=== PATIENT | male | born 1945 | race Caucasian/White ===

== ENCOUNTER 2023-07-13 11:19 | Inpatient (IN) | payer MEDICARE, OTHER, SELFPAY ==
[2023-07-13] VITALS (26 sets, daily range): BP systolic 144–166; BP diastolic 61–74; PULSE 52–67; RESP 13–27; TEMP 36.4; O2SAT 89–99; BMI 35.4; BMI 36.4
--- NOTE | 2023-07-13 11:43 | ECG_ITS ---
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
--- NOTE | 2023-07-13 11:44 | XR_ITS ---
The [address] [address] Patient Name: ANDRES CHRISTINA MRN: [id number] date: 1945 Sex: M Assigned Patient Location: ER Current Patient Location: ER Accession/Order Number: [id number] Exam Date: 07/13/2023 12:00 Report Date: 07/13/2023 12:11 At the request of: MERVIN FERMIN Procedure: XR chest 1V EXAM: XR chest 1V HISTORY: SOB COMPARISON: 06/09/2016 TECHNIQUE: PA and lateral FINDINGS: LUNGS: Elevation the right diaphragm. Mild right basilar infiltrate. The left lung is clear VASCULATURE: No increased pulmonary vasculature. PLEURA: No pneumothorax, effusion, or pleural thickening. CARDIAC: No cardiomegaly or cardiac silhouette abnormality. MEDIASTINUM: No visible mass or adenopathy. . Aortic atherosclerosis BONES: Right humeral head arthroplasty. Degenerative spondylosis OTHER: Negative. XR/XR chest 1V IMPRESSION: Elevated right hemidiaphragm versus subpulmonic pleural effusion with mild right basilar infiltrate Electronically authenticated by: RONNY BARAHONA Date: 07/13/2023 12:11
--- NOTE | 2023-07-13 11:44 | ED.SOB1 ---
HPI - SOB/Dyspnea General Chief Complaint: Shortness of Breath/Dyspnea Stated Complaint: COUGH/ POST OPERATIVE COMPLICATIONS Time Seen by Provider: 07/13/23 11:38 Source: patient and family Mode of arrival: Wheelchair Limitations: no limitations History of Present Illness HPI Narrative: 78-year-old male presents for shortness of breath and concern that he has a blood clot. Three days ago he had outpatient right shoulder surgery. The next day, two days ago, he developed slight cough and some shortness of breath. No fever or hemoptysis. Is not complaining of back pain or chest pain. His ankles are always swollen and there is a little bit more than typical. Related Data Home Medications Medication Instructions Recorded Confirmed allopurinol 300 mg tablet 300 mg PO DAILY 07/13/23 07/13/23 diltiazem HCl 240 mg 240 mg PO DAILY 07/13/23 07/13/23 capsule,extended release 24 hr ferrous sulfate 325 mg (65 mg 325 mg PO DAILY 07/13/23 07/13/23 iron) tablet finasteride 5 mg tablet 5 mg PO DAILY 07/13/23 07/13/23 losartan 50 mg tablet 50 mg PO DAILY 07/13/23 07/13/23 pregabalin 25 mg capsule (Lyrica) 25 mg PO TID 07/13/23 07/13/23 sitagliptin phosphate 50 mg tablet 50 mg PO DAILY 07/13/23 07/13/23 (Januvia) Allergies Allergy/AdvReac Type Severity Reaction Status Date / Time ibuprofen [From Motrin] AdvReac Severe Verified 07/13/23 11:30 morphine AdvReac Severe Vomiting Verified 07/13/23 11:30 Penicillins AdvReac Severe Hives Verified 07/13/23 11:30 Review of Systems ROS Narrative A ten point review of systems is negative except as noted above. PFSH PFSH Social History Smoking status: Former smoker Exam Narrative Exam Narrative: Nurses note and vital signs reviewed and patient is not hypoxic. General: The patient appears well and in no apparent distress. Patient is resting comfortably on cart. he coughs occasionally Skin: Warm, dry, no pallor noted. There is no rash noted. Head: Normocephalic, atraumatic Eye: Normal conjunctiva, no drainage Ears, Nose, Mouth, and Throat: oral mucosa is moist. Nares patent. Cardiovascular: Regular Rate and Rhythm Respiratory: Patient is in no distress, no accessory muscle use, lungs are clear to auscultation, no wheezing, rales or rhonchi Back: non-tender GI: soft and nontender Musculoskeletal: arm is in a sling. He has 2+ edema in both ankles. Neurological: A&O, normal speech Psychiatric: Cooperative Constitutional Vital Signs, click to edit/add: Last Vital Signs Temp 97.5 F L 07/13/23 11:24 Pulse 56 L 07/13/23 13:20 Resp 19 07/13/23 13:20 BP 164/64 H 07/13/23 11:24 Pulse Ox 96 07/13/23 11:24 O2 Del Method Room Air 07/13/23 11:24 Course Vital Signs Vital signs: Vital Signs Temperature 97.5 F L 07/13/23 11:24 Pulse Rate 65 07/13/23 11:24 Respiratory Rate 18 07/13/23 11:24 Blood Pressure 164/64 H 07/13/23 11:24 Pulse Oximetry 96 07/13/23 11:24 Oxygen Delivery Method Room Air 07/13/23 11:24 Temperature 97.5 F L 07/13/23 11:24 Pulse Rate 56 L 07/13/23 13:20 Respiratory Rate 19 07/13/23 13:20 Blood Pressure 164/64 H 07/13/23 11:24 Pulse Oximetry 96 07/13/23 11:24 Oxygen Delivery Method Room Air 07/13/23 11:24 MDM - SOB/Dyspnea MDM Narrative Medical decision making narrative: ventilation perfusion scan shows no evidence of PE but x-ray and CAT scan show effusion and infiltrate. Blood cultures are obtained and he was given IV antibiotics and is being admitted for observation. The patient is in the immediate postoperative period, surgery was three days ago. Treatment diagnosis and disposition were discussed with the patient and his family. His creatinine was 2.05 on June 26. Today it is 2.64 and he has bilateral ankle edema. Differential Diagnosis Differential diagnosis: Likely congestive heart failure, community acquired pneumonia and pulmonary embolism Lab Data Attestation: I reviewed the patient's lab results. Labs: Lab Results 07/13/23 Range/Units 11:48 WBC 15.2 H (4.0-11.0) 10^3/uL RBC 4.44 L (4.70-6.10) 10^6/uL Hgb 12.2 L (14.0-18.0) g/dL Hct 38.5 L (42.0-54.0) % MCV 86.7 (80.0-94.0) fL MCH 27.5 (25.9-34.0) pg MCHC 31.7 (29.9-35.2) g/dL RDW 15.1 H (11.0-15.0) % Plt Count 216 (150-450) 10^3/uL MPV 10.7 (9.5-13.5) fL Neut % (Auto) 74.8 (43.0-75.0) % Lymph % (Auto) 13.4 L (20.5-60.0) % Dukes % (Auto) 9.3 (1.7-12.0) % Eos % (Auto) 0.2 L (0.9-7.0) % Baso % (Auto) 0.3 (0.2-2.0) % Neut # (Auto) 11.4 H (1.4-6.5) 10^3/uL Lymph # (Auto) 2.0 (1.2-3.8) 10^3/uL Dukes # (Auto) 1.4 H (0.3-0.8) 10^3/uL Eos # (Auto) 0.0 (0.0-0.7) 10^3/uL Baso # (Auto) 0.0 (0.0-0.1) 10^3/uL Abs Immat Gran (auto) 0.30 H (0.00-0.03) 10^3/uL Imm/Tot Granulo (auto) 2.0 H (0.0-0.5) % Sodium 140 (136-145) mmol/L Potassium 4.2 (3.5-5.1) mmol/L Chloride 103 (98-107) mmol/L Carbon Dioxide 27.8 (21.0-32.0) mmol/L Anion Gap 13.4 BUN 75.0 H (7.0-18.0) mg/dL Creatinine 2.64 H (0.70-1.30) mg/dL Est GFR ( Amer) 29 L (>=60) Est GFR (Non-Af Amer) 24 L (>=60) BUN/Creatinine Ratio 28.4 Glucose 260 H (74-106) mg/dL Lactate 1.4 (0.4-2.0) mmol/L Calcium 8.7 (8.5-10.1) mg/dL Troponin I High Sens 24.0 (4.0-76.1) pg/mL Imaging Data lung scan, chest x-ray, CT chest: Radiologist's impression: Procedure: CT chest wo con EXAM: CT chest wo con HISTORY: abnormal chest x-ray, evaluate for effusion COMPARISON: Chest study performed earlier today on 07/13/2023 TECHNIQUE: CT chest study was performed without the use of intravenous contrast. Multiple axial images were obtained. Reformatted coronal and sagittal images were obtained and reviewed. FINDINGS: No evidence of mediastinal, hilar or axillary lymphadenopathy. Atherosclerotic calcifications within portions of the thoracic aorta. No evidence of thoracic aortic aneurysm or leak. Mild coronary artery calcifications are noted. Visualized thyroid gland appears grossly unremarkable. Streak artifact related to right shoulder prosthesis. Soft tissue air on the right likely related to recent right shoulder surgery. Mild soft tissue edematous changes on the right likely related to recent surgery. Mild elevation right hemidiaphragm. Consolidated density with air bronchograms in the right lower lobe posteriorly compatible with infiltrate. Small right pleural effusion inferiorly. Mild patchy and linear density in the left lower lobe posteriorly compatible with atelectatic and/or infiltrative changes. Chest wall appears grossly intact. [id number] degenerative changes about the visualized cervical and thoracic spine with slight convexity of the thoracic spine to the right. IMPRESSION: CT chest study demonstrates infiltrative changes in the right lower lobe posteriorly. Mild atelectatic and/or infiltrative changes in the left lower lobe. Small right pleural effusion inferiorly. Postoperative changes as noted. Electronically authenticated by: RUTH CLEMONS Date: 07/13/2023 Procedure: XR chest 1V EXAM: XR chest 1V HISTORY: SOB COMPARISON: 06/09/2016 TECHNIQUE: PA and lateral FINDINGS: LUNGS: Elevation the right diaphragm. Mild right basilar infiltrate. The left lung is clear VASCULATURE: No increased pulmonary vasculature. PLEURA: No pneumothorax, effusion, or pleural thickening. CARDIAC: No cardiomegaly or cardiac silhouette abnormality. MEDIASTINUM: No visible mass or adenopathy. . Aortic atherosclerosis BONES: Right humeral head arthroplasty. Degenerative spondylosis OTHER: Negative. IMPRESSION: Elevated right hemidiaphragm versus subpulmonic pleural effusion with mild right basilar infiltrate Electronically authenticated by: RONNY BARAHONA Date: 07/13/2023 12:11 Procedure: NM pul vent and perfuse NUCLEAR MEDICINE V/Q SCAN HISTORY: Shortness of breath with recent surgery. COMPARISON: Chest X-ray 07/13/2023. METHOD: For the ventilation portion of the study, the patient inhaled 27 mCi of Tc-99m-DTPA in aerosol form and ventilation images in multiple projections was performed. For the perfusion portion of the study, the patient was injected intravenously with 7.7 mCi of Tc-99m-MAA and perfusion images of the lungs in multiple projections were again performed. FINDINGS: There are a few stable very small ventilation perfusion defects at the lung bases. There are no ventilation/perfusion mismatches. IMPRESSION: Very low probability VQ scan. Electronically authenticated by: ARMANDO LAL ECG Data Attestation: I personally reviewed and interpreted this ECG as follows: (EKG on my interpretation shows sinus rhythm with no acute changes) Discharge Plan Discharge Chief Complaint: Shortness of Breath/Dyspnea Time of Disposition Decision: 16:02 Prescriptions / Home Meds: No Action losartan 50 mg tablet 50 mg PO DAILY pregabalin [Lyrica] 25 mg capsule 25 mg PO TID diltiazem HCl 240 mg capsule,extended release 24hr 240 mg PO DAILY allopurinol 300 mg tablet 300 mg PO DAILY Januvia 50 mg tablet 50 mg PO DAILY ferrous sulfate 325 mg (65 mg iron) tablet 325 mg PO DAILY finasteride 5 mg tablet 5 mg PO DAILY
[2023-07-13 12:02] LABS: Basophils Percent Auto 0.3 % (0.2-2.0); Eosinophils Percent Auto 0.2 % (0.9-7.0); Hematocrit 38.5 % (42.0-54.0); Hemoglobin 12.2 g/dL (14.0-18.0); Lymphocytes Percent Auto 13.4 % (20.5-60.0); Mean Corpuscular HGB Conc 31.7 g/dL (29.9-35.2); Mean Corpuscular Hemoglobin 27.5 pg (25.9-34.0); Mean Corpuscular Volume 86.7 fL (80.0-94.0); Mean Platelet Volume 10.7 fL (9.5-13.5); Monocytes Absolute Auto 1.4 10^3/uL (0.3-0.8); Monocytes Percent Auto 9.3 % (1.7-12.0); Neutrophils Absolute Auto 11.4 10^3/uL (1.4-6.5); Neutrophils Percent Auto 74.8 % (43.0-75.0); Platelet Count 216 10^3/uL (150-450); Red Blood Count 4.44 10^6/uL (4.70-6.10); Red Cell Distribution Width 15.1 % (11.0-15.0); White Blood Count 15.2 10^3/uL (4.0-11.0)
[2023-07-13 12:07] LABS: Anion Gap 13.4; BUN Creatinine Ratio 28.4; Calcium 8.7 mg/dL (8.5-10.1); Carbon Dioxide 27.8 mmol/L (21.0-32.0); Chloride 103 mmol/L (98-107); Estimated GFR (African America 29 (>=60); Estimated GFR (Non-African Ame 24 (>=60); Glucose 260 mg/dL (74-106); Potassium 4.2 mmol/L (3.5-5.1); Sodium 140 mmol/L (136-145)
--- NOTE | 2023-07-13 12:22 | NM_ITS ---
The [address] [address] Patient Name: ANDRES CHRISTINA MRN: [id number] date: 1945 Sex: M Assigned Patient Location: ER Current Patient Location: Accession/Order Number: [id number] Exam Date: 07/13/2023 14:00 Report Date: 07/13/2023 15:36 At the request of: MERVIN FERMIN Procedure: NM pul vent and perfuse NUCLEAR MEDICINE V/Q SCAN HISTORY: Shortness of breath with recent surgery. COMPARISON: Chest X-ray 07/13/2023. METHOD: For the ventilation portion of the study, the patient inhaled 27 mCi of Tc-99m-DTPA in aerosol form and ventilation images in multiple projections was performed. For the perfusion portion of the study, the patient was injected intravenously with 7.7 mCi of Tc-99m-MAA and perfusion images of the lungs in multiple projections were again performed. FINDINGS: There are a few stable very small ventilation perfusion defects at the lung bases. There are no ventilation/perfusion mismatches. NM/NM pul vent and perfuse IMPRESSION: Very low probability VQ scan. Electronically authenticated by: ARMANDO LAL Date: 07/13/2023 15:36
--- NOTE | 2023-07-13 12:23 | CT_ITS ---
The [address] [address] Patient Name: ANDRES CHRISTINA MRN: [id number] date: 1945 Sex: M Assigned Patient Location: ER Current Patient Location: ER Accession/Order Number: [id number] Exam Date: 07/13/2023 13:50 Report Date: 07/13/2023 14:13 At the request of: MERVIN FERMIN Procedure: CT chest wo con EXAM: CT chest wo con HISTORY: abnormal chest x-ray, evaluate for effusion COMPARISON: Chest study performed earlier today on 07/13/2023 TECHNIQUE: CT chest study was performed without the use of intravenous contrast. Multiple axial images were obtained. Reformatted coronal and sagittal images were obtained and reviewed. FINDINGS: No evidence of mediastinal, hilar or axillary lymphadenopathy. Atherosclerotic calcifications within portions of the thoracic aorta. No evidence of thoracic aortic aneurysm or leak. Mild coronary artery calcifications are noted. Visualized thyroid gland appears grossly unremarkable. Streak artifact related to right shoulder prosthesis. Soft tissue air on the right likely related to recent right shoulder surgery. Mild soft tissue edematous changes on the right likely related to recent surgery. Mild elevation right hemidiaphragm. Consolidated density with air bronchograms in the right lower lobe posteriorly compatible with infiltrate. Small right pleural effusion inferiorly. Mild patchy and linear density in the left lower lobe posteriorly compatible with atelectatic and/or infiltrative changes. Chest wall appears grossly intact. [id number] degenerative changes about the visualized cervical and thoracic spine with slight convexity of the thoracic spine to the right. CT/CT chest wo con IMPRESSION: CT chest study demonstrates infiltrative changes in the right lower lobe posteriorly. Mild atelectatic and/or infiltrative changes in the left lower lobe. Small right pleural effusion inferiorly. Postoperative changes as noted. Electronically authenticated by: RUTH CLEMONS Date: 07/13/2023 14:13
[2023-07-13 15:21] LABS: Lactate/Lactic Acid 1.4 mmol/L (0.4-2.0)
[2023-07-13] MEDS: OXYCODONE HCL/ACETAMINOPHEN 5MG/325MG 1 TAB PO (15:26)
[2023-07-13] MEDS: CEFTRIAXONE 1,000 MG in 0.9 % SODIUM CHLORIDE 50 ML 100 MG IV (16:22)
[2023-07-13] MEDS: LACTATED RINGER'S SOLUTION 1,000 ML 100 ML IV (17:23)
[2023-07-13] MEDS: AZITHROMYCIN 500 MG in 0.9 % SODIUM CHLORIDE 250 ML 250 MG IV (17:23)
[2023-07-13] MEDS: PREGABALIN 75 MG CAPSULE PO (21:10)
[2023-07-13] MEDS: HEPARIN SODIUM (PORCINE) 5,000 UNIT/ML VIAL 5000 UNIT SUBQ (21:10)
[2023-07-13 21:35] LABS: Glucometer 172 mg/dL (74-106)
[2023-07-13] MEDS: INSULIN ASPART 300 UNIT/3 ML PEN SUBQ (21:35)
[2023-07-13] MEDS: IPRATROPIUM/ALBUTEROL SULFATE 3 ML AMPUL.NEB IH (22:46)
[2023-07-14 04:06] VITALS: BP 133/67; PULSE 99; RESP 18; TEMP 36.7; O2SAT 97
[2023-07-14 04:07] VITALS: PULSE 61; RESP 18; O2SAT 97
[2023-07-14] MEDS: IPRATROPIUM/ALBUTEROL SULFATE 3 ML AMPUL.NEB IH ×2 (04:07→11:12)
[2023-07-14] MEDS: LACTATED RINGER'S SOLUTION 1,000 ML 100 ML IV (04:11)
[2023-07-14 05:16] LABS: Basophils Percent Auto 0.2 % (0.2-2.0); Eosinophils Absolute Auto 0.1 10^3/uL (0.0-0.7); Eosinophils Percent Auto 0.5 % (0.9-7.0); Hematocrit 32.4 % (42.0-54.0); Immature Granulocytes Abs Auto 0.22 10^3/uL (0.00-0.03); Immature Granulocytes Pct Auto 2.1 % (0.0-0.5); Lymphocytes Absolute Auto 2.3 10^3/uL (1.2-3.8); Lymphocytes Percent Auto 21.1 % (20.5-60.0); Mean Corpuscular HGB Conc 30.9 g/dL (29.9-35.2); Mean Corpuscular Hemoglobin 27.1 pg (25.9-34.0); Mean Corpuscular Volume 87.8 fL (80.0-94.0); Monocytes Absolute Auto 1.2 10^3/uL (0.3-0.8); Monocytes Percent Auto 11.4 % (1.7-12.0); Neutrophils Percent Auto 64.7 % (43.0-75.0); Platelet Count 177 10^3/uL (150-450); Red Blood Count 3.69 10^6/uL (4.70-6.10); Red Cell Distribution Width 15.2 % (11.0-15.0); White Blood Count 10.7 10^3/uL (4.0-11.0)
[2023-07-14 05:29] LABS: Alanine Aminotransferase 14 U/L (16-63); Albumin Globulin Ratio 0.7; Albumin Level 2.3 g/dL (3.4-5.0); Alkaline Phosphatase 87 U/L (46-116); Aspartate Amino Transferase 14 U/L (15-37); BUN Creatinine Ratio 31.5; Bilirubin Total 0.3 mg/dL (0.2-1.0); Calcium 8.2 mg/dL (8.5-10.1); Carbon Dioxide 26.2 mmol/L (21.0-32.0); Chloride 105 mmol/L (98-107); Estimated GFR (African America 39 (>=60); Estimated GFR (Non-African Ame 32 (>=60); Globulin 3.1 g/dL; Glucose 142 mg/dL (74-106); Potassium 4.2 mmol/L (3.5-5.1); Sodium 140 mmol/L (136-145); Total Protein 5.4 g/dL (6.4-8.2)
[2023-07-14] MEDS: HEPARIN SODIUM (PORCINE) 5,000 UNIT/ML VIAL 5000 UNIT SUBQ ×2 (05:43→14:41)
--- NOTE | 2023-07-14 08:33 | P.HP_ITS ---
H&P: HPI History of Present Illness Chief complaint: COUGH/ POST OPERATIVE COMPLICATIONS pneumonia Narrative: patient is a 78-year-old with past medical history of gout, hypertension, iron deficiency anemia, congestive heart failure, benign prostatic hypertrophy, type 2 diabetes who presented to the emergency room yesterday with shortness of breath. He had right shoulder surgery approximately three days ago and he developed a cough with some shortness of breath about two days after surgery. He denies any fever chills nausea vomiting or chest pain. He states that his symptoms have somewhat improved this morning. He does note some soreness in his right shoulder is in a sling/immobilizer but says overall his shortness of breath has improved.chest x-ray showed bilateral lower lobe infiltrates consistent with pneumonia. patient was admitted for further evaluation. Also at the time of admission exam is not requiring any oxygen to maintain saturations greater than ninety. Review of Systems ROS Narrative ROS: a complete review of systems were reviewed with patient and are positive as below or listed in History of Chief Complaint. General: no fever, chills, night sweats Head: no headache, trauma, visual changes, nausea or vomiting Skin: no reported rashes, itching or sores Eyes: no blurriness of vision Ears: no reported hearing loss, vertigo, earache, or tinnitus Throat: no sore throat, hoarseness, swelling of neck, or tongue pain Heart: no chest pain Lungs:shortness of breath and cough GI: no diarrhea or vomiting/nausea Urinary: no urinary urgency, frequency or pain Neuro: no numbness or tingling HEM: no bleeding issues or bruising ENDO: no thyroid problems Psych: no anxiety or depression PFSH PFSH Medical History (Updated 07/14/23 @ 14:12 by Isabel Limon DO) Gout ?M10.9 - Gout, unspecified (ICD-10) High blood pressure ?I10 - Essential (primary) hypertension (ICD-10) [place] (hard of hearing) ?H91.90 - Unspecified hearing loss, unspecified ear (ICD-10) Surgical History History of hip replacement ?Z96.649 - Presence of unspecified artificial hip joint (ICD-10) History of knee replacement (~11/2022) ?Z96.659 - Presence of unspecified artificial knee joint (ICD-10) History of reverse total replacement of right shoulder joint (~07/10/23) ?Z96.611 - Presence of right artificial shoulder joint (ICD-10) Social History Within the past year, how often did you have a drink containing alcohol: monthly or less Smoking status: Former smoker Non-prescribed substance use: denies use Previous occupational history: farm Highest level of school completed/degree received: high school graduate Meds Home Medications and Allergies Home Medications Medication Instructions Recorded Confirmed Type allopurinol 300 mg tablet 300 mg PO DAILY 07/13/23 07/13/23 History cholecalciferol (vitamin D3) 25 2,000 unit PO DAILY 07/13/23 07/13/23 History mcg (1,000 unit) capsule diltiazem HCl 240 mg 240 mg PO DAILY 07/13/23 07/13/23 History capsule,extended release 24 hr ferrous sulfate 325 mg (65 mg 325 mg PO MOWEFR@07/13/23 07/13/23 History iron) tablet finasteride 5 mg tablet 5 mg PO DAILY 07/13/23 07/13/23 History furosemide 40 mg tablet 40 mg PO DAILY 07/13/23 07/13/23 History losartan 50 mg tablet 50 mg PO DAILY 07/13/23 07/13/23 History pregabalin 25 mg capsule (Lyrica) 75 mg PO BID 07/13/23 07/13/23 History sitagliptin phosphate 50 mg tablet 50 mg PO DAILY 07/13/23 07/13/23 History (Renée) Allergies Allergy/AdvReac Type Severity Reaction Status Date / Time ibuprofen [From Motrin] AdvReac Severe Verified 07/13/23 17:07 morphine AdvReac Severe Vomiting Verified 07/13/23 17:07 Penicillins AdvReac Severe Hives Verified 07/13/23 17:07 Exam Narrative Exam Narrative: General: Patient is alert, and oriented to person, place and time with normal affect, proper hygiene Skin: no visible rashes, or ulcers Head: atraumatic, acephalic Eyes: PERRLA, no nystagmus present, conjunctiva clear, no scleral icterus Ears: normal Tympanic Membrane, normal gross auditory acuity Nose: symmetric, no discharge, no maxillary or frontal sinus tenderness Neck: no masses palpated, normal thyroid, no JVD or audible carotid bruits Heart: Normal rate and rhythm, no murmurs/rubs/gallops Lungs: slight bilateral wheezes, no crackles and normal breath sounds all lung jaramillo Abdomen: Normal audible bowel sounds, mild distension, No palpable masses, no organomegaly, no rebound/guarding/ or rigidity Musculoskeletal: muscle atrophy noted, ROM is limited due to being in hospital bed, no swelling bilateral lower extremities Vascular: Normal carotid, radial, femoral, posterior tibial, and dorsalis pedis pulses Lymph: no supraclavicular, axillary, or anterior/posterior cervical adenopathy Neuro: CN II-X grossly intact, normal sensation upper and lower extremities Constitutional Vital Signs, click to edit/add: Last Vital Signs Temp 98.0 F 07/14/23 04:06 Pulse 61 07/14/23 04:07 Resp 18 07/14/23 04:07 BP 133/67 07/14/23 04:06 Pulse Ox 97 07/14/23 04:07 O2 Del Method Room Air 07/14/23 04:07 Results Labs Labs: Short CBC 07/13/23 07/14/23 Range/Units 11:48 04:26 WBC 15.2 H 10.7 (4.0-11.0) 10^3/uL Hgb 12.2 L 10.0 L (14.0-18.0) g/dL Hct 38.5 L 32.4 L (42.0-54.0) % Plt Count 216 177 (150-450) 10^3/uL BMP 07/13/23 07/14/23 11:48 04:26 Sodium 140 140 Potassium 4.2 4.2 Chloride 103 105 Carbon Dioxide 27.8 26.2 BUN 75.0 H 63.0 H Creatinine 2.64 H 2.00 H Glucose 260 H 142 H Calcium 8.7 8.2 L Liver Function 07/14/23 Range/Units 04:26 Total Bilirubin 0.3 (0.2-1.0) mg/dL AST 14 L (15-37) U/L ALT 14 L (16-63) U/L Alkaline Phosphatase 87 (46-116) U/L Albumin 2.3 L (3.4-5.0) g/dL Assessment and Plan Assessment and Plan (1) Pneumonia of both lower lobes: Assessment and Plan: Chest X-ray showed this, respiratory culture negative. patient on Azithromycin and rocephin. will continue. continue nebs as needed, not requiring oxygen, Normal WBC's, Normal VQ scan Qualifiers: Pneumonia type: due to unspecified organism Qualified Code(s): J18.9 - Pneumonia, unspecified organism (2) Arthritis of right shoulder region: Assessment and Plan: recent surgery, continue pain medications (3) High blood pressure: Assessment and Plan: continue home medications Qualifiers: Hypertension type: primary hypertension Qualified Code(s): I10 - Essential (primary) hypertension (4) Constipation: Assessment and Plan: continue docusate and miralax Qualifiers: Constipation type: drug induced constipation Qualified Code(s): K59.03 - Drug induced constipation (5) Gout: Assessment and Plan: no acute attacks, continue home meds Qualifiers: Gout site: unspecified site Gout etiology: unspecified cause Chron icity: chronic (6) Type 2 diabetes mellitus: Assessment and Plan: SSI while hospitalized with qac, qhs finger sticks. Plan patient is a full code admitted to observation [facility] for dvt prophylaxis
[2023-07-14] MEDS: AZITHROMYCIN 250 MG TABLET 500 MG PO (10:55)
[2023-07-14] MEDS: DILTIAZEM HCL 240 MG CAP.ER.24H PO (10:55)
[2023-07-14] MEDS: FERROUS SULFATE 325 MG TABLET PO (10:56)
[2023-07-14] MEDS: ALLOPURINOL 300 MG TABLET PO (10:56)
[2023-07-14] MEDS: FINASTERIDE 5 MG TABLET PO (10:56)
[2023-07-14] MEDS: PREGABALIN 75 MG CAPSULE PO (10:56)
[2023-07-14] MEDS: CEFTRIAXONE 1,000 MG in 0.9 % SODIUM CHLORIDE 50 ML 100 MG IV (10:56)
[2023-07-14] MEDS: OXYCODONE HCL 5 MG TABLET PO (10:59)
[2023-07-14] MEDS: INSULIN ASPART 300 UNIT/3 ML PEN SUBQ ×2 (11:01→12:21)
[2023-07-14] MEDS: MAALOX (MAG HYDROX/ALUMINUM HYD/SIMETH) 30 ML ORAL.SUSP PO (11:02)
[2023-07-14] MEDS: POLYETHYLENE GLYCOL 3350 17 GM POWDER PACKET PO (11:02)
[2023-07-14 11:13] VITALS: PULSE 79; O2SAT 97
[2023-07-14 12:20] LABS: Glucometer 241 mg/dL (74-106)
--- NOTE | 2023-07-14 14:14 | P.DS_ITS ---
DS: Providers Provider Date of admission: 07/13/23 16:57 Primary care physician: Non-Staff PhysicianMD Admitting clinician: Shaikh Umu Consults: 07/13/23 16:31 Occupational Therapy Eval and Treat Routine Reason for consultation: Ambulatory dysfunction/weakness Physical Therapy Eval and Treat Routine Reason for consultation: Ambulatory dysfunction/weakness Discharging clinician: Isabel Limon DS: Diagnosis Discharge Diagnosis (1) Pneumonia of both lower lobes: Qualifiers: Pneumonia type: due to unspecified organism Qualified Code(s): J18.9 - Pneumonia, unspecified organism (2) Arthritis of right shoulder region: (3) High blood pressure: Qualifiers: Hypertension type: primary hypertension Qualified Code(s): I10 - Essential (primary) hypertension (4) Constipation: Qualifiers: Constipation type: drug induced constipation Qualified Code(s): K59.03 - Drug induced constipation (5) Gout: Qualifiers: Chronicity: chronic Gout etiology: unspecified cause Gout site: unspecified site (6) Type 2 diabetes mellitus: DS: Summary Hospital Course Hospital Course: patient is a 78-year-old with past medical history of gout, hypertension, iron deficiency anemia, congestive heart failure, benign prostatic hypertrophy, type 2 diabetes who presented to the emergency room yesterday with shortness of breath. He had right shoulder surgery approximately three days ago and he developed a cough with some shortness of breath about two days after surgery. He denies any fever chills nausea vomiting or chest pain. He states that his sympt oms have somewhat improved this morning. He does note some soreness in his right shoulder is in a sling/immobilizer but says overall his shortness of breath has improved. chest x-ray showed bilateral lower lobe infiltrates consistent with pneumonia. patient was admitted for further evaluation. At the time of discharge, patient is not requiring any oxygen to maintain saturations greater than ninety. V/Q scan was negative. Will treat Pneumonia outpatient with 4 more days of azithromycin, Albuterol as needed. Return to the ER with any worsening signs or symptoms. OPEP therapy at home. For constipation due to narcotics, take docusate and also take miralax daily. All other home medications are unchanged. Follow up with PCP AND ortho as scheduled. Status at Discharge Functional status at discharge: independent ambulation Overall status at discharge: patient is progressing back to baseline Time Spent with Patient Time attestation: Total time spent providing and/or coordinating discharge services: Time spent: greater than 30 minutes Exam Narrative Exam Narrative: no changes to discharge exam as the H and P exam dated 07/14/23 Constitutional Vital Signs, click to edit/add: Last Vital Signs Temp 98.0 F 07/14/23 04:06 Pulse 79 07/14/23 11:13 Resp 18 07/14/23 04:07 BP 133/67 07/14/23 04:06 Pulse Ox 97 07/14/23 11:13 O2 Del Method Room Air 07/14/23 12:12 DS: Data Data Completed and Pending Labs on day of discharge: Labs from last 24 hours 07/14/23 07/14/23 07/13/23 12:19 04:26 21:33 WBC 10.7 RBC 3.69 L Hgb 10.0 L Hct 32.4 L MCV 87.8 MCH 27.1 MCHC 30.9 RDW 15.2 H Plt Count 177 MPV 11.0 Neut % (Auto) 64.7 Lymph % (Auto) 21.1 Republic % (Auto) 11.4 Eos % (Auto) 0.5 L Baso % (Auto) 0.2 Neut # (Auto) 7.0 H Lymph # (Auto) 2.3 Republic # (Auto) 1.2 H Eos # (Auto) 0.1 Baso # (Auto) 0.0 Abs Immat Gran (auto) 0.22 H Imm/Tot Granulo (auto) 2.1 H Sodium 140 Potassium 4.2 Chloride 105 Carbon Dioxide 26.2 Anion Gap 13.0 BUN 63.0 H Creatinine 2.00 H Est GFR ( Amer) 39 L Est GFR (Non-Af Amer) 32 L BUN/Creatinine Ratio 31.5 Glucose 142 H Lactate Calcium 8.2 L Total Bilirubin 0.3 AST 14 L ALT 14 L Alkaline Phosphatase 87 Total Protein 5.4 L Albumin 2.3 L Globulin 3.1 Albumin/Globulin Ratio 0.7 POC Glucose 241 H 172 H 07/13/23 11:48 WBC RBC Hgb Hct MCV MCH MCHC RDW Plt Count MPV Neut % (Auto) Lymph % (Auto) Republic % (Auto) Eos % (Auto) Baso % (Auto) Neut # (Auto) Lymph # (Auto) Republic # (Auto) Eos # (Auto) Baso # (Auto) Abs Immat Gran (auto) Imm/Tot Granulo (auto) Sodium Potassium Chloride Carbon Dioxide Anion Gap BUN Creatinine Est GFR ( Amer) Est GFR (Non-Af Amer) BUN/Creatinine Ratio Glucose Lactate 1.4 Calcium Total Bilirubin AST ALT Alkaline Phosphatase Total Protein Albumin Globulin Albumin/Globulin Ratio POC Glucose Discharge Plan Discharge Disposition: (FBC OBS) Home, Self-Care Condition: Good Discharge Medications: New azithromycin 250 mg tablet 250 mg PO DAILY 4 Days Qty: 4 0RF albuterol sulfate 90 mcg/actuation HFA aerosol inhaler 2 inh inhalation Q4H PRN (Reason: shortness of breath or wheezing) Qty: 8.5 0RF docusate sodium 100 mg capsule 100 mg PO BID 30 Days Qty: 60 0RF Continued losartan 50 mg tablet 50 mg PO DAILY pregabalin [Lyrica] 25 mg capsule 75 mg PO BID diltiazem HCl 240 mg capsule,extended release 24hr 240 mg PO DAILY allopurinol 300 mg tablet 300 mg PO DAILY Januvia 50 mg tablet 50 mg PO DAILY ferrous sulfate 325 mg (65 mg iron) tablet 325 mg PO MOWEFR@09 finasteride 5 mg tablet 5 mg PO DAILY cholecalciferol (vitamin D3) 25 mcg (1,000 unit) capsule 2,000 unit PO DAILY furosemide 40 mg tablet 40 mg PO DAILY Diet: advance to your usual diet Follow Up Appointments: pcp 5-7 days, ortho as scheduled
== END 2023-07-14 16:08 | disposition home or self-care (01) | DRG 195 ==
LOC: ER 16:03 → MS 07-14 14:14
PROVIDERS: Admitting Provider Internal Medicine; Emergency Provider Emergency Medicine; Visit Provider Internal Medicine
DX: J18.9 Pneumonia, unspecified organism (principal); M19.011 Primary osteoarthritis, right shoulder; I11.0 Hypertensive heart disease with heart failure; Z98.890 Other specified postprocedural states; K59.03 Drug induced constipation; E11.9 Type 2 diabetes mellitus without complications; I50.9 Heart failure, unspecified; N40.0 Benign prostatic hyperplasia without lower urinary tract symptoms; D50.9 Iron deficiency anemia, unspecified; Z79.899 Other long term (current) drug therapy; M1A.9XX0 Chronic gout, unspecified, without tophus (tophi); Z79.84 Long term (current) use of oral hypoglycemic drugs; Z87.891 Personal history of nicotine dependence
CPT/HCPCS: 36415; 36592; 71045; 71250; 78582; 80048; 80053; 82948; 83605; 84484; 85025; 87040; 90662; 93005; 94640; 94667; 94761; 96365; 96366; 96367; 96372; 97161; 97530; 99285; A9540; A9567; G0008; J0456

== ENCOUNTER 2025-01-29 10:54 | Outpatient (OUT) | payer MEDICARE, OTHER, SELFPAY ==
--- OUTSIDE RECORDS SUMMARY | 2024-02-19 06:48 | XMS_ITS ---
Author Organization The [facility] in [place] Address [address] [place] [address] Care Team Providers Care Dry Can Tender Name Role Phone Brenda Fong Primary Care Provider Unavail casandra Sid Esdras Laughlin [phone] REASON FOR VISIT Labs Encounters Encounter Location Date Provider Diagnosis [facility] [place] [address] [place] [address] 02/19/2024 Esdras Lau Chronic kidney disease, stage 3b N18.32 Assessments Encounter Date Diagnosis (ICD Code) Assessment Notes Treatment Notes Treatment Clinical Notes Section Notes 02/19/2024 Chronic kidney disease, stage 3b (ICD-10 - N18.32) Plan Of Treatment Pending Test Test Name Order Date UA (URINALYSIS, COMPLETE) 02/19/2024 ALBUMIN, BLOOD 02/19/2024 MAGNESIUM 02/19/2024 CBC NO DIFF 02/19/2024 BMP (BASIC MET PANEL - W/GFR) 02/19/2024 MICROALBUMIN with ALB/CREAT RATIO, URINE (MALB)) 02/19/2024 PHOSPHORUS 02/19/2024 Next Appt Details Provider Name:Esdras Lau, 06/01/2025 12:00:00 PM, [address], [place], [address], Progress Notes * Ishaan CHRISTINADOB:[birth year] (79 yo M)Acc No.[id number]:02/19/2024 Patient: Benton Ishaan JONES :1945 A ge:79 Y S ex:Male Address:[address] [place] [address], [place], [address] Subjective: * Chief Complaints: * L abs * Medical History: * Surgical History: * Hospitalization/Major Diagno stic Procedure: * Medications: Objective: * Vitals: * Physical Examination: Assessment: * Assessment: 1. C hronic kidney disease, stage 3b - N18.32 Plan: * Treatment: * Procedure Codes: * true * Date: Generated for Adia menendez/Danielle/eTransmitting on: 0 01/29/2025 11:00 AM EDT
--- OUTSIDE RECORDS SUMMARY | 2024-02-25 11:00 | XMS_ITS ---
Author Organization The [facility] in [place] Address [address] [place] [address] Care Team Providers Care Organic Search Lead Name Role Phone Brenda Fong Primary Care Provider Unavail able Sid Esdras Laughlin [phone] Allergies Allergen (clinical drug ingredient) Drug/Non Drug [...] for 30 day(s) Not-Taking Ergocalciferol 1.25 MG (04341 UT) 1 capsule Orally Weekly Not-Taking Finasteride [...] Problem Status W/U Status Risk Notes Problem [id number] Chronic kidney disease, stage 4 (severe) (N18.4) Active confirmed Vital Signs Blood pressure systolic 145 mm Hg 02/25/20 24 Blood pressure diastolic 68 mm Hg 024 Height 5 ft 10 in in 02/25/2024 Weight 259 lbs 02/25/2024 BMI 37.16 kg/m2 02/25/2024 Encounters Encounter Location Date Provider Diagnosis [facility] [place] [address] [place] [address] 02/25/2024 Esdras Lau Chronic kidney disea se, [...] Provider Name:Esdras Lau, 06/01/2025 12:00:00 PM, [address] [place] [address], [place], [address], Progress Notes * Ishaan CHRISTINADOB:[birth year] (79 yo M)Acc No.[id number]:02/25/2024 Progress Note Patient: Ishaan TODD Provider: Fozia Lau MD :1945 A ge:79 Y S ex:Male Date:02/25/2024 Address:[address] [place] [address], [facility] Pcp:HORTENCIA Gr Check In:03:22 PM ESTCheck O [...] On:05/14/2023U Status:confirmed M19.90 Arthritis of right s [facility] Modified On:08/27/2023U Status:confirmed I10 High blood [...] Orally Once a day Ergocalciferol 1.25 MG (15163 UT) Capsule 1 capsule Orally Weekly Finasteride [...] Once a day Not-Taking/PRN Ergocalciferol 1.25 MG (26245 UT) Capsule 1 capsule Orally Weekly Not-Taking/PRN [...] true * Provider: Fozia Lau MD Date: 0 02/25/2024 Generated for Adia menendez/Danielle/eTransmitting on: 0 01/29/2025 10:59 AM EDT History and Physical Notes * [...]
--- OUTSIDE RECORDS SUMMARY | 2025-01-23 05:15 | XMS_ITS ---
Author Organization [facility] vices Address [address] [place] [id number] Care Team Providers Care Asset Protection Professional Name Role Phone Shailesh Erwin Primary Care Provider REASON FOR VISIT 3 month HTN Social History Sex Assigned At : Social History Observation Description Sex Assigned At Male Encounters Encounter Location Date Provider Diagnosis Main [address] [place] [id number] 01/23/2025 Shailesh Erwin Plan Of Treatment No Information Progress Notes * Ishaan CHRISTINADOB:[birth year] (80 yo M)Acc No.[id number]:01/23/2025 Medical Note Patient: Ishaan TODD Provider: Fozia Erwin :1945 A ge:80 Y S ex:Male Date:01/23/2025 Address:[address], [place], [place] Subjective: * Chief Complaints: * 1 . 3 month HTN. * Medical History: Objective: * Vitals: Assessment: Plan: * Treatment: * Billing Information: * Visit Code: * Procedure Codes: * Electronic signature of VERONICA Jaramillo on 01/29/2025 at 11:00 AM EDT Sign off status: Pending * Provider: Fozia Erwin Date: 01/23/2025 Generated for Printi ng/Faxing/eTransmitting on: 01/29/2025 11:00 AM EDT
--- NOTE | 2025-01-29 10:58 | ECG_ITS ---
[facility] [place] Test Date: 2025-01-29 Pat Name: ANDRES CHRISTINA Department: Room: - Gender: Male Bed Rubber: : 1945 Requested By: CLOTILDE VERDUZCO Order Number: [id number] Reading MD: NICK DOWNEY M.D. Measurements Intervals [place] Rate: 55 P: 60 CO: 219 QRS: -28 QRSD: 87 T: 53 QT: 440 QTc: 421 Interpretive Statements SINUS BRADYCARDIA WITH FIRST DEGREE AV BLOCK BORDERLINE LEFT AXIS DEVIATION [QRS AXIS < -20] Compared to ECG 07/13/2023 11:37:57 First degree AV block now present Sinus rhythm no longer present Electronically Signed On 01-29-2025 19:50:14 EDT by NICK DOWNEY M.D.
--- OUTSIDE RECORDS SUMMARY | 2025-01-29 10:59 | XMS_ITS | Encounter Summary ---
Author Organization [facility] Address [address] [place] [address] Care Team Providers Care Broacher Name Role Phone Mona Box DO Primary Care Provider Unallocated, Noms Provider Primary Care Provi [place] Encounter Details Date Type Department Care Team (Late st Contact Info) Description 03/25/2023 Abstract [facility] [address] [place] [address] Mona Box DO [address] [phone] Social History Tobacco Use Types Packs/Day Years Used Date Smoking Tobacco: Never Assessed Sex and Gender Information Value Date Recorded Sex Assigned at Not on file Legal Sex Male 6:33 PM EDT Gender Identity Not on file Sexual Orientation Not on file documented as of this encounter Plan of Treatment Not on file documented as of this encounter Visit Diagnoses Not on filedocumented in this encounter Care Teams Broacher Relationship Specialty Start Date End Date Mona Box DO PCP - General Family Medicine 12/12/22 04/22/24 Unallocated, Noms Provider, [place] [address] PCP - General Family Medicine 04/23/24 documented as of this encounter
--- OUTSIDE RECORDS SUMMARY | 2025-01-29 10:59 | XMS_ITS | Encounter Summary ---
Author Organization [facility] Address [id number] [address] [place] [address] Care Team Providers Care Household Worker Name Role Phone Services, [facility] Primary Care Provider Encounter Details Date Type Department Care Team (Late st Contact Info) Description 11/01/2023 Orders Only [facility] [address] [place] [phone] External, Scanning Provider Social History Tobacco Use Types Packs/Day Years Used Date Smoking Tobacco: Former Cigarettes 1 7 1 975 - 1981 Smokeless Tobacco: Never Alcohol Use Standard Drinks/Week Comments Never 0 (1 standard drink = 0.6 oz pur e alcohol) AUDIT-C Answer Date Recorded Frequency of Alcohol Consumption Never 09/26/2019 Average Number of Drinks Not on file 020 Frequency of Binge Drinking Not on file 09/07 Housing Instability Answer Date Recorde d Are you worried or concerned that in the next two months you may not have stable housing that you own, rent or stay in as a part of a household? No 11/24/2022 Childcare Answer Date Recorded Childcare Unknown 01/15/2019 Employment Answer Date Recorded Employment Unknown 01/15/2019 Hunger Screening Answer Date Recorded Within the past 12 months we worried whether our food would run out before we got money to buy more. Never True 09/11/2023 Within the past 12 months th e food we bought just didn't last and we didn't have money to get more. Never True 09/11/2023 Purpose - Life Answer Date Recorded Purpose and direction in life Unknown Sex and Gender Information Value Date Recorded Sex Assigned at Not on file Legal Sex Male 11:21 AM EDT Gender Identity Not on file Sexual Orientation Not on file documented as of this encounter Plan of Treatment Upcoming Encounters Date Type Department Care Team (Late st Contact Info) Description 06/12/2025 2:15 PM EST Office Visit Feliictas Grier [facility] - Medical Oncology [address] [place] [address] Fab Cespedes MD [address] [place] [address] [address] [place] [address] documented as of this encounter Goals Goal Patient Goal Type Associated Problems Recent Progress Patient-Stated? Author IMPROVE MOBILITY General Yes Delfina Dobbs, RN Note: Evaluation of progress towards goal: Maximize work with PT at discharge to strengthen R SHOULDER home with self care and family support General Yes Cheri Vergara, JOSE Note: Evaluation of progress towards goal: home with self care and family support documented as of this encounter Procedures Procedure Name Priority Date/Time Associated Diagnosis Comments ECHO COMPLETE WO CONTRAST Routine 09/06/2010 2:38 PM EST documented in this encounter Results * Echo complete W/O contrast (09/06/2010 2:38 PM EST) Anatomical Region Laterality Modality Chest N/A Ultrasound us Scanning Provider External CV ECHO ORDERABLES Fi nal Result documented in this encounter Visit Diagnoses Not on filedocumented in this encounter Care Teams Household Worker Relationship Specialty Start Date End Date Services, [facility] [address] [place], [place] PCP - General Family Medicine 02/19/24 documented as of this encounter
--- OUTSIDE RECORDS SUMMARY | 2025-01-29 10:59 | XMS_ITS | Encounter Summary ---
Author Organization [facility] Address [address] [place] [address] Care Team Providers Care Eastern Philosophy Professor Name Role Phone Mona Box DO Primary Care Provider Unallocated, Noms Provider Primary Care Provi [place] Reason for Visit * Reason Comments Med Refill Encounter Details Date Type Department Care Team (Late st Contact Info) Description 03/09/2023 Refill [facility] [address] [place] [address] Mona Box DO [address] [facility] [place] [address] [place] [address] Social History Tobacco Use Types Packs/Day Years [...] on filedocumented in this encounter Care Teams Eastern Philosophy Professor Relationship Specialty Start Date End Date Mona Box DO PCP - General Family Medicine 12/12/22 04/22/24 Unallocated, Noms Provider, [place] [address] PCP - General Family Medicine 04/23/24 documented as of this encounter
--- OUTSIDE RECORDS SUMMARY | 2025-01-29 10:59 | XMS_ITS | Clinical Summary ---
Author Organization [facility] Address [address] [place], [place] [address] Care Team Providers Care Senior User Experience Architect Name Role Phone Benton Umana Primary Care Provider Social History Tobacco Use Types Packs/Day Years Used Date Smoking Tobacco: Never Assessed Sex and Gender Information Value Date Recorded Sex Assigned at Not on file Legal Sex Male 10:04 AM EDT Gender Identity Not on file Sexual Orientation Not on file Plan of Treatment Not on file Insurance MEDICARE [id number] [facility] Address: [address] [facility] [place] [address] Care Teams Senior User Experience Architect Relationship Specialty Start Date End Date Benton Umana [address] [place] [address] PCP - General Family Medicine 11/22/18
--- OUTSIDE RECORDS SUMMARY | 2025-01-29 10:59 | XMS_ITS | Encounter Summary ---
Author Organization [employer] Address [id number] [address] [place] [address] Care Team Providers Care Manager Environmental Affairs Name Role Phone Services, [facility] Primary Care Provider Encounter Details Date Type Department Care Team (Latest Contact Info) Description 01/21/2025 Travel Social History Tobacco Use Types Packs/Day Years [...] got money to buy more. Never True 04/21/2024 Within the past 12 months th e food we bought just didn't last and we didn't have money to get more. Never True 04/21/2024 Purpose - Life Answer Date Recorded Purpose [...] Description 06/12/2025 2:15 PM EST Office Visit Felicitas Grier [facility] - Medical Oncology [address] [place] [phone] Fab Cespedes MD [address] [facility] [address] [place] [address] documented as of this encounter Goals Goal Patient Goal Type Associated Problems Recent Progress Patient-Stated? Author IMPROVE MOBILITY General Yes Delfina Dobbs, RN Note: Evaluation of progress towards goal: Maximize work with PT at discharge to strengthen R SHOULDER home with self care and family support General Yes Cheri Vergara, RN Note: Evaluation of progress towards goal: home with self care and family support documented as of this encounter Visit Diagnoses Not on filedocumented in this encounter Care Teams Manager Environmental Affairs Relationship Specialty Start Date End Date Services, [facility] [address] [place], [place] PCP - General Family Medicine 02/19/24 documented as of this encounter
--- OUTSIDE RECORDS SUMMARY | 2025-01-29 11:00 | XMS_ITS | Clinical Summary ---
Author Organization [employer] tem Address [id number] [address] [place] [address] Care Team Providers Care Cabin Furnishings Installer Name Role Phone Services, [facility] Primary Care Provider Allergies Active Allergy Reactions Criticality Noted Date Comments Morphine Vomiting Medium 09/26/2019 Ibuprofen Swelling Medium 09/26/2019 legs Penicillins Hives Medium 09/26/2019 Medications allopurinoL (ZYLOPRIM) 300 mg tabletIndication s:prevention of acute gout attack Take 0.5 tablets (150 mg total) by mouth in the morning. Indications: treatment to prevent acute gout attack. Active dilTIAZem CD (CARDIZEM CD) 240 mg 24 hr capsuleIndicatio ns:hypertension Take 1 capsule (240 mg total) by mouth daily with breakfast Indications: high blood pressure. Active losartan (COZAAR) 50 mg tabletIndication s:hypertension Take 1 tablet (50 mg total) by mouth in the morning. Indications: high blood pressure. Active finasteride (PROSCAR) 5 mg tabletIndication s:benign prostatic hyperplasia with lower urinary tract sx Take 1 tablet (5 mg total) by mouth nightly Indications: enlarged prostate with urination problem. Active JANUVIA 50 mg tablet Take 1 tablet (50 mg total) by mouth once daily at bedtime. 3 Active cholecalciferol, vitamin D3, 2,000 units tablet Take 1 tablet (2,000 Units total) by mouth once daily at bedtime. Active pregabalin (LYRICA) 75 mg capsule Take 1 capsule (75 mg total) by mouth 3 (three) times a day. Active aspirin 81 mg Take 1 tablet (81 mg total) by mouth in the morning. 30 tablet 4 Active cyanocobalamin (vitamin B-12) 1000 MCG tablet Take 1 tablet (1,000 mcg total) by mouth in the morning. Active ferrous sulfate 325 (65 FE) mg tablet Take 1 tablet (325 mg total) by mouth once daily at bedtime for 360 days. 90 tablet 3 4 06/08/20 25 Active furosemide (LASIX) 40 mg tabletIndication s:edema Take 1 tablet (40 mg total) by mouth daily Indications: visible water retention. 90 tablet 2 4 Active Active Problems Problem Noted Date Diagnosed Date Elevated troponin 03/05/2024 Iron deficiency anemia due to chronic blood loss 12/07/2023 NSTEMI (non-ST elevated myocardial infarction) 0 11/01/2023 Influenza A 09/11/2023 Osteoarthritis of right shoulder 07/10/2023 HL (hearing loss) 06/26/2023 Overview (06/26/2023): bilat Stage 3b chronic kidney disease 11/24/2022 Primary osteoarthritis of right hip 10/06/2022 Overview (10/06/2022): Added automatically from request for surgery [id number] Sleep apnea 10/17/2019 Type 2 diabetes mellitus wit h diabetic chronic kidney disease 10/17/2019 Essential hypertension 10/17/2019 BPH (benign prostatic hyperplasia) 10/17/2019 Osteoarthritis of left knee 10/17/2019 Bilateral leg edema 10/17/2019 Gout 10/17/2019 Hyperparathyroidism 10/17/2019 History of benign neoplasm of bladder 10/17/2019 Obesity (BMI 30-39.9) 10/17/2019 Depression 06/09/2016 Encounters Date Type Department Care Team Description 01/21/2025 Travel 11/27/2024 8:20 AM EDT - 11/27/2024 11:59 PM EDT Hospital Encounter [facility] - Lab [address] [place] [address] Chronic kidney disease, stage 4 (severe) (CMS-HCC) (Primary Dx) Discharge Disposition: Home 11/27/2024 Travel from Last 3 Months Family History Medical History Relation Name Comments Early Father Heart attack Father Anesthesia problems Neg Hx Bleeding Disorder Neg Hx Clotting disorder Neg Hx Colon cancer Neg Hx Diabetes Neg Hx Prostate cancer Neg Hx Stroke Neg Hx Relation Name Status Comments Brother 1 Alive Brother 2 Alive Brother 3 Alive Father Maternal Grandfather Maternal Grandmother Mother Paternal Grandfather Paternal Grandmother Sister 1 Alive Sister 2 Alive Social History Tobacco Use Types Packs/Day Years Used Date Smoking Tobacco: Former Cigarettes 1 7 1 975 - 1981 Smokeless Tobacco: Never Tobacco Cessation:Counseling Given: No Alcohol Use Standard Drinks/Week Comments Never 0 [...] on file Sexual Orientation Not on file Last Filed Vital Signs Vital Sign Reading Time Taken Comments Blood Pressure 128/50 06/13/2024 1:45 PM EST Pulse 59 06/13/2024 1:45 PM EST Temperature 36.7 C (98.1 F) 06/13/2024 1:45 PM EST Respiratory Rate 16 06/13/2024 1:45 PM EST Oxygen Saturation 99% 06/13/2024 1:45 PM EST Inhaled Oxygen Concentration - - Weight 115.8 kg (255 lb 6.4 oz) 06/13/2024 1:45 PM EST Height 177.8 cm (5' 10 ) 04/21/2024 9:46 AM EDT Body Mass Index 36.65 04/21/2024 9:46 AM EDT Plan of Treatment Upcoming Encounters Date Type Department Care Team (Late st Contact Info) Description 06/12/2025 2:15 PM EST Office Visit Felicitas Grier [facility] - Medical Oncology [address] [place] [address] Fab Cespedes MD [address] [place] [address] [address] [place], [place] [phone] Health Maintenance Due Date Last Done Comments Depression Screening 1957 DTaP,Tdap and Td Vaccines (1 - Tdap) 01/06/1964 Abdominal Aortic Aneurysm (A AA) Screen 2010 Fall Risk Screening 2010 Zoster (Shingles) Vaccine (3 of 3) 10/07/2019 08/12/2019, 12/01/2012 Tobacco Screening 03/05/2025 03/05/2024 Influenza Vaccine 04/06/2025 06/09/2021, , 07/18/2019, Additional history exists Goals Goal Patient Goal Type Associated Problems Recent Progress Patient-Stated? Author IMPROVE MOBILITY General Yes Delfina Dobbs, RN Note: Evaluation of progress towards goal: Maximize work with PT at discharge to strengthen R SHOULDER home with self care and family support General Yes Cheri Vergara, RN Note: Evaluation of progress towards goal: home with self care and family support Medical Devices Implanted Type Area Sand Technologist Device Identifier Shelf Expiration Date Model / Serial / Lot Brng Tib [id number] 0d Kn Ant - [id number] Implanted:Qty : 1 on 10/17/2019 by Pieter Diop MD at [facility] Bearing Left: Knee [employer] 07/20/2023 [id number] / / [id number] Bearing Hum 36mm Cmprh Std Shldr Prlng Rvrs - [id number] Implanted:Qty : 1 on 07/10/2023 by Shailesh Salcido MD at [facility] Bearing Right: Shoulder [employer] [id number] 05/13/2028 [id number] / / [id number] Cmnt Bn Bio 40gm Rpl [id number] +[id number] - [id number] Implanted:Qty : 2 on 10/17/2019 by Pieter Diop MD at [facility] Cement Left: Knee [employer] 11/04/2023 [id number] / / [id number] Lens Iol Sy60wf.205 Clareon - [id number] - [id number] Implanted:Qty : 1 on 09/06/2023 by Whitney Mae MD at [facility] Lens [employer] 03/27/2027 [id number] / [id number] / N/A Clareon Iol Implanted:Qty : 1 on 10/04/2023 by Whitney Mae MD at [facility] Lens Right: Eye [employer] 03/05/2027 SY60WF 23.0 / [id number] / NA Cmpt Fem Kn Lt 72.5mm Cr Cmnt - [id number] Implanted:Qty : 1 on 10/17/2019 by Pieter Diop MD at [facility] Orthopedic Implant Left: Knee [employer] 08/15/2022 [id number] / / [id number] Ty Tib 79mm Cocr Kn I Beam - [id number] Implanted:Qty : 1 on 10/17/2019 by Pieter Diop MD at [facility] Orthopedic Implant Left: Knee [employer] 06/12/2029 [id number] / / [id number] Cmpt Ptlr Thn 8.6mm 37mm 3 Pg - [id number] Implanted:Qty : 1 on 10/17/2019 by Pieter Diop MD at [facility] Orthopedic Implant Left: Knee [employer] 08/22/2024 [id number] / / [id number] Shell Actb 56mm Hip Lmt 4 Hl Fin Por G7 F Hmsphr Os - [id number] Implanted:Qty : 1 on 11/24/2022 by Pieter Diop MD at [facility] Orthopedic Implant Right: Hip [employer] [id number] 01/20/2032 [id number] / / [id number] Liner Actb 40mm F Vivacit-E Lum G7 Hip Strl Lf - [id number] Implanted:Qty : 1 on 11/24/2022 by Pieter Diop MD at [facility] Orthopedic Implant Right: Hip [employer] 05/30/2027 [id number] / / [id number] Stem Fem 140mm 10mm 133d Hi Os Tpr Tprlk Pps Ti Hip Prft Rdc - [id number] Implanted:Qty : 1 on 11/24/2022 by Pieter Diop MD at [facility] Orthopedic Implant Right: Hip [employer] [id number] 08/22/2032 [id number] / / [id number] Sleeve Hip Std Os Tpr G7 Blx D Opt Centering Ty 1 Rpl 650-1066 - [id number] Implanted:Qty : 1 on 11/24/2022 by Pieter Diop MD at [facility] Orthopedic Implant Right: Hip [employer] 06/21/2032 [id number] / / [id number] Component Rome 36mm Std Glenosphere Clr Cd Cmprh Versa-Dial - [id number] Implanted:Qty : 1 on 07/10/2023 by Shailesh Salcido MD at [facility] Orthopedic Implant Right: Shoulder [employer] [id number] 05/12/2033 [id number] / / [id number] Stem Hum 55mm 14mm Cmprh Por [place] Shldr Rvrs Sys - [id number] Implanted:Qty : 1 on 07/10/2023 by Shailesh Salcido MD at [facility] Orthopedic Implant Right: Shoulder [employer] [id number] 08/15/2032 [id number] / / [id number] Tray Hum Cmprh Std Shldr Rvrs - [id number] Implanted:Qty : 1 on 07/10/2023 by Shailesh Salcido MD at [facility] Orthopedic Implant Right: Shoulder [employer] [id number] 05/08/2033 [id number] / / [id number] Baseplate Rome Cmprh 25mm Mn Shldr Tpr Adpr Rvrs Sys - [id number] Implanted:Qty : 1 on 07/10/2023 by Shailesh Salcido MD at [facility] Orthopedic Implant Right: Shoulder [employer] [id number] 02/15/2033 [id number] / / [id number] Head Fem 40mm G7 Blx D Biolox Opt Hip Actb Rpl 650-1058 - [id number] Implanted:Qty : 1 on 11/24/2022 by Pieter Diop MD at [facility] Other Implant Right: Hip [employer] 07/27/2032 [id number] / / [id number] Screw Bn 20mm 4.75mm Lck Fx Ang Hx Hd Ti Cmprh 3.5mm Strl - [id number] Implanted:Qty : 1 on 07/10/2023 by Shailesh Salcido MD at [facility] Screw Right: Shoulder [employer] [id number] 04/13/2033 [id number] / / [id number] Screw Bn 25mm 4.75mm Lck Fx Ang Hx Hd Ti Cmprh 3.5mm Strl - [id number] Implanted:Qty : 1 on 07/10/2023 by Shailesh Salcido MD at [facility] Screw Right: Shoulder [employer] [id number] 02/01/2033 [id number] / / [id number] Screw Bn 15mm 4.75mm Lck Fx Ang Hx Hd Ti Cmprh 3.5mm Strl - [id number] Implanted:Qty : 1 on 07/10/2023 by Shailesh Salcido MD at [facility] Screw Right: Shoulder [employer] [id number] 05/12/2033 [id number] / / [id number] Screw Bn 15mm 4.75mm Lck Fx Ang Hx Hd Ti Cmprh 3.5mm Strl - [id number] Implanted:Qty : 1 on 07/10/2023 by Shailesh Salcido MD at [facility] Screw Right: Shoulder [employer] [id number] 05/23/2033 [id number] / / [id number] Screw Bn 20mm 6.5mm Cntr Hx Hd Ti Cmprh 3.5mm Strl Rvrs - [id number] Implanted:Qty : 1 on 07/10/2023 by Shailesh Salcido MD at [facility] Screw Right: Shoulder [employer] 02/16/2032 [id number] / / [id number] Procedures Procedure Name Priority Date/Time Associated Diagnosis Comments PSA, TOTAL AND FREE Routine 01/21/2025 7 :44 AM EDT Elevated prostate specific antigen (PSA) BASIC METABOLIC PANEL Routine 11/27/2024 8:27 AM EDT Chronic kidney disease, stage 4 (severe) (CMS-HCC) PHOSPHORUS Routine 11/27/2024 8:27 AM EDT Chronic kidney disease, stage 4 (severe) (CMS-HCC) PARATHYROID HORMOME, INTACT Routine 11/27/2024 8:27 AM EDT Chronic kidney disease, stage 4 (severe) (CMS-HCC) VITAMIN D 25 HYDROXY Routine 11/27/2024 8:27 AM EDT Chronic kidney disease, stage 4 (severe) (CMS-HCC) ALBUMIN Routine 11/27/2024 8:27 AM EDT Chronic kidney disease, stage 4 (severe) (CMS-HCC) MAGNESIUM Routine 11/27/2024 8:27 AM EDT Chronic kidney disease, stage 4 (severe) (CMS-HCC) CBC (NO DIFF) Routine 11/27/2024 8:27 AM EDT Chronic kidney disease, stage 4 (severe) (CMS-HCC) URIC ACID Routine 11/27/2024 8:27 AM EDT Chronic kidney disease, stage 4 (severe) (CMS-HCC) from Last 3 Months Results * PSA, total and free (01/21/2025 7:44 AM EDT) PROSTATIC SPEC ANT 3.27 0.00 - 4.00 ng/mL 01/21/2025 1:[address] [facility] Comment: The method used for this test is [employer] DXI chemiluminescent immunoassay. Values obtained by different assay methods cannot be used interchangeably. FREE PSA 0.66 ng/mL 01/21/2025 1:[address] [facility] Comment: The method used for this test is [employer] DXI chemiluminescent immunoassay. Values obtained by different assay methods cannot be used interchangeably. % FREE PSA 20.2 % 01/21/2025 1:[address] [facility] Blood Venous blood / Unknown Venipuncture / Unknown 01/21/2025 7:44 AM EDT 01/21/2025 7:44 AM EDT [facility] - 01/21/2025 1:57 PM EDT Percent Free PSA has been reported to have the greatest clinical utility when total PSA values are between 4.0 and 10.0 ng/mL. For men with a total PSA in this range, Percent Free PSA values of >25% are strongly associated with normal or benign prostate conditions. Percent Free PSA levels of <10% suggest that prostate cancer is more likely than BPH. For values between 10% and 25%, there is overlap of prostate cancer and BPH. Cesar Serrano MD LAB BLOOD ORDERABLES Final R esult Performing Organization Address City/[facility]/ZIP Co de Phone Number [facility] [address] [place] [address], [place] [phone] * (ABNORMAL) Parathyroid Hormone, intact (11/27/2024 8:27 AM EDT) PTH 132(H) 12 - 88 pg/mL 11/27/2024 2:[address] [facility] PLASMA 11/27/2024 8:27 AM EDT 11/27/2024 8:29 AM EDT Esdras Lau MD LAB BLOOD ORDERABLES Final Resu lt Performing Organization Address [facility]/ZIP Co de Phone Number [facility] [address] [address] * Vitamin D 25 hydroxy (11/27/2024 8:27 AM EDT) Vit D, 25-Hydroxy 53.9 30 - 100 ng/mL 11/27/2024 2:[address] [facility] Comment: Vitamin D status 25 [place] Vitamin D Deficiency <20 ng/mL Insufficiency 20-29 ng/mL Sufficiency 30-100 ng/mL Toxicity >100 ng/mL NOTE: A pediatric reference range has not been established by the pad extraction tender of this kit. The [place] [employer] recommends a Vitamin D level of = or >20ng/mL in infants and children. PLASMA 11/27/2024 8:27 AM EDT 11/27/2024 8:29 AM EDT Esdras Lau MD LAB BLOOD ORDERABLES Final Resu lt Performing Organization Address City/[facility]/ZIP Co de Phone Number [facility] [address] [place] [address] * (ABNORMAL) CBC without diff (11/27/2024 8:27 AM EDT) [facility] White Blood Cells 9.2 4.0 - 11.0 X10E9/L 11/27/2024 1:[address] [facility] RBC count 4.54 4.10 - 5.70 X10E12/L 11/27/2024 1:[address] [facility] Hemoglobin 13.2 13.0 - 17.0 g/dL 11/27/2024 1:[address] [facility] Hematocrit 39.4 39 - 49 % 11/27/2024 1:[address] [facility] MCV 87 80 - 100 fL 11/27/2024 1:[address] [facility] MCH 29.0 27 - 34 pg 11/27/2024 1:[address] [facility] MCHC 33.4 32 - 36 g/dL 11/27/2024 1:[address] [facility] RDW 15.2(H) 11.5 - 15.0 % 11/27/2024 1:[address] [facility] Platelets 205 150 - 450 X10E9/L 11/27/2024 1:[address] [facility] MPV 8.1 7 - 12 fL 11/27/2024 1:[address] [facility] Blood / Unknown 11/27/2024 8 :27 AM EDT 11/27/2024 8:29 AM EDT us Esdras Lau MD LAB BLOOD ORDERABLES Final Resu lt [facility] [address] [place] [address] * (ABNORMAL) Uric acid (11/27/2024 8:27 AM EDT) [facility] Uric Acid 10.2(H) 2.6 - 7.2 mg/dL 11/27/2024 1:[address] [facility] PLASMA 11/27/2024 8:27 AM EDT 11/27/2024 8:29 AM EDT us Esdras Lau MD LAB BLOOD ORDERABLES Final Resu lt Performing Organization Address City/[facility]/ZIP Co de Phone Number [facility] [address] [place] [address], [facility] [address] [place] [address] * Phosphorus (11/27/2024 8:27 AM EDT) Phosphorus 3.0 2.4 - 4.9 mg/dL 11/27/2024 1:[address] [facility] PLASMA 11/27/2024 8:27 AM EDT 11/27/2024 8:29 AM EDT us Esdras Lau MD LAB BLOOD ORDERABLES Final Resu lt Performing Organization Address City/[facility]/ZIP Co de Phone Number [facility] [address] [place] [address] [address] [place] [address] * Magnesium (11/27/2024 8:27 AM EDT) Magnesium 2.1 1.8 - 2.6 mg/dL 11/27/2024 1:[address] [facility] PLASMA 11/27/2024 8:27 AM EDT 11/27/2024 8:29 AM EDT us Esdras Lau MD LAB BLOOD ORDERABLES Final Resu lt Performing Organization Address City/[facility]/ZIP Co de Phone Number [facility] [address] [place] [address] * Albumin (11/27/2024 8:27 AM EDT) Albumin 4.0 3.2 - 5.3 g/dL 11/27/2024 1:[address] [facility] PLASMA 11/27/2024 8:27 AM EDT 11/27/2024 8:29 AM EDT us Esdras Lau MD LAB BLOOD ORDERABLES Final Resu lt [facility] [address] [place] [address] * (ABNORMAL) Basic Metabolic Panel (11/27/2024 8:27 AM EDT) Sodium 141 134 - 146 mmol/L 11/27/2024 1:[address] [facility] Potassium, Bld 5.0 3.5 - 5.0 mmol/L 11/27/2024 1:[address] [facility] Chloride 104 98 - 109 mmol/L 11/27/2024 1:[address] [facility] CO2 27 22 - 32 mmol/L 11/27/2024 1:[address] [facility] Anion gap 10 5 - 15 mmol/L 11/27/2024 1:[address] [facility] BUN 38(H) 5 - 27 mg/dL 11/27/2024 1:[address] [facility] Creatinine 2.67(H) 0.60 - 1.30 mg/dL 11/27/2024 1:[address] [facility] Comment:METHOD TRACEABLE TO IDMS STANDARD Glucose 119(H) 65 - 99 mg/dL 11/27/2024 1:[address] [facility] Calcium 9.0 8.5 - 10.5 mg/dL 11/27/2024 1:[address] [facility] eGFR (CKD-EPI)non-ra ce dependent 24(L) >59 ml/min/1.7 3sq.m 11/27/2024 1:[address] [facility] Comment: Reported eGFR is based on the CKD-EPI 2020 equation that does not use a race coefficient. PLASMA 11/27/2024 8:27 AM EDT 11/27/2024 8:29 AM EDT us Esdras Lau MD LAB BLOOD ORDERABLES Final Resu lt [facility] [address] [place] [address] from Last 3 Months Insurance [employer] Advance Directives Documents on File Type Date Recorded Patient Statue Maker Expl anation DNR Physician Order 09/20/2023 5:12 AM Living Will 09/26/2019 12:59 PM Advance Directive 09/26/2019 12:59 PM DPOA * DNR Comfort Care (DNRCC) [place] (Latest Code Status on File) Date Activated Date Inactivated Comments 09/12/2023 8:11 AM 09/14/2023 7:20 PM * Full Code Date Activated Date Inactivated Comments 09/11/2023 7:26 PM 09/12/2023 8:11 AM * Full Code Date Activated Date Inactivated Comments 07/10/2023 9:10 AM 07/10/2023 8:02 PM * Full Code Date Activated Date Inactivated Comments 11/24/2022 2:50 PM 11/24/2022 9:11 PM Care Teams Cabin Furnishings Installer Relationship Specialty Start Date End Date [facility], [facility] [address] [place] PCP - General Family Medicine 02/19/24
--- OUTSIDE RECORDS SUMMARY | 2025-01-29 11:00 | XMS_ITS | Encounter Summary ---
Author Organization [facility] tem Address [id number] [address] [place] [address] Care Team Providers Care Kiln Hand Name Role Phone Services, [facility] Primary Care Provider Encounter Details Date Type Department Care Team (Late st Contact Info) Description 10/20/2022 Telephone [facility] [address] [place] [id number] Cecilia Sarabia, JOSE Social History Tobacco Use Types Packs/Day Years Used Date Smoking Tobacco: Former Cigarettes 1 7 1 975 - 1982 Smokeless Tobacco: Never Alcohol Use Standard Drinks/Week Comments Never 0 (1 standard drink = 0.6 oz pur e alcohol) AUDIT-C Answer Date Recorded Frequency of Alcohol Consumption Never 09/26/2019 Average Number of Drinks Not on file 020 Frequency of Binge Drinking Not on file 09/07 Childcare Answer Date Recorded Childcare Unknown 01/15/2019 Employment Answer Date Recorded Employment Unknown 01/15/2019 Purpose - Life Answer Date Recorded Purpose and direction in life Unknown Sex and Gender Information Value Date Recorded Sex Assigned at Not on file Legal Sex Male 11:21 AM EDT Gender Identity Not on file Sexual Orientation Not on file COVID-19 Exposure Response Date Recorded In the last month, have you been in contact with someone who was confirmed or suspected to have Coronavirus / COVID-19? No / Unsure 10/18/2022 12:01 PM EDT documented as of this encounter Miscellaneous Notes * Telephone Encounter - Cecilia Sarabia RN - 10/20/2022 11:12 AM EDT Received phone call from patient's dentist office. Patient had appointment for dental cleaning today. Patient has a tooth that needs extraction or root canal. Holly at dental office states that x-rays show a pocket of fluid indicating possible infection. Holly states tooth is not bothering patient but dentist will not give dental clearance until tooth is extracted. Extraction/root canal has been recommended since 2020. He is scheduled for right total hip on 10.24.2022. Please advise if okay to proceed with surgery. * Telephone Encounter - Pieter Diop MD - 10/20/2022 11:12 AM EDT Guess he should have dental work done before proceeding with hip replacement * Telephone Encounter - Cecilia Sarabia RN - 10/20/2022 11:12 AM EDT Right total hip with Dr. Diop, scheduled on 10.24.2022, cancelled due to patient needing tooth extracted. Contacted patient and patient verbalized understanding. Instructed patient to call office when tooth extraction scheduled so that surgery can be rescheduled. Patient verbalized understanding. documented in this encounter Plan of Treatment Upcoming Encounters Date Type Department Care Team (Late st Contact Info) Description 06/12/2025 2:15 PM EST Office Visit Felicitas Grier [facility] [place] [address] Fab Cespedes MD [facility] [address] [place] [address] documented as of this encounter Visit Diagnoses Not on filedocumented in this encounter Additional Health Concerns Infection Onset Date Last Indicated Resolved Time COVID-19 Rule-Out 09/11/2023 09/11/2023 09/11/2023 4:50 PM EST Influenza 09/11/2023 09/11/2023 09/18/2023 11:1 2 PM EST documented as of this encounter Care Teams Kiln Hand Relationship Specialty Start Date End Date [facility], [facility] [address] [place] PCP - General Family Medicine 02/19/24 documented as of this encounter
--- OUTSIDE RECORDS SUMMARY | 2025-01-29 11:00 | XMS_ITS | Clinical Summary ---
Author Organization [facility] Address [address] [place] [address] Care Team Providers Care Paraprofessional Aide Teacher Name Role Phone Unallocated, [facility] Provider Primary [facility] Allergies Active Allergy Reactions Criticality Noted Date Comments Ibuprofen Swelling Medium 09/26/2019 legs Morphine Medium 09/26/2019 Other Reaction(s): Vomiting Penicillins Hives,Rash Medium 09/26/2019 Medications dilTIAZem CD (Cardizem CD) 240 MG 24 hr capsule Take 240 mg by mouth in the morning. Take with meals. Active ferrous sulfate 325 (65 Fe) MG tablet Take 325 mg by mouth at bedtime 06/13/2024 5 Active finasteride (Proscar) 5 MG tablet Take 5 mg by mouth at bedtime Active furosemide (Lasix) 40 MG tablet Take 40 mg by mouth in the morning. 08/04/2024 Active gabapentin (Neurontin) 600 MG tablet Take 1 tablet by mouth in the morning and 1 tablet before bedtime. 1 in late after noon and 2 hours before bedtime. Active losartan (Cozaar) 50 MG tablet Take 50 mg by mouth in the morning. Active cholecalciferol (Vitamin D-3) 50 MCG (2000 UT) tablet Take 2,000 Units by mouth at bedtime Active ergocalciferol (Vitamin D-2) 1.25 MG (53115 UT) capsule Take 1 capsule by mouth 1 (one) time per week Active Immunizations Immunization Administration Dates Next Due Influenza, High Dose Seasonal, Preservative Free 06/15/2015 Influenza, High-dose Seasona l, Quadrivalent, Preservative Free 06/09/2021,07/18/2019 Influenza, seasonal, intradermal, preservative f ree 05/22/2017 Pneumococcal Conjugate PCV 13 05/22/2017, 015 Pneumococcal Polysaccharide PPSV23 07/21/2010 Zoster, Recombinant 08/12/2019 Zoster, live 12/01/2012 Family History Relation Name Status Comments Father Mother Son x 2 Social History Tobacco Use Types Packs/Day Years Used Date Smoking Tobacco: Never Assessed Sex and Gender Information Value Date Recorded Sex Assigned at Not on file Legal Sex Male 6:33 PM EDT Gender Identity Not on file Sexual Orientation Not on file Last Filed Vital Signs Vital Sign Reading Time Taken Comments Blood Pressure 128/74 12/07/2021 12:00 PM EDT Pulse 65 11/30/2022 9:10 AM EDT Temperature - - Respiratory Rate 18 11/30/2022 9:10 AM EDT Oxygen Saturation 96% 11/30/2022 9:10 AM EDT Inhaled Oxygen Concentration - - Weight 112 kg (248 lb) 11/30/2022 9:10 AM EDT Height 177.8 cm (5' 10 ) 11/30/2022 9:10 AM EDT Body Mass Index 35.58 11/30/2022 9:10 AM EDT Plan of Treatment Health Maintenance Due Date Last Done Comments Medicare Annual Wellness (AWV) 1945 Influenza Vaccine (Season Ended) 2025 06/09/2021, 07/18/2019, 05/22/2017, Additional history exists Pneumococcal Vaccine: 65+ Years Completed 05/22/2017, 06/15/2015, 07/21/2010 Insurance MEDICARE Advance Directives Documents on File Type Date Recorded Patient Machine Sizer Expl anation Advance Directives and Living Will 08/12/2019 2008-11-11 Living Wi ll Advance Directives and Living Will 08/12/2019 2008-11-11 POA Care Teams Paraprofessional Aide Teacher Relationship Specialty Start Date End Date Unallocated, Noms Latha, [address] [place] [address] PCP - General Family Medicine 04/23/24
--- OUTSIDE RECORDS SUMMARY | 2025-01-29 11:00 | XMS_ITS | Encounter Summary ---
Author Organization [facility] Address [facility] [id number] [address] [place] [address] Care Team Providers Care Biomedical Engineering Internship Name Role Phone Services, [facility] Primary Care Provider Encounter Details Date Type Department Care Team (Late st Contact Info) Description 11/02/2023 Orders Only [facility] [address] [place] [phone] External, Scanning Provider Social History Tobacco Use [...] 06/12/2025 2:15 PM EST Office Visit [facility] Medical On[facility] [address] [place] [address] Fab Cespedes MD [address] [place] [address] [address] [place] [address] documented as of this encounter Goals [...] Procedure Name Priority Date/Time Associated Diagnosis Comments NUC STRESS LEXISCAN/EXERCISE Routine 09/01/2010 2:54 PM EST documented in this encounter Results * Nuc stress Lexiscan/Exercise (09/01/2010 2:54 PM EST) Anatomical Region Laterality Modality Chest N/A Nuclear Medicine us Scanning Provider External CV STRESS ORDERABLES Final Result documented in this encounter Visit Diagnoses Not on filedocumented in this encounter Care Teams Biomedical Engineering Internship Relationship Specialty Start Date End Date Services, [facility] [address] [place], [place] PCP - General Family Medicine 02/19/24 documented as of this encounter
--- OUTSIDE RECORDS SUMMARY | 2025-01-29 11:00 | XMS_ITS | Patient Health Record ---
Author Organization [facility] [place] Address [address] [place] [address] Care Team Providers Care Autism Specialist Name Role Phone Brenda Fong Primary Care Provider Unavail able RankEsdras pan Qian [phone] Allergies Allergen (clinical drug ingredient) Drug/Non Drug Allergy documented on EMR Reaction Allergy Type Onset Date Status Motrin Unknown Drug Allergy Active morphine Morphine Unknown Drug Allergy Active Penicillin Unknown Drug Allergy Active Results Component Value Reference Range Notes BMP w/GFR Reviewed date:11/27/2024 02:45:03 PM Interpretation: Performing Lab:[facility] ([facility]), formerly [facility], [address], [place]. [address] PH:[phone] Notes/Report: SODIUM 141 134-146 mmol/L POTASSIUM 5.0 3.5-5.0 mmol/L CHLORIDE 104 98-109 mmol/L CARBON DIOXIDE 27 22-32 mmol/L ANION GAP 10 5-15 mmol/L BLOOD UREA NITROGEN 38 5-27 mg/dL CREATININE 2.67 0.60-1.30 mg/dL METHOD TRACE ABLE TO IDMS STANDARD GLUCOSE 119 65-99 mg/dL CALCIUM 9.0 8.5-10.5 mg/dL eGFR (CKD-EPI) NON-RACE DEPENDENT 24 >59 ml/min/1.73sq.m CKD-EPI 2020 equation that does Reported eGFR is based on the not use a race coefficient. PERFORMED AT [address], [place] [address] ALBUMIN Reviewed date:11/27/2024 02:45:09 PM Interpretation: Performing Lab:[facility] ([facility]), [facility] [address], [place]. [address] PH:[phone] Notes/Report: ALBUMIN 4.0 3.2-5.3 g/dL PERFORMED AT [address],[place] [address] [facility] ([facility]) Reviewed date:11/27/2024 02:44:49 PM Interpretation: Performing Lab:[facility] ([facility]), [facility] [address], [place]. [address] PH:[phone] Notes/Report: PTH INTACT 132 12-88 pg/mL PERFORMED AT [address],[place] [address] URIC ACID Reviewed date:11/27/2024 02:44:51 PM Interpretation: Performing Lab:[facility] ([facility]), [address] [place] [address] AVE[address], [place]. [address] PH:[phone] Notes/Report: URIC ACID 10.2 2.6-7.2 mg/dL PERFORMED AT [address],[place] [address] PHOSPHORUS Reviewed date:11/27/2024 02:44:55 PM Interpretation: Performing Lab:[facility] ([facility]), [address] [place] [address] AVE[address], [place]. [address] PH:[phone] Notes/Report: PHOSPHORUS 3.0 2.4-4.9 mg/dL PERFORMED AT [address],[place] [address] MAGNESIUM Reviewed date:11/27/2024 02:44:57 PM Interpretation: Performing Lab:[facility] ([facility]), [facility] [address], [place]. [address] PH:[phone] Notes/Report: MAGNESIUM 2.1 1.8-2.6 mg/dL PERFORMED AT [address],[place] [address] CBC (COMPLETE BLOOD COUNT) * Reviewed date:11/27/2024 02:45:12 PM Interpretation: Performing Lab:[facility] ([facility]), [address] [place] [address] AVE[address] [place] [address]. [address] PH:[phone] Notes/Report: WBC COUNT 9.2 4.0-11.0 X10E9/L RBC COUNT 4.54 4.10-5.70 X10E12/L HEMOGLOBIN 13.2 13.0-17.0 g/dL HEMATOCRIT 39.4 39-49 % MCV 87 80-100 fL MCH 29.0 27-34 pg MCHC 33.4 32-36 g/dL RDW 15.2 11.5-15.0 % PLATELET COUNT 205 150-450 X10E9/L MPV 8.1 7-12 fL PERFORMED AT [address] [address] URINALYSIS Reviewed date:02/21/2024 04:51:47 PM Interpretation: Performing Lab:[facility] ([facility]), [address] [place] [address]., [address] [place] [address]. [address] PH:[phone] Notes/Report: COLOR YELLOW YELLOW TURBIDITY CLEAR CLEAR SPECIFIC GRAVITY 1.009 1.003-1.035 NITRITE Negative Negative PH,URINE 6.0 5.0-8.5 LEUKOCYTE ESTERASE Negative Negative PROTEIN Negative Negative mg/dL GLUCOSE (URINE) Negative Negative mg/dL KETONES (URINE) Negative Negative mg/dL UROBILINOGEN <1.1 <1.1 eu/dL BILIRUBIN (URINE) Negative Negative BLOOD/HGB Negative Negative PERFORMED AT [address] [address] MICROALBUMIN WITH RATIO Reviewed date:02/21/2024 04:51:54 PM Interpretation: Performing Lab:[facility] ([facility]), [address] [place], [place] [address]E., [address] [place] [address]. [address] PH:[phone] Notes/Report: MICROALBUMIN, URINE 0.7 0.0-1.9 mg/dL URINE CREAT 65.94 ALB/CREAT RATIO 10.6 0.0-30.0 mg/g creat PERFO RMED AT [address] [place] [address] PHOSPHORUS Reviewed date:02/21/2024 04:51:32 PM Interpretation: Performing Lab:[facility] ([facility]), Replaced by [facility] [address], [place]. [address] PH:[phone] Notes/Report: PHOSPHORUS 3.6 2.4-4.9 mg/dL PERFORMED AT [address], [place] [address] MAGNESIUM Reviewed date:02/21/2024 04:51:35 PM Interpretation: Performing Lab:[facility] ([facility]), [facility] [address], [place]. [address] PH:[phone] Notes/Report: MAGNESIUM 2.0 1.8-2.6 mg/dL PERFORMED AT [address] [place] [address] ALBUMIN Reviewed date:02/21/2024 04:51:44 PM Interpretation: Performing Lab:[facility] ([facility]), [facility] [address] [facility], [place]. [address] PH:[phone] Notes/Report: ALBUMIN 4.0 3.2-5.3 g/dL PERFORMED AT [address] [place] [address] CBC (COMPLETE BLOOD COUNT) * Reviewed date:02/21/2024 04:51:50 PM Interpretation: Performing Lab:[facility] ([facility]), [facility] [address] [place] [address]. [address] PH:[phone] Notes/Report: WBC COUNT 8.8 4.0-11.0 X10E9/L RBC COUNT 4.59 4.10-5.70 X10E12/L HEMOGLOBIN 13.1 13.0-17.0 g/dL HEMATOCRIT 39.5 39-49 % MCV 86 80-100 fL MCH 28.5 27-34 pg MCHC 33.2 32-36 g/dL RDW 17.1 11.5-15.0 % PLATELET COUNT 180 150-450 X10E9/L MPV 8.9 7-12 fL PERFORMED AT [address] [place] [address] BMP w/GFR Reviewed date:02/21/2024 04:51:41 PM Interpretation: Performing Lab:[facility] ([facility]), [address] [place] [address]., [address], [place]. [address] PH:[phone] Notes/Report: SODIUM 143 134-146 mmol/L POTASSIUM 5.1 3.5-5.0 mmol/L CHLORIDE 102 98-109 mmol/L CARBON DIOXIDE 31 22-32 mmol/L ANION GAP 10 5-15 mmol/L BLOOD UREA NITROGEN 36 5-27 mg/dL CREATININE 2.61 0.60-1.30 mg/dL METHOD TRACE ABLE TO IDWY STANDARD GLUCOSE 100 65-99 mg/dL CALCIUM 9.5 8.5-10.5 mg/dL eGFR (CKD-EPI) NON-RACE DEPENDENT 24 >59 ml/min/1.73sq.m Reported eGFR is based on the not use a race coefficient. CKD-EPI 2020 equation that does PERFORMED AT [address] [address] VITAMIN D 25 HYD TOT Reviewed date:11/27/2024 02:44:46 PM Interpretation: Performing Lab:[facility] ([facility]), [address] [place], [place] [address]E., [address], [place]. [address] PH:[phone] Notes/Report: VITAMIN D 25 HYD TOT 53.9 30-100 ng/mL and children. Sufficiency 30-100 ng/mL PERFORMED AT [address], [place] [address] established by the lining layer of this kit. The [place] [employer] recommends Deficiency <20 ng/mL Toxicity >100 ng/mL NOTE: A pediatric reference range has not been a Vitamin D level of = or >20ng/mL in infants Vitamin D status 25 [place] Vitamin D Insufficiency 20-29 ng/mL Reason For Referral No Information Medications Medication SIG (Take, Route, Frequency, Duration) Notes Start Date End Date Status Losartan Potassium 50 MG 1 tablet Orally Once a day for 30 day(s) Active Lyrica 75 MG 1 capsule Orally Twi ce a day Active Januvia 50 MG as directed Orally Active Fluticasone Propionate (Inhal) 50 MCG/ACT 1 puff Inhalation Twice a day Active hydrOXYzine HCl 10 MG 1 tablet as needed Orally every 6 hrs Not-Taking Furosemide 40 MG 1 tablet Orally Once a day for 30 day(s) Active dilTIAZem HCl ER 240 MG 1 tablet Orally Once a day for 30 day(s) Active Ergocalciferol 1.25 MG (94391 UT) 1 capsule Orally Weekly Not-Taking Ferrous Sulfate 325 (65 Fe) MG 1 tablet Orally Three times a Week for 30 day(s) Active Finasteride 5 MG 1 tablet Orally Once a day for 30 day(s) Not-Taking Aleve 220 MG 1 tablet with food o r milk as needed Orally every 12 hrs Not-Taking Allopurinol 300 MG 1 tablet Orally Once a day for 30 day(s) Not-Taking DULoxetine HCl 30 MG 1 capsule Orally On ce a day for 30 day(s) Not-Taking Vitamin D3 50 MCG (2000 UT) 1 tablet Orally Once a day for 30 day(s) Active Acetaminophen 500 MG 2 tablet as needed Orally every 6 hrs Not-Taking Problems Problem Type SNOMED Code ICD Code Onset Dates Problem Status W/U Status Risk Notes Problem [id number] Essential (prima ry) hypertension (I10) Active confirmed Problem 272532967 Type 2 diabetes mellitus without complications (E11.9) Active confirmed Problem 85181854 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) Active confirmed Problem 407136532 Chronic kidney disease, stage 4 (severe) (N18.4) Active confirmed Problem 64144689 Secondary hyperparathyroidism of renal origin (N25.81) Active confirmed Problem Constipation (50969465) Constipation (K59.00) Active confirmed Problem Osteoarthritis (283265619) 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) Active confirmed Problem High blood pressure (54933542) High blood pressure (I10) Active confirmed Problem 948893241 Chronic kidney disease, stage 3b (N18.32) Active confirmed Problem Chronic kidney disease stage 4 (295430804) Acute worsening of stage 4 chronic kidney disease (N18.4) Active confirmed Vital Signs Blood pressure diastolic 48 mm Hg 12/01/2024 Height 5 ft 10 in in 12/01/2024 Blood pressure systolic 138 mm Hg 12/01/2024 Weight 248.2 lbs 12/01/2024 BMI 35.61 kg/m2 12/01/2024 Encounters Encounter Location Date Provider Diagnosis [facility] [address] [place] [phone] 02/25/2024 sEdras Lau Chronic kidney disease, stage 4 (severe) N18.4 ; Essential (primary) hypertension I10 ; Type 2 diabetes mellitus without complications E11.9 and Hyperuricemia without signs of inflammatory arthritis and tophaceous disease E79.0 [facility] [address] [place] [phone] 12/01/2024 Esdras Lau Acute worsening of stage 4 chronic kidney disease N18.4 ; Type 2 diabetes mellitus without complications E11.9 ; Hyperuricemia without signs of inflammatory arthritis and tophaceous disease E79.0 and Essential (primary) hypertension I10 [facility] [address] [place] [address] 02/19/2024 Esdras Lau Chronic kidney disease, stage [...] 02/25/2024 Essential (primary) hypertension (ICD-10 - I10) 12/01/2024 Acute worsening of stage 4 chronic kidney disease (ICD-10 - N18.4) Cr for this visit is stable in the early CKD 4 range Electrolytes are OK PTH is acceptable for his current GFR, Ca and phos are normal Dicsussed resuming allopurinol at 100 mg daily, he is not interested, continue to monitor Avoid all NSAID use Avoid IV contrast use Encourage good DM control for prevention of CKD progression Continue losartan and lasix daily, edema is well controlled BP is controlled Hgb is stable over 12 12/01/2024 Type 2 diabetes mellitus without complications (ICD-10 - E11.9) 02/19/2024 Chronic kidney disease, stage 3b (ICD-10 - N18.32) 12/01/2024 Hyperuricemia without signs of inflammatory arthritis and tophaceous disease (ICD-10 - E79.0) 02/25/2024 Type 2 diabetes mellitus without complications (ICD-10 - E11.9) 02/25/2024 Hyperuricemia without signs of inflammatory arthritis and tophaceous disease (ICD-10 - E79.0) 12/01/2024 Essential (primary) hypertension (ICD-10 - I10) Plan Of Treatment Pending Test Test Name Order Date UA (URINALYSIS, COMPLETE) 03/19/2023 UA (URINALYSIS, COMPLETE) 12/01/2024 UA (URINALYSIS, COMPLETE) 02/19/2024 ALBUMIN, BLOOD 12/01/2024 ALBUMIN, BLOOD 03/19/2023 ALBUMIN, BLOOD 02/25/2024 ALBUMIN, BLOOD 02/19/2024 MAGNESIUM 02/25/2024 MAGNESIUM 03/19/2023 MAGNESIUM 12/01/2024 MAGNESIUM 02/19/2024 CBC NO DIFF 02/19/2024 CBC NO DIFF 12/01/2024 CBC NO DIFF 03/19/2023 CBC NO DIFF 02/25/2024 BMP (BASIC MET PANEL - W/GFR) 02/25/2024 BMP (BASIC MET PANEL - W/GFR) 03/19/2023 BMP (BASIC MET PANEL - W/GFR) 02/19/2024 MICROALBUMIN with ALB/CREAT RATIO, URINE (MALB)) 02/19/2024 MICROALBUMIN with ALB/CREAT RATIO, URINE (MALB)) 03/19/2023 MICROALBUMIN with ALB/CREAT RATIO, URINE (MALB)) 12/01/2024 PHOSPHORUS 02/19/2024 PHOSPHORUS 12/01/2024 PHOSPHORUS 03/19/2023 PHOSPHORUS 02/25/2024 PTH INTACT (PARATHYROID HORMONE) 024 PTH INTACT (PARATHYROID HORMONE) 023 PTH INTACT (PARATHYROID HORMONE) 025 URIC ACID 03/19/2023 URIC ACID 02/25/2024 VITAMIN D, 25 LEVEL (TOTAL) 02/25/2024 VITAMIN D, 25 LEVEL (TOTAL) 03/19/2023 VITAMIN D, 25 LEVEL (TOTAL) 12/01/2024 BMP w/GFR 12/01/2024 URIC ACID 12/01/2024 Next Appt Details Provider Name:Esdras Lau, 06/01/2025 12:00:00 PM, [address], [place], [address], Insurance Providers Payer Name Payer Address Payer Phone Subscriber Number Group Number Insured Name Patient Relationship to Insured Coverage Start Date Coverage End Date [place] [address] [place] [address] [id number] Ishaan Canela Self - patient is the insured 0 [employer] [place] 8 MEDICARE SUPP CLMS DEPT [place] [id number] Ishaan Canela Self - patient is the insured 6 Medical (General) History Medical History History ICD Code Hypertension Neuropathy Type 2 diabetes mellitus Gout Bladder cancer Elevated PSA Compression fracture of spine Surgical History Surgery Date(Month/Year) Right knee replacement 2009 Left knee replacement 2020 Back surgery 2004 Right hip surgery 11/24/22 right shoulder reversal 07/2023
--- OUTSIDE RECORDS SUMMARY | 2025-01-29 11:01 | XMS_ITS | Patient Health Record ---
Author Organization [facility] vices Address [address] [place], [place] [id number] Care Team Providers Care Tack Driller Name Role Phone Yaima Shailesh Primary Care Provider Levi Tenorio Unavailable [phone] Chika Sheldon Unavailable Allergies Allergen (clinical drug ingredient) Drug/Non Drug Allergy documented on EMR Reaction Allergy Type Onset Date Status Motrin Unknown Drug Allergy Active morphine Morphine Unknown Drug Allergy Active Penicillin Unknown Drug Allergy Active Results Component Value Reference Range Notes LIPID PANEL WITH REFLEX TO D IRECT LDL Reviewed date:03/10/2024 04:27:45 PM Interpretation: Performing Lab: Notes/Report: CHOLESTEROL 153 <200 mg/dL TRIGLYCERIDES 116 <149 mg/dL HDL-CHOL 36 >39 mg/dL LDL-CHOL, CALCULATED 94 <100 mg/dL VLDL-CHOL, CALCULATED 23 <30 mg/dL LDL/HDL 2.6 <3.55 RATIO CHOL/HDL 4.3 <4.97 RATIO MICROALBUMIN RANDOM SPEC Reviewed date:03/10/2024 04:28:27 PM Interpretation: Performing Lab: Notes/Report: CREATININE,UR 113.7 NOT ESTABLISHED mg/dL MICROALBUMIN 1.6 NOT ESTABLISHED mg/dL MICROALB/CREAT RATIO 14 <30 mg/g COMPREHENSIVE METABOLIC PANE L WITH GFR Reviewed date:03/10/2024 04:28:20 PM Interpretation: Performing Lab: Notes/Report: GLUCOSE 102 70-99 mg/dL BUN 37 8-23 mg/dL CREATININE, BLOOD 2.55 0.80-1.40 mg/dL eGFR (2020 CKD-EPI) 25 >60 mL/min/1.73 CALCIUM 8.8 8.5-10.5 mg/dL SODIUM 143 133-146 meq/L POTASSIUM 5.0 3.5-5.4 meq/L CHLORIDE 106 95-107 meq/L CO2 29 19-31 meq/L ANION GAP 8.0 7.0-16.0 meq/L T. BILIRUBIN 0.6 <=1.2 mg/dL ALK PHOS 153 40-125 U/L AST-SGOT 9 9-50 U/L ALT-SGPT 8 5-50 U/L T. PROTEIN 6.1 6.1-8.3 g/dL ALBUMIN 3.8 3.5-5.2 g/dL [facility] [address] [place] [address] CLIA No. [id number] CAP Accreditation No. [id number] Chemical Weigher: Alina Rodriges M.D. [facility] METABOLIC PANE L ([place]) Reviewed date:09/10/2024 09:03:03 AM Interpretation: Performing Lab: Notes/Report: GLUCOSE 191 65-125 mg/dL SODIUM 141 135-148 mmol/L POTASSIUM 4.9 3.5-5.4 mmol/L CHLORIDE 100 96-107 mmol/L CO2 29 18-32 mmol/L BUN 26 8-23 mg/dL CREATININE, BLOOD 2.20 0.67-1.30 mg/dL eGFR (2020 CKD-EPI) 30 >59 mL/min/1.73m2 CALCIUM 9.0 8.6-10.5 mg/dL T. PROTEIN 6.2 6.0-8.3 g/dL ALBUMIN 3.7 3.5-5.2 g/dL GLOBULIN 2.5 1.8-3.8 g/dL A/G RATIO 1.5 1.0-2.5 RATIO ALK PHOS 147 39-118 U/L AST-SGOT 10 9-50 U/L ALT-SGPT 16 5-41 U/L T. BILIRUBIN 0.5 <1.3 mg/dL UNLESS OTHERWISE INDICATED, ALL TESTING PERFORMED AT: [employer] [address] [place] [id number] MATERIAL HANDLER LOADER: MIKE SUÁREZ M.D. CLIA NUMBER [id number] CAP ACCREDITATION AUID [id number] Reason For Referral No Information Medications Medication SIG (Take, Route, Frequency, Duration) Notes Start Date End Date Status Metoprolol Tartrate 25 MG 1 tablet with food Orally Twice a day Not-Taking Fluticasone Propionate 50 MCG/ACT 1 spray in each nostril Nasally Once a day for 15 days 02/27/2023 Not-Taking Albuterol Sulfate HFA 108 (90 Base) MCG/ACT 1 puff as needed Inhalation every 4 hrs Not-Takin g Atorvastatin Calcium 40 MG 1 tablet Orally Once a day Not-Taking Mupirocin 2 % 1 application Externally Twice a day for 5 days 04/09/2024 Not-Taking Spiriva HandiHaler 18 MCG 1 capsule by i nhaling the contents of the capsule using the HandiHaler device Inhalation Once a day for 90 days 01/10/2024 Not-Taking Doxycycline Hyclate 100 MG 1 tablet Orally twice a day for 5 days 10/23/2024 Active Furosemide 40 MG 1 tablet Orally Once a day 01/04/2023 Active Azithromycin 500 MG 1 tablet Orally once daily for 3 days 08/26/2024 Not-Taking Finasteride 5 MG 1 tablet Orally Once a day Active Pregabalin 75 MG 1 capsule Orally Twi ce a day Not-Taking Benzonatate 100 MG 1 capsule as needed Orally Three times a day for 7 days 08/26/2024 Not-Taking Aspirin 81 81 MG 1 tablet Orally Once a day Active predniSONE 50 MG 1 tablet Orally Once a day for 5 days 08/26/2024 Not-Taking Iron 325 (65 Fe) MG TAKE 1 TABLET BY TERRELL TH DAILY for 90 Active Losartan Potassium 50 MG TAKE 1 TABLET B Y MOUTH DAILY for 30 days Active Vitamin B-12 1000 MCG TAKE 1 TABLET BY M OUT DAILY for 90 Active dilTIAZem HCl ER Beads 240 MG TAKE 1 CAPSULE BY MOUTH DAILY for 90 Active Allopurinol 300 MG TAKE 1/2 A TABLET BY MOUTH EVERY DAY Orally Once a day for 90 days Active Januvia 50 MG TAKE 1 TABLET BY TERRELL TH DAILY for 30 days Active Vitamin D3 50 MCG (1999 UT) TAKE 1 CAPSULE BY MOUTH DAILY for 90 Active Social History Tobacco Use: Social History Observation Description Date Details (start date - stop date) Former Smoker 1963 - 06/04/1980 Sex Assigned At : Social History Observation Description Sex Assigned At Male Household Question Answer Notes Number of adults in household: 2 Number of children in household: 0 Tobacco Use/Smoking Question Answer Notes How long has it been since you last smoked? > 10 years patient entered data When did you start smoking? 1963 p atient entered data When did you stop smoking? 06/04/1980 nay christianson entered data Tobacco use: former smoker patient enter ed data CAGE-AID Questionnaire (2018 Edition) Question Answer Notes Have you ever felt that you ought to cut down on your drinking or drug use? No patient entered data Have people annoyed you by c riticizing your drinking or drug use? No patient entered data Have you ever felt bad or gu ilty about your drinking or drug use? No patient entered data Have you ever had a drink or used drugs first thing in the morning to steady your nerves or to get rid of a hangover? No patient entered data CAGE-AID Score 0 Interpretation Negative PRAPARE Question Answer Notes Date Completed/Updated: 08/26/2024 isamar nt entered data What is your current housing situation? I have housing patient entered data Are you worried about losing your housing? No patient entered data What is the highest level of school that you have finished? 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 Check all that apply I do not have problems meeting my needs patient entered data Has lack of transportation k ept you from medical appointments, meetings, work or from getting things needed for daily living? No patient entered kamilah a How often do you see or talk to people that you care about and feel close to? (For example: talking to friends on the phone, visiting friends or family, going to nondenominational or club meetings) 1 or 2 times a week patient entered data How stressed are you? Stress is when someone feels tense, nervous, anxious, or can't sleep at night because their mind is troubled A little bit patient entered data In the past year have you sp ent more than 2 nights in a row in a alf, penitentiary, penitentiary center, or juvenile correctional facility? No patient entered kamilah a Are you a refugee? No patient en tered data What country are you from? [place] nay christianson entered data Do you feel physically and emotionally safe where you currently live? Yes patient entered data In the past year, have you b een afraid of your partner or ex-partner? No patient entered data PRAPARE Score: 5 Problems Problem Type SNOMED Code ICD Code Onset Dates Problem Status W/U Status Risk Notes Problem 74096527 Type 2 diabetes mellitus with diabetic chronic kidney disease (E11.22) Active confirmed Problem 35900646 Other chronic pain (G89.29) Active confirmed Problem 26440828201541924 Pain in right shoulder (M25.511) Active confirmed Problem 13228086 Pulmonary hypertension, unspecified (I27.20) Active confirmed Problem Vitamin B12 deficiency (489355144) Vitamin B12 deficiency (E53.8) Active confirmed Problem 573047086 Abnormal ECG (R94.31) Active confirmed Problem 90730317 Iron deficiency anemia, unspecified iron deficiency anemia type (D50.9) Active confirmed Problem 19934401 Chronic obstructive pulmonary disease, unspecified COPD type (J44.9) Active confirmed Problem 996338201 Venous insufficiency of both lower extremities (I87.2) Active confirmed Problem 06519086 Obstructive sleep apnea (G47.33) Active confirmed Problem 38895210 Vitamin D deficiency (E55.9) Active confirmed Problem Skin sensation disturbance (64847852) Arm numbness left (R20.0) Active confirmed Problem 561463912 Neuropathy (G62.9) Active confirmed Problem Neck pain (41054368) Neck pain (M54.2) Active confirmed Problem 28668836 Primary hypertension (I10) Active confirmed -CW DASH diet and meds as directed, BP WNLS -f/u in 3 months Problem 951876959 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 f/u with Nephrology as scheduled, PVU Problem 15633416 Spinal stenosis of cervical region (M48.02) Active confirmed Problem Arthralgia of the pelvic region and thigh (878648423) Pain in right hip (M25.551) Inactive confirmed Vital Signs Heart Rate 56 /min 10/23/2024 Pk Elsi 10/23/2024 12:54:49 PM EDT > Temperature 98.5 degrees Fahrenheit 10/23/2024 Wats on Elsi 10/23/2024 12:54:49 PM EDT > Respiratory Rate 20 /min 10/23/2024 Pk Ayazelvira mathis 10/23/2024 12:54:49 PM EDT > Blood pressure diastolic 68 mm Hg 10/23/2024 Max feng Elsi 10/23/2024 12:54:49 PM EDT > Oximetry 100 % 10/23/2024 Pk Elsi 10/23/2024 12:54:49 PM EDT > Weight-kg 112.99 kg 10/23/2024 Pk Elsi 10/23/2024 12:54:49 PM EDT > Height 5'10'' in 10/23/2024 Pk Elsi 10/23/2024 12:54:49 PM EDT > Blood pressure systolic 130 mm Hg 10/23/2024 Wats on Elsi 10/23/2024 12:54:49 PM EDT > Weight 249.1 lbs 10/23/2024 Elsi Whittington 10/23/2024 12:54:49 PM EDT > BMI 35.74 kg/m2 10/23/2024 Elsi Whittington 10/23/2024 12:54:49 PM EDT > Encounters Encounter Location Date Provider Diagnosis [facility] [address] [facility] [place] [id number] 03/19/2024 Levi Tenorio Stage 3b chronic kidney disease N18.32 and Primary hypertension I10 Main [address], [place] [id number] 04/09/2024 Levi Tenorio Erysipelas A46 Main [address] [facility] [place] [id number] 08/26/2024 Shailesh Studd Bacterial URI J06.9 Main [address], [place] [id number] 09/09/2024 Shailesh Studd URI (upper respirato ry infection) J06.9 and Stage 3b chronic kidney disease N18.32 Main [address] [place], [place] [id number] 10/23/2024 Shailesh Studd Acute non-recurrent sinusitis, unspecified location J01.90 and Primary hypertension I10 Main [address] [place], [place] [id number] 03/06/2024 Levi Tenorio Stage 3b chronic kidney disease N18.32 and Primary hypertension I10 Main [address] [place], [place] [id number] 04/03/2024 Levi Tenorio Vitamin B12 deficien cy E53.8 [place] [address] [place] [address] 04/16/2024 Levi Tenorio [place] [address] [facility] [place] [address] 05/05/2024 Chika Myerholtz Vitamin B12 deficien cy E53.8 [place] [address] [facility] [place] [address] 05/05/2024 Chika Myerholtz [place] [address] [facility] [place] [address] 05/05/2024 Chika Myerholtz [place] [address] [place] [address] 05/05/2024 Chika Myerholtz [place] [address] [facility] [place] [address] 05/05/2024 Chika Myerholtz [place] [address] [place] [address] 05/05/2024 Chika Myerholtz [place] [address] [place] [address] 05/05/2024 Chika Myerholtz Vitamin D deficiency E55.9 Main [address] [place] [id number] 05/05/2024 Chika Myerholtz [address] [place] [id number] 08/01/2024 Chika Myerholtz Vitamin B12 deficien cy E53.8 Main [address] [place], [place] [id number] 08/01/2024 Chika Sheldon Main [address] [place], [place] [id number] 08/01/2024 Chika Sheldon Main [address] [place], [place] [id number] 08/01/2024 Chika Sheldon Vitamin D deficiency E55.[address] [place], [place] [id number] 08/01/2024 Chika Sheldon Main [address] [place], [place] [id number] 08/01/2024 Chika Sheldon Main [address] [place], [place] [id number] 09/09/2024 Shailesh Studd Main [address] [place], [place] [id number] 10/23/2024 Shailesh Studd Main [address] [place], [place] [id number] 10/30/2024 Shailesh Studd Main [address] [place], [place] [id number] 01/23/2025 Shailesh Studd Main [address] [place], [place] [id number] 10/23/2024 Shailesh Studd Assessments Encounter Date Diagnosis (ICD Code) Assessment Notes Treatment Notes Treatment Clinical Notes Section Notes 03/06/2024 Primary hypertension (ICD-10 - I10) 03/06/2024 Stage 3b chronic kidney disease (ICD-10 - N18.32) 03/19/2024 Primary hypertension (ICD-10 - I10) -CW DASH diet and meds as directed, BP WNLS -f/u in 3 months 03/19/2024 Stage 3b chronic kidney disease (ICD-10 - N18.32) -labs on 03/10/24 at [facility] and in 02/2024 at Nephrology office consistent but stable with CKD3b. f/u with Nephrology as scheduled, PVU 04/03/2024 Vitamin B12 deficiency (ICD-10 - E53.8) 04/09/2024 Erysipelas (ICD-10 - A46) -wound is scabbed over now and is on his right york, mild erythema and denies pain or edema, started on topical Abx, f/u if no further improvement in sxs, PVU 05/05/2024 Vitamin B12 deficiency (ICD-10 - E53.8) 05/05/2024 Vitamin D deficiency (ICD-10 - E55.9) 08/01/2024 Vitamin B12 deficiency (ICD-10 - E53.8) 08/01/2024 Vitamin D deficiency (ICD-10 - E55.9) 08/26/2024 Bacterial URI (ICD-10 - J06.9) The pt will begin a course of (Azithromycin) due to the duration of the symptoms this is likely bacterial and the pt was also educated on the importance of drinking plenty of fluids, staying active as tolerated and getting plenty of rest. The pt was instructed to call in with any worsening symptoms or report to an ER. The patient verbalized understanding at this time. I will goive prednisone for the wheezing heard oijn auscilation as this is likely a reactive airway disesae discussiojn of glucose and steropids affects was had. The pt agreed to the risk I will aslo give teslon perels for the cough at this time. 09/09/2024 URI (upper respiratory infection) (ICD-10 - J06.9) Pts congestion is likely due to residual viral infection I will give loratadine to help with these symptoms 09/09/2024 Stage 3b chronic kidney disease (ICD-10 - N18.32) pt has not seen open source developer I will redraw CMP for kidney function nursing staff has contacted pts nephrologsits and they willl contact pt 10/23/2024 Acute non-recurrent sinusitis, unspecified location (ICD-10 - J01.90) The pt will begin a course of Doxycyline due to the duration of the symptoms this is likely bacterial and the pt was also educated on the importance of drinking plenty of fluids, staying active as tolerated and getting plenty of rest. The pt was instructed to call in with any worsening symptoms or report to an ER. The patient verbalized understanding at this time. 10/23/2024 Primary hypertension (ICD-10 - I10) Bp well controlled. Continue current medications will contact nephrolgy Plan Of Treatment No Information Insurance Providers Payer Name Payer Address Payer Phone Subscriber Number Group Number Insured Name Patient Relationship to Insured Coverage Start Date Coverage End Date Medicare NGS PPS [address] [place], [place] [id number] Ishaan Canela Self - patient is the insured 0 [facility] [place] [id number] plan f Ishaan Canela Self - patient is the insured 0 Medications Administered Medication Instructions Date of Administration Dosage Notes Cyanocobalamin 09/27/2023 1000 ug Medical (General) History Medical History History ICD Code Hypertension Neuropathy Type II Diabetes Mellitus Gout Bladder cancer Elevated PSA Compression Fx of Spine Surgical History Surgery Date(Month/Year) left knee replacement 2020 right knee replacement 2009 back surgery 2004 right hip surgery 11/24/2022 shoulder replacement 07/10/2023 Hospitalization History Reason Date(Month/Year) see surgical hx aleksey- covid 2020
[2025-01-29 12:00] LABS: Basophils Absolute Auto 0.1 10^3/uL (0.0-0.1); Basophils Percent Auto 0.5 % (0.2-2.0); Eosinophils Absolute Auto 0.2 10^3/uL (0.0-0.7); Eosinophils Percent Auto 1.9 % (0.9-7.0); Hematocrit 41.6 % (42.0-54.0); Hemoglobin 13.9 g/dL (14.0-18.0); Immature Granulocytes Abs Auto 0.16 10^3/uL (0.00-0.03); Immature Granulocytes Pct Auto 1.5 % (0.0-0.5); Lymphocytes Absolute Auto 1.7 10^3/uL (1.2-3.8); Lymphocytes Percent Auto 15.5 % (20.5-60.0); Mean Corpuscular HGB Conc 33.4 g/dL (29.9-35.2); Mean Corpuscular Hemoglobin 29.1 pg (25.9-34.0); Mean Platelet Volume 9.3 fL (9.5-13.5); Monocytes Absolute Auto 0.9 10^3/uL (0.3-0.8); Monocytes Percent Auto 8.4 % (1.7-12.0); Neutrophils Absolute Auto 7.8 10^3/uL (1.4-6.5); Neutrophils Percent Auto 72.2 % (43.0-75.0); Platelet Count 209 10^3/uL (150-450); Red Blood Count 4.78 10^6/uL (4.70-6.10); Red Cell Distribution Width 13.1 % (11.0-15.0); White Blood Count 10.8 10^3/uL (4.0-11.0)
[2025-01-29 12:07] LABS: INR 0.93; Partial Thromboplastin Time 26.2 sec (22.3-36.2); Prothrombin Time 9.9 sec (9.0-11.6)
[2025-01-29 12:28] LABS: Anion Gap 10.3; BUN Creatinine Ratio 13.4; Calcium 9.4 mg/dL (8.5-10.1); Carbon Dioxide 31.4 mmol/L (21.0-32.0); Chloride 104 mmol/L (98-107); Estimated GFR (African America 32 (>=60 mL/min/1.73m^2); Estimated GFR (Non-African Ame 26 (>=60 mL/min/1.73m^2); Glucose 99 mg/dL (74-106); Potassium 4.7 mmol/L (3.5-5.1); Sodium 141 mmol/L (136-145)
== END 2025-01-29 10:55 | disposition home or self-care (01) ==
LOC: PST 10:57
PROVIDERS: Visit Provider Urology
DX: Z01.812 Encounter for preprocedural laboratory examination (principal); Z01.810 Encounter for preprocedural cardiovascular examination; Z85.51 Personal history of malignant neoplasm of bladder
CPT/HCPCS: 80048; 85025; 85610; 85730; 93005

== ENCOUNTER 2025-02-03 07:15 | Day surgery (SDC) | payer MEDICARE, OTHER, SELFPAY ==
--- OUTSIDE RECORDS SUMMARY | 2024-02-19 06:48 | XMS_ITS ---
Author Organization The [facility] in [place] Address [address] [place] [address] Care Team Providers Care Seo Coordinator Name Role Phone Brenda Fong Primary Care Provider Unavail casandra Sid Esdras Laughlin [phone] REASON FOR VISIT Labs Encounters Encounter Location Date Provider Diagnosis [facility] [place] [address] [place] [address] 02/19/2024 Esdras Lau Chronic kidney disease, stage [...] Lau, 06/01/2025 12:00:00 PM, [address], [place], [address], Progress Notes * Ishaan CHRISTINADOB:[birth year] (79 yo M)Acc No.[id number]:02/19/2024 Patient: Benton Ishaan JONES :1945 A ge:79 Y S ex:Male Address:[address] [place] [address], [place], [address] Subjective: * Chief Complaints: * L abs * Medical History: * Surgical History: * Hospitalization/Major Diagno stic Procedure: * Medications: Objective: * Vitals: * Physical Examination: Assessment: * Assessment: 1. C hronic kidney disease, stage 3b - N18.32 Plan: * Treatment: * Procedure Codes: * true * Date: Generated for Adia menendez/Danielle/eTransmitting on: 0 02/03/2025 07:17 AM EDT
--- OUTSIDE RECORDS SUMMARY | 2024-02-25 11:00 | XMS_ITS ---
Author Organization The [facility] in [place] Address [address] [place] [address] Care Team Providers Care Signal Technician Name Role Phone Brenda Fong Primary Care Provider Unavail able SidEsdras [phone] Allergies Allergen (clinical drug ingredient) Drug/Non Drug Allergy documented on EMR Reaction Allergy Type Onset Date Status Motrin Unknown Drug Allergy Active morphine Morphine Unknown Drug Allergy Active Penicillin Unknown Drug Allergy Active REASON FOR VISIT CKD 3b, HTN Medications Medication SIG (Take, Route, Frequency, Duration) Notes Start Date End Date Status Aleve 220 MG 1 tablet with food o r milk as needed Orally every 12 hrs Not-Taking DULoxetine HCl 30 MG 1 capsule Orally On ce a day for 30 day(s) Not-Taking Ergocalciferol 1.25 MG (70555 UT) 1 capsule Orally Weekly Not-Taking Finasteride 5 MG 1 tablet Orally Once a day for 30 day(s) Not-Taking hydrOXYzine HCl 10 MG 1 tablet as needed Orally every 6 hrs Not-Taking Acetaminophen 500 MG 2 tablet as needed Orally every 6 hrs Not-Taking Januvia 50 MG as directed Orally Active Losartan Potassium 50 MG 1 tablet Orally Once a day for 30 day(s) Active Lyrica 75 MG 1 capsule Orally Twi ce a day Active Vitamin D3 50 MCG (2000 UT) 1 tablet Orally Once a day for 30 day(s) Active Allopurinol 300 MG 1 tablet Orally Once a day for 30 day(s) Active dilTIAZem HCl ER 240 MG 1 tablet Orally Once a day for 30 day(s) Active Ferrous Sulfate 325 (65 Fe) MG 1 tablet Orally Three times a Week for 30 day(s) Active Fluticasone Propionate (Inhal) 50 MCG/ACT 1 puff Inhalation Twice a day Active Furosemide 40 MG 1 tablet Orally Once a day for 30 day(s) Active Problems Problem Type SNOMED Code ICD Code Onset Dates Problem Status W/U Status Risk Notes Problem [id number] Chronic kidney disease, stage 4 (severe) (N18.4) Active confirmed Vital Signs Weight 259 lbs 02/25/2024 Height 5 ft 10 in in 02/25/2024 Blood pressure systolic 145 mm Hg 02/25/20 24 Blood pressure diastolic 68 mm Hg 024 BMI 37.16 kg/m2 02/25/2024 Encounters Encounter Location Date Provider Diagnosis [facility] [place] [address] [place] [address] 02/25/2024 Esdras Lau Chronic kidney disea se, stage 4 (severe) N18.4 ; Essential (primary) hypertension I10 ; Type 2 diabetes mellitus without complications E11.9 and Hyperuricemia without signs of inflammatory arthritis and tophaceous disease E79.0 Assessments Encounter Date Diagnosis (ICD Code) Assessment Notes Treatment Notes Treatment Clinical Notes Section Notes 02/25/2024 Chronic kidney disease, stage 4 (severe) (ICD-10 - N18.4) 79 yo M with CKD 4, htn, DM, atrophic kidney No evidence of active sediment or albuminuria at this time Continue losartan and lasix for management of htn and LE edema Encourage low Na diabetic diet Avoid all NSAID use Check PTH and uric acid before his next visit Decrease allopurinol to 150 mg po daily OK to continue Januvia for DM management Electrolytes and Hgb are OK F/U labs ordered for 4 months 02/25/2024 Essential (primary) hypertension (ICD-10 - I10) 02/25/2024 Type 2 diabetes mellitus without complications (ICD-10 - E11.9) 02/25/2024 Hyperuricemia without signs of inflammatory arthritis and tophaceous disease (ICD-10 - E79.0) Plan Of Treatment Treatment Notes Assessment Notes Chronic kidney disease, stage 4 (severe) 79 yo M with CKD 4, htn, DM, atrophic kidney No evidence of active sediment or albuminuria at this time Continue losartan and lasix for management of htn and LE edema Encourage low Na diabetic diet Avoid all NSAID use Check PTH and uric acid before his next visit Decrease allopurinol to 150 mg po daily OK to continue Januvia for DM management Electrolytes and Hgb are OK F/U labs ordered for 4 months Pending Test Test Name Order Date ALBUMIN, BLOOD 02/25/2024 MAGNESIUM 02/25/2024 CBC NO DIFF 02/25/2024 BMP (BASIC MET PANEL - W/GFR) 02/25/2024 PHOSPHORUS 02/25/2024 PTH INTACT (PARATHYROID HORMONE) 024 URIC ACID 02/25/2024 VITAMIN D, 25 LEVEL (TOTAL) 02/25/2024 Next Appt Details Follow Up: 4 Months, Reason: Provider Name:Esdras Lau, 06/01/2025 12:00:00 PM, [address] [place] [address], [place], [address], Progress Notes * Ishaan CHRISTINADOB:[birth year] (79 yo M)Acc No.[id number]:02/25/2024 Progress Note Patient: Ishaan TODD Provider: Fozia Lau MD :1945 A ge:79 Y S ex:Male Date:02/25/2024 Address:[address] [place] [address], [facility] Pcp:HORTENCIA Gr Check In:03:22 PM ESTCheck O ut:04:10 PM EST Subjective: * Chief Complaints: * C KD 3bHTN * HPI: G eneral: 79 yo M with DM and htn, progressive CKD, here for his follow up visit. His previous CT scan showed an atrophic L kidney, no stones, masses, or hydronephrosis. Most recent Cr was in the CKD 4 range at 2.6, up from 2.27 at his last visit. Electrolytes are notable for a K of 5.1. Urine studies do not reveal any hematuria or albuminuria. His Ca and phos are normal. He reports DM and htn are well controlled. He denies any recent gout flares. He feels he is voiding well. He denies any recent NSAID use. He has been having issues with LE edema. * ROS: G eneral/Constitutional: Recent weight loss d enies. C hange in appetite d enies. C ardiovascular: PND d enies. O rthopnea d enies. S welling of legs, ankles, or feet a dmits. C hest pain d enies. S hortness of breath d enies.? G astrointestinal: Abdominal pain d enies. N ausea d enies. V omiting d enies. G enitourinary: Nocturia d enies. U rinary incontinence d enies. F requent UTI's d enies. R enal Colic ?denies. W eakstream d enies. D ysuria d enies . H ematuria d enies.?Blood in urine d enies. F requent urination d enies. M usculoskeletal: Joint stiffness d enies. W eakness d enies. ? N eurologic: Dizziness d enies. F ainting d enies. H eadache?denies. T ingling/Numbness d enies. 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 Modified On:03/19/2023 Status:confirmed E79.0 Hyperuricemia withou t signs of inflammatory arthritis and tophaceous disease Modified On:05/14/2023U Status:confirmed M19.90 Arthritis of right s [facility] Modified On:08/27/2023U Status:confirmed I10 High blood pressure Modified On:08/27/2023U Status:confirmed K59.00 Constipation Modified On:08/27/2023U Status:confirmed N18.4 Chronic kidney disea se, stage 4 (severe) Modified On:02/25/2024 Status:confirmed * Medical History: * Surgical History: L eft knee replacement ight knee replacement 2010Back surgery 2004Right hip surgery 11/24/22right shoulder reversal 07/2023 * Hospitalization/Major Diagno stic Procedure: N o Hospitalization History. * Family History: N o Family History documented.. * Social History: N on-Smoker. * Medications: T akingAllopurinol 300 MG Tablet 1 tablet Orally Once a day dilTIAZem HCl ER 240 MG Tablet Extended Release 24 Hour 1 tablet Orally Once a day Ferrous Sulfate 325 (65 Fe) MG Tablet 1 tablet Orally Three times a Week Fluticasone Propionate (Inhal) 50 MCG/ACT Aerosol Powder Breath Activated 1 puff Inhalation Twice a day Furosemide 40 MG Tablet 1 tablet Orally Once a day Januvia(SITagliptin Phosphate) 50 MG Tablet as directed Orally Losartan Potassium 50 MG Tablet 1 tablet Orally Once a day Lyrica(Pregabalin) 75 MG Capsule 1 capsule Orally Twice a day Vitamin D3 50 MCG (1999 UT) Tablet 1 tablet Orally Once a day Taking Allopurinol 300 MG Tablet 1 tablet Orally Once a day Taking dilTIAZem HCl ER 240 MG Tablet Extended Release 24 Hour 1 tablet Orally Once a day Taking Ferrous Sulfate 325 (65 Fe) MG Tablet 1 tablet Orally Three times a Week Taking Fluticasone Propionate (Inhal) 50 MCG/ACT Aerosol Powder Breath Activated 1 puff Inhalation Twice a day Taking Furosemide 40 MG Tablet 1 tablet Orally Once a day Taking Januvia(SITagliptin Phosphate) 50 MG Tablet as directed Orally Taking Losartan Potassium 50 MG Tablet 1 tablet Orally Once a day Taking Lyrica(Pregabalin) 75 MG Capsule 1 capsule Orally Twice a day Taking Vitamin D3 50 MCG (1999 UT) Tablet 1 tablet Orally Once a day Not- Taking/PRNAcetaminophen 500 MG Tablet 2 tablet as needed Orally every 6 hrs Aleve(Naproxen Sodium) 220 MG Tablet 1 tablet with food or milk as needed Orally every 12 hrs DULoxetine HCl 30 MG Capsule Delayed Release Particles 1 capsule Orally Once a day Ergocalciferol 1.25 MG (34750 UT) Capsule 1 capsule Orally Weekly Finasteride 5 MG Tablet 1 tablet Orally Once a day hydrOXYzine HCl 10 MG Tablet 1 tablet as needed Orally every 6 hrs Medication List reviewed and reconciled with the patientNot-Taking/PRN Acetaminophen 500 MG Tablet 2 tablet as needed Orally every 6 hrs Not-Taking/PRN Aleve(Naproxen Sodium) 220 MG Tablet 1 tablet with food or milk as needed Orally every 12 hrs Not- Taking/PRN DULoxetine HCl 30 MG Capsule Delayed Release Particles 1 capsule Orally Once a day Not-Taking/PRN Ergocalciferol 1.25 MG (98817 UT) Capsule 1 capsule Orally Weekly Not-Taking/PRN Finasteride 5 MG Tablet 1 tablet Orally Once a day Not-Taking/PRN hydrOXYzine HCl 10 MG Tablet 1 tablet as needed Orally every 6 hrs Medication List reviewed and reconciled with the patient * Allergies: P enicillinMorphineMotrinno[Allergies Verified] Objective: * Vitals: W t:259lbs, Ht:5 ft 10 in, BP:145/68mm Hg, BMI:37.16Index, Ht-cm: 177.8 cm, Wt-k.48 kg. * P ast Orders: L ab:BMP w/GFR (Order Date - 02/19/2024) (Collection Date & Time - 02/19/2024 11:54 AM) Value Reference Range Glucose 100 H 65-99 - mg/dL BUN (Urea N) 36 H 5-27 - mg/dL Creatinine 2.61 H 0.60-1.30 - mg/dL Calcium 9.5 8.5-10.5 - mg/dL NA (Sodium) 143 134-146 - mmol/L K (Potassium) 5.1 H 3.5-5.0 - mmol/L Chloride 102 98-109 - mmol/L CO2 31 22-32 - mmol/L Anion Gap 10 5-15 - mmol/L eGFR (CKD-EPI) NON-RACE DEPENDENT 24 L >59 - ml/min/1.73sq.m L ab:CBC (COMPLETE BLOOD COUNT) * (Order Date - 02/19/2024) (Collection Date & Time - 02/19/2024 11:54 AM) Value Reference Range WBC 8.8 4.0-11.0 - X10E9/L RBC 4.59 4.10-5.70 - X10E12/L HGB 13.1 13.0-17.0 - g/dL HCT 39.5 39-49 - % MCV 86 80-100 - fL MCH 28.5 27-34 - pg MCHC 33.2 32-36 - g/dL RDW 17.1 H 11.5-15.0 - % PLT 180 150-450 - X10E9/L MPV 8.9 7-12 - fL L ab:ALBUMIN (Order Date - 02/19/2024) (Collection Date & Time - 02/19/2024 11:54 AM) Value Reference Range ALBUMIN 4.0 3.2-5.3 - g/dL L ab:MICROALBUMIN WITH RATIO (Order Date - 02/19/2024) (Collection Date & Time - 02/19/2024 11:54 AM) Value Reference Range MICROALBUMIN, URINE 0.7 0.0-1.9 - mg/dL URINE CREAT 65.94 - mg/dL ALB/CREAT RATIO 10.6 0.0-30.0 - mg/g crea t L ab:URINALYSIS (Order Date - 02/19/2024) (Collection Date & Time - 02/19/2024 11:54 AM) Value Reference Range BILIRUBIN (URINE) Negative Negative - BLOOD/HGB Negative Negative - COLOR YELLOW YELLOW - GLUCOSE (URINE) Negative Negative - mg/dL KETONES (URINE) Negative Negative - mg/dL LEUKOCYTE ESTERASE Negative Negative - NITRITE Negative Negative - PROTEIN Negative Negative - mg/dL SPECIFIC GRAVITY 1.009 1.003-1.035 - TURBIDITY CLEAR CLEAR - UROBILINOGEN <1.1 <1.1 - eu/dL PH,URINE 6.0 5.0-8.5 - * Examination: G eneral Examinations: GENERAL APPEARANCE: a wake, alert, oriented to time, place, and person, well nourished, no pallor. NECK: n ormal, no carotid bruit. LUNGS: c lear to auscultation bilaterally. CHEST: n ormal. CARDIO: n ormal, regular rate and rhythm, S1, S2 normal, no rub. ABDOMEN: s oft, nontender, nondistended, normal bowel sounds present. SKIN: g ood turgor. EXTREMITIES: n o clubbing, cyanosis, 1+ edema. NEUROLOGIC: n o focal deficit. Assessment: * Assessment: 1. C hronic kidney disease, stage 4 (severe) - N18.4 (Primary) 2 . E ssential (primary) hypertension - I10 3 . T ype 2 diabetes mellitus without complications - E11.9 4 . H yperuricemia without signs of inflammatory arthritis and tophaceous disease - E79.0 Plan: * Treatment: * Procedure Codes: * Follow Up: 4 Months * * Sign off status: Completed Visit Status: C HK (Check Out) true * Provider: Fozia Lau MD Date: 02/25/2024 Generated for Adia menendez/Danielle/eTransmitting on: 02/03/2025 07:17 AM EDT History and Physical Notes * Examination Category Sub-Category Detail Notes Category Not es General Examinations GENERAL APPEARANCE: awake, alert, oriented to time, place, and person, well nourished, no pallor NECK: normal, no carotid b ruit CARDIO: normal, regular rate and rhythm, S1, S2 normal, no rub CHEST: normal LUNGS: clear to auscultatio n bilaterally ABDOMEN: soft, nontender, non distended, normal bowel sounds present NEUROLOGIC: no focal deficit SKIN: good turgor EXTREMITIES: no clubbing, cyanosi s, 1+ edema
--- OUTSIDE RECORDS SUMMARY | 2025-01-23 05:15 | XMS_ITS ---
Author Organization [facility] vices Address [address] [place] [id number] Care Team Providers Care Geriatrics Physician Name Role Phone Shailesh Erwin Primary Care Provider [phone] REASON FOR VISIT 3 month HTN Social History Sex Assigned At : Social History Observation Description Sex Assigned At Male Encounters Encounter Location Date Provider Diagnosis Main [address] [place] [id number] 01/23/2025 Shailesh Erwin Plan Of Treatment No Information Progress Notes * Ishaan CHRISTINADOB:[birth year] (80 yo M)Acc No.[id number]:01/23/2025 Medical Note Patient: Ishaan TODD Provider: Fozia Erwin :1945 A ge:80 Y S ex:Male Date:01/23/2025 Address:[address], [place], [place] Subjective: * Chief Complaints: * 1 . 3 month HTN. * Medical History: Objective: * Vitals: Assessment: Plan: * Treatment: * Billing Information: * Visit Code: * Procedure Codes: * Electronic signature of VERONICA Jaramillo on 02/03/2025 at 07:17 AM EDT Sign off status: Pending * Provider: Fozia Erwin Date: 0 01/23/2025 Generated for Pali ng/Faemilyg/eTransmitting on: 02/03/2025 07:17 AM EDT
[2025-01-29 11:34] VITALS: BP 144/70; PULSE 58; TEMP 36.4; O2SAT 95; BMI 34.5
[2025-02-03] VITALS (8 sets, daily range): BP systolic 122–150; BP diastolic 57–71; PULSE 50–68; TEMP 36.3; O2SAT 96–98
--- OUTSIDE RECORDS SUMMARY | 2025-02-03 07:17 | XMS_ITS | Clinical Summary ---
Author Organization [facility] Address [address] [place] [address] Care Team Providers Care Director Web Name Role Phone Unallocated, Noms Provider Primary [...] bedtime Active ergocalciferol (Vitamin D-2) 1.25 MG (35989 UT) capsule Take 1 capsule by mouth [...] Documents on File Type Date Recorded Patient Territory Account Representative Expl anation Advance Directives and Living Will 08/12/2019 2008-11-11 Living Wi ll Advance Directives and Living Will 08/12/2019 2008-11-11 POA Care Teams Director Web Relationship Specialty Start Date End Date Unallocated, Noms Latha, [address] [place] [address] PCP - General Family Medicine 04/23/24
--- OUTSIDE RECORDS SUMMARY | 2025-02-03 07:17 | XMS_ITS | Clinical Summary ---
Author Organization [facility] Address [address] [place], [place] [id number] Care Team Providers Care Stitching Machine Setter Name Role Phone Benton Umana Primary Care Provider Social History Tobacco Use Types Packs/Day Years Used Date Smoking Tobacco: Never Assessed Sex and Gender Information Value Date Recorded Sex Assigned at Not on file Legal Sex Male 10:04 AM EDT Gender Identity Not on file Sexual Orientation Not on file Plan of Treatment Not on file Insurance MEDICARE [id number] [facility] Address: [address] [facility] [place] [address] Care Teams Stitching Machine Setter Relationship Specialty Start Date End Date Benton Umana [address] [place] [address] PCP - General Family Medicine 11/22/18
--- OUTSIDE RECORDS SUMMARY | 2025-02-03 07:17 | XMS_ITS | Encounter Summary ---
Author Organization [facility] Address [address] [place] [address] Care Team Providers Care Mental Health Aide Name Role Phone Mona Box DO Primary Care Provider Unallocated, Noms Provider Primary Care [facility] Encounter Details Date Type Department Care Team (Late st Contact Info) Description 03/25/2023 Abstract [facility] [address] [place] [address] Mona Box DO [address] [address] Social History Tobacco Use Types Packs/Day Years [...] on filedocumented in this encounter Care Teams Mental Health Aide Relationship Specialty Start Date End Date Mona Box DO PCP - General Family Medicine 12/12/22 04/22/24 Unallocated, Noms Provider, [place] [address] PCP - General Family Medicine 04/23/24 documented as of this encounter
--- OUTSIDE RECORDS SUMMARY | 2025-02-03 07:17 | XMS_ITS | Encounter Summary ---
Author Organization [employer] Address [id number] [address] [place] [address] Care Team Providers Care Product Handler Name Role Phone Services, [facility] Primary Care Provider Encounter Details Date [...] 2:15 PM EST Office Visit Felicit[facility] - Medical Oncology [address] [place] [phone] Fab Cespedes MD [address] [place] [address] documented as of this encounter Goals [...] on filedocumented in this encounter Care Teams Product Handler Relationship Specialty Start Date End Date Services, [facility] [address] [place], [place] PCP - General Family Medicine 02/19/24 documented as of this encounter
--- OUTSIDE RECORDS SUMMARY | 2025-02-03 07:17 | XMS_ITS | Clinical Summary ---
Author Organization Buddy tem Address [id number] [address] [place] [address] Care Team Providers Care Tensioning Machine Operator Name Role Phone Services, [facility] Primary Care Provider Allergies Active Allergy Reactions [...] (10/06/2022): Added automatically from request for surgery [id number] Sleep apnea 10/17/2019 Type 2 diabetes mellitus [...] - 11/27/2024 11:59 PM EDT Hospital Encounter [facility] - Lab [address] [place] [address] Chronic kidney disease, stage 4 (severe) (CMS-HCC) [...] 2:15 PM EST Office Visit Felicitas Grier [facility] - Medical Oncology [address] [place] [address] Fab Cespedes MD [address] [place] [address] [address] [place], [place] [id number] Health Maintenance Due Date Last Done Comments [...] family support Medical Devices Implanted Type Area Adjunct Business Instructor Device Identifier Shelf Expiration Date Model / Serial / Lot Brng Tib [id number] 0d Kn Ant - [id number] Implanted:Qty : 1 on 10/17/2019 by Pieter Diop MD at [facility] Bearing Left: Knee [employer] 07/20/2023 [id number] / / [id number] Bearing Hum 36mm Cmprh Std Shldr Prlng Rvrs - [id number] Implanted:Qty : 1 on 07/10/2023 by Shailesh Salcido MD at [facility] Bearing Right: Shoulder [employer] [id number] 05/13/2028 [id number] / / [id number] Cmnt Bn Bio 40gm Rpl [id number] +[id number] - [id number] Implanted:Qty : 2 on 10/17/2019 by Pieter Diop MD at [facility] Cement Left: Knee [employer] 11/04/2023 [id number] / / [id number] Lens Iol Sy60wf.205 Clareon - [id number] - [id number] Implanted:Qty : 1 on 09/06/2023 by Whitney Mae MD at [facility] Lens [employer] 03/27/2027 SY60WF / [id number] / N/A Clareon Iol Implanted:Qty : 1 on 10/04/2023 by Whitney Mae MD at [facility] Lens Right: Eye [employer] 03/05/2027 SY60WF 23.0 / [id number] / NA Cmpt Fem Kn Lt 72.5mm Cr Cmnt - [id number] Implanted:Qty : 1 on 10/17/2019 by Pieter Diop MD at [facility] Orthopedic Implant Left: Knee [employer] 08/15/2022 [id number] / / [id number] Ty Tib 79mm Cocr Kn I Beam - [id number] Implanted:Qty : 1 on 10/17/2019 by Pieter Diop MD at [facility] Orthopedic Implant Left: Knee [employer] 06/12/2029 [id number] / / [id number] Cmpt Ptlr Thn 8.6mm 37mm 3 Pg - [id number] Implanted:Qty : 1 on 10/17/2019 by Pieter Diop MD at [facility] Orthopedic Implant Left: Knee [employer] 08/22/2024 [id number] / / [id number] Shell Actb 56mm Hip Lmt 4 Hl Fin Por G7 F Hmsphr Os - [id number] Implanted:Qty : 1 on 11/24/2022 by Pieter Diop MD at [facility] Orthopedic Implant Right: Hip [employer] [id number] 01/20/2032 [id number] / / [id number] Liner Actb 40mm F Vivacit-E Lum G7 Hip Strl Lf - [id number] Implanted:Qty : 1 on 11/24/2022 by Pieter Diop MD at [facility] Orthopedic Implant Right: Hip [employer] 05/30/2027 [id number] / / [id number] Stem Fem 140mm 10mm 133d Hi Os Tpr Tprlk Pps Ti Hip Prft Rdc - [id number] Implanted:Qty : 1 on 11/24/2022 by Pieter Diop MD at [facility] Orthopedic Implant Right: Hip [employer] [id number] 08/22/2032 [id number] / / [id number] Sleeve Hip Std Os Tpr G7 Blx D Opt Centering Ty 1 Rpl 650-1066 - [id number] Implanted:Qty : 1 on 11/24/2022 by Pieter Diop MD at [facility] Orthopedic Implant Right: Hip [employer] 06/21/2032 650-1066 / / [id number] Component Rome 36mm Std Glenosphere Clr Cd Cmprh Versa-Dial - [id number] Implanted:Qty : 1 on 07/10/2023 by Shailesh Salcido MD at [facility] Orthopedic Implant Right: Shoulder [employer] [id number] 05/12/2033 [id number] / / [id number] Stem Hum 55mm 14mm Cmprh Por Guan[place]ito Shldr Rvrs Sys - [id number] Implanted:Qty : 1 on 07/10/2023 by Shailesh Salcido MD at [facility] Orthopedic Implant Right: Shoulder [employer] [id number] 08/15/2032 [id number] / / [id number] Tray Hum Cmprh Std Shldr Rvrs - [id number] Implanted:Qty : 1 on 07/10/2023 by Shailesh Salcido MD at [facility] Orthopedic Implant Right: Shoulder [employer] [id number] 05/08/2033 [id number] / / [id number] Baseplate Rome Cmprh 25mm Mn Shldr Tpr Adpr Rvrs Sys - [id number] Implanted:Qty : 1 on 07/10/2023 by Shailesh Salcido MD at [facility] Orthopedic Implant Right: Shoulder [employer] [id number] 02/15/2033 [id number] / / [id number] Head Fem 40mm G7 Blx D Biolox Opt Hip Actb Rpl 650-1058 - [id number] Implanted:Qty : 1 on 11/24/2022 by Pieter Diop MD at [facility] Other Implant Right: Hip [employer] 07/27/2032 [id number] / / [id number] Screw Bn 20mm 4.75mm Lck Fx Ang Hx Hd Ti Cmprh 3.5mm Strl - [id number] Implanted:Qty : 1 on 07/10/2023 by Shailesh Salcido MD at [facility] Screw Right: Shoulder [employer] [id number] 04/13/2033 [id number] / / [id number] Screw Bn 25mm 4.75mm Lck Fx Ang Hx Hd Ti Cmprh 3.5mm Strl - [id number] Implanted:Qty : 1 on 07/10/2023 by Shailesh Salcido MD at [facility] Screw Right: Shoulder [employer] [id number] 02/01/2033 [id number] / / [id number] Screw Bn 15mm 4.75mm Lck Fx Ang Hx Hd Ti Cmprh 3.5mm Strl - [id number] Implanted:Qty : 1 on 07/10/2023 by Shailesh Salcido MD at [facility] Screw Right: Shoulder [employer] [id number] 05/12/2033 [id number] / / [id number] Screw Bn 15mm 4.75mm Lck Fx Ang Hx Hd Ti Cmprh 3.5mm Strl - [id number] Implanted:Qty : 1 on 07/10/2023 by Shailesh Salcido MD at [facility] Screw Right: Shoulder [employer] [id number] 05/23/2033 [id number] / / [id number] Screw Bn 20mm 6.5mm Cntr Hx Hd Ti Cmprh 3.5mm Strl Rvrs - [id number] Implanted:Qty : 1 on 07/10/2023 by Shailesh Salcido MD at [facility] Screw Right: Shoulder [employer] 02/16/2032 [id number] / / [id number] Procedures Procedure Name Priority Date/Time Associated Diagnosis [...] - 4.00 ng/mL 01/21/2025 1:57 PM EDT [facility] Comment: The method used for this test is Shady Alminder DXI chemiluminescent immunoassay. Values obtained by different assay methods cannot be used interchangeably. FREE PSA 0.66 ng/mL 01/21/2025 1:57 PM EDT [facility] Comment: The method used for this test is Shady Orlando DXI chemiluminescent immunoassay. Values obtained by different assay methods cannot be used interchangeably. % FREE PSA 20.2 % 01/21/2025 1:57 PM EDT [facility] Blood Venous blood / Unknown Venipuncture / Unknown 01/21/2025 7:44 AM EDT 01/21/2025 7:44 AM EDT [facility] LABORATORY - 01/21/2025 1:57 PM EDT Percent [...] ORDERABLES Final R esult Performing Organization Address City/[facility]/ZIP Co de Phone Number [facility] [address] [place] [address], [place] [phone] * (ABNORMAL) Parathyroid Hormone, intact (11/27/2024 8:27 AM EDT) PTH 132(H) 12 - 88 pg/mL 11/27/2024 2:09 PM EDT [facility] PLASMA 11/27/2024 8:27 AM EDT 11/27/2024 8:29 AM EDT Esdras Lau MD LAB BLOOD ORDERABLES Final Resu lt Performing Organization Address [facility]/ZIP Co de Phone Number [facility] [address] [address] * Vitamin D 25 hydroxy (11/27/2024 8:27 AM EDT) Vit D, 25-Hydroxy 53.9 30 - 100 ng/mL 11/27/2024 2:17 PM EDT [facility] Comment: Vitamin D status 25 [place] Vitamin D Deficiency <20 ng/mL Insufficiency 20-29 ng/mL Sufficiency 30-100 ng/mL Toxicity >100 ng/mL NOTE: A pediatric reference range has not been established by the attendant honor bar of this kit. The [place] [employer] recommends a Vitamin D level of = or >20ng/mL in infants and children. PLASMA 11/27/2024 8:27 AM EDT 11/27/2024 8:29 AM EDT Esdras Lau MD LAB BLOOD ORDERABLES Final Resu lt Performing Organization Address City/[facility]/ZIP Co de Phone Number [facility] [address] [facility] [place] [address] * (ABNORMAL) CBC without diff (11/27/2024 8:27 AM EDT) [facility] White Blood Cells 9.2 4.0 - 11.0 X10E9/L 11/27/2024 1:40 PM EDT [facility] RBC count 4.54 4.10 - 5.70 X10E12/L 11/27/2024 1:40 PM EDT [facility] Hemoglobin 13.2 13.0 - 17.0 g/dL 11/27/2024 1:40 PM EDT [facility] Hematocrit 39.4 39 - 49 % 11/27/2024 1:40 PM EDT [facility] MCV 87 80 - 100 fL 11/27/2024 1:40 PM EDT [facility] MCH 29.0 27 - 34 pg 11/27/2024 1:40 PM EDT [facility] MCHC 33.4 32 - 36 g/dL 11/27/2024 1:40 PM EDT [facility] RDW 15.2(H) 11.5 - 15.0 % 11/27/2024 1:40 PM EDT [facility] Platelets 205 150 - 450 X10E9/L 11/27/2024 1:40 PM EDT [facility] MPV 8.1 7 - 12 fL 11/27/2024 1:40 PM EDT [facility] Blood / Unknown 11/27/2024 8 :27 AM EDT 11/27/2024 8:29 AM EDT us Esdras Lau MD LAB BLOOD ORDERABLES Final Resu lt [facility] [address] [facility] [place] [address] * (ABNORMAL) Uric acid (11/27/2024 8:27 AM EDT) [facility] Uric Acid 10.2(H) 2.6 - 7.2 mg/dL 11/27/2024 1:59 PM EDT [facility] PLASMA 11/27/2024 8:27 AM EDT 11/27/2024 8:29 AM EDT us Esdras Lau MD LAB BLOOD ORDERABLES Final Resu lt Performing Organization Address City/[facility]/ZIP Co de Phone Number [facility] [address] [place] [address], [facility] [address] [place] [address] * Phosphorus (11/27/2024 8:27 AM EDT) Phosphorus 3.0 2.4 - 4.9 mg/dL 11/27/2024 1:59 PM EDT [facility] PLASMA 11/27/2024 8:27 AM EDT 11/27/2024 8:29 AM EDT us Esdras Lau MD LAB BLOOD ORDERABLES Final Resu lt Performing Organization Address City/[facility]/ZIP Co de Phone Number [facility] [address] [place] [address] [address] [place] [address] * Magnesium (11/27/2024 8:27 AM EDT) Magnesium 2.1 1.8 - 2.6 mg/dL 11/27/2024 1:59 PM EDT [facility] PLASMA 11/27/2024 8:27 AM EDT 11/27/2024 8:29 AM EDT us Esdras Lau MD LAB BLOOD ORDERABLES Final Resu lt Performing Organization Address City/[facility]/ZIP Co de Phone Number [facility] [address] [place] [address] * Albumin (11/27/2024 8:27 AM EDT) Albumin 4.0 3.2 - 5.3 g/dL 11/27/2024 1:59 PM EDT [facility] PLASMA 11/27/2024 8:27 AM EDT 11/27/2024 8:29 AM EDT us Esdras Lau MD LAB BLOOD ORDERABLES Final Resu lt [facility] [address] [facility] [place] [address] * (ABNORMAL) Basic Metabolic Panel (11/27/2024 8:27 AM EDT) Sodium 141 134 - 146 mmol/L 11/27/2024 1:59 PM EDT [facility] Potassium, Bld 5.0 3.5 - 5.0 mmol/L 11/27/2024 1:59 PM EDT [facility] Chloride 104 98 - 109 mmol/L 11/27/2024 1:59 PM EDT [facility] CO2 27 22 - 32 mmol/L 11/27/2024 1:59 PM EDT [facility] Anion gap 10 5 - 15 mmol/L 11/27/2024 1:59 PM EDT [facility] BUN 38(H) 5 - 27 mg/dL 11/27/2024 1:59 PM EDT [facility] Creatinine 2.67(H) 0.60 - 1.30 mg/dL 11/27/2024 1:59 PM EDT [facility] Comment:METHOD TRACEABLE TO IDMS STANDARD Glucose 119(H) 65 - 99 mg/dL 11/27/2024 1:59 PM EDT [facility] Calcium 9.0 8.5 - 10.5 mg/dL 11/27/2024 1:59 PM EDT [facility] eGFR (CKD-EPI)non-ra ce dependent 24(L) >59 ml/min/1.7 3sq.m 11/27/2024 1:59 PM EDT [facility] Comment: Reported eGFR is based on the CKD-EPI 2020 equation that does not use a race coefficient. PLASMA 11/27/2024 8:27 AM EDT 11/27/2024 8:29 AM EDT us Esdras Lau MD LAB BLOOD ORDERABLES Final Resu lt [facility] [address] [place] [address] from Last 3 Months Insurance [employer] Advance Directives Documents on File Type Date Recorded Patient Director Of Cardiology Service Line Expl anation DNR Physician Order 09/20/2023 5:12 AM Living Will 09/26/2019 12:59 PM Advance Directive 09/26/2019 12:59 PM DPOA * DNR Comfort Care (DNRCC) [place] (Latest Code Status on File) Date Activated Date Inactivated Comments 09/12/2023 8:11 AM 09/14/2023 7:20 PM * Full Code Date Activated Date Inactivated Comments 09/11/2023 7:26 PM 09/12/2023 8:11 AM * Full Code Date Activated Date Inactivated Comments 07/10/2023 9:10 AM 07/10/2023 8:02 PM * Full Code Date Activated Date Inactivated Comments 11/24/2022 2:50 PM 11/24/2022 9:11 PM Care Teams Tensioning Machine Operator Relationship Specialty Start Date End Date [facility], [facility] [address] [place] PCP - General Family Medicine 02/19/24
--- OUTSIDE RECORDS SUMMARY | 2025-02-03 07:17 | XMS_ITS | Patient Health Record ---
Author Organization [facility] vices Address [address] [place], [place] [id number] Care Team Providers Care Travel Sales Consultant Name Role Phone Yaima Shailesh Primary Care Provider Levi Tenorio Unavailable [phone] Chika Sheldon Unavailable Allergies Allergen (clinical drug ingredient) Drug/Non Drug Allergy documented on EMR Reaction Allergy Type Onset Date Status Motrin Unknown Drug Allergy Active morphine Morphine Unknown Drug Allergy Active Penicillin Unknown Drug Allergy Active Results Component Value Reference Range Notes COMPREHENSIVE METABOLIC PANE L (AMA) Reviewed date:09/10/2024 09:03:03 AM Interpretation: Performing Lab: [...] UNLESS OTHERWISE INDICATED, ALL TESTING PERFORMED AT: [employer] [address] [place] [address] ADDICTIONS THERAPIST: MIKE SUÁREZ M.D. CLIA NUMBER [id number] CAP ACCREDITATION AUID [id number] LIPID PANEL WITH REFLEX TO D IRECT [...] ALBUMIN 3.8 3.5-5.2 g/dL [facility] [address] [place] [address] CLIA No. [id number] CAP Accreditation No. [id number] Rehabilitation Clerk: Alina Rodriges M.D. 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 Stress is when someone feels tense, nervous, anxious, or can't sleep at night because their mind is troubled A little bit patient entered data In the past year have you sp ent more than 2 nights in a row in a shelter, custodial, penitentiary center, or juvenile correctional facility? No [...] Problem Status W/U Status Risk Notes Problem 82463950 Type 2 diabetes mellitus with diabetic chronic kidney disease (E11.22) Active confirmed Problem 18588785 Other chronic pain (G89.29) Active confirmed Problem 84956757441110517 Pain in right shoulder (M25.511) Active confirmed Problem 62882417 Pulmonary hypertension, unspecified (I27.20) Active confirmed Problem Vitamin B12 deficiency (532746981) Vitamin B12 deficiency (E53.8) Active confirmed Problem 614857753 Abnormal ECG (R94.31) Active confirmed Problem 78080493 Iron deficiency anemia, unspecified iron deficiency anemia type (D50.9) Active confirmed Problem 58738933 Chronic obstructive pulmonary disease, unspecified COPD type (J44.9) Active confirmed Problem 548092676 Venous insufficiency of both lower extremities (I87.2) Active confirmed Problem 36985882 Obstructive sleep apnea (G47.33) Active confirmed Problem 16905835 Vitamin D deficiency (E55.9) Active confirmed Problem Skin sensation disturbance (73567956) Arm numbness left (R20.0) Active confirmed Problem 318448240 Neuropathy (G62.9) Active confirmed Problem Neck pain (76630575) Neck pain (M54.2) Active confirmed Problem 18072398 Primary hypertension (I10) Active confirmed -CW DASH diet and meds as directed, BP WNLS -f/u in 3 months Problem 273473502 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 f/u with Nephrology as scheduled, PVU Problem 11170024 Spinal stenosis of cervical region (M48.02) Active confirmed Problem Arthralgia of the pelvic region and thigh (607349041) Pain in right hip (M25.551) Inactive confirmed Vital Signs Heart Rate 56 /min 10/23/2024 Ayaz Whittingtonista 10/23/2024 12:54:49 PM EDT > Temperature 98.5 degrees Fahrenheit 10/23/2024 Wats onElsi 10/23/2024 12:54:49 PM EDT > Respiratory Rate 20 /min 10/23/2024 WhittingtonAyazelvira delfina 10/23/2024 12:54:49 PM EDT > Oximetry 100 % 10/23/2024 Pk Elsi 10/23/2024 12:54:49 PM EDT > Blood pressure diastolic 68 mm Hg 10/23/2024 Max sonElsi 10/23/2024 12:54:49 PM EDT > Weight-kg 112.99 kg 10/23/2024 Pk Elsi 10/23/2024 12:54:49 PM EDT > Height 5'10'' in 10/23/2024 Pk Elsi 10/23/2024 12:54:49 PM EDT > Blood pressure systolic 130 mm Hg 10/23/2024 Wats kiana Elsi 10/23/2024 12:54:49 PM EDT > Weight 249.1 lbs 10/23/2024 Pk Elsi 10/23/2024 12:54:49 PM EDT > BMI 35.74 kg/m2 10/23/2024 Pk Elsi 10/23/2024 12:54:49 PM EDT > Encounters Encounter Location Date Provider Diagnosis Main [address] [facility] [id number] 03/19/2024 Levi Tenorio Stage 3b chronic kidney disease N18.32 and Primary hypertension I10 Main [address] [place] [id number] 04/09/2024 Levi Tenorio Erysipelas A46 Main [address] [facility] [place] [id number] 08/26/2024 Shailesh Studd Bacterial URI J06.9 Main [address] [place] [id number] 09/09/2024 Shailesh Studd URI (upper respirato ry infection) J06.9 and Stage 3b chronic kidney disease N18.32 Main [address] [place], [place] [id number] 10/23/2024 Shailesh Studd Acute non-recurrent sinusitis, unspecified location J01.90 and Primary hypertension I10 Main [address] [place], [place] [id number] 03/06/2024 Levi Tenorio Stage 3b chronic kidney disease N18.32 and Primary hypertension I10 Main [address] [place], [place] [id number] 04/03/2024 Levi Tenorio Vitamin B12 deficien cy E53.8 [place] [address] [place] [address] 04/16/2024 Levi Tenorio [place] [address] [facility] [address] 05/05/2024 Chika Myerholtz Vitamin B12 deficien cy E53.8 [place] [address] [facility] [address] 05/05/2024 Chika Myerholtz [place] [address] [place] [address] 05/05/2024 Chika Myerholtz [place] [address] [place] [address] 05/05/2024 Chika Myerholtz [place] [address] [facility] [address] 05/05/2024 Chika Myerholtz [place] [address] [place] [address] 05/05/2024 Chika Myerholtz [place] [address] [place] [address] 05/05/2024 Chika Myerholtz Vitamin D deficiency E55.9 Main [address] [place], [place] [id number] 05/05/2024 Chika Myerholtz Main [address] [place], [place] [id number] 08/01/2024 Chika Myerholtz Vitamin B12 deficien cy E53.8 Main [address] [place], [place] [id number] 08/01/2024 Chika Sheldon Main [address] [place], [place] [id number] 08/01/2024 Chika Sheldon Main [address] [place], [place] [id number] 08/01/2024 Chika Sheldon Vitamin D deficiency E55.[address] [place], [place] [id number] 08/01/2024 Chika Sheldon Main [address] [place], [place] [id number] 08/01/2024 Chika Sheldon Main [address] [place], [place] [id number] 09/09/2024 Shailesh Studd Main [address] [place], [place] [id number] 10/23/2024 Shailesh Studd Main [address] [place], [place] [id number] 10/30/2024 Shailesh Studd Main [address] [place], [place] [id number] 01/23/2025 Shailesh Studd Main [address] [place], [place] [id number] 10/23/2024 Shailesh Studd Assessments Encounter Date Diagnosis (ICD Code) Assessment Notes Treatment Notes Treatment Clinical Notes Section Notes 05/05/2024 Vitamin D deficiency (ICD-10 - E55.9) 05/05/2024 Vitamin B12 deficiency (ICD-10 - E53.8) 04/03/2024 Vitamin B12 deficiency (ICD-10 - E53.8) 03/19/2024 Primary hypertension (ICD-10 - I10) -CW DASH diet and meds as directed, BP WNLS -f/u in 3 months 03/19/2024 Stage 3b chronic kidney disease (ICD-10 - N18.32) -labs on 03/10/24 at [facility] and in 02/2024 at Nephrology office consistent but stable with CKD3b. f/u with Nephrology as scheduled, PVU 04/09/2024 Erysipelas (ICD-10 - A46) -wound is scabbed over now and is on his right york, mild erythema and denies pain or edema, started on topical Abx, f/u if no further improvement in sxs, PVU 10/23/2024 Acute non-recurrent sinusitis, unspecified location (ICD-10 [...] The patient verbalized understanding at this time. 09/09/2024 URI (upper respiratory infection) (ICD-10 - J06.9) Pts congestion is likely due to residual viral infection I will give loratadine to help with these symptoms 09/09/2024 Stage 3b chronic kidney disease (ICD-10 - N18.32) pt has not seen technical sales manager I will redraw CMP for kidney function nursing staff has contacted pts nephrologsits and they willl contact pt 08/26/2024 Bacterial URI (ICD-10 - J06.9) The [...] perels for the cough at this time. 08/01/2024 Vitamin D deficiency (ICD-10 - E55.9) 08/01/2024 Vitamin B12 deficiency (ICD-10 - E53.8) 03/06/2024 Primary hypertension (ICD-10 - I10) 03/06/2024 Stage 3b chronic kidney disease (ICD-10 - N18.32) 10/23/2024 Primary hypertension (ICD-10 - I10) Bp well controlled. Continue current medications will contact nephrolgy Plan Of Treatment No Information Insurance Providers Payer Name Payer Address Payer Phone Subscriber Number Group Number Insured Name Patient Relationship to Insured Coverage Start Date Coverage End Date Medicare NGS PPS [address] [place], [place] [id number] Ishaan Canela Self - patient is the insured 0 [facility] [place] [id number] plan f Ishaan Canela Self - patient [...]
--- OUTSIDE RECORDS SUMMARY | 2025-02-03 07:17 | XMS_ITS | Encounter Summary ---
Author Organization [facility] tem Address [id number] [address] [place] [address] Care Team Providers Care Waiter/Waitress Counter Name Role Phone Services, [facility] Primary Care Provider Encounter Details Date Type Department Care Team (Late st Contact Info) Description 10/20/2022 Telephone [facility] [address] [place] [address] Cecilia Sarabia, JOSE Social History Tobacco Use [...] 2:15 PM EST Office Visit Felicitas Grier [facility] [place] [address] Fab Cespedes MD [facility] [address] [place] [address] documented as of this encounter Visit Diagnoses Not on filedocumented in this encounter Additional Health Concerns Infection Onset Date Last Indicated Resolved Time COVID-19 Rule-Out 09/11/2023 09/11/2023 09/11/2023 4:50 PM EST Influenza 09/11/2023 09/11/2023 09/18/2023 11:1 2 PM EST documented as of this encounter Care Teams Waiter/Waitress Counter Relationship Specialty Start Date End Date [facility], [facility] [address] [place] [place] PCP - General Family Medicine 02/19/24 documented as of this encounter
--- OUTSIDE RECORDS SUMMARY | 2025-02-03 07:17 | XMS_ITS | Patient Health Record ---
Author Organization [facility] in [place] Address [address] [place] [address] Care Team Providers Care Cashier Greeter Name Role Phone Brenda Fong Primary Care Provider Unavail able RankEsdras pan Qian [phone] Allergies Allergen (clinical drug ingredient) Drug/Non Drug Allergy documented on EMR Reaction Allergy Type Onset Date Status Motrin Unknown Drug Allergy Active morphine Morphine Unknown Drug Allergy Active Penicillin Unknown Drug Allergy Active Results Component Value Reference Range Notes BMP w/GFR Reviewed date:02/21/2024 04:51:41 PM Interpretation: Performing Lab:[facility] ([facility]), [facility], [address]. [address] PH:[phone] Notes/Report: SODIUM 143 134-146 mmol/L POTASSIUM 5.1 3.5-5.0 mmol/L CHLORIDE 102 98-109 mmol/L CARBON DIOXIDE 31 22-32 mmol/L ANION GAP 10 5-15 mmol/L BLOOD UREA NITROGEN 36 5-27 mg/dL CREATININE 2.61 0.60-1.30 mg/dL METHOD TRACE ABLE TO IDMS STANDARD GLUCOSE 100 65-99 mg/dL CALCIUM 9.5 8.5-10.5 mg/dL eGFR (CKD-EPI) NON-RACE DEPENDENT 24 >59 ml/min/1.73sq.m Reported eGFR is based on the CKD-EPI 2020 equation that does not use a race coefficient. PERFORMED AT [place] [address] [facility]. [address], [place] [address] CBC (COMPLETE BLOOD COUNT) * Reviewed date:02/21/2024 04:51:50 PM Interpretation: Performing Lab:[facility] ([facility]), [facility] [address]. [address] PH:[phone] Notes/Report: WBC COUNT 8.8 4.0-11.0 X10E9/L RBC COUNT 4.59 4.10-5.70 X10E12/L HEMOGLOBIN 13.1 13.0-17.0 g/dL HEMATOCRIT 39.5 39-49 % MCV 86 80-100 fL MCH 28.5 27-34 pg MCHC 33.2 32-36 g/dL RDW 17.1 11.5-15.0 % PLATELET COUNT 180 150-450 X10E9/L MPV 8.9 7-12 fL PERFORMED AT [address] [place] [address] ALBUMIN Reviewed date:02/21/2024 04:51:44 PM Interpretation: Performing Lab:[facility] ([facility]), [address] [place] [address] AVE., [address] [place] [address]. [address] PH:[phone] Notes/Report: ALBUMIN 4.0 3.2-5.3 g/dL PERFORMED AT [address] [place] [address] MAGNESIUM Reviewed date:02/21/2024 04:51:35 PM Interpretation: Performing Lab:[facility] ([facility]), [facility] [address] [place] [address]. [address] PH:[phone] Notes/Report: MAGNESIUM 2.0 1.8-2.6 mg/dL PERFORMED AT [address] [place] [address] PHOSPHORUS Reviewed date:02/21/2024 04:51:32 PM Interpretation: Performing Lab:[facility] ([facility]), [address] [place] [address] AVE[address] [place] [address]. [address] PH:[phone] Notes/Report: PHOSPHORUS 3.6 2.4-4.9 mg/dL PERFORMED AT [address] [place] [address] MICROALBUMIN WITH RATIO Reviewed date:02/21/2024 04:51:54 PM Interpretation: Performing Lab:[facility] ([facility]), [facility] [address] [place] [address]. [address] PH:[phone] Notes/Report: MICROALBUMIN, URINE 0.7 0.0-1.9 mg/dL URINE CREAT 65.94 ALB/CREAT RATIO 10.6 0.0-30.0 mg/g creat PERFO RMED AT [address] [place] [address] BMP w/GFR Reviewed date:11/27/2024 02:45:03 PM Interpretation: Performing Lab:[facility] ([facility]), [address] [place] [address] AVE[address] [place] [address]. [address] PH:[phone] Notes/Report: SODIUM 141 134-146 mmol/L POTASSIUM 5.0 3.5-5.0 mmol/L CHLORIDE 104 98-109 mmol/L CARBON DIOXIDE 27 22-32 mmol/L ANION GAP 10 5-15 mmol/L BLOOD UREA NITROGEN 38 5-27 mg/dL CREATININE 2.67 0.60-1.30 mg/dL METHOD TRACE ABLE TO IDMS STANDARD GLUCOSE 119 65-99 mg/dL CALCIUM 9.0 8.5-10.5 mg/dL eGFR (CKD-EPI) NON-RACE DEPENDENT 24 >59 ml/min/1.73sq.m Reported eGFR is based on the CKD-EPI 2020 equation that does not use a race coefficient. PERFORMED AT [address] [place] [address] ALBUMIN Reviewed date:11/27/2024 02:45:09 PM Interpretation: Performing Lab:[facility] ([facility]), [facility] [address] [place] [address]. [address] PH:[phone] Notes/Report: ALBUMIN 4.0 3.2-5.3 g/dL PERFORMED AT [address] [place] [address] P[facility] ([facility]) Reviewed date:11/27/2024 02:44:49 PM Interpretation: Performing Lab:[facility] ([facility]), [facility] [address] [place] [address]. [address] PH:[phone] Notes/Report: PTH INTACT 132 12-88 pg/mL PERFORMED AT [address],[place] [address] URIC ACID Reviewed date:11/27/2024 02:44:51 PM Interpretation: Performing Lab:[facility] ([facility]), [address] [place] [address]., [address], [place]. [address] PH:[phone] Notes/Report: URIC ACID 10.2 2.6-7.2 mg/dL PERFORMED AT [address],[place] [address] VITAMIN D 25 HYD TOT Reviewed date:11/27/2024 02:44:46 PM Interpretation: Performing Lab:[facility] ([facility]), [address] [place] [address]., [address], [place]. [address] PH:[phone] Notes/Report: VITAMIN D 25 HYD TOT 53.9 30-100 ng/mL Vitamin D status 25 [place] Vitamin D Deficiency <20 ng/mL Insufficiency 20-29 ng/mL Sufficiency 30-100 ng/mL Toxicity >100 ng/mL NOTE: A pediatric reference range has not been established by the ring facer of this kit. The [place] [employer] recommends a Vitamin D level of = or >20ng/mL in infants and children. PERFORMED AT [address],[place] [address] PHOSPHORUS Reviewed date:11/27/2024 02:44:55 PM Interpretation: Performing Lab:[facility] ([facility]), [address] [place] [address]., [address], [place]. [address] PH:[phone] Notes/Report: PHOSPHORUS 3.0 2.4-4.9 mg/dL PERFORMED AT [address],[place] [address] MAGNESIUM Reviewed date:11/27/2024 02:44:57 PM Interpretation: Performing Lab:[facility] ([facility]), [address] [place] [address], [address] [address] PH:[phone] Notes/Report: MAGNESIUM 2.1 1.8-2.6 mg/dL PERFORMED AT [address] [address] CBC (COMPLETE BLOOD COUNT) * Reviewed date:11/27/2024 02:45:12 PM Interpretation: Performing Lab:[facility] ([facility]), [address] [place] [address]. [address] PH:[phone] Notes/Report: WBC COUNT 9.2 4.0-11.0 X10E9/L RBC COUNT 4.54 4.10-5.70 X10E12/L HEMOGLOBIN 13.2 13.0-17.0 g/dL HEMATOCRIT 39.4 39-49 % MCV 87 80-100 fL MCH 29.0 27-34 pg MCHC 33.4 32-36 g/dL RDW 15.2 11.5-15.0 % PLATELET COUNT 205 150-450 X10E9/L MPV 8.1 7-12 fL PERFORMED AT [address] [address] URINALYSIS Reviewed date:02/21/2024 04:51:47 PM Interpretation: Performing Lab:[facility] ([facility]), [address] [place] [address]. [address] PH:[phone] Notes/Report: COLOR YELLOW YELLOW TURBIDITY CLEAR CLEAR SPECIFIC GRAVITY 1.009 1.003-1.035 NITRITE Negative Negative PH,URINE 6.0 5.0-8.5 LEUKOCYTE ESTERASE Negative Negative PROTEIN Negative Negative mg/dL GLUCOSE (URINE) Negative Negative mg/dL KETONES (URINE) Negative Negative mg/dL UROBILINOGEN <1.1 <1.1 eu/dL BILIRUBIN (URINE) Negative Negative BLOOD/HGB Negative Negative PERFORMED AT [address] [address] Reason For Referral No Information Medications Medication [...] for 30 day(s) Active Ergocalciferol 1.25 MG (39041 UT) 1 capsule Orally Weekly Not-Taking Ferrous [...] Problem Status W/U Status Risk Notes Problem [id number] Essential (prima ry) hypertension (I10) Active confirmed Problem 526185850 Type 2 diabetes mellitus without complications (E11.9) Active confirmed Problem [id number] 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) Active confirmed Problem 116715924 Chronic kidney disease, stage 4 (severe) (N18.4) Active confirmed Problem 38345619 Secondary hyperparathyroidism of renal origin (N25.81) Active confirmed Problem Constipation (42063465) Constipation (K59.00) Active confirmed Problem Osteoarthritis (954416325) 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) Active confirmed Problem High blood pressure (80116533) High blood pressure (I10) Active confirmed Problem 189735995 Chronic kidney disease, stage 3b (N18.32) Active confirmed Problem Chronic kidney disease stage 4 (038384256) Acute worsening of stage 4 chronic kidney disease (N18.4) Active confirmed Vital Signs Blood pressure diastolic 48 mm Hg 12/01/2024 Height 5 ft 10 in in 12/01/2024 Blood pressure systolic 138 mm Hg 12/01/2024 Weight 248.2 lbs 12/01/2024 BMI 35.61 kg/m2 12/01/2024 Encounters Encounter Location Date Provider [facility] [address] [place] [phone] 02/25/2024 Esdras Lau Chronic kidney disease, stage 4 (severe) N18.4 ; Essential (primary) hypertension I10 ; Type 2 diabetes mellitus without complications E11.9 and Hyperuricemia without signs of inflammatory arthritis and tophaceous disease E79.0 [facility] [address] [place] [phone] 12/01/2024 Esdras Lau Acute worsening of stage 4 chronic kidney disease N18.4 ; Type 2 diabetes mellitus without complications E11.9 ; Hyperuricemia without signs of inflammatory arthritis and tophaceous disease E79.0 and Essential (primary) hypertension I10 [facility] [address] [place] [address] 02/19/2024 Esdras Lau Chronic kidney disease, stage 3b N18.32 Assessments Encounter Date Diagnosis (ICD Code) Assessment Notes Treatment Notes Treatment Clinical Notes Section Notes 02/25/2024 Essential (primary) hypertension (ICD-10 - I10) 02/25/2024 Chronic kidney disease, stage 4 (severe) [...] OK F/U labs ordered for 4 months 12/01/2024 Type 2 diabetes mellitus without complications (ICD-10 - E11.9) 12/01/2024 Acute worsening of stage 4 chronic [...] is controlled Hgb is stable over 12 02/19/2024 Chronic kidney disease, stage 3b (ICD-10 [...] Lau, 06/01/2025 12:00:00 PM, [address], [place], [address], Insurance Providers Payer Name Payer Address Payer Phone Subscriber Number Group Number Insured Name Patient Relationship to Insured Coverage Start Date Coverage End Date MEDICARE [place] [address] [place] [address] [id number] Ishaan Canela Self - patient is the insured 0 [id number] [place] 8 MEDICARE SUPP CLMS DEPT [place] [address] [id number] Ishaan Canela Self - patient is the insured 6 Medical (General) History Medical History History ICD Code Hypertension Neuropathy Type 2 diabetes mellitus Gout Bladder cancer Elevated PSA Compression fracture of spine Surgical History Surgery Date(Month/Year) Right knee replacement 2009 Left knee replacement 2020 Back surgery 2004 Right hip surgery 11/24/22 right shoulder reversal 07/2023
--- OUTSIDE RECORDS SUMMARY | 2025-02-03 07:17 | XMS_ITS | Encounter Summary ---
Author Organization [facility] Address [id number] [address] [place] [address] Care Team Providers Care Compound Worker Name Role Phone Services, [facility] Primary Care Provider Encounter Details Date Type Department Care Team (Late st Contact Info) Description 11/02/2023 Orders Only [facility] [address] [place] [phone] External, Scanning Provider Social History Tobacco Use [...] [facility] - Medical Oncology [address] [place] [address] Fab Cespedes MD [address] [place] [address] [address] [place] [address] documented as of this encounter Goals [...] on filedocumented in this encounter Care Teams Compound Worker Relationship Specialty Start Date End Date Services, [facility] [address] [place], [place] PCP - General Family Medicine 02/19/24 documented as of this encounter
--- OUTSIDE RECORDS SUMMARY | 2025-02-03 07:17 | XMS_ITS | Encounter Summary ---
Author Organization [facility] Address [id number] [address] [place] [address] Care Team Providers Care Highway Research Engineer Name Role Phone Services, [facility] Primary Care Provider Encounter Details Date Type Department Care Team (Late st Contact Info) Description 11/01/2023 Orders Only [facility] [address] [place] [phone] External, Scanning Provider Social History Tobacco Use [...] 2:15 PM EST Office Visit Felicitas Grier [facility] [address] [place] [address] Fab Cespedes MD [address] [place] [address] [address] [place] [address] documented as of this encounter Goals [...] on filedocumented in this encounter Care Teams Highway Research Engineer Relationship Specialty Start Date End Date Services, [facility] [address] [place], [place] PCP - General Family Medicine 02/19/24 documented as of this encounter
--- OUTSIDE RECORDS SUMMARY | 2025-02-03 07:17 | XMS_ITS | Encounter Summary ---
Author Organization [facility] Address [address] [place] [address] Care Team Providers Care Pan Cleaner Name Role Phone Mona Box DO Primary Care Provider Unallocated, [facility] Provider Primary Care [facility] [place] Reason for Visit * Reason Comments Med Refill Encounter Details Date Type Department Care Team (Late st Contact Info) Description 06/02/2023 Refill [facility] [address] [place] [address] Mona Box DO [address] [facility] [address] [place] [address] Social History Tobacco Use Types Packs/Day Years [...] on filedocumented in this encounter Care Teams Pan Cleaner Relationship Specialty Start Date End Date Mona Box DO PCP - General Family Medicine 12/12/22 04/22/24 Unallocated, [facility] Provider, [place] [address] PCP - General Family Medicine 04/23/24 documented as of this encounter
--- OUTSIDE RECORDS SUMMARY | 2025-02-03 07:17 | XMS_ITS | Encounter Summary ---
Author Organization [facility] Address [address] [place] [address] Care Team Providers Care Boat Officer Name Role Phone Mona Box DO Primary Care Provider Unallocated, [facility] Provider Primary Care Pro[facility] [place] Reason for Visit * Reason Comments Med Refill Encounter Details Date Type Department Care Team (Late st Contact Info) Description 03/09/2023 Refill [facility] [address] [place] [address] Mona Box DO [address] [facility] [address] [place] [address] Social History Tobacco Use Types Packs/Day Years [...] on filedocumented in this encounter Care Teams Boat Officer Relationship Specialty Start Date End Date Mona Box DO PCP - General Family Medicine 12/12/22 04/22/24 Unallocated, [facility] Provider, [place] [address] PCP - General Family Medicine 04/23/24 documented as of this encounter
--- OUTSIDE RECORDS SUMMARY | 2025-02-03 07:18 | XMS_ITS | CCD ---
Author Organization [facility] Care Team Providers Care Assembler Handbags Name Role Phone DR TIFFANY RIGGS Primary Care Unavailable GOVIND BUENO Consulting Unavailable GOVIND BUENO Attending Unavailable GOVIND BUENO Admitting Unavailable MONA CUTLER Primary Care Physician Unavailab le CHADWICKLIM, BUD A Primary Care Unavailable ARUNA CUNHA Attending Unavailable SE MELTON Admitting Unavailable [facility]ARDIOLOG[facility], [facility] Consulting Unavailable BETH DUDLEY Attending Unavailable BETH DUDLEY Referring Unavailable ANGLIM, BUD A Primary Care Unavailable VINNIE FRANCISCO Referring Unavailable ANGLIM, BUD A Primary Care Unavailable RESHMA KC Referring Unavailable ANGLIM, BUD A Primary Care Unavailable ANA PAULA COLÓN Attending Unavailable ANGLIM, BUD A Referring Unavailable ANGLIM, BUD A Primary Care Unavailable SHAILESH GREEN Attending Unavailable ANGLIM, BUD A Referring Unavailable ANGLIM, BUD A Primary Care Unavailable RACHEL VITAL Attending Unavailable ANGLIM, BUD A Referring Unavailable SERVICES, [facility] Primary Care Unava ilable SHAILESH GREEN Attending Unavailable ANGLIM, BUD A Referring Unavailable ANGLIM, BUD A Primary Care Unavailable Services, [facility] Primary Care Provider Anglim SUPERVISOR BRIAR SHOP-AUTOMOTIVE PAINTER, Bud A Primary Care Provider Clotilde VERDUZCO Attending Unavailable HE, MONA Primary Care Unavailable HE MONA Primary Care Unavailable Clotilde VERDUZCO Admitting Unavailable Clotilde VERDUZCO Attending Unavailable AMARILIS SIDDIQI Referring Unavailable SERVICES, [facility] Primary Care Unava ilable SERVICES, [facility] Primary Care Unava ilable OMAR QUIROS Attending Unavailable OMAR QUIROS Attending Unavailable OMAR QUIROS Referring Unavailable SERVICES, [facility] Primary Care Unava ilable ELLA NG Referring Unavailable SERVICES, [facility] Unava ilable ELLA NG Attending Unavailable BUD FRANCIS Referring Unavailable SERVICES, [facility] Unava ilable DAX, CLOTILDE Castaneda Referring Unavailable SERVICES, [facility] Unava ilable AMARILIS SIDDIQI Referring Unavailable SERVICES, [facility] Unava ilable DAX, CLOTILDE Castaneda Referring Unavailable SERVICES, [facility] Unava ilable VERDUZCO, Clotilde R Attending Unavailable HE, [facility] Care Unavailable VERDUZCO, Clotilde R Attending Unavailable HE, [facility] Care Unavailable VERDUZCO, Clotilde R Attending Unavailable HE, [facility] Unavailable VERDUZCO, Clotilde R Admitting Unavailable VERDUZCO, Clotilde Castaneda Attending Unavailable HE, [facility] Unavailable Allergies Allergy Classification Reported Allergen(s) Allergy Type Date of Onset Reaction(s) Facility (6 sources) Morphine; Translations: [MORPHINE] Drug Allergy [address] [facility] Repository (1 source) Penicillin Drug Allergy [facility] Repository (1 source) Propylthiouracil Drug Allergy [facility] Repository (20 sources) Morphine; Translations: [morphine] Drug Allergy 0 Retching (finding), Vomiting [facility] (20 sources) Penicillins; Translations: [penicillins] Drug allergy 0 Weal (disorder), Hives [facility] (20 sources) Ibuprofen; Translations: [IBUPROFEN] Drug Allergy 0 Swelling [facility] Repository Medications Current Medications Medication Drug Class(es) Dates Sig (Normalized) Sig (Original) allopurinol 300 mg oral tablet (17 sources) Xanthine Oxidase Inhibitor take 0.5 tablet by mouth in the morning allopurinoL (ZYLOPRIM) 300 mg tablet Indications: prevention of acute gout attack Take 0.5 tablets (150 mg total) by mouth in the morning. Indications: treatment to prevent acute gout attack. Active take 1 tablet by mouth in the mo rning allopurinoL (ZYLOPRIM) 300 mg tablet Indications: prevention of acute gout attack Take 1 tablet (300 mg total) by mouth in the morning. Indications: treatment to prevent acute gout attack. Active aspirin 81 mg chewable tablet (14 sources) Platelet Aggregation Inhibitor, Nonsteroidal Anti-inflammatory Drug Start: 01-28-2025 aspirin 81 mg Jennifer w Tab 81 mg = 1 tab(s), Chewed, Daily Start Date: 01/28/25 Status: Ordered Repeat number: 1 Start: 09-15-2023 take 1 tablet by horacio th in the morning aspirin 81 mg Take 1 tablet (81 mg total) by mouth in the morning. 30 tablet 09/15/2023 Active celecoxib (3 sources) Nonsteroidal Anti-inflammatory Drug Start: 03-26-2020 celecoxib 200 mg, Refills(s) 0 Start Date: 03/26/20 Status: Ordered cholecalciferol 0.05 mg oral tablet (17 sources) Vitamin D take 1 tablet by mouth once daily at bedtime cholecalciferol , vitamin D3, 2,000 units tablet Take 1 tablet (2,000 Units total) by mouth once daily at bedtime. Active take 1 tablet by mouth in the mo rning cholecalciferol, vitamin D3, 2,000 units tablet Take 1 tablet (2,000 Units total) by mouth in the morning. 0 Active 24 hr dilTIAZem hydrochloride 240 mg extended release oral capsule (17 sources) Calcium Channel Lena take 1 capsule by mouth once daily at breakfast dilTIAZem CD (CARDIZEM CD) 240 mg 24 hr capsule Indications: hypertension Take 1 capsule (240 mg total) by mouth daily with breakfast Indications: high blood pressure. Active DilTIAZem (Eqv-Cardizem CD) 240 mg/24 hours oral capsule, extended release (5 sources) Start: take 1 capsule by mouth every hour DilTIAZem (Eqv-Cardizem CD) 240 mg/24 hours oral capsule, extended release Refills(s) 0 Start Date: 02/28/23 Status: Ordered Repeat number: 1 Start: 02-28-2023 DilTIAZem (Eqv -Cardizem CD) 240 mg/24 hours oral capsule, extended release Refills(s) 0 Start Date: 02/28/23 Status: Ordered ferrous sulfate 325 mg delayed release oral tablet (20 sources) Start: 01-28-2025 take 1 tablet by mouth once daily ferrous sulfate 325 mg oral enteric coated tablet 325 mg = 1 tab(s), Oral, Daily Start Date: 01/28/25 Status: Ordered Repeat number: 1 Start: 06-13-2024 End: 06-08-2025 take 1 tablet by mouth once daily at bedtime ferrous sulfate 325 (65 FE) mg tablet Take 1 tablet (325 mg total) by mouth once daily at bedtime for 360 days. 90 tablet 3 06/13/2024 06/08/2025 Active take 1 tablet by horacio three times weekly ferrous sulfate 325 (65 FE) mg tablet Take 1 tablet (325 mg total) by mouth 3 (three) times a week. 0 Active finasteride 5 mg oral tablet (20 sources) 5-alpha Reductase Inhibitor Start: 09-22-2024 take 1 tablet by mouth once daily finasteride 5 mg Tab 5 mg = 1 tab(s), Oral, Daily, # 30 tab(s), Refills(s) 11, Pharmacy: [facility] #[id number], 178, cm, 07/29/24 8:12:00 EST, Height/Length Dosing, 110.4, kg, 07/29/24 8:12:00 EST, Weight Dosing Start Date: 09/22/24 Status: Ordered Quantity: 30.0 Unit: tab(s) Repeat number: 12 Start: 05-24-2022 take 1 tablet by horacio once daily finasteride 5 mg Tab 5 mg = 1 tab(s), Oral, Daily, # 30 tab(s), Refills(s) 1, [id number], 178, cm, 02/28/23 7:41:00 EDT, Height/Length Dosing, 110.4, kg, 02/28/23 7:41:00 EDT, Weight Dosing Start Date: 07/08/24 Status: Ordered furosemide 40 mg oral tablet (20 sources) Loop Diuretic Start: 01-28-2025 take 1 tablet by mouth once daily furosemide 40 mg Tab 40 mg = 1 tab(s), Oral, Daily Start Date: 01/28/25 Status: Ordered Repeat number: 1 Start: 08-04-2024 take 1 tablet by horacio once daily furosemide (LASIX) 40 mg tablet Indications: edema Take 1 tablet (40 mg total) by mouth daily Indications: visible water retention. 90 tablet 2 08/04/2024 Active Start: 11-01-2023 End: 08-01-2024 take 1 tablet by mouth once daily furosemide (LASIX) 40 mg tablet Indications: edema Take 1 tablet (40 mg total) by mouth daily Indications: visible water retention. 90 tablet 3 11/01/2023 08/01/2024 Discontinued (Reorder) End: 11-01-2023 take 0.5 tablet by mouth once daily furosemide (LASIX) 80 mg tablet Indications: edema Take 0.5 tablets (40 mg total) by mouth daily Indications: visible water retention. 0 11/01/2023 Discontinued (Reorder) gabapentin (5 sources) Anti-epileptic Agent Start: 03-26-2020 gabapenti n 600 mg, Refills(s) 0 Start Date: 03/26/20 Status: Ordered Repeat number: 1 Start: 03-26-2020 gabapentin 600 mg, Refills(s) 0 Start Date: 03/26/20 Status: Ordered 12 hr guaiFENesin 600 mg extended release oral tablet (2 sources) Start: 09-14-2023 End: 09-21-2023 take 1 tablet by mouth once guaiFENesin (MUCINEX) 600 mg tablet extended release 12hr Take 1 tablet (600 mg total) by mouth every 12 (twelve) hours for 7 days. 14 tablet 0 09/14/2023 09/21/2023 Active losartan potassium 50 mg oral tablet (20 sources) Angiotensin 2 Receptor Lena Start: 02-28-2023 losartan 50 mg Tab Refills(s) 0 Start Date: 02/28/23 Status: Ordered Repeat number: 1 Start: 03-26-2020 losartan 50 mg , Refills(s) 0 Start Date: 03/26/20 Status: Ordered moxifloxacin (6 sources) Quinolone Antimicrobial Start: 10-04-2023 End: 11-03-2023 moxifloxacin HCl (MOXIFLOXACIN 0.5%-PREDNISOLONE 1%-BROMFENAC 0.09% DROPS - BUDERER ) Administer 1 drop to the right eye in the morning and 1 drop before bedtime. Do all this for 30 days. One drop twice a day to operative eye for one week, then daily for three weeks.. 0 10/04/2023 11/03/2023 Active Start: 09-06-2023 End: 10-06-2023 moxifloxacin HCl (MOXIFLOXAC IN 0.5%-PREDNISOLONE 1%-BROMFENAC 0.09% DROPS - BUDERER ) Administer 1 drop to the right eye in the morning and 1 drop before bedtime. Do all this for 30 days. One drop twice a day to operative eye for one week, then daily for three weeks.. 0 09/06/2023 10/06/2023 Active pregabalin 75 mg oral capsule (17 sources) take 1 capsule by mouth three times daily pregabalin (LYRICA) 75 mg capsule Take 1 capsule (75 mg total) by mouth 3 (three) times a day. Active SITagliptin 50 mg oral tablet (20 sources) Dipeptidyl Peptidase 4 Inhibitor Start: 3 Januvia 50 mg Tab Refills(s) 0 Start Date: 02/28/23 Status: Ordered Repeat number: 1 Vitamin B-12 1000 mcg oral tablet (2 sources) Start: 5 take 1 tablet by mouth once daily Vitamin B-12 1000 mcg oral tablet 1,000 mcg = 1 tab(s), Oral, Daily Start Date: 01/28/25 Status: Ordered Repeat number: 1 vitamin b12 1 mg oral tablet (7 sources) Vitamin B12 take 1 tablet by mouth in the morning cyanocobalamin (vitamin B-12) 1000 MCG tablet Take 1 tablet (1,000 mcg total) by mouth in the morning. Active Vitamin D (3 sources) Start: 2 Vitamin D International_Unit, Oral, qWeek Start Date: 01/17/22 Status: Ordered Vitamin D3 2000 intl units oral tablet (2 sources) Start: 5 take 1 tablet by mouth once daily Vitamin D3 2000 intl units oral tablet 50 mcg = 1 tab(s), Oral, Daily Start Date: 01/28/25 Status: Ordered Repeat number: 1 Completed/Discontinued Medications Medication Drug Class(es) Dates Sig (Normalized) Sig (Original) atorvastatin 40 mg oral tablet (6 sources) HMG-CoA Reductase Inhibitor Start: 09-14-2023 End: 12-07-2023 take 1 tablet by mouth once daily atorvastatin (LIPITOR) 40 mg tablet Take 1 tablet (40 mg total) by mouth nightly. 30 tablet 09/14/2023 12/07/2023 Discontinued benzonatate 100 mg oral capsule (6 sources) Non-narcotic Antitussive Start: 09-14-2023 End: 12-07-2023 take 1 capsule by mouth three times daily as needed for cough benzonatate (TESSALON PERLES) 100 mg capsule Take 1 capsule (100 mg total) by mouth 3 (three) times a day as needed for cough. 20 capsule 09/14/2023 12/07/2023 Discontinued ciprofloxacin 500 mg oral tablet (3 sources) Quinolone Antimicrobial Start: 07-17-2024 take 1 tablet by mouth once daily Cipro 500 mg Tab 500 mg = 1 tab(s), Oral, Daily, Take 1 tablet the day before the procedure and 1 tablet after the procedure, # 2 tab(s), Refills(s) 0, Pharmacy: [id number], 178, cm, 02/28/23 7:41:00 EDT, Height/Length Dosing, 110.4, kg, 02/28/23 7:41:00 EDT, Weight Dosing Start Date: 07/17/24 Status: Ordered Start: 02-15-2023 take 1 tablet by horacio once daily Cipro 500 mg Tab 500 mg = 1 tab(s), Oral, Daily, Take 1 tablet the day before the procedure and 1 tablet after the procedure, # 2 tab(s), Refills(s) 0, Pharmacy: [facility] #[id number], 178, cm, 01/17/22 7:56:00 EDT, Height/Length Dosing, 109.9, kg, 01/17/22 7:56... Start Date: 02/15/23 Status: Ordered furosemide 10 mg/mL Inj 2 mL (3 sources) Start: 03-26-2020 furosemide 10 mg/mL Inj 2 mL 80 mg, Refills(s) 0 Start Date: 03/26/20 Status: Ordered metoprolol tartrate 25 mg oral tablet (9 sources) beta-Adrenergic Lena Start: 09-14-2023 End: 03-05-2024 take 1 tablet by mouth in the morning, then take 1 tablet by mouth at bedtime metoprolol tartrate (LOPRESSOR) 25 mg tablet Take 1 tablet (25 mg total) by mouth in the morning and 1 tablet (25 mg total) before bedtime. 60 tablet 09/14/2023 03/05/2024 Discontinued oseltamivir 30 mg oral capsule (9 sources) Neuraminidase Inhibitor Start: 09-14-2023 End: 03-05-2024 take 1 capsule by mouth every twelve hours oseltamivir (TAMIFLU) 30 mg capsule Take 1 capsule (30 mg total) by mouth every 12 (twelve) hours. 4 capsule 09/14/2023 03/05/2024 Discontinued Problems Active Problems Problem Classification Problem Date Documented Date Episodic/Chronic Acute myocardial infarction (11 sources) Non-ST elevation (NSTEMI) myocardial infarction; Translations: [Myocardial infarction] Onset: 4 11-01-2023 Chronic Calculus of urinary tract (5 sources) Kidney stone 02-20-2019 Episodic Cancer of bladder (3 sources) History of malignant neoplasm of bladder; Translations: [Personal history of malignant neoplasm of bladder] Onset: 3 Episodic Cancer; other and unspecified primary (5 sources) History of bladder neoplasm 04-02-2020 Episodic Chronic kidney disease (19 sources) Chronic kidney disease stage 3B ; Translations: [Stage 3b chronic kidney disease] Onset: 3 09-11-2023 Chronic Chronic kidney disease (1 source) Chronic kidney disease; Translations: [Chronic kidney disease, stage 3b] Onset: 4 Deficiency and other anemia (10 sources) Iron deficiency anemia due to blood loss; Translations: [Iron deficiency anemia secondary to blood loss (chronic)] Onset: 4 12-07-2023 Chronic Deficiency and other anemia (1 source) Iron deficiency anemia secondary to blood loss (chronic); Translations: [Iron deficiency anemia secondary to blood loss (chronic)] Onset: 4 Chronic Diabetes mellitus with complications (18 sources) Chronic kidney disease due to type 2 diabetes mellitus; Translations: [Type 2 diabetes mellitus with diabetic chronic kidney disease] Onset: 0 09-11-2023 Chronic Diabetes mellitus without complication (2 sources) Diabetes mellitus 01-28-2025 Chronic Disorders of lipid metabolism (5 sources) Hypercholesterolemia 02-20-2019 Chronic Essential hypertension (20 sources) Hypertensive disorder; Translations: [Essential (primary) hypertension] Onset: 0 02-20-2019 Chronic Genitourinary symptoms and ill-defined conditions (5 sources) Nocturia 02-20-2019 Episodic Gout and other crystal arthropathies (17 sources) Gout; Translations: [Gout, unspecified] Onset: 0 11-24-2022 Chronic Hyperplasia of prostate (20 sources) Benign prostatic hypertrophy without outflow obstruction; Translations: [Benign prostatic hyperplasia without lower urinary tract symptoms] Onset: 0 Chronic Mood disorders (17 sources) Depressive disorder; Translations: [Depression] Onset: 6 06-26-2023 Chronic Osteoarthritis (20 sources) Arthritis; Translations: [Primary osteoarthritis, right shoulder] Onset: 0 02-20-2019 Chronic Other diseases of bladder and urethra (2 sources) Disorder of bladder; Translations: [Bladder disorder, unspecified] Onset: 4 Chronic Other diseases of bladder and urethra (4 sources) Lesion of bladder 07-29-2024 Chronic Other ear and sense organ disorders (17 sources) Hearing loss; Translations: [Unspecified hearing loss, unspecified ear] Onset: 3 06-26-2023 Chronic Other endocrine disorders (17 sources) Hyperparathyroidism; Translations: [Hyperparathyroidism, unspecified] Onset: 0 09-12-2023 Chronic Other lower respiratory disease (1 source) Hypoxemia; Translations: [Hypoxemia] Onset: 4 Episodic Other nervous system disorders (1 source) Polyneuropathy, unspecified; Translations: [Polyneuropathy, unspecified] Onset: 4 Chronic Other nutritional; endocrine; and metabolic disorders (17 sources) Body mass index 30+ - obesity; Translations: [Obesity, unspecified] Onset: 0 07-10-2023 Chronic Other screening for suspected conditions (not mental disorders or infectious disease) (12 sources) Raised prostate specific antigen; Translations: [Other specified abnormal findings of blood chemistry] Onset: 4 04-02-2020 Episodic Residual codes; unclassified (17 sources) Sleep apnea; Translations: [Sleep apnea, unspecified] Onset: 0 09-12-2023 Chronic Residual codes; unclassified (1 source) Altered mental status, unspecified; Translations: [Altered mental status, unspecified] Onset: 4 Episodic Residual codes; unclassified (1 source) Altered mental status Onset: 4 Episodic Screening and history of mental health and substance abuse codes (5 sources) Ex-smoker 02-20-2019 Episodic Unclassified (3 sources) CONTACT W/AND (SUSP) EXPOS COVID-19; Translations: [CONTACT W/AND (SUSP) EXPOS COVID-19] Onset: 1 Unclassified (1 source) Dizziness; Cold like symptoms Onset: 4 Unclassified (1 source) Med Refill Onset: 4 Unclassified (1 source) Post-op Onset: 3 Unclassified (1 source) chest pain, nausea Onset: 4 Past or Other Problems Problem Classification Problem Date Documented Da te Episodic/Chronic Abdominal pain (1 source) Abdominal pain Onset: 04-21-2024 Episodic Cancer; other and unspecified primary (17 sources) H/O: neoplasm; Translations: [Personal history of other benign neoplasm] Onset: 10-17-2019 10-17-2019 Episodic Influenza (13 sources) Influenza due to other identified influenza virus with other respiratory manifestations; Translations: [Influenza due to Influenza A virus] Onset: 09-11-2023 09-11-2023 Episodic Nonspecific chest pain (1 source) Chest pain, unspecified; Translations: [Chest pain, unspecified] Onset: 04-21-2024 Episodic Nutritional deficiencies (3 sources) Iron deficiency; Translations: [Iron deficiency] Onset: 06-12-2024 12-07-2023 Episodic Other diseases of kidney and ureters (1 source) Disorder of kidney and ureter, unspecified; Translations: [Disorder of kidney and ureter, unspecified] Onset: 04-21-2024 Episodic Residual codes; unclassified (1 source) Edema Onset: 11-01-2023 Episodic Residual codes; unclassified (17 sources) Bilateral lower limb edema; Translations: [Localized edema] Onset: 10-17-2019 10-17-2019 Episodic Residual codes; unclassified (1 source) Other general symptoms and signs; Translations: [Other general symptoms and signs] Onset: 04-21-2024 Episodic Unclassified (1 source) CONTACT W/AND (SUSP) EXPOS COVID-19; Translations: [CONTACT W/AND (SUSP) EXPOS COVID-19] Onset: 06-22-2021 Results Test Name Value Interpretation Reference Range Facility Ambulatory Visit Summaryon 0 01-28-2025 Ambulatory Visit Summary Ambulatory Visit Summary ANDRES CANELA :1945 Visit Date:01/28/2025 Ambulatory Visit Instructions Your Diagnosis Personal history of bladder cancer BPH with elevated PSA Lesion of bladder Your Care Team Attending Physician - Clotilde VERDUZCO MD Primary Care Physician - MNOA CUTLER DO This Is Your Medications List Contact prescribing physician if questions or concerns aspirin (aspirin 81 mg Chew Tab) cholecalciferol (Vitamin D3 2000 intl units oral tablet) cyanocobalamin (Vitamin B-12 1000 mcg oral tablet) diltiazem (DilTIAZem (Eqv-Cardizem CD) 240 mg/24 hours oral capsule, extended release) ferrous sulfate (ferrous sulfate 325 mg oral enteric coated tablet) finasteride (finasteride 5 mg Tab) furosemide (furosemide 40 mg Tab) gabapentin losartan (losartan 50 mg Tab) sitagliptin (Januvia 50 mg Tab) Procedures Performed Cystoscopy (01/28/2025), Flexible cystoscopy (07/29/2024), Cystoscopy (02/28/2023), Cystoscopy (01/17/2022), Cystoscopy (01/04/2021), Cystoscopy (06/08/2020), Cystoscopy and transurethral resection of bladder tumour (12/19/2018), Cystoscopy (12/16/2018), Transrectal biopsy of prostate using ultrasound (US) guidance (12/12/2012), Back surgery, Colonoscopy, Hernia repair, Knee replacement, Lithotripsy using laser. Discharge Vitals Heart Rate (Peripheral) 83 Respiratory Rate 20 Blood Pressure 140/47 Height 70 in Height 178 cm Weight 244.713 lb Weight 111 kg BMI 35.03 What to do next You Need to Schedule the Following Appointments Follow Up with DAX MUNOZ, Clotilde Castaneda, URL When: Where: [facility] [address] , [place] [id number] [phone] Medications What How Much When Instructions Unchanged aspirin (aspirin 81 mg Chew Tab) 1 Tablets Chewed Every day Contact prescribing physician if questions or concerns Unchanged cholecalciferol (Vitamin D3 2000 intl units oral tablet) 1 Tablets By Mouth Every day Contact prescribing physician if questions or concerns Unchanged cyanocobalamin (Vitamin B-12 1000 mcg oral tablet) 1 Tablets By Mouth Every day Contact prescribing physician if questions or concerns Unchanged diltiazem (DilTIAZem (Eqv-Cardizem CD) 240 mg/ 24 hours oral capsule, extended release) Contact prescribing physician if questions or concerns Unchanged ferrous sulfate (ferrous sulfate 325 mg oral enteric coated tablet) 1 Tablets By Mouth Every day Contact prescribing physician if questions or concerns Unchanged finasteride (finasteride 5 mg Tab) 1 Tablets By Mouth Every day Contact prescribing physician if questions or concerns Unchanged furosemide (furosemide 40 mg Tab) 1 Tablets By Mouth Every day Contact prescribing physician if questions or concerns Unchanged gabapentin 600 Milligram Contact prescribing physician if questions or concerns Unchanged losartan (losartan 50 mg Tab) Contact prescribing physician if questions or concerns Unchanged sitagliptin (Januvia 50 mg Tab) Contact prescribing physician if questions or concerns Medications and Immunizations Administered Given lidocaine Top 2% Gel w/Appl 11 mL, 5.5 mL, Topical. For: Personal history of bladder cancer Allergies morphine (Dry heaves) penicillins (Hives) Problems Ongoing - Any problem that you are currently receiving treatment for. Arthritis BPH with elevated PSA Elevated PSA Former smoker Hypercholesteremia Hypertension Kidney stone Lesion of bladder Nocturia Personal history of bladder cancer Patient Survey You may receive a survey via text or e-mail asking about your office visit. Please share your experience with us by completing your survey. We appreciate your feedback and thank you for choosing us for your care. Education Materials Transurethral Resection of Bladder Tumor, Care After The following information offers guidance on how to care for yourself after your procedure. Your health care provider may also give you more specific instructions. If you have problems or questions, contact your health care provider. What can I expect after the procedure? After the procedure, it is common to have: ??? A small amount of blood or small blood clots in your urine for up to 2 weeks. ??? Soreness or mild pain from your catheter. After your catheter is removed, you may have mild soreness, especially when urinating. ??? A need to urinate often. ??? Pain in your lower abdomen. Follow these instructions at home: Medicines ??? Take [id number] and prescription medicines only as told by your health care provider. ??? If you were prescribed an antibiotic medicine, take it as told by your health care provider. Do not stop taking the antibiotic even if you start to feel better. ??? Ask your health care provider if the medicine prescribed to you: ? Requires you to avoid driving or using machinery. ? Can cause constipation. You may need to take th (more content not included)... Normal Gomez [facility] Urology Office/Clinic Noteon 01-28-2025 Urology Office/Clinic Note Urology Office/Clinic Note Chief Complaint Patient is here for Cystoscopy. HPI Staff Cysto ABX TAKEN, need fish/cytol History of Present Illness Tests reviewed: reviewed op note, FISH/cytol, PSA I have reviewed the previous health record information and history for this patient from Dr. Verduzco. I have reviewed and verified the staff HPI to be accurate for this encounter. Review of Systems PHQ Score Initial Depression Screen Score: 0 SCORE ROS - Provider Constitutional: denies weight loss, denies hot flashes. Eyes: denies eye problems. Gastrointestinal: denies nausea, denies vomiting. Cardiovascular: denies chest pain or angina. Integumentary: no dryness Musculoskeletal: denies musculoskeletal symptoms. ENMT: denies otolaryngeal symptoms. Respiratory: no shortness of breath. Heme/Lymph: denies easy bleeding tendency, denies easy bruising tendency. Psychiatric: no confusion, no anxiety. Genitourinary: See HPI. Physical Exam Vitals & Measurements HR: 83(Peripheral) RR: 20 BP: 140/47 HT: 178 cm HT: 70 in WT: 244.713 lb WT: 111 kg BMI: 35.03 General Appearance: alert, no distress, well nourished, well developed male. Procedure Operative Information Anesthesia Type: Local Procedure: Local Cystoscopy Complications: None Surgical risks, benefits, details of the procedure have been explained to the patient. Full informed consent has been obtained. Intraoperative Information Prepped: Patient is brought back to the endoscopy suite. Patient is placed in supine position. Patient prepped in the usual fashion with Betadine solution. 2% Xylocaine Jelly is placed per Urethra. After waiting several minutes, the Cystoscope is introduced. The Urethra is: Normal The Prostatic Urethra is: _Bilobar obstruction, long. The Bladder: At bladder neck at 6 o'clock, there is a 0.5-1cm papillary tumor. Other raised areas no longer present. Trabeculated: Severe (3) The Ureteral orifices: Show efflux of clear urine Specimens Removed: Voided specimen sent for FISH and Cytology test Removal: Cystoscope is removed. The patient tolerated it well. Postoperative Information Patient is discharged home with antibiotic coverage. Follow up arranged. Assessment/Plan 1. Personal history of bladder cancer (Z85.51: Personal history of malignant neoplasm of bladder) S/p original TURBT 12/19/18 - Noninvasive papillary urothelial carcinoma low grade. [1] Last cysto 07/29/24 - On the L wall at the original resection site, there are subtle stellate possible raised areas. no honey b.t. Neg FISH/cytol. Pt had IO cysto to check for bladder tumor recurrence without complications today. Pt took prophylactic abx prior to procedure. Will send voided specimen for FISH/cytol and call pt if positive. 2. BPH with elevated PSA (N40.0: Benign prostatic hyperplasia without lower urinary tract symptoms) PSA: 04/02/20 - has been taking Finasteride since at least this date 05/31/20 - 6.77 (13.54) 01/10/22 - 3.06 (6.12) 08/02/24 - 7.34 (14.68) 01/21/25 - 3.27 & 20.2% (6.54) TRUS/bx 12/12/12 - Unable to locate original path on [employer]. MRI prostate 01/03/19 - Neg. Prostate volume 73 cc. Taking Finasteride 5 mg qd. 3. Lesion of bladder (N32.9: Bladder disorder, unspecified) See procedure section. -Will schedule Cysto with TURBT. The procedure risks, benefits, details, and treatment alternatives have been discussed with the patient. These include bleeding -- sometimes to the point of hemorrhaging, infection, risk of bladder perforation, recurrence of bladder tumor in 60-70% of patients, need for indwelling catheter for a variable amount of time, as well as the rare risk of needing an open operation to repair the bladder, among others. Additional therapy as well as follow-up bladder evaluation will most likely be required. Full informed consent has been obtained. Will order General anesthesia. Follow-up With When Contact Information DAX MUNOZ, Clotilde Castaneda, URL [facility] [address] [place] [address] [phone] Additional Instructions: sched TURBT Patient Education Transurethral Resection of Bladder Tumor, Care After Transurethral Resection of Bladder Tumor IBri, personally scribed for Dr. Verduzco on 01/28/2025 08:15:57. Electronically signed by arleth Kumar Documentation recorded by the stephenibBri dutton, accurately reflects the services(s) I performed and decisions made by me. Authenticated by Dr. Verduzco on 01/28/2025 08:18:04.on 01/28/2025 08:15:57. Problem List/Past Medical History Ongoing Arthritis BPH with elevated PSA Elevated PSA Former smoker Hypercholesteremia Hypertension Kidney stone Lesion of bladder Nocturia Personal history of bladder cancer Historical No qualifying data Procedure/Surgical History Cystoscopy (01/28/2025), Flexible cystoscopy (07/29/2024), Cystoscopy (02/28/2023), Cystoscopy (01/17/2022), Cystoscopy (01/04/2021), Cystoscopy (06/08/2020), Cystoscopy (more content not included)... Normal [facility] Comment on above: Result Comment: Elec tronically Signed By: DAX MUNOZ, Clotilde Castaneda\.br\Date and Time Signed: 01/28/25 08:18 EDT\.br\Electronically Co-Signed By: Bri Kumar\.br\Date and Time Co-Signed: 01/28/25 08:16 EDT PSA, TOTAL AND FREEon 2024 % FREE PSA 20.2 % Normal [facility] Comment on above: Order Comment: Perce nt Free PSA has been reportedto have the greatest clinical utility whentotal PSA values are between 4.0 and 10.0 ng/mL.For men with a total PSA in this range, PercentFree PSA values of >25% are strongly associatedwith normal or benign prostate conditions. PercentFree PSA levels of <10% suggest that prostatecancer is more likely than BPH. For values nmoigra27% and 25%, there is overlap of prostatecancer and BPH. Performed By: #### C BC, 1751-7, BMP, 92970-3, 2777-1 #### [facility] ([id number]) [address], [address] [place] [address] FREE PSA 0.66 ng/mL Normal [facility] Comment on above: Order Comment: Perce nt Free PSA has been reportedto have the greatest clinical utility whentotal PSA values are between 4.0 and 10.0 ng/mL.For men with a total PSA in this range, PercentFree PSA values of >25% are strongly associatedwith normal or benign prostate conditions. PercentFree PSA levels of <10% suggest that prostatecancer is more likely than BPH. For values jkgxucp13% and 25%, there is overlap of prostatecancer and BPH. Result Comment: The method used for this test is Shady Milburn DXI chemiluminescent immunoassay. Values obtained by different assay methods cannot be used interchangeably. Performed By: #### C EDELMIRA, 1751-02, [facility], , 1 #### [facility] ([id number]) [address], [address] [place] [address] PROSTATIC SPEC ANT 3.27 ng/mL Normal 0.00-4.00 [facility] Comment on above: Order Comment: Perce nt Free PSA has been reportedto have the greatest clinical utility whentotal PSA values are between 4.0 and 10.0 ng/mL.For men with a total PSA in this range, PercentFree PSA values of >25% are strongly associatedwith normal or benign prostate conditions. PercentFree PSA levels of <10% suggest that prostatecancer is more likely than BPH. For values ovxjnul95% and 25%, there is overlap of prostatecancer and BPH. Result Comment: The method used for this test is Shady Orlando DXI chemiluminescent immunoassay. Values obtained by different assay methods cannot be used interchangeably. Performed By: #### C EDELMIRA, 1751-02, [facility], , 1 #### [facility] ([id number]) [address], [address] [place] [address] ALBUMINon 11-27-2024 Albumin [Mass/Vol] 4.0 g/dL Normal 3.2-5.3 [facility] Comment on above: Performed By: #### C EDELMIRA, 1751-02, [facility], , 2777-1 #### [facility] ([id number]) [address], [address] [place] [address] BASIC METABOLIC PANLon 11-27 Anion gap [Moles/Vol] 10 mmol/L Normal 5-15 [facility] Comment on above: Performed By: #### David HICKEY, 1750-7, BMP, , 2776-08 #### [facility] ([id number]) [address], [address] [place] [address] Calcium [Mass/Vol] 9.0 mg/dL Normal 8.5-10.5 [facility] Comment on above: Performed By: #### David HICKEY, 1750-7, BMP, , 2776-08 #### [facility] ([id number]) [address], [address] [place] [address] Chloride [Moles/Vol] 104 mmol/L Normal 98-109 [facility] Comment on above: Performed By: #### David HICKEY, 1751-02, [facility], , 2776-08 #### [facility] ([id number]) [address], [address] [place] [address] CO2 [Moles/Vol] 27 mmol/L Normal 22-32 [facility] Comment on above: Performed By: #### David HICKEY, 1751-02, BMP, , 2776-08 #### [facility] ([id number]) [address], [address] [place] [address] Creatinine [Mass/Vol] 2.67 mg/dL High 0.60-1.30 [facility] Comment on above: Result Comment: METH OD TRACEABLE TO IDMS STANDARD Performed By: #### David HICKEY, 1751-02, BMP, , 2776-08 #### [facility] ([id number]) [address], [address] [place] [address] GFR/1.73 sq M.predicted among non-blacks MDRD (S/P/Bld) [Vol rate/Area] 24 mL/min/{1.73_m2} Low >59 [facility] Comment on above: Result Comment: Reported eGFR is based on the CKD-EPI 2020 equation that does not use a race coefficient. Performed By: #### David HICKEY, 1751-02, BMP, , 2776-08 #### [facility] ([id number]) [address], [address] [place] [address] Glucose [Mass/Vol] 119 mg/dL High 65-99 [facility] Comment on above: Performed By: #### David HICKEY, 1751-02, [facility], , 2776-08 #### [facility] ([id number]) [address], [address] [place] [address] Potassium [Moles/Vol] 5.0 mmol/L Normal 3.5-5.0 [facility] Comment on above: Performed By: #### David HICKEY, 1751-02, [facility], , 2776-08 #### [facility] ([id number]) [address], [address] [place] [address] Sodium [Moles/Vol] 141 mmol/L Normal 134-146 [facility] Comment on above: Performed By: #### David HICKEY, 1751-02, BMP, , 2776-08 #### [facility] ([id number]) [address], [address] [place] [address] Urea nitrogen [Mass/Vol] 38 mg/dL High 5-27 [facility] Comment on above: Performed By: #### David HICKEY, 1751-02, BMP, , 2776-08 #### [facility] ([id number]) [address], [address] [place] [address] COMPLETE BLOOD COUNTon 11-27 Erythrocyte distribution width (RBC) [Ratio] 15.2 % High 11.5-15.0 [facility] Comment on above: Performed By: #### M ALBU, UA #### [facility] ([id number]) [address], [address] [place] [address] Hematocrit (Bld) [Volume fraction] 39.4 % Normal 39-49 [facility] Comment on above: Performed By: #### M TORRES UA #### [facility] ([id number]) [address], [address] [place] [address] Hemoglobin (Bld) [Mass/Vol] 13.2 g/dL Normal 13.0-17.0 [facility] Comment on above: Performed By: #### M TORRES UA #### [facility] ([id number]) [address], [address] [place] [address] MCH (RBC) [Entitic mass] 29.0 pg Normal 27-34 [facility] Comment on above: Performed By: #### Yumiko MACDONALD UA #### [facility] ([id number]) [address], [address] [place] [address] MCHC (RBC) [Mass/Vol] 33.4 g/dL Normal 32-36 [facility] Comment on above: Performed By: #### M TORRES UA #### [facility] ([id number]) [address], [address] [place] [address] MCV (RBC) [Entitic vol] 87 fL Normal 80-100 [facility] Comment on above: Performed By: #### M TORRES UA #### [facility] ([id number]) [address], [address] [place] [address] Platelet mean volume (Bld) [Entitic vol] 8.1 fL Normal 7-12 [facility] Comment on above: Performed By: #### M TORRES UA #### [facility] ([id number]) [address], [address] [place] [address] Platelets (Bld) [#/Vol] 205 10*3/uL Normal 150-450 [facility] Comment on above: Performed By: #### Yumiko MACDONALD UA #### [facility] ([id number]) [address], [address] [place] [address] RBC COUNT 4.54 X10E12/L Normal 4.10-5.70 [facility] Comment on above: Performed By: #### Yumiko MACDONALD UA #### [facility] ([id number]) [address], [address] [place] [address] WBC (Bld) [#/Vol] 9.2 10*3/uL Normal 4.0-11.0 [facility] Comment on above: Performed By: #### JOSE HOLLY #### [facility] ([id number]) [address], [address] [place] [address] MAGNESIUMon 11-27-2024 Magnesium [Mass/Vol] 2.1 mg/dL Normal 1.8-2.6 [facility] Comment on above: Performed By: #### David HICKEY, 1751-02, BMP, , 2776-08 #### [facility] ([id number]) [address], [address] [place] [address] PHOSPHORUSon 11-27-2024 Phosphate [Mass/Vol] 3.0 mg/dL Normal 2.4-4.9 [facility] Comment on above: Performed By: #### David HICKEY, 1751-02, BMP, , 2776-08 #### [facility] ([id number]) [address], [address] [place] [address] Parathyrin.intact [Mass/Vol] on 11-27-2024 PTH INTACT 132 pg/mL High 12-88 [facility] Comment on above: Performed By: #### David HICKEY, 1751-02, BMP, , 2776-08 #### [facility] ([id number]) [address], [address] [place] [address] URIC ACIDon 11-27-2024 Urate [Mass/Vol] 10.2 mg/dL High 2.6-7.2 [facility] Comment on above: Performed By: #### David HICKEY, 175-7, [facility], , 1 #### [facility] ([id number]) [address], [address] [place] [address] Vitamin D+Metabolites [Mass/ Vol]on 11-27-2024 VITAMIN D 25 HYD TOT 53.9 ng/mL Normal 30-100 [facility] Comment on above: Result Comment: Vitamin D status 25 [place] Vitamin D Deficiency <20 ng/mL Insufficiency 20-29 ng/mL Sufficiency 30-100 ng/mL Toxicity >100 ng/mL NOTE: A pediatric reference range has not been established by the executive wellness programs director of this kit. The [place] [employer] recommends a Vitamin D level of = or >20ng/mL in infants and children. Performed By: #### David HICKEY, 175-7, [facility], , 1 #### [facility] ([id number]) [address], [address] [place] [address] Reminderson 11-03-2024 Reminders Reminders From: Radha Arce To: EU - Recalls Verduzco; Sent: 11/03/2024 14:29:06 EDT Show up: 04/06/2025 14:29:00 EDT Subject: cysto/fish/cytol Due Date/Time: 05/04/2025 14:29:00 EDT Reminder/Recall Patient is due in Jul 2025 for 6 month cysto/fish/cytol, bt ck Normal Gomez [facility]roVys[facility] Fish and Urine Cyt o ( Labs)on 08-07-2024 UV[facility] & UC Diagnosis Info Invalid Interpretation Code [facility] Comment on above: Result Comment: A:Ur ine,Urine:Voided Diagnosis Summary - Adequate cellularity for evaluation. Diagnosis Summary - The UroVysion FISH study detected normal copy numbers for chromosomes 3, 7, 17, and 9p21. 200 cells were analyzed in this evaluation. No evidence of aneuploidy for chromosomes 3, 7, or 17 or deletion of the 9p21 locus was found in cells present in this specimen. This test does not rule out the possibility of a low grade non-invasive papillary urothelial carcinoma. These findings should be correlated with cytology and cystoscopy results. * CPT: 54845, 56976. Microscopic Notes - Microscopic Notes - Abnormal cells 9p21 deletions: Abnormal cells aneploid events: Total cells analyzed: 200 Hematuria: Gross Description Site ID:A color Yellow fixative Alcohol Received 110 mls of clear yellow fluid with the patient's name and, Urine on the vial. Electronically signed by : on: 08/07/2024 10:15:16 Performed By: #### 1 [id number] #### [facility] [address] [place] [address] Prostate specific Ag [Mass/V ol]on 08-02-2024 PROSTATIC SPEC ANT 7.34 ng/mL High 0.00-4.00 [facility] Comment on above: Result Comment: The method used for this test is Shady Orlando DXI chemiluminescent immunoassay. Values obtained by different assay methods cannot be used interchangeably. Performed By: #### M JOSE MACDONALD #### [facility] ([id number]) [address] [place] [address], [address] [place] [address] Ambulatory Visit Summaryon 1 09-29-2023 Ambulatory Visit Summary Ambulatory Visit Summary ANDRES CANELA Alden :1945 Visit Date:07/29/2024 Ambulatory Visit Instructions Your Diagnosis Personal history of bladder cancer BPH with elevated PSA Lesion of bladder Your Care Team Attending Physician - DAX MUNOZ, Clotilde Castaneda Primary Care Physician - MONA CUTLER DO This Is Your Medications List ciprofloxacin (Cipro 500 mg Tab) finasteride (finasteride 5 mg Tab) Contact prescribing physician if questions or concerns celecoxib diltiazem (DilTIAZem (Eqv-Cardizem CD) 240 mg/24 hours oral capsule, extended release) ergocalciferol (Vitamin D) furosemide (furosemide 10 mg/mL Inj 2 mL) gabapentin losartan losartan (losartan 50 mg Tab) sitagliptin (Januvia 50 mg Tab) Procedures Performed Flexible cystoscopy (07/29/2024), Cystoscopy (02/28/2023), Cystoscopy (01/17/2022), Cystoscopy (01/04/2021), Cystoscopy (06/08/2020), Cystoscopy and transurethral resection of bladder tumour (12/19/2018), Cystoscopy (12/16/2018), Transrectal biopsy of prostate using ultrasound (US) guidance (12/12/2012), Back surgery, Colonoscopy, Hernia repair, Knee replacement, Lithotripsy using laser. Discharge Vitals Heart Rate (Peripheral) 64 Respiratory Rate 16 Blood Pressure 100/60 Height 178 cm Height 70 in Weight 110.4 kg Weight 243.39 lb BMI 34.84 What to do next You Need to Schedule the Following Appointments Follow Up with DAX MUNOZ, CRIS Greeen When: Where: [facility] [address], [place] [address]- Medications What How Much When Instructions Unchanged ciprofloxacin (Cipro 500 mg Tab) 1 Tablets By Mouth Every day Take 1 tablet the day before the procedure and 1 tablet after the procedure Unchanged finasteride (finasteride 5 mg Tab) 1 Tablets By Mouth Every day Unchanged celecoxib 200 Milligram Contact prescribing physician if questions or concerns Unchanged diltiazem (DilTIAZem (Eqv-Cardizem CD) 240 mg/ 24 hours oral capsule, extended release) Contact prescribing physician if questions or concerns Unchanged ergocalciferol (Vitamin D) By Mouth Every week Contact prescribing physician if questions or concerns Unchanged furosemide (furosemide 10 mg/ mL Inj 2 mL) 80 Milligram Contact prescribing physician if questions or concerns Unchanged gabapentin 600 Milligram Contact prescribing physician if questions or concerns Unchanged losartan 50 Milligram Contact prescribing physician if questions or concerns Unchanged losartan (losartan 50 mg Tab) Contact prescribing physician if questions or concerns Unchanged sitagliptin (Januvia 50 mg Tab) Contact prescribing physician if questions or concerns Medications and Immunizations Administered Given lidocaine Top 2% Gel w/Appl 6 mL, 6 mL, Topical. For: Personal history of bladder cancer, BPH with elevated PSA Allergies morphine (Dry heaves) penicillins (Hives) Problems Ongoing - Any problem that you are currently receiving treatment for. Arthritis BPH with elevated PSA Elevated PSA Former smoker Hypercholesteremia Hypertension Kidney stone Lesion of bladder Nocturia Personal history of bladder cancer Patient Survey You may receive a survey via text or e-mail asking about your office visit. Please share your experience with us by completing your survey. We appreciate your feedback and thank you for choosing us for your care. Education Materials Cancer Screening for Males A cancer screening is a test or exam that checks for cancer. Work with your health care provider to create a cancer screening schedule that protects your health. Who should have screening? All people who are male should be considered for screening of certain cancers, including colorectal cancer, prostate cancer, lung cancer, and skin cancer. Your health care provider may recommend screenings for other types of cancer if: ??? You have had cancer before. ??? You have a family member with cancer. ??? You have genes that could increase the risk of cancer. ??? You have risk factors for certain cancers, such as current or past use of tobacco products or being overweight. What are the benefits of screening? Cancer screening is done to look for cancer in the very early stages, before it spreads and becomes harder to treat and before you would start to notice symptoms. Finding cancer early improves the chances of successful treatment. It may save your life. When should I be screened for cancer? When you should be screened for cancer depends on: ??? Your age. ??? Your medical history and your family's medical history. ??? Certain lifestyle factors, such as smoking or other use of tobacco products. ??? Environmental exposure, such as to asbestos. How is screening done? Colorectal cancer Colorectal cancer screening looks for cancer or for growths called polyps that often form before cancer starts. Tests to look for cancer or polyps include: (more content not included)... Normal [facility] Fish and Urine Cyt o ([facility])on 07-29-2024 [facility] Method of Extraction Voided Normal [facility] Comment on above: Performed By: #### 1 [id number] #### [facility] [address] [place] [address] [facility] Number of Jars 1 Invalid Interpretation Code [facility] Comment on above: Performed By: #### 1 [id number] #### [facility] [address] [place] [address] [facility] Specimen Urine Normal [facility] Comment on above: Performed By: #### 1 [id number] #### [facility] [address] [place] [address] [facility] Type of Service Technical Only Normal [facility] Comment on above: Performed By: #### 1 [id number] #### [facility] [address] [place] [address] Urology Office/Clinic Noteon 07-29-2024 Urology Office/Clinic Note Urology Office/Clinic Note Chief Complaint Cysto HPI Staff 79 year old male patient here for cysto. Needs FISH/cytol. Abx taken. History of Present Illness Tests reviewed: I have reviewed the previous health record information and history for this patient from Dr. Verduzco. I have reviewed and verified the staff HPI to be accurate for this encounter. Review of Systems PHQ Score Initial Depression Screen Score: 0 SCORE ROS - Provider Constitutional: denies weight loss, denies hot flashes. Eyes: denies eye problems. Gastrointestinal: denies nausea, denies vomiting. Cardiovascular: denies chest pain or angina. Integumentary: no dryness Musculoskeletal: denies musculoskeletal symptoms. ENMT: denies otolaryngeal symptoms. Respiratory: no shortness of breath. Heme/Lymph: denies easy bleeding tendency, denies easy bruising tendency. Psychiatric: no confusion, no anxiety. Genitourinary: See HPI. Physical Exam Vitals & Measurements HR: 64(Peripheral) RR: 16 BP: 100/60 HT: 70 in HT: 178 cm WT: 110.4 kg WT: 243.39 lb BMI: 34.84 General Appearance: alert, no distress, well nourished, well developed male. Genitourinary: normal scrotum, normal testes, normal urethra, normal epididymis, normal vas deferens/spermatic cord. Flank Pain: none. Bladder: nonpalpable. Procedure Operative Information Anesthesia Type: Local Procedure: Local Cystoscopy Complications: None Surgical risks, benefits, details of the procedure have been explained to the patient. Full informed consent has been obtained. Intraoperative Information Prepped: Patient is brought back to the endoscopy suite. Patient is placed in supine position. Patient prepped in the usual fashion with Betadine solution. 2% Xylocaine Jelly is placed per Urethra. After waiting several minutes, the Cystoscope is introduced. The Urethra is: Normal The Prostatic Urethra is: _Bilobar obstruction, long. The Bladder: _On the L wall at the original resection site, there are subtle stellate possible raised areas. no honey b.t. Trabeculated: Severe (3) The Ureteral orifices: Show efflux of clear urine Specimens Removed: Voided specimen sent for FISH and Cytology test Removal: Cystoscope is removed. The patient tolerated it well. Postoperative Information Patient is discharged home with antibiotic coverage. Follow up arranged. Assessment/Plan 1. Personal history of bladder cancer (Z85.51: Personal history of malignant neoplasm of bladder) S/p original TURBT 12/19/18 - Noninvasive papillary urothelial carcinoma low grade. Last cysto 02/28/23. Pt had IO cysto to check for bladder tumor recurrence without complications today. Pt took prophylactic abx prior to procedure. Will send voided specimen for FISH/cytol and call pt if positive. 2. BPH with elevated PSA (N40.0: Benign prostatic hyperplasia without lower urinary tract symptoms) PSA: 04/02/20 - has been taking Finasteride since at least this date 05/31/20 - 6.77 (13.54) 01/10/22 - 3.06 (6.12) no recent PSA on clinisync TRUS/bx 12/12/12 - Unable to locate original path on [facility]. MRI prostate 01/03/19 - Neg. Prostate volume 73 cc. Taking Finasteride 5 mg qd. -PSA to be drawn IO today. 3. Lesion of bladder (N32.9: Bladder disorder, unspecified) See procedure section. Follow up 3 mos surveillance cysto/bt ck/FISH/cytol or sooner if needed. Pt understands and agrees with plan. Follow-up With When Contact Information DAX MUNOZ, Clotilde Castaneda, URL [facility] [address] [place] [address]- Additional Instructions: 3 mo cysto Patient Education Cancer Screening for Males I, Jessi Carrasquillo, personally scribed for Dr. Verduzco on 07/29/2024 08:34:01. . Documentation recorded by the scribe, Jessi Carrasquillo, accurately reflects the services(s) I performed and decisions made by me. Authenticated by Dr. Verduzco on 07/29/2024 08:35:57. Problem List/Past Medical History Ongoing Arthritis BPH with elevated PSA Elevated PSA Former smoker Hypercholesteremia Hypertension Kidney stone Lesion of bladder Nocturia Personal history of bladder cancer Historical No qualifying data Procedure/Surgical History Flexible cystoscopy (07/29/2024), Cystoscopy (02/28/2023), Cystoscopy (01/17/2022), Cystoscopy (01/04/2021), Cystoscopy (06/08/2020), Cystoscopy and transurethral resection of bladder tumour (12/19/2018), Cystoscopy (12/16/2018), Transrectal biopsy of prostate using ultrasound (US) guidance (12/12/2012), Back surgery, Colonoscopy, Hernia repair, Knee replacement, Lithotripsy using laser. Medications celecoxib, 200 mg Cipro 500 mg Tab, 500 mg= 1 tab(s), Oral, Daily DilTIAZem (Eqv-Cardizem CD) 240 mg/24 hours oral capsule, extended release finasteride 5 mg Tab, 5 mg= 1 tab(s), Oral, Daily, 1 refills furosemide 10 mg/mL Inj 2 mL, 80 mg gabapentin, 600 mg Januvia 50 mg Tab losartan, 50 mg (more content not included)... Normal [facility] Comment on above: Result Comment: Elec tronically Signed By: Radha Arce\.br\Date and Time Signed: 07/29/24 08:41 EST Reminderson 07-17-2024 Reminders Reminders From: Radha Arce To: MARIA ANTONIA Verduzco; Sent: 07/17/2024 09:15:41 EST Show up: 04/06/2025 09:15:00 EDT Subject: cysto/fish/cytol Due Date/Time: 05/04/2025 09:15:00 EDT Reminder/Recall Patient is due in Jul 2025 for 1 year cysto/fish/cytol, bt ck Normal [facility] [facility] [address] [facility] June 26, 2024 ANDRES CANELA [address] [place] [address] : 1945 Dear Mr. Andres Canela, We have been trying to reach you concerning scheduling your bladder scope (cystoscopy) due to your history of bladder cancer. The office has sent a letter and left several messages without a response. Bladder cancer needs to be monitored as it can recur at any time. Please call the office within 2 weeks so we can coordinate this procedure and continue to provide you with quality care. Your failure to comply with this request may result in discharge due to your noncompliance. Sincerely, Clotilde Verduzco M.D., F.A.C.S. [facility] [address] [place] [address] , option #3 Normal [facility] CBC AND AUTO DIFFon 06-12-20 24 ABSOLUTE BASOPHIL 0.1 X10E9/L Normal 0.0-0.2 [facility] Comment on above: Performed By: #### JOSE HOLLY #### [facility] ([id number]) [address], [address] [place] [address] ABSOLUTE NEUTROPHIL 5.9 X10E9/L Normal 1.5-6.6 [facility] Comment on above: Performed By: #### JOSE HOLLY #### [facility] ([id number]) [address], [address] [place] [address] Basophils/100 WBC (Bld) 0.7 % Normal [facility] Comment on above: Performed By: #### Yumiko MACDONALD UA #### [facility] ([id number]) [address], [address] [place] [address] Eosinophils (Bld) [#/Vol] 0.2 10*3/uL Normal 0.0-0.4 [facility] Comment on above: Performed By: #### M TORRES UA #### [facility] ([id number]) [address], [address] [place] [address] Eosinophils/100 WBC (Bld) 1.8 % Normal [facility] Comment on above: Performed By: #### M TORRES UA #### [facility] ([id number]) [address], [address] [place] [address] Erythrocyte distribution width (RBC) [Ratio] 15.7 % High 11.5-15.0 [facility] Comment on above: Performed By: #### M TORRES UA #### [facility] ([id number]) [address], [address] [place] [address] Hematocrit (Bld) [Volume fraction] 40.1 % Normal 39-49 [facility] Comment on above: Performed By: #### M TORRES UA #### [facility] ([id number]) [address], [address] [place] [address] Hemoglobin (Bld) [Mass/Vol] 13.3 g/dL Normal 13.0-17.0 [facility] Comment on above: Performed By: #### M TORRES UA #### [facility] ([id number]) [address], [address] [place] [address] Lymphocytes (Bld) [#/Vol] 1.7 10*3/uL Normal 1.0-3.5 [facility] Comment on above: Performed By: #### M TORRES, UA #### [facility] ([id number]) [address], [address] [place] [address] Lymphocytes/100 WBC (Bld) 19.9 % Normal [facility] Comment on above: Performed By: #### M TORRES UA #### [facility] ([id number]) [address], [address] [place] [address] MCH (RBC) [Entitic mass] 29.1 pg Normal 27-34 [facility] Comment on above: Performed By: #### Yumiko MACDONALD UA #### [facility] ([id number]) [address], [address] [place] [address] MCHC (RBC) [Mass/Vol] 33.2 g/dL Normal 32-36 [facility] Comment on above: Performed By: #### Yumiko MACDONALD UA #### [facility] ([id number]) [address], [address] [place] [address] MCV (RBC) [Entitic vol] 88 fL Normal 80-100 [facility] Comment on above: Performed By: #### Yumiko MACDONALD UA #### [facility] ([id number]) [address], [address] [place] [address] Monocytes (Bld) [#/Vol] 0.8 10*3/uL Normal 0-0.9 [facility] Comment on above: Performed By: #### Yumiko MACDONALD UA #### [facility] ([id number]) [address], [address] [place] [address] Monocytes/100 WBC (Bld) 8.8 % Normal [facility] Comment on above: Performed By: #### Yumiko MACDONALD UA #### [facility] ([id number]) [address], [address] [place] [address] Neutrophils/100 WBC (Bld) 68.8 % Normal [facility] Comment on above: Performed By: #### Yumiko MACDONALD UA #### [facility] ([id number]) [address], [address] [place] [address] Platelet mean volume (Bld) [Entitic vol] 9.0 fL Normal 7-12 [facility] Comment on above: Performed By: #### M ALBU, UA #### [facility] ([id number]) [address], [address] [place] [address] Platelets (Bld) [#/Vol] 171 10*3/uL Normal 150-450 [facility] Comment on above: Performed By: #### M ALBU, UA #### [facility] ([id number]) [address], [address] [place] [address] RBC COUNT 4.57 X10E12/L Normal 4.10-5.70 [facility] Comment on above: Performed By: #### M TORRES, UA #### [facility] ([id number]) [address], [address] [place] [address] WBC (Bld) [#/Vol] 8.6 10*3/uL Normal 4.0-11.0 [facility] Comment on above: Performed By: #### M TORRES, UA #### [facility] ([id number]) [address], [address] [place] [address] FERRITINon 06-12-2024 Ferritin [Mass/Vol] 128 ng/mL Normal 24-336 [facility] Comment on above: Performed By: #### M TORRES, UA #### [facility] ([id number]) [address], [address] [place] [address] IRON PROFILEon 06-12-2024 Iron [Mass/Vol] 48 ug/dL Low 50-212 [facility] Comment on above: Performed By: #### M ALBU, UA #### [facility] ([id number]) [address], [address] [place] [address] IRON BINDING 258 ug/dL Normal 250-425 [facility] Comment on above: Performed By: #### M ALBU, UA #### [facility] ([id number]) [address], [address] [place] [address] IRON SATURATION 19 % SATURATION Low 20-50 [facility] Comment on above: Performed By: #### M TORRES, UA #### [facility] ([id number]) [address], [address] [place] [address] [facility] [address] [facility] Patient Letter [facility] May 02, 2024 ANDRES CANELA [address] [place] [address] : 1945 Dear Andres Hilton, [facility], Dr. Clotilde Verduzco office, has been trying to reach you concerning scheduling the yearly bladder scope (cystoscopy) for your history of bladder cancer. The office has left several messages with no response. Please call the office so we can coordinate this procedure and continue to provide you with quality care. Sincerely, [facility] , option #3 Normal [facility] BASIC METABOLIC PANLon 04-21 Anion gap [Moles/Vol] 10 mmol/L Normal 5-15 [facility] Comment on above: Performed By: #### B MP, CBCA, 13891-5, 3040-3, LIVR #### [facility] ([id number]) [address] [place] [address] Calcium [Mass/Vol] 11.0 mg/dL High 8.5-10.5 [facility] Comment on above: Performed By: #### B MP, CBCA, 01759-3, 3040-3, LIVR #### [facility] ([id number]) [address] [place] [address] Chloride [Moles/Vol] 99 mmol/L Normal 98-109 [facility] Comment on above: Performed By: #### B MP, CBCA, 78808-0, 3040-3, LIVR #### [facility] ([id number]) [address] [place] [address] CO2 [Moles/Vol] 29 mmol/L Normal 22-32 [facility] Comment on above: Performed By: #### B KAMI LAMBERT, 50492-6, 3040-3, LIVR #### [facility] ([id number]) [address] [place] [address] Creatinine [Mass/Vol] 2.63 mg/dL High 0.70-1.20 [facility] Comment on above: Result Comment: METH OD TRACEABLE TO IDMS STANDARD Performed By: #### B KAMI LAMBERT, 93871-5, 3040-3, LIVR #### [facility] ([id number]) [address] [place] [address] GFR/1.73 sq M.predicted among non-blacks MDRD (S/P/Bld) [Vol rate/Area] 24 mL/min/{1.73_m2} Low >59 [facility] Comment on above: Result Comment: Reported eGFR is based on the CKD-EPI 2020 equation that does not use a race coefficient. Performed By: #### B KAMI LAMBERT, 66817-8, 3039-3, LIVR #### [facility] ([id number]) [address] [place] [address] Glucose [Mass/Vol] 177 mg/dL High 65-99 [facility] Comment on above: Performed By: #### B KAMI LAMBERT, 24796-3, 3039-3, LIVR #### [facility] ([id number]) [address] [place] [address] Potassium [Moles/Vol] 4.6 mmol/L Normal 3.5-5.0 [facility] Comment on above: Performed By: #### B KAMI LAMBERT, 38940-1, 3040-3, LIVR #### [facility] ([id number]) [address] [place] [address] Sodium [Moles/Vol] 138 mmol/L Normal 134-146 [facility] Comment on above: Performed By: #### B MP, CBCA, 66772-7, 3040-3, LIVR #### [facility] ([id number]) [address] [place] [address] Urea nitrogen [Mass/Vol] 40 mg/dL High 5-27 [facility] Comment on above: Performed By: #### B MP, CBCA, 70282-5, 3040-3, LIVR #### [facility] ([id number]) [address] [place] [address] CBC AND AUTO DIFFon 04-21-20 24 ABSOLUTE BASOPHIL 0.0 X10E9/L Normal 0.0-0.2 [facility] Comment on above: Performed By: #### B MP, CBCA, 26872-2, 3040-3, LIVR #### [facility] ([id number]) [address] [place] [address] ABSOLUTE NEUTROPHIL 8.9 X10E9/L High 1.5-6.6 [facility] Comment on above: Performed By: #### B MP, CBCA, 03978-6, 3040-3, LIVR #### [facility] ([id number]) [address] [place] [address] Basophils/100 WBC (Bld) 0.3 % Normal [facility] Comment on above: Performed By: #### B MP, CBCA, 00250-8, 3040-3, LIVR #### [facility] ([id number]) [address] [place] [address] Eosinophils (Bld) [#/Vol] 0.1 10*3/uL Normal 0.0-0.4 [facility] Comment on above: Performed By: #### B MP, CBCA, 68409-9, 3040-3, LIVR #### [facility] ([id number]) [address] [place] [address] Eosinophils/100 WBC (Bld) 1.0 % Normal [facility] Comment on above: Performed By: #### B MP, CBCA, 93243-9, 3040-3, LIVR #### [facility] ([id number]) [address] [place] [address] Erythrocyte distribution width (RBC) [Ratio] 16.2 % High 11.5-15.0 [facility] Comment on above: Performed By: #### B PETRA, CBCA, 59978-1, 3039-3, LIVR #### [facility] ([id number]) [address] [place] [address] Hematocrit (Bld) [Volume fraction] 43.8 % Normal 39-49 [facility] Comment on above: Performed By: #### B MP, CBCA, 80706-3, 3039-3, LIVR #### [facility] ([id number]) [address] [place] [address] Hemoglobin (Bld) [Mass/Vol] 14.5 g/dL Normal 13.0-17.0 [facility] Comment on above: Performed By: #### B PETRA, CBCA, 13829-8, 0-3, LIVR #### [facility] ([id number]) [address] [place] [address]99[address] Lymphocytes (Bld) [#/Vol] 1.5 10*3/uL Normal 1.0-3.5 [facility] Comment on above: Performed By: #### B MP, CBCA, 15092-4, 3040-3, LIVR #### [facility] ([id number]) [address] [place] [address]642 Lymphocytes/100 WBC (Bld) 13.0 % Normal [facility] Comment on above: Performed By: #### B MP, CBCA, 18972-9, 3040-3, LIVR #### [facility] ([id number]) [address] [place] [address] MCH (RBC) [Entitic mass] 28.5 pg Normal 27-34 [facility] Comment on above: Performed By: #### B MP, CBCA, 51850-4, 3040-3, LIVR #### [facility] ([id number]) [address] [place] [address] MCHC (RBC) [Mass/Vol] 33.1 g/dL Normal 32-36 [facility] Comment on above: Performed By: #### B MP, CBCA, 81494-7, 3040-3, LIVR #### [facility] ([id number]) [address] [place] [address] MCV (RBC) [Entitic vol] 86 fL Normal 80-100 [facility] Comment on above: Performed By: #### B MP, CBCA, 46956-5, 3040-3, LIVR #### [facility] ([id number]) [address] [place] [address] 14580 Monocytes (Bld) [#/Vol] 0.7 10*3/uL Normal 0-0.9 [facility] Comment on above: Performed By: #### B MP, CBCA, 19228-0, 3040-3, LIVR #### [facility] ([id number]) [address] [place] [address] 31760 Monocytes/100 WBC (Bld) 6.3 % Normal [facility] Comment on above: Performed By: #### B MP, CBCA, 03652-3, 3040-3, LIVR #### [facility] ([id number]) [address] [place] [address] 40867 Neutrophils/100 WBC (Bld) 79.4 % Normal [facility] Comment on above: Performed By: #### B MP, CBCA, 98497-7, 3040-3, LIVR #### [facility] ([id number]) [address] [place] [address]26 Platelet mean volume (Bld) [Entitic vol] 8.9 fL Normal 7-12 [facility] Comment on above: Performed By: #### B MP, CBCA, 61343-1, 3040-3, LIVR #### [facility] ([id number]) [address] [place] [address] 85557 Platelets (Bld) [#/Vol] 190 10*3/uL Normal 150-450 [facility] Comment on above: Performed By: #### B PETRA, CBCA, 55521-5, 3040-3, LIVR #### [facility] ([id number]) [address] [place] [address] 95605 RBC COUNT 5.10 X10E12/L Normal 4.10-5.70 [facility] Comment on above: Performed By: #### B MP, CBCA, 35231-9, 3040-3, LIVR #### [facility] ([id number]) [address] [place] [address] WBC (Bld) [#/Vol] 11.2 10*3/uL High 4.0-11.0 [facility] Comment on above: Performed By: #### B MP, CBCA, 42555-4, 3040-3, LIVR #### [facility] ([id number]) [address] [place] [address]83 LIPASEon 04-21-2024 Lipase [Catalytic activity/Vol] 23 U/L Normal 17-40 [facility] Comment on above: Performed By: #### M TORRES, UA #### [facility] ([id number]) [address], [address] [place] [address] LIVER PANELon 04-21-2024 Albumin [Mass/Vol] 4.2 g/dL Normal 3.2-5.3 [facility] Comment on above: Performed By: #### M ALBU, UA #### [facility] ([id number]) [address] [place] [address] ALP [Catalytic activity/Vol] 134 U/L High 39-130 [facility] Comment on above: Performed By: #### M ALBU, UA #### [facility] ([id number]) [address], [address] [place] [address] ALT [Catalytic activity/Vol] 16 U/L Normal 0-40 [facility] Comment on above: Performed By: #### M ALBU, UA #### [facility] ([id number]) [address], [address] [place] [address] AST [Catalytic activity/Vol] 16 U/L Normal 0-41 [facility] Comment on above: Performed By: #### M ALBU, UA #### [facility] ([id number]) [address], [address] [place] [address] Bilirubin [Mass/Vol] 0.9 mg/dL Normal 0.3-1.2 [facility] Comment on above: Performed By: #### M ALBU, UA #### [facility] ([id number]) [address], [address] [place] [address] Bilirubin.direct [Mass/Vol] 0.2 mg/dL Normal 0.0-0.4 [facility] Comment on above: Performed By: #### M ALBU, UA #### [facility] ([id number]) [address], [address] [place] [address] Protein [Mass/Vol] 7.4 g/dL Normal 6.0-8.0 [facility] Comment on above: Performed By: #### M TORRES UA #### [facility] ([id number]) [address], [address] [place] [address] SARS/FLU A+B/RSV by NAAT/Mol ecularon 04-21-2024 SARS/FLU A+B/RSV by NAAT/Molecular FLU A PCR Negative (qualifier value) FLU B PCR Negative (qualifier value) RSV by PCR Negative (qualifier value) SARS CoV 2 Not detected (qualifier value) NOTE The Xpert Xpress SARS-CoV-2/Flu/RSV Plus test is a rapid, multiplexed real-time RT-PCR test intended for the simultaneous qualitative detection and differentiation of SARS-CoV-2, influenza A, influenza B and respiratory syncytial virus (RSV) viral RNA from individuals suspected of respiratory viral infection consistent with COVID-19 by their healthcare provider. This test has not been validated in asymptomatic patients. The Xpert Xpress SARS-CoV-2 test is intended for use by qualified and trained operators who are performing tests using either [employer] or [employer] systems and is limited to laboratories that meet the CLIA requirements to perform high and moderate complexity tests. The Xpert Xpress SARS-CoV-2/Flu/RSV Plus is only for use under the Food and Drug Administration's Emergency Use Authorization. Results are for the simultaneous detection and differentiation of SARS-CoV-2, influenza A, influenza B and RSV nucleic acids in clinical specimens. SARS-CoV-2, influenza A, influenza B and RSV RNA identified by this test are generally detectable in upper respiratory samples during the acute phase of infection. Positive results are indicative of the presence of the identified virus, but do not rule out bacterial infection or co-infection with other pathogens not detected by this test. Clinical correlation with patient history and other diagnostic information is necessary to determine patient infection status. The agent detected may not be the definite cause of disease. Negative results do not preclude SARS-CoV-2, influenza A, influenza B and RSV infection and should not be used as the sole basis for treatment or other patient management decisions. Negative results must be combined with clinical observations, patient history and epidemiological information. An Invalid result may occur with specimen-associated inhibition unable to be resolved with specimen repeat. Fact Sheet for Healthcare Providers: https://www.fda.gov/m edia/256607/download Fact Sheet for Patients: https://www.fda.gov/m edia/246095/download Normal [facility] Comment on above: Performed By: #### M TORRES, UA #### [facility] ([id number]) [address], [address] [place] [address] Troponin I.cardiac High sens itivity method [Mass/Vol]on 04-21-2024 1 HOUR TROP I, HIGH SENSITIVITY 26 ng/L High <21 [facility] Comment on above: Result Comment: Elevations of hs-Troponin may be due to causes other than myocardial ischemia. Recommend serial hs-Troponin testing be performed. For the initial evaluation and management of chest pain patients, refer to the algorithms linked below. Emergency Patient: [email or web address] Inpatient: [email or web address]= [email or web address] Performed By: #### M TORRES, UA #### [facility] ([id number]) [address], [address] [place] [address] TROPONIN I, HIGH SENSITIVITY 28 ng/L High <21 [facility] Comment on above: Result Comment: Elevations of hs-Troponin may be due to causes other than myocardial ischemia. Recommend serial hs-Troponin testing be performed. For the initial evaluation and management of chest pain patients, refer to the algorithms linked below. Emergency Patient: [email or web address] Inpatient: [email or web address]= acaea Performed By: #### B MP, CBCA, 86529-3, 3040-3, LIVR #### [facility] ([id number]) [address] [place] [address], [place] [address] XR CHEST 1 VWon 04-21-2024 XR CHEST 1 VW XR CHEST 1 VW CHEST ONE VIEW COMPARISON: 09/11/2023 HISTORY: Chest pain. FINDINGS: Portable AP chest radiograph demonstrates no pneumothorax. Cardiomediastinal silhouette and pulmonary vasculature are within normal limits. No evidence for focal consolidation or pleural effusion. IMPRESSION: No evidence for an acute cardiopulmonary process. Finalized by Colton Stewart MD on 04/21/2024 10:24 AM Normal [facility] ALBUMINon 02-19-2024 Albumin [Mass/Vol] 4.0 g/dL Normal 3.2-5.3 [facility] Comment on above: Performed By: #### David HICKEY, 1751-02, BMP, , 1 #### [facility] ([id number]) [address], [address] [place] [address] BASIC METABOLIC PANLon 02-18 Anion gap [Moles/Vol] 10 mmol/L Normal 5-15 [facility] Comment on above: Performed By: #### David HICKEY, 1751-02, BMP, , 2776-08 #### [facility] ([id number]) [address], [address] [place] [address] Calcium [Mass/Vol] 9.5 mg/dL Normal 8.5-10.5 [facility] Comment on above: Performed By: #### David HICKEY, 1750-7, BMP, , 2776- #### [facility] ([id number]) [address], [address] [place] [address] Chloride [Moles/Vol] 102 mmol/L Normal 98-109 [facility] Comment on above: Performed By: #### David HICKEY, 1750-7, BMP, , 2776- #### [facility] ([id number]) [address], [address] [place] [address] CO2 [Moles/Vol] 31 mmol/L Normal 22-32 [facility] Comment on above: Performed By: #### David HICKEY, 1751-02, BMP, , 2776-08 #### [facility] ([id number]) [address], [address] [place] [address] Creatinine [Mass/Vol] 2.61 mg/dL High 0.60-1.30 [facility] Comment on above: Result Comment: METH OD TRACEABLE TO IDMS STANDARD Performed By: #### David HICKEY, 1751-02, ROSHNI, , 2776-08 #### [facility] ([id number]) [address], [address] [place] [address] GFR/1.73 sq M.predicted among non-blacks MDRD (S/P/Bld) [Vol rate/Area] 24 mL/min/{1.73_m2} Low >59 [facility] Comment on above: Result Comment: Reported eGFR is based on the CKD-EPI 2020 equation that does not use a race coefficient. Performed By: #### David HICKEY, 1751-02, ROSHNI, , 2776-08 #### [facility] ([id number]) [address], [address] [place] [address] Glucose [Mass/Vol] 100 mg/dL High 65-99 [facility] Comment on above: Performed By: #### David HICKEY, 1751-02, BMP, , 2776-08 #### [facility] ([id number]) [address], [address] [place] [address] Potassium [Moles/Vol] 5.1 mmol/L High 3.5-5.0 [facility] Comment on above: Performed By: #### David HICKEY, 1751-02, BMP, , 2776-08 #### [facility] ([id number]) [address], [address] [place] [address] Sodium [Moles/Vol] 143 mmol/L Normal 134-146 [facility] Comment on above: Performed By: #### David HICKEY, 1751-02, BMP, , 2776-08 #### [facility] ([id number]) [address], [address] [place] [address] Urea nitrogen [Mass/Vol] 36 mg/dL High 5-27 [facility] Comment on above: Performed By: #### David HICKEY, 1751-02, BMP, , 2776-08 #### [facility] ([id number]) [address], [address] [place] [address] COMPLETE BLOOD COUNTon 02-18 Erythrocyte distribution width (RBC) [Ratio] 17.1 % High 11.5-15.0 [facility] Comment on above: Performed By: #### David HICKEY, 1751-02, BMP, , 2776-08 #### [facility] ([id number]) [address] [address] [place] [address] Hematocrit (Bld) [Volume fraction] 39.5 % Normal 39-49 [facility] Comment on above: Performed By: #### David HICKEY, 1751-02, BMP, , 2776-08 #### [facility] ([id number]) [address], [address] [place] [address] Hemoglobin (Bld) [Mass/Vol] 13.1 g/dL Normal 13.0-17.0 [facility] Comment on above: Performed By: #### David HICKEY, 1751-02, BMP, , 2776-08 #### [facility] ([id number]) [address], [address] [place] [address] MCH (RBC) [Entitic mass] 28.5 pg Normal 27-34 [facility] Comment on above: Performed By: #### David HICKEY, 1751-02, BMP, , 2776-08 #### [facility] ([id number]) [address], [address] [place] [address] MCHC (RBC) [Mass/Vol] 33.2 g/dL Normal 32-36 [facility] Comment on above: Performed By: #### David HICKEY, 7, BMP, , 2776-08 #### [facility] ([id number]) [address], [facility] [address] [place] [address] MCV (RBC) [Entitic vol] 86 fL Normal 80-100 [facility] Comment on above: Performed By: #### David HICKEY, 1751-02, ROSHNI, , 2776-08 #### [facility] ([id number]) [address], [facility] [address] [place] [address] Platelet mean volume (Bld) [Entitic vol] 8.9 fL Normal 7-12 [facility] Comment on above: Performed By: #### David HICKEY, 1751-02, BMP, , 2776-08 #### [facility] ([id number]) [address], [facility] [address] [place] [address] Platelets (Bld) [#/Vol] 180 10*3/uL Normal 150-450 [facility] Comment on above: Performed By: #### David HICKEY, 1751-02, BMP, , 2776-08 #### [facility] ([id number]) [address] [address] [place] [address] RBC COUNT 4.59 X10E12/L Normal 4.10-5.70 [facility] Comment on above: Performed By: #### David HICKEY, 1751-02, BMP, , 2776-08 #### [facility] ([id number]) [address], [address] [place] [address] WBC (Bld) [#/Vol] 8.8 10*3/uL Normal 4.0-11.0 [facility] Comment on above: Performed By: #### David HICKEY, 175-7, BMP, , 2776-1 #### [facility] ([id number]) [address], [address] [place] [address] MAGNESIUMon 02-19-2024 Magnesium [Mass/Vol] 2.0 mg/dL Normal 1.8-2.6 [facility] Comment on above: Performed By: #### David HICKEY, 1750-7, [facility], , 1 #### [facility] ([id number]) [address], [address] [place] [address] MICROALBUMIN - ALBUMIN:CREAT ININE URINE RATIOon 02-19-2024 ALB/CREAT RATIO 10.6 mg/g creat Normal 0.0-30.0 [facility] Comment on above: Performed By: #### Yumiko MACDONALD UA #### [facility] ([id number]) [address], [address] [place] [address] Albumin DL <= 20 mg/L (U) [Mass/Vol] 0.7 mg/dL Normal 0.0-1.9 [facility] Comment on above: Performed By: #### Yumiko MACDONALD UA #### [facility] ([id number]) [address], [address] [place] [address] URINE CREAT 65.94 mg/dL Normal [facility] Comment on above: Performed By: #### Yumiko MACDONALD UA #### [facility] ([id number]) [address], [address] [place] [address] PHOSPHORUSon 02-19-2024 Phosphate [Mass/Vol] 3.6 mg/dL Normal 2.4-4.9 [facility] Comment on above: Performed By: #### C BC, 1751-7, BMP, 71672-1, 2777-1 #### [facility] ([id number]) [address] [place] [address] URINALYSISon 02-19-2024 Bilirubin Ql (U) Negative Normal NEG [facility] Comment on above: Performed By: #### Yumiko MACDONALD, UA #### [facility] ([id number]) [address], [address] [place] [address] BLOOD/HGB Negative Normal NEG [facility] Comment on above: Performed By: #### Yumiko MACDONALD UA #### [facility] ([id number]) [address], [address] [place] [address] Color (U) YELLOW Normal YELLOW [facility] Comment on above: Performed By: #### Yumiko MACDONALD UA #### [facility] ([id number]) [address], [address] [place] [address] Glucose Ql (U) Negative Normal NEG [facility] Comment on above: Performed By: #### Yumiko MACDONALD UA #### [facility] ([id number]) [address], [address] [place] [address] Ketones Ql (U) Negative Normal NEG [facility] Comment on above: Performed By: #### Yumiko MACDONALD, UA #### [facility] ([id number]) [address], [address] [place] [address] Leukocyte esterase Test strip Ql (U) Negative Normal NEG [facility] Comment on above: Performed By: #### Yumiko MACDONALD, UA #### [facility] ([id number]) [address], [address] [place] [address] Nitrite Ql (U) Negative Normal NEG [facility] Comment on above: Performed By: #### M ALBU, UA #### [facility] ([id number]) [address], [address] [place] [address] pH (U) 6.0 [pH] Normal 5.0-8.5 [facility] Comment on above: Performed By: #### M TORRES, UA #### [facility] ([id number]) [address], [address] [place] [address] Protein Ql (U) Negative Normal NEG [facility] Comment on above: Performed By: #### M TORRES, UA #### [facility] ([id number]) [address] [place] [address] Specific gravity (U) [Rel density] 1.009 Normal 1.003-1.035 [facility] Comment on above: Performed By: #### M TORRES UA #### [facility] ([id number]) [address], [address] [place] [address] TURBIDITY CLEAR Normal CLEAR [facility] Comment on above: Performed By: #### M TORRES UA #### [facility] ([id number]) [address], [address] [place] [address] Urobilinogen (U) [Mass/Vol] mg/dL Normal <1.1 [facility] Comment on above: Performed By: #### M TORRES, UA #### [facility] ([id number]) [address], [address] [place] [address] Multiple labsOrdered By: Chanel Mcguire on 10-01-2023 [facility] CBC AND AUTO DIFFon 09-14-19 24 ABSOLUTE BASOPHIL 0.0 X10E9/L Normal 0.0-0.2 [facility] Comment on above: Performed By: #### C BCA, CMP, 97498-4, 48065-4, 38891-8 #### [facility] ([id number]) [address] [place] [address] ABSOLUTE NEUTROPHIL 3.8 X10E9/L Normal 1.5-6.6 [facility] Comment on above: Performed By: #### C BCA, CMP, 69523-0, 30976-8, 46076-7 #### [facility] ([id number]) [address] [place] [address] Basophils/100 WBC (Bld) 0.6 % Normal [facility] Comment on above: Performed By: #### C BCA, CMP, 30478-4, 70186-6, 62472-2 #### [facility] ([id number]) [address] [place] [address] Eosinophils (Bld) [#/Vol] 0.2 10*3/uL Normal 0.0-0.4 [facility] Comment on above: Performed By: #### C BCA, CMP, 05734-0, 76003-6, 91983-2 #### [facility] ([id number]) [address] [place] [address] Eosinophils/100 WBC (Bld) 3.4 % Normal [facility] Comment on above: Performed By: #### C BCA, CMP, 48983-0, 36125-1, 61653-6 #### [facility] ([id number]) [address] [place] [address] Erythrocyte distribution width (RBC) [Ratio] 17.1 % High 11.5-15.0 [facility] Comment on above: Performed By: #### C BCA, CMP, 82315-6, 26754-0, 69794-4 #### [facility] ([id number]) [address] [place] [address] Hematocrit (Bld) [Volume fraction] 34.0 % Low 39-49 [facility] Comment on above: Performed By: #### C BCA, CMP, 87709-8, 57568-3, 51162-3 #### [facility] ([id number]) [address] [place] [address] Hemoglobin (Bld) [Mass/Vol] 11.3 g/dL Low 13.0-17.0 [facility] Comment on above: Performed By: #### C BCA, CMP, 38950-5, 28730-0, 24928-0 #### [facility] ([id number]) [address] [place] [address] Lymphocytes (Bld) [#/Vol] 1.0 10*3/uL Normal 1.0-3.5 [facility] Comment on above: Performed By: #### C BCA, CMP, 54901-2, 40738-6, 87157-4 #### [facility] ([id number]) [address] [place] [address] Lymphocytes/100 WBC (Bld) 17.1 % Normal [facility] Comment on above: Performed By: #### C BCA, CMP, 55941-9, 96102-3, 24924-8 #### [facility] ([id number]) [address] [place] [address] MCH (RBC) [Entitic mass] 27.2 pg Normal 27-34 [facility] Comment on above: Performed By: #### C BCA, CMP, 18104-5, 81780-0, 45349-6 #### [facility] ([id number]) [address] [place] [address] MCHC (RBC) [Mass/Vol] 33.1 g/dL Normal 32-36 [facility] Comment on above: Performed By: #### C BCA, CMP, 32714-0, 67021-4, 12119-9 #### [facility] ([id number]) [address] [place] [address] MCV (RBC) [Entitic vol] 82 fL Normal 80-100 [facility] Comment on above: Performed By: #### C BCA, CMP, 51171-3, 23600-0, 90705-4 #### [facility] ([id number]) [address] [place] [address] Monocytes (Bld) [#/Vol] 0.7 10*3/uL Normal 0-0.9 [facility] Comment on above: Performed By: #### C BCA, CMP, 35975-3, 06484-0, 69227-6 #### [facility] ([id number]) [address] [place] [address] Monocytes/100 WBC (Bld) 12.4 % Normal [facility] Comment on above: Performed By: #### C BCA, CMP, 98857-2, 22822-7, 09388-0 #### [facility] ([id number]) [address] [place] [address] Neutrophils/100 WBC (Bld) 66.5 % Normal [facility] Comment on above: Performed By: #### C BCA, CMP, 26854-4, 92104-5, 35672-5 #### [facility] ([id number]) [address] [place] [address] Platelet mean volume (Bld) [Entitic vol] 8.7 fL Normal 7-12 [facility] Comment on above: Performed By: #### C BCA, CMP, 98921-2, 81383-2, 63588-9 #### [facility] ([id number]) [address] [place] [address] Platelets (Bld) [#/Vol] 134 10*3/uL Low 150-450 [facility] Comment on above: Performed By: #### C BCA, CMP, 21229-1, 98996-5, 63615-0 #### [facility] ([id number]) [address] [place] [address] RBC COUNT 4.14 X10E12/L Normal 4.10-5.70 [facility] Comment on above: Performed By: #### C BCA, CMP, 91911-0, 48375-5, 13588-6 #### [facility] ([id number]) [address] [place] [address] WBC (Bld) [#/Vol] 5.7 10*3/uL Normal 4.0-11.0 [facility] Comment on above: Performed By: #### C BCA, CMP, 53758-7, 11802-9, 02059-5 #### [facility] ([id number]) [address] [place] [address] COMPREHENSIVE METABOLIC PANE Juan Antonio 09-14-2023 Albumin [Mass/Vol] 2.9 g/dL Low 3.2-5.3 [facility] Comment on above: Performed By: #### C BCA, CMP, 17540-3, 80474-9, 43998-3 #### [facility] ([id number]) [address] [place] [address] ALP [Catalytic activity/Vol] 91 U/L Normal 39-130 [facility] Comment on above: Performed By: #### C BCA, CMP, 67252-7, 60723-2, 60828-5 #### [facility] ([id number]) [address] [place] [address] ALT [Catalytic activity/Vol] 16 U/L Normal 0-40 [facility] Comment on above: Performed By: #### C BCA, CMP, 03664-7, 56519-1, 65641-3 #### [facility] ([id number]) [address] [place] [address] Anion gap [Moles/Vol] 8 mmol/L Normal 5-15 [facility] Comment on above: Performed By: #### C BCA, CMP, 40324-2, 41653-5, 64878-1 #### [facility] ([id number]) [address] [place] [address] AST [Catalytic activity/Vol] 23 U/L Normal 0-41 [facility] Comment on above: Performed By: #### C BCA, CMP, 33827-5, 65655-3, 42346-0 #### [facility] ([id number]) [address] [place] [address] Bilirubin [Mass/Vol] 0.5 mg/dL Normal 0.3-1.2 [facility] Comment on above: Performed By: #### C BCA, CMP, 68261-0, 93402-5, 61384-2 #### [facility] ([id number]) [address] [place] [address] Calcium [Mass/Vol] 8.1 mg/dL Low 8.5-10.5 [facility] Comment on above: Performed By: #### C BCA, CMP, 87786-2, 26480-1, 59874-3 #### [facility] ([id number]) [address] [place] [address] Chloride [Moles/Vol] 107 mmol/L Normal 98-109 [facility] Comment on above: Performed By: #### C BCA, CMP, 43837-7, 12731-0, 78017-1 #### [facility] ([id number]) [address] [place] [address] CO2 [Moles/Vol] 25 mmol/L Normal 22-32 [facility] Comment on above: Performed By: #### C BCA, CMP, 49486-9, 81453-5, 38895-7 #### [facility] ([id number]) [address] [place] [address] Creatinine [Mass/Vol] 1.83 mg/dL High 0.70-1.20 [facility] Comment on above: Result Comment: METH OD TRACEABLE TO IDMS STANDARD Performed By: #### C BCA, CMP, 16426-3, 35350-7, 56376-1 #### [facility] ([id number]) [address] [place] [address] GFR/1.73 sq M.predicted among non-blacks MDRD (S/P/Bld) [Vol rate/Area] 37 mL/min/{1.73_m2} Low >59 [facility] Comment on above: Result Comment: Reported eGFR is based on the CKD-EPI 2020 equation that does not use a race coefficient. Performed By: #### C BCA, CMP, 73042-7, 05542-7, 44519-8 #### [facility] ([id number]) [address] [place] [address] Glucose [Mass/Vol] 112 mg/dL High 65-99 [facility] Comment on above: Performed By: #### C BCA, CMP, 06009-5, 13849-1, 50060-5 #### [facility] ([id number]) [address] [place] [address] Potassium [Moles/Vol] 4.1 mmol/L Normal 3.5-5.0 [facility] Comment on above: Performed By: #### C BCA, CMP, 64564-9, 74133-3, 72012-7 #### [facility] ([id number]) [address] [place] [address] Protein [Mass/Vol] 5.8 g/dL Low 6.0-8.0 [facility] Comment on above: Performed By: #### C BCA, CMP, 81348-4, 75029-5, 44945-7 #### [facility] ([id number]) [address] [place] [address] Sodium [Moles/Vol] 140 mmol/L Normal 134-146 [facility] Comment on above: Performed By: #### C BCA, CMP, 35121-0, 69233-7, 39039-7 #### [facility] ([id number]) [address] [place] [address] Urea nitrogen [Mass/Vol] 36 mg/dL High 5-27 [facility] Comment on above: Performed By: #### C BCA, CMP, 65915-9, 89793-2, 69273-0 #### [facility] ([id number]) [address] [place] [address] Glucose Glucometer (BldC) [M ass/Vol]on 09-14-2023 Glucose [Mass/Vol] 95 mg/dL Normal 65-99 [facility] MAGNESIUMon 09-14-2023 Magnesium [Mass/Vol] 1.9 mg/dL Normal 1.8-2.6 [facility] Comment on above: Performed By: #### C BCA, CMP, 02342-9, 55192-8, 47489-7 #### [facility] ([id number]) [address] [place] [address] CBC AND AUTO DIFFon 09-13-19 24 ABSOLUTE BASOPHIL 0.1 X10E9/L Normal 0.0-0.2 [facility] Comment on above: Performed By: #### C BCA, CMP, 58719-7, 42070-4, 43303-2 #### [facility] ([id number]) [address] [place] [address] Basophils/100 WBC (Bld) 1.0 % Normal [facility] Comment on above: Performed By: #### C BCA, CMP, 09226-8, 30445-4, 13697-1 #### [facility] ([id number]) [address] [place] [address] Erythrocyte distribution width (RBC) [Ratio] 16.7 % High 11.5-15.0 [facility] Comment on above: Performed By: #### C BCA, CMP, 77185-5, 53549-0, 43963-8 #### [facility] ([id number]) [address] [place] [address] Hematocrit (Bld) [Volume fraction] 32.0 % Low 39-49 [facility] Comment on above: Performed By: #### C BCA, CMP, 84186-6, 13632-1, 44310-2 #### [facility] ([id number]) [address] [place] [address] Hemoglobin (Bld) [Mass/Vol] 10.7 g/dL Low 13.0-17.0 [facility] Comment on above: Performed By: #### C BCA, CMP, 41963-4, 00894-4, 88039-8 #### [facility] ([id number]) [address] [address] LYMPHOCYTE, ATYPICAL 4.0 % Normal [facility] Comment on above: Performed By: #### C BCA, CMP, 02616-6, 91653-2, 57395-3 #### [facility] ([id number]) [address] [place] [address] Lymphocytes (Bld) [#/Vol] 0.8 10*3/uL Low 1.0-3.5 [facility] Comment on above: Performed By: #### C BCA, CMP, 15586-2, 79517-2, 42685-7 #### [facility] ([id number]) [address] [address] Lymphocytes/100 WBC (Bld) 7.9 % Normal [facility] Comment on above: Performed By: #### C BCA, CMP, 97310-3, 05105-8, 29087-9 #### [facility] ([id number]) [address] [place] [address] MCH (RBC) [Entitic mass] 27.2 pg Normal 27-34 [facility] Comment on above: Performed By: #### C BCA, CMP, 62458-9, 28208-4, 38080-2 #### [facility] ([id number]) [address] [place] [address] MCHC (RBC) [Mass/Vol] 33.3 g/dL Normal 32-36 [facility] Comment on above: Performed By: #### C BCA, CMP, 51280-2, 89086-1, 11457-0 #### [facility] ([id number]) [address] [address] MCV (RBC) [Entitic vol] 82 fL Normal 80-100 [facility] Comment on above: Performed By: #### C BCA, CMP, 96427-4, 15942-2, 22327-4 #### [facility] ([id number]) [address] [place] [address] Monocytes (Bld) [#/Vol] 0.3 10*3/uL Normal 0-0.9 [facility] Comment on above: Performed By: #### C BCA, CMP, 76783-9, 95346-4, 56333-5 #### [facility] ([id number]) [address] [place] [address] Monocytes/100 WBC (Bld) 4.0 % Normal [facility] Comment on above: Performed By: #### C BCA, CMP, 08404-0, 08132-1, 37464-7 #### [facility] ([id number]) [address] [place] [address] Neutrophils (Bld) [#/Vol] 5.7 10*3/uL Normal 1.5-6.6 [facility] Comment on above: Performed By: #### C BCA, CMP, 74175-8, 69151-7, 62745-4 #### [facility] ([id number]) [address] [place] [address] Platelet mean volume (Bld) [Entitic vol] 8.3 fL Normal 7-12 [facility] Comment on above: Performed By: #### C BCA, CMP, 10362-2, 52178-2, 90906-1 #### [facility] ([id number]) [address] [place] [address] Platelets (Bld) [#/Vol] 131 10*3/uL Low 150-450 [facility] Comment on above: Performed By: #### C BCA, CMP, 89902-9, 70907-0, 22750-7 #### [facility] ([id number]) [address] [place] [address] RBC COUNT 3.92 X10E12/L Low 4.10-5.70 [facility] Comment on above: Performed By: #### C BCA, CMP, 54785-8, 75817-3, 60937-3 #### [facility] ([id number]) [address] [place] [address] RBC morphology finding Nom (Bld) NORMAL Normal [facility] Comment on above: Performed By: #### C BCA, CMP, 55763-4, 45495-5, 40126-9 #### [facility] ([id number]) [address] [place] [address] SEG NEUTROPHIL 83.1 % Normal [facility] Comment on above: Performed By: #### C BCA, CMP, 87502-3, 15308-6, 98498-3 #### [facility] ([id number]) [address] [place] [address] WBC (Bld) [#/Vol] 6.9 10*3/uL Normal 4.0-11.0 [facility] Comment on above: Performed By: #### C BCA, CMP, 31020-5, 66953-4, 99121-6 #### [facility] ([id number]) [address] [place] [address] COMPREHENSIVE METABOLIC PANE Juan Antonio 09-13-2023 Albumin [Mass/Vol] 2.7 g/dL Low 3.2-5.3 [facility] Comment on above: Performed By: #### C BCA, CMP, 49545-0, 49361-6, 31391-6 #### [facility] ([id number]) [address] [place] [address] ALP [Catalytic activity/Vol] 90 U/L Normal 39-130 [facility] Comment on above: Performed By: #### C BCA, CMP, 53568-0, 17268-4, 13436-2 #### [facility] ([id number]) [address] [place] [address] ALT [Catalytic activity/Vol] 14 U/L Normal 0-40 [facility] Comment on above: Performed By: #### C BCA, CMP, 29582-6, 88176-0, 34471-5 #### [facility] ([id number]) [address] [place] [address] Anion gap [Moles/Vol] 8 mmol/L Normal 5-15 [facility] Comment on above: Performed By: #### C BCA, CMP, 79218-3, 83872-3, 40131-9 #### [facility] ([id number]) [address] [place] [address] AST [Catalytic activity/Vol] 26 U/L Normal 0-41 [facility] Comment on above: Performed By: #### C BCA, CMP, 07026-1, 42433-0, 52110-0 #### [facility] ([id number]) [address] [place] [address] Bilirubin [Mass/Vol] 0.7 mg/dL Normal 0.3-1.2 [facility] Comment on above: Performed By: #### C BCA, CMP, 22443-2, 18282-7, 61945-4 #### [facility] ([id number]) [address] [place] [address] Calcium [Mass/Vol] 7.7 mg/dL Low 8.5-10.5 [facility] Comment on above: Performed By: #### C BCA, CMP, 23315-0, 76350-6, 13218-4 #### [facility] ([id number]) [address] [place] [address] Chloride [Moles/Vol] 107 mmol/L Normal 98-109 [facility] Comment on above: Performed By: #### C BCA, CMP, 16684-1, 10030-0, 31360-4 #### [facility] ([id number]) [address] [place] [address] CO2 [Moles/Vol] 22 mmol/L Normal 22-32 [facility] Comment on above: Performed By: #### C BCA, CMP, 39498-3, 77685-3, 91089-1 #### [facility] ([id number]) [address] [place] [address] Creatinine [Mass/Vol] 2.15 mg/dL High 0.70-1.20 [facility] Comment on above: Result Comment: METH OD TRACEABLE TO IDMS STANDARD Performed By: #### C BCA, CMP, 61767-8, 28839-0, 20650-6 #### [facility] ([id number]) [address] [place] [address] GFR/1.73 sq M.predicted among non-blacks MDRD (S/P/Bld) [Vol rate/Area] 31 mL/min/{1.73_m2} Low >59 [facility] Comment on above: Result Comment: Reported eGFR is based on the CKD-EPI 1 equation that does not use a race coefficient. Performed By: #### C BCA, CMP, 59244-7, 78613-4, 76515-4 #### [facility] ([id number]) [address] [place] [address] Glucose [Mass/Vol] 128 mg/dL High 65-99 [facility] Comment on above: Performed By: #### C BCA, CMP, 24610-2, 75193-8, 35945-6 #### [facility] ([id number]) [address] [place] [address] Potassium [Moles/Vol] 4.3 mmol/L Normal 3.5-5.0 [facility] Comment on above: Performed By: #### C BCA, CMP, 55411-0, 68964-6, 56732-4 #### [facility] ([id number]) [address] [place] [address] Protein [Mass/Vol] 5.4 g/dL Low 6.0-8.0 [facility] Comment on above: Performed By: #### C BCA, CMP, 20589-2, 31146-6, 92015-9 #### [facility] ([id number]) [address] [place] [address] Sodium [Moles/Vol] 137 mmol/L Normal 134-146 [facility] Comment on above: Performed By: #### C BCA, CMP, 77912-6, 85993-3, 55110-3 #### [facility] ([id number]) [address] [place] [address] Urea nitrogen [Mass/Vol] 35 mg/dL High 5-27 [facility] Comment on above: Performed By: #### C BCA, CMP, 02165-3, 17540-8, 11492-5 #### [facility] ([id number]) [address] [place] [address] Glucose Glucometer (BldC) [M ass/Vol]on 09-13-2023 Glucose [Mass/Vol] 119 mg/dL High 65-99 [facility] Glucose [Mass/Vol] 167 mg/dL High 65-99 [facility] Glucose [Mass/Vol] 152 mg/dL High 65-99 [facility] Glucose [Mass/Vol] 115 mg/dL High 65-99 [facility] HEMOGLOBINon 09-13-2023 Hemoglobin (Bld) [Mass/Vol] 11.1 g/dL Low 13.0-17.0 [facility] Comment on above: Performed By: #### C KRISTIN CMP, 69321-6, 85160-1, 17012-0 #### [facility] ([id number]) [address] [place] [address] Lipid 1996 panelon Cholesterol [Mass/Vol] 96 mg/dL Low 150-200 [facility] Comment on above: Performed By: #### C KRISTIN CMP, 96399-9, 56950-6, 45680-1 #### [facility] ([id number]) [address] [place] [address] Cholesterol in HDL [Mass/Vol] 28 mg/dL Low >39 [facility] Comment on above: Result Comment: HDL <40 mg/dL - High Risk HDL > or = 40mg/dL- Desirable HDL >60 mg/dL - Negative Risk Performed By: #### C BCA, CMP, 27249-6, 55882-0, 98725-6 #### [facility] ([id number]) [address] [place] [address] Cholesterol in LDL [Mass/Vol] 47 mg/dL Normal <130 [facility] Comment on above: Result Comment: LDL <100 mg/dL - Desirable LDL >160 mg/dL - High Risk Performed By: #### C BCA, CMP, 27845-4, 40010-7, 13984-4 #### [facility] ([id number]) [address] [place] [address] Cholesterol in VLDL [Mass/Vol] 21 mg/dL Normal 0-30 [facility] Comment on above: Performed By: #### C BCA, CMP, 35532-0, 66374-8, 18298-2 #### [facility] ([id number]) [address] [place] [address] CHOLESTEROL:HDL 3.4 Normal 1.0-5.0 [facility] Comment on above: Performed By: #### C BCA, CMP, 94390-9, 36590-4, 75759-2 #### [facility] ([id number]) [address] [place] [address] Triglyceride [Mass/Vol] 104 mg/dL Normal 27-150 [facility] Comment on above: Performed By: #### C BCA, CMP, 54511-6, 84690-1, 99161-4 #### [facility] ([id number]) [address] [place] [address] MAGNESIUMon 09-13-2023 Magnesium [Mass/Vol] 1.8 mg/dL Normal 1.8-2.6 [facility] Comment on above: Performed By: #### C BCA, CMP, 92840-9, 39365-3, 42216-3 #### [facility] ([id number]) [address] [place] [address] Natriuretic peptide B [Mass/ Vol]on 09-13-2023 Natriuretic peptide B (Bld) [Mass/Vol] 108 pg/mL High <100.0 [facility] Comment on above: Performed By: #### C BCA, CMP, 01224-5, 26651-6, 16915-7 #### [facility] ([id number]) [address] [place] [address] PLATELET COUNT AND MPVon Platelet mean volume (Bld) [Entitic vol] 8.0 fL Normal 7-12 [facility] Comment on above: Performed By: #### C BCA, CMP, 36247-3, 91754-6, 27000-3 #### [facility] ([id number]) [address] [place] [address] Platelets (Bld) [#/Vol] 129 10*3/uL Low 150-450 [facility] Comment on above: Performed By: #### C BCA, CMP, 10997-8, 22221-8, 74478-5 #### [facility] ([id number]) [address] [place] [address] PROTIME AND INRon 09-13-2023 INR Coag (PPP) [Relative time] 1.1 {INR} Normal 0.8-1.1 [facility] Comment on above: Performed By: #### C BCA, CMP, 50344-8, 99479-0, 80112-9 #### [facility] ([id number]) [address] [place] [address] PT Coag (PPP) [Time] 12.3 s Normal 9.8-13.2 [facility] Comment on above: Performed By: #### C BCA, CMP, 59139-2, 35258-2, 04708-6 #### [facility] ([id number]) [address] [place] [address] TROPONIN Ion 09-13-2023 Troponin I.cardiac [Mass/Vol] 0.51 ng/mL Critically high 0.00-0.04 [facility] Comment on above: Result Comment: Concentrations greater than or equal to 0.05 ng/ml are considered elevated. Elevations of Troponin may be due to causes other than myocardial ischemia. Recommend serial Troponin testing be performed. Performed By: #### C BCA, CMP, 21584-7, 19610-4, 97471-2 #### [facility] ([id number]) [address] [address] Troponin I.cardiac [Mass/Vol] 0.56 ng/mL Critically high 0.00-0.04 [facility] Comment on above: Result Comment: Concentrations greater than or equal to 0.05 ng/ml are considered elevated. Elevations of Troponin may be due to causes other than myocardial ischemia. Recommend serial Troponin testing be performed. Performed By: #### C BCA, CMP, 97752-3, 81048-8, 22855-4 #### [facility] ([id number]) [address] [place] [address] aPTT Coag (PPP) [Time]on aPTT Coag (Bld) [Time] 32 s Normal 26-37 [facility] Comment on above: Performed By: #### C BCA, CMP, 81362-8, 51952-9, 53648-2 #### [facility] ([id number]) [address] [place] [address] CBC AND AUTO DIFFon 09-12-19 24 ABSOLUTE BASOPHIL 0.0 X10E9/L Normal 0.0-0.2 [facility] Comment on above: Performed By: #### C BCA, CMP, 95533-3, 15925-4, 93900-0 #### [facility] ([id number]) [address] [place] [address] ABSOLUTE NEUTROPHIL 8.8 X10E9/L High 1.5-6.6 [facility] Comment on above: Performed By: #### C BCA, CMP, 62465-8, 62413-5, 68475-4 #### [facility] ([id number]) [address] [place] [address] Basophils/100 WBC (Bld) 0.4 % Normal [facility] Comment on above: Performed By: #### C BCA, CMP, 99411-5, 81883-9, 24380-8 #### [facility] ([id number]) [address] [place] [address] Eosinophils (Bld) [#/Vol] 0.0 10*3/uL Normal 0.0-0.4 [facility] Comment on above: Performed By: #### C BCA, CMP, 13504-6, 07514-7, 74894-4 #### [facility] ([id number]) [address] [place] [address] Eosinophils/100 WBC (Bld) 0.4 % Normal [facility] Comment on above: Performed By: #### C BCA, CMP, 83475-9, 32436-6, 76790-3 #### [facility] ([id number]) [address] [place] [address] Erythrocyte distribution width (RBC) [Ratio] 16.5 % High 11.5-15.0 [facility] Comment on above: Performed By: #### C BCA, CMP, 26458-4, 61214-4, 19410-4 #### [facility] ([id number]) [address] [place] [address] Hematocrit (Bld) [Volume fraction] 31.9 % Low 39-49 [facility] Comment on above: Performed By: #### C BCA, CMP, 20486-2, 76711-2, 67946-3 #### [facility] ([id number]) [address] [place] [address] Hemoglobin (Bld) [Mass/Vol] 10.6 g/dL Low 13.0-17.0 [facility] Comment on above: Performed By: #### C BCA, CMP, 85348-5, 45342-4, 62020-8 #### [facility] ([id number]) [address] [place] [address] Lymphocytes (Bld) [#/Vol] 0.6 10*3/uL Low 1.0-3.5 [facility] Comment on above: Performed By: #### C BCA, CMP, 13393-2, 40949-6, 09199-7 #### [facility] ([id number]) [address] [place] [address] Lymphocytes/100 WBC (Bld) 5.5 % Normal [facility] Comment on above: Performed By: #### C BCA, CMP, 82354-5, 79407-3, 28397-7 #### [facility] ([id number]) [address] [place] [address] MCH (RBC) [Entitic mass] 27.4 pg Normal 27-34 [facility] Comment on above: Performed By: #### C BCA, CMP, 94610-3, 13376-8, 60249-7 #### [facility] ([id number]) [address] [place] [address] MCHC (RBC) [Mass/Vol] 33.3 g/dL Normal 32-36 [facility] Comment on above: Performed By: #### C BCA, CMP, 50146-7, 86679-5, 24035-2 #### [facility] ([id number]) [address] [place] [address] MCV (RBC) [Entitic vol] 82 fL Normal 80-100 [facility] Comment on above: Performed By: #### C BCA, CMP, 04777-8, 40529-3, 82649-9 #### [facility] ([id number]) [address] [place] [address] Monocytes (Bld) [#/Vol] 0.9 10*3/uL Normal 0-0.9 [facility] Comment on above: Performed By: #### C BCA, CMP, 28728-3, 22578-5, 58424-1 #### [facility] ([id number]) [address] [place] [address] Monocytes/100 WBC (Bld) 8.4 % Normal [facility] Comment on above: Performed By: #### C BCA, CMP, 13362-7, 42592-9, 28444-7 #### [facility] ([id number]) [address] [address] Neutrophils/100 WBC (Bld) 85.3 % Normal [facility] Comment on above: Performed By: #### C BCA, CMP, 36325-4, 85422-0, 08014-1 #### [facility] ([id number]) [address] [address] Platelet mean volume (Bld) [Entitic vol] 8.8 fL Normal 7-12 [facility] Comment on above: Performed By: #### C BCA, CMP, 83049-1, 85115-2, 39199-5 #### [facility] ([id number]) [address] [address] Platelets (Bld) [#/Vol] 140 10*3/uL Low 150-450 [facility] Comment on above: Performed By: #### C BCA, CMP, 81334-8, 00848-2, 18840-7 #### [facility] ([id number]) [address] [place] [address] RBC COUNT 3.87 X10E12/L Low 4.10-5.70 [facility] Comment on above: Performed By: #### C BCA, CMP, 10655-8, 83405-9, 27250-6 #### [facility] ([id number]) [address] [place] [address] WBC (Bld) [#/Vol] 10.4 10*3/uL Normal 4.0-11.0 [facility] Comment on above: Performed By: #### C BCA, CMP, 69833-3, 75106-9, 20719-6 #### [facility] ([id number]) [address] [place] [address] COMPREHENSIVE METABOLIC PANE Juan Antonio 09-12-2023 Albumin [Mass/Vol] 3.0 g/dL Low 3.2-5.3 [facility] Comment on above: Performed By: #### C BCA, CMP, 46779-2, 93659-3, 34333-0 #### [facility] ([id number]) [address] [place] [address] ALP [Catalytic activity/Vol] 106 U/L Normal 39-130 [facility] Comment on above: Performed By: #### C BCA, CMP, 68986-6, 83510-2, 69108-1 #### [facility] ([id number]) [address] [place] [address] ALT [Catalytic activity/Vol] 12 U/L Normal 0-40 [facility] Comment on above: Performed By: #### C BCA, CMP, 24476-8, 67060-5, 00179-3 #### [facility] ([id number]) [address] [place] [address] Anion gap [Moles/Vol] 7 mmol/L Normal 5-15 [facility] Comment on above: Performed By: #### C BCA, CMP, 56025-3, 41583-7, 41482-9 #### [facility] ([id number]) [address] [place] [address] AST [Catalytic activity/Vol] 15 U/L Normal 0-41 [facility] Comment on above: Performed By: #### C BCA, CMP, 04302-3, 09308-8, 81904-0 #### [facility] ([id number]) [address] [place] [address] Bilirubin [Mass/Vol] 0.7 mg/dL Normal 0.3-1.2 [facility] Comment on above: Performed By: #### C BCA, CMP, 92177-0, 74848-7, 07976-8 #### [facility] ([id number]) [address] [place] [address] Calcium [Mass/Vol] 7.6 mg/dL Low 8.5-10.5 [facility] Comment on above: Performed By: #### C BCA, CMP, 29423-3, 80850-2, 35286-0 #### [facility] ([id number]) [address] [place] [address] Chloride [Moles/Vol] 104 mmol/L Normal 98-109 [facility] Comment on above: Performed By: #### C BCA, CMP, 07849-8, 84465-1, 55599-9 #### [facility] ([id number]) [address] [place] [address] CO2 [Moles/Vol] 23 mmol/L Normal 22-32 [facility] Comment on above: Performed By: #### C BCA, CMP, 37110-5, 79993-1, 12840-3 #### [facility] ([id number]) [address] [address] Creatinine [Mass/Vol] 2.18 mg/dL High 0.70-1.20 [facility] Comment on above: Result Comment: METH OD TRACEABLE TO IDMS STANDARD Performed By: #### C BCA, CMP, 27689-9, 34098-7, 37877-6 #### [facility] ([id number]) [address] [place] [address] GFR/1.73 sq M.predicted among non-blacks MDRD (S/P/Bld) [Vol rate/Area] 30 mL/min/{1.73_m2} Low >59 [facility] Comment on above: Result Comment: Reported eGFR is based on the CKD-EPI 2021 equation that does not use a race coefficient. Performed By: #### C BCA, CMP, 22862-7, 24783-5, 45054-9 #### [facility] ([id number]) [address] [place] [address] Glucose [Mass/Vol] 117 mg/dL High 65-99 [facility] Comment on above: Performed By: #### C BCA, CMP, 31839-8, 16709-7, 26130-0 #### [facility] ([id number]) [address] [place] [address] Potassium [Moles/Vol] 4.3 mmol/L Normal 3.5-5.0 [facility] Comment on above: Performed By: #### C BCA, CMP, 58936-7, 25146-5, 01608-3 #### [facility] ([id number]) [address] [place] [address] Protein [Mass/Vol] 5.6 g/dL Low 6.0-8.0 [facility] Comment on above: Performed By: #### C BCA, CMP, 63711-0, 72220-4, 70121-8 #### [facility] ([id number]) [address] [place] [address] Sodium [Moles/Vol] 134 mmol/L Normal 134-146 [facility] Comment on above: Performed By: #### C BCA, CMP, 62873-8, 65533-5, 66254-6 #### [facility] ([id number]) [address] [place] [address] Urea nitrogen [Mass/Vol] 35 mg/dL High 5-27 [facility] Comment on above: Performed By: #### C BCA, CMP, 75519-1, 46637-2, 85347-4 #### [facility] ([id number]) [address] [place] [address] Glucose Glucometer (dC) [M ass/Vol]on 09-12-2023 Glucose [Mass/Vol] 203 mg/dL High 65-99 [facility] Glucose [Mass/Vol] 158 mg/dL High 65-99 [facility] Glucose [Mass/Vol] 101 mg/dL High 65-99 [facility] MAGNESIUMon 09-12-2023 Magnesium [Mass/Vol] 1.8 mg/dL Normal 1.8-2.6 [facility] Comment on above: Performed By: #### C BCA, CMP, 62846-0, 24277-8, 22251-0 #### [facility] ([id number]) [address] [place] [address] Procalcitonin IA [Mass/Vol]o n 09-12-2023 PROCALCITONIN 1.61 ng/mL High <0.05 [facility] Comment on above: Result Comment: NOTE <0.50 ng/mL - Low risk of severe sepsis and/or septic shock. <2.00 ng/mL - Recommend retesting within 6-24 hours. >2.00 ng/mL - High risk of sepsis and/or septic shock. Performed By: #### C BCA, CMP, 92759-8, 33604-2, 31058-8 #### [facility] ([id number]) [address] [place] [address] TROPONIN Ion 09-12-2023 Troponin I.cardiac [Mass/Vol] 0.63 ng/mL Critically high 0.00-0.04 [facility] Comment on above: Result Comment: Concentrations greater than or equal to 0.05 ng/ml are considered elevated. Elevations of Troponin may be due to causes other than myocardial ischemia. Recommend serial Troponin testing be performed. Performed By: #### C BCA, CMP, 92271-3, 01268-5, 50803-4 #### [facility] ([id number]) [address] [place] [address] Troponin I.cardiac [Mass/Vol] 0.20 ng/mL High 0.00-0.04 [facility] Comment on above: Result Comment: Concentrations greater than or equal to 0.05 ng/ml are considered elevated. Elevations of Troponin may be due to causes other than myocardial ischemia. Recommend serial Troponin testing be performed. Performed By: #### C BCA, CMP, 08997-8, 75887-4, 32641-0 #### [facility] ([id number]) [address] [place] [address] BLOOD CULTUREon 09-11-2023 Bacteria identified Aer cx Nom (Bld) CULTURE RESULTS NO GROWTH 5 DAYS Normal [facility] Bacteria identified Aer cx Nom (Bld) CULTURE RESULTS NO GROWTH 5 DAYS Normal [facility] CBC AND AUTO DIFFon 09-11-19 ABSOLUTE BASOPHIL 0.0 X10E9/L Normal 0.0-0.2 [facility] Comment on above: Performed By: #### C BCA, CMP, 72330-9, 81587-5, 02725-4 #### [facility] ([id number]) [address] [place] [address] ABSOLUTE NEUTROPHIL 13.6 X10E9/L High 1.5-6.6 [facility] Comment on above: Performed By: #### C BCA, CMP, 24153-4, 12727-8, 89607-2 #### [facility] ([id number]) [address] [place] [address] Basophils/100 WBC (Bld) 0.2 % Normal [facility] Comment on above: Performed By: #### C BCA, CMP, 45434-0, 99169-4, 65378-2 #### [facility] ([id number]) [address] [place] [address] Eosinophils (Bld) [#/Vol] 0.0 10*3/uL Normal 0.0-0.4 [facility] Comment on above: Performed By: #### C BCA, CMP, 95144-2, 41779-3, 62109-4 #### [facility] ([id number]) [address] [place] [address] Eosinophils/100 WBC (Bld) 0.2 % Normal [facility] Comment on above: Performed By: #### C BCA, CMP, 36554-2, 12239-2, 15511-3 #### [facility] ([id number]) [address] [place] [address] Erythrocyte distribution width (RBC) [Ratio] 16.3 % High 11.5-15.0 [facility] Comment on above: Performed By: #### C KRISTIN, CMP, 48734-9, 39211-4, 44655-4 #### [facility] ([id number]) [address] [place] [address] Hematocrit (Bld) [Volume fraction] 37.5 % Low 39-49 [facility] Comment on above: Performed By: #### C BCA, CMP, 11068-5, 23465-0, 49526-7 #### [facility] ([id number]) [address] [place] [address] Hemoglobin (Bld) [Mass/Vol] 12.3 g/dL Low 13.0-17.0 [facility] Comment on above: Performed By: #### C KRISTIN, CMP, 57746-2, 98649-3, 61011-1 #### [facility] ([id number]) [address] [place] [address] Lymphocytes (Bld) [#/Vol] 0.4 10*3/uL Low 1.0-3.5 [facility] Comment on above: Performed By: #### C BCA, CMP, 99339-1, 62865-5, 82225-9 #### [facility] ([id number]) [address] [place] [address] Lymphocytes/100 WBC (Bld) 2.4 % Normal [facility] Comment on above: Performed By: #### C BCA, CMP, 25355-4, 01339-5, 08479-9 #### [facility] ([id number]) [address] [place] [address] MCH (RBC) [Entitic mass] 27.0 pg Normal 27-34 [facility] Comment on above: Performed By: #### C BCA, CMP, 70641-6, 03504-8, 67992-9 #### [facility] ([id number]) [address] [place] [address] MCHC (RBC) [Mass/Vol] 32.8 g/dL Normal 32-36 [facility] Comment on above: Performed By: #### C BCA, CMP, 63578-7, 59954-4, 81030-9 #### [facility] ([id number]) [address] [place] [address] MCV (RBC) [Entitic vol] 82 fL Normal 80-100 [facility] Comment on above: Performed By: #### C BCA, CMP, 21675-5, 60924-5, 72545-3 #### [facility] ([id number]) [address] [place] [address] Monocytes (Bld) [#/Vol] 1.3 10*3/uL High 0-0.9 [facility] Comment on above: Performed By: #### C BCA, CMP, 45636-3, 48141-8, 63985-6 #### [facility] ([id number]) [address] [place] [address] Monocytes/100 WBC (Bld) 8.6 % Normal [facility] Comment on above: Performed By: #### C BCA, CMP, 39262-9, 31686-1, 30862-0 #### [facility] ([id number]) [address] [place] [address] Neutrophils/100 WBC (Bld) 88.6 % Normal [facility] Comment on above: Performed By: #### David BCA, CMP, 49212-5, 51507-3, 11954-4 #### [facility] ([id number]) [address] [place] [address] Platelet mean volume (Bld) [Entitic vol] 8.8 fL Normal 7-12 [facility] Comment on above: Performed By: #### C BCA, CMP, 31995-8, 99731-8, 99194-8 #### [facility] ([id number]) [address] [place] [address] Platelets (Bld) [#/Vol] 171 10*3/uL Normal 150-450 [facility] Comment on above: Performed By: #### C BCA, CMP, 22153-6, 18876-7, 86701-1 #### [facility] ([id number]) [address] [place] [address] RBC COUNT 4.55 X10E12/L Normal 4.10-5.70 [facility] Comment on above: Performed By: #### C BCA, CMP, 02193-4, 49146-6, 37234-5 #### [facility] ([id number]) [address] [place] [address] WBC (Bld) [#/Vol] 15.3 10*3/uL High 4.0-11.0 [facility] Comment on above: Performed By: #### C BCA, CMP, 54022-2, 75460-1, 06304-6 #### [facility] ([id number]) [address] [place] [address] COMPREHENSIVE METABOLIC PANE Juan Antonio 09-11-2023 Albumin [Mass/Vol] 3.4 g/dL Normal 3.2-5.3 [facility] Comment on above: Performed By: #### C BCA, CMP, 81642-0, 96069-7, 93148-8 #### [facility] ([id number]) [address] [place] [address] ALP [Catalytic activity/Vol] 135 U/L High 39-130 [facility] Comment on above: Performed By: #### C BCA, CMP, 13896-2, 67688-6, 85183-1 #### [facility] ([id number]) [address] [place] [address] ALT [Catalytic activity/Vol] 13 U/L Normal 0-40 [facility] Comment on above: Performed By: #### C BCA, CMP, 12940-5, 07247-0, 93830-1 #### [facility] ([id number]) [address] [place] [address] Anion gap [Moles/Vol] 10 mmol/L Normal 5-15 [facility] Comment on above: Performed By: #### C BCA, CMP, 68170-8, 75475-7, 80076-8 #### [facility] ([id number]) [address] [place] [address] AST [Catalytic activity/Vol] 18 U/L Normal 0-41 [facility] Comment on above: Performed By: #### C BCA, CMP, 64018-8, 97048-7, 25232-7 #### [facility] ([id number]) [address] [place] [address] Bilirubin [Mass/Vol] 0.9 mg/dL Normal 0.3-1.2 [facility] Comment on above: Performed By: #### C BCA, CMP, 90315-0, 37060-0, 45962-4 #### [facility] ([id number]) [address] [place] [address] Calcium [Mass/Vol] 8.3 mg/dL Low 8.5-10.5 [facility] Comment on above: Performed By: #### C BCA, CMP, 52314-9, 48421-2, 62079-9 #### [facility] ([id number]) [address] [place] [address] Chloride [Moles/Vol] 100 mmol/L Normal 98-109 [facility] Comment on above: Performed By: #### C BCA, CMP, 94932-5, 05677-7, 59880-6 #### [facility] ([id number]) [address] [place] [address] CO2 [Moles/Vol] 25 mmol/L Normal 22-32 [facility] Comment on above: Performed By: #### C BCA, CMP, 74476-5, 32725-5, 84165-0 #### [facility] ([id number]) [address] [place] [address] Creatinine [Mass/Vol] 2.19 mg/dL High 0.70-1.20 [facility] Comment on above: Result Comment: METH OD TRACEABLE TO IDMS STANDARD Performed By: #### C BCA, CMP, 56447-3, 92570-6, 17170-1 #### [facility] ([id number]) [address] [place] [address] GFR/1.73 sq M.predicted among non-blacks MDRD (S/P/Bld) [Vol rate/Area] 30 mL/min/{1.73_m2} Low >59 [facility] Comment on above: Result Comment: Reported eGFR is based on the CKD-EPI 2020 equation that does not use a race coefficient. Performed By: #### C BCA, CMP, 57911-1, 41695-6, 37632-0 #### [facility] ([id number]) [address] [place] [address] Glucose [Mass/Vol] 193 mg/dL High 65-99 [facility] Comment on above: Performed By: #### C BCA, CMP, 30180-5, 99356-3, 76112-0 #### [facility] ([id number]) [address] [place] [address] Potassium [Moles/Vol] 4.7 mmol/L Normal 3.5-5.0 [facility] Comment on above: Performed By: #### C BCA, CMP, 32143-2, 47038-4, 91431-9 #### [facility] ([id number]) [address] [place] [address] Protein [Mass/Vol] 6.2 g/dL Normal 6.0-8.0 [facility] Comment on above: Performed By: #### C BCA, CMP, 91954-9, 72416-3, 81606-5 #### [facility] ([id number]) [address] [place] [address] Sodium [Moles/Vol] 135 mmol/L Normal 134-146 [facility] Comment on above: Performed By: #### C BCA, CMP, 86610-8, 24235-8, 17224-8 #### [facility] ([id number]) [address] [place] [address] Urea nitrogen [Mass/Vol] 29 mg/dL High 5-27 [facility] Comment on above: Performed By: #### C BCA, CMP, 96437-9, 11217-9, 25542-8 #### [facility] ([id number]) [address] [place] [address] CT ABDOMEN AND PELVIS WO CON Ton 09-11-2023 CT ABDOMEN AND PELVIS WO CONT CT ABDOMEN AND PELVIS WO CONT CLINICAL INFORMATION: Sepsis; Abdominal pain, acute, nonlocalized. TECHNIQUE: CT Abdomen and Pelvis without intravenous contrast. Lack of IV contrast compromises evaluation of vascular structures and solid organs. All CT scans at this facility use dose modulation, iterative reconstruction, and/or weight based dosing when appropriate to reduce radiation dose to as low as reasonably achievable. COMPARISON: 01/11/2023. FINDINGS: Extreme lung bases grossly clear. There is some unchanged scarring or chronic atelectasis greater within left lung base. The liver shows no definite focal lesion. The spleen is not enlarged. The gallbladder is not significantly dilated. Adrenal glands, kidneys, and pancreas are not enlarged. Left kidney appears atrophic. No renal calculi or secondary signs for obstruction. Moderate arterial calcification is present. No free intra-abdominal air or fluid noted. The abdominal aorta shows normal caliber. No significant retroperitoneal lymphadenopathy appreciated. The appendix appears normal posterior to cecum. Multiple diverticula of sigmoid colon are present. Prostate appears symmetrically enlarged. Artifact through pelvis due to right hip hardware. 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 Bone windows show no worrisome lesion. Paraspinous musculature is symmetric. Loss of height at multiple levels within lumbar spine is unchanged. Grade 1 anterolisthesis of L4 on L5 appears unchanged and is likely due to marked facet degenerative change. IMPRESSION: * No acute findings. * Compromised evaluation performed without IV contrast. 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 * Multiple left and sigmoid diverticula without evidence for diverticulitis. * Symmetric enlargement of the prostate. Finalized by Romina Marin MD on 09/11/2023 3:58 PM Normal [facility] CT BRAIN WO CONTon CT BRAIN WO CONT CT BRAIN WO CONT CT BRAIN WO CONT INDICATION: Transient alteration of awareness. TECHNIQUE: CT of the head without intravenous contrast. Reviewed in brain, bone, and soft tissue windows. COMPARISON: None. FINDINGS: No intracranial hemorrhage. Scattered periventricular and deep cortical white matter areas of low attenuation, likely representing sequelae of chronic microangiopathy. No territorial loss of sanders-white differentiation. Mild cerebral volume loss with appropriate size and morphology of the ventricular system. No extra-axial fluid collections or shift of midline structures. Patent basal cisterns. No depressed or displaced calvarial fracture. IMPRESSION: 1. No acute intracranial abnormality. 2. Senescent changes including cerebral volume loss and sequelae of chronic microangiopathy. 3. If there is sufficient clinical concern for acute ischemia or an occult abnormality, further evaluation with brain MRI is recommended. All CT scans at this facility use dose modulation, iterative reconstruction, and/or weight based dosing when appropriate to reduce radiation dose to as low as reasonably achievable. Finalized by Barron Light MD on 09/11/2023 3:57 PM Normal [facility] Glucose Glucometer (BldC) [M ass/Vol]on 09-11-2023 Glucose [Mass/Vol] 173 mg/dL High 65-99 [facility] Lactate (P ion) [Moles/Vol]o n 09-11-2023 LACTATE W/REFLEX 1.8 mmol/L Normal 0.4-2.0 [facility] Comment on above: Result Comment: Result did not trigger repeat Lactate, re-order if needed. Performed By: #### 3 2133-1 #### [facility] ([id number]) [address] [place] [address] MAGNESIUMon 09-11-2023 Magnesium [Mass/Vol] 1.6 mg/dL Low 1.8-2.6 [facility] Comment on above: Performed By: #### C BCA, CMP, 62695-6, 93707-7, 91888-9 #### [facility] ([id number]) [address] [place] [address] Natriuretic peptide B [Mass/ Vol]on 09-11-2023 Natriuretic peptide B (Bld) [Mass/Vol] 150 pg/mL High <100.0 [facility] Comment on above: Performed By: #### 3 0934-4 #### [facility] ([id number]) [address] [place] [address] Procalcitonin IA [Mass/Vol]o n 09-11-2023 PROCALCITONIN 0.84 ng/mL High <0.05 [facility] Comment on above: Result Comment: NOTE <0.50 ng/mL - Low risk of severe sepsis and/or septic shock. <2.00 ng/mL - Recommend retesting within 6-24 hours. >2.00 ng/mL - High risk of sepsis and/or septic shock. Performed By: #### C BCA, CMP, 26170-2, 15911-7, 96938-9 #### [facility] ([id number]) [address] [place] [address] SARS/FLU A+B/RSV by NAAT/Mol ecularon 09-11-2023 SARS/FLU A+B/RSV by NAAT/Molecular FLU A PCR Positive (qualifier value) FLU B PCR Negative (qualifier value) RSV by PCR Negative (qualifier value) SARS CoV 2 Not detected (qualifier value) NOTE The Xpert Xpress SARS-CoV-2/Flu/RSV Plus test is a rapid, multiplexed real-time RT-PCR test intended for the simultaneous qualitative detection and differentiation of SARS-CoV-2, influenza A, influenza B and respiratory syncytial virus (RSV) viral RNA from individuals suspected of respiratory viral infection consistent with COVID-19 by their healthcare provider. This test has not been validated in asymptomatic patients. The Xpert Xpress SARS-CoV-2 test is intended for use by qualified and trained operators who are performing tests using either GenePeel-Works DX or GeneLamppost systems and is limited to laboratories that meet the CLIA requirements to perform high and moderate complexity tests. The Xpert Xpress SARS-CoV-2/Flu/RSV Plus is only for use under the Food and Drug Administration's Emergency Use Authorization. Results are for the simultaneous detection and differentiation of SARS-CoV-2, influenza A, influenza B and RSV nucleic acids in clinical specimens. SARS-CoV-2, influenza A, influenza B and RSV RNA identified by this test are generally detectable in upper respiratory samples during the acute phase of infection. Positive results are indicative of the presence of the identified virus, but do not rule out bacterial infection or co-infection with other pathogens not detected by this test. Clinical correlation with patient history and other diagnostic information is necessary to determine patient infection status. The agent detected may not be the definite cause of disease. Negative results do not preclude SARS-CoV-2, influenza A, influenza B and RSV infection and should not be used as the sole basis for treatment or other patient management decisions. Negative results must be combined with clinical observations, patient history and epidemiological information. An Invalid result may occur with specimen-associated inhibition unable to be resolved with specimen repeat. Fact Sheet for Healthcare Providers: https://www.fda.gov/m edia/458761/download Fact Sheet for Patients: https://www.fda.gov/m edia/118964/download Normal [facility] Comment on above: Performed By: #### C BCA CMP, 72772-0, 06520-8, 27275-1 #### [facility] ([id number]) [address] [place] [address] TROPONIN Ion 09-11-2023 Troponin I.cardiac [Mass/Vol] 0.04 ng/mL Normal 0.00-0.04 [facility] Comment on above: Performed By: #### C BCA, CMP, 47962-6, 94647-2, 88255-5 #### [facility] ([id number]) [address] [place] [address] XR CHEST 1 VWon 09-11-2023 XR CHEST 1 VW XR CHEST 1 VW History: Altered mental status. Confusion. Cough Exam/Technique: Portable upright AP chest Comparison: 01/16/2023 Findings: There is no active pulmonary or pleural disease displayed. Cardiac and mediastinal contours appear within normal limits on this AP projection. IMPRESSION: No evidence of active pulmonary disease. Finalized by Colton Sorto MD on 09/11/2023 3:35 PM Normal [facility] Basic Metabolic Panelon 01-2 Anion gap [Moles/Vol] 8 mmol/L 5 - 15 mmol/L [facility] Calcium [Mass/Vol] 8.8 mg/dL 8.5 - 10. 5 mg/dL [facility] Chloride [Moles/Vol] 105 mmol/L 98 - 109 mmol/L [facility] CO2 [Moles/Vol] 30 mmol/L 22 - 32 mmol/L [facility] Creatinine [Mass/Vol] 1.84 mg/dL High 0.60 - 1.30 mg/dL [facility] Comment on above: METHOD TRACEABLE TO IDAK STANDARD eGFR (CKD-EPI)non-race dependent 37 Low - PINF [facility] Comment on above: Reported eGFR is based on the CKD-EPI 2020 equation that does not use a race coefficient. Glucose [Mass/Vol] 125 mg/dL High 65 - 99 mg/dL [facility] Interpretation and review of laboratory results Abnormal [facility] Potassium [Moles/Vol] 4.3 mmol/L 3.5 - 5.0 mmol/L [facility] Sodium [Moles/Vol] 143 mmol/L 134 - 146 mmol/L [facility] Urea nitrogen [Mass/Vol] 25 mg/dL 5 - 27 mg/dL [facility] Protime & INRon 08-29-2023 INR Coag (PPP) [Relative time] 1.0 {INR} [facility] PT Coag (PPP) [Time] 11.3 s [facility] Lipid profileon 08-22-2023 External Cholesterol 160 [facility] External Cholesterol:Hdl 3.9 [facility] External Hdl Cholesterol 41 [facility] External Ldl (Calc) 94 [facility] External Triglycerides 125 [facility] External Very Low Lipoprotein 25 [facility] Ldl/Hdl Ratio 2.3 [facility] Multiple labson 05-02-2023 [facility] Hemoglobin A1con 04-10-2023 [facility] Comprehensive metabolic pane lOrdered By: Yeny Yanes on 02-02-2023 [facility] Complete Blood Count with Au to Diffon 12-07-2021 Basophils (Bld) [#/Vol] 0.05 10*3/uL Normal 0.00-0.20 [facility] [employer] Comment on above: Performed By: #### V ITD, CBCAD, CMP, LIPD #### [facility] [address], [place] [id number] Basophils/100 WBC (Bld) 0.6 % Normal [facility] Comment on above: Performed By: #### V ITD, CBCAD, CMP, LIPD #### [facility] [address], [place] [id number] Eosinophils (Bld) [#/Vol] 0.20 10*3/uL Normal 0.02-0.50 [facility] Comment on above: Performed By: #### V ITD, CBCAD, CMP, LIPD #### [facility] [address], [place] [id number] Eosinophils/100 WBC (Bld) 2.2 % Normal [facility] Comment on above: Performed By: #### V ITD, CBCAD, CMP, LIPD #### [facility] [address], [place] [id number] Erythrocyte distribution width (RBC) [Ratio] 14.2 % Normal 11.0-15.0 [facility] Comment on above: Performed By: #### V ITD, CBCAD, CMP, LIPD #### [facility] [address], [place] [id number] Hematocrit (Bld) [Volume fraction] 43.6 % Normal 38.5-50.0 [facility] [employer] Comment on above: Performed By: #### V ITD, CBCAD, CMP, LIPD #### [facility] [address], [place] [id number] Hemoglobin (Bld) [Mass/Vol] 14.0 g/dL Normal 13.0-17.1 [facility] [employer] Comment on above: Performed By: #### V ITD, CBCAD, CMP, LIPD #### [facility] [address], [place] [id number] Lymphocytes (Bld) [#/Vol] 1.8 10*3/uL Normal 0.9-3.9 [facility] Comment on above: Performed By: #### V ITD, CBCAD, CMP, LIPD #### [facility] [address], [place] [id number] Lymphocytes/100 WBC (Bld) 20.6 % Normal [facility] Comment on above: Performed By: #### V ITD, CBCAD, CMP, LIPD #### [facility] [address], [place] [id number] MCH (RBC) [Entitic mass] 28.5 pg Normal 27.0-33.0 [facility] Comment on above: Performed By: #### V ITD, CBCAD, CMP, LIPD #### [facility] [address], [place] [id number] MCHC (RBC) [Mass/Vol] 32.1 g/dL Normal 32.0-36.0 [facility] Comment on above: Performed By: #### V ITD, CBCAD, CMP, LIPD #### [facility] [address], [place] [id number] MCV (RBC) [Entitic vol] 89 fL Normal 80-100 [facility] Comment on above: Performed By: #### V ITD, CBCAD, CMP, LIPD #### [facility] [address], [place] [id number] Monocytes (Bld) [#/Vol] 0.8 10*3/uL Normal 0.2-0.9 [facility] Comment on above: Performed By: #### V ITD, CBCAD, CMP, LIPD #### [facility] [address], [place] [id number] Monocytes/100 WBC (Bld) 8.5 % Normal [facility] Comment on above: Performed By: #### V ITD, CBCAD, CMP, LIPD #### [facility] [address], [place] [id number] Neutrophils (Bld) [#/Vol] 6.0 10*3/uL Normal 1.5-7.8 [facility] Comment on above: Performed By: #### V ITD, CBCAD, CMP, LIPD #### [facility] [address], [place] [id number] Neutrophils/100 WBC (Bld) 66.8 % Normal [facility] Comment on above: Performed By: #### V ITD, CBCAD, CMP, LIPD #### [facility] [address], [place] [id number] Platelet mean volume (Bld) [Entitic vol] 10.50 fL Normal 7.50-12.50 [facility] Comment on above: Performed By: #### V ITD, CBCAD, CMP, LIPD #### [facility] [address], [place] [id number] Platelets (Bld) [#/Vol] 198 10*3/uL Normal 140-400 [facility] Comment on above: Performed By: #### V ITD, CBCAD, CMP, LIPD #### [facility] [address], [place] [id number] RBC (Bld) [#/Vol] 4.92 10*6/uL Normal 4.20-5.80 [place] Comment on above: Performed By: #### V ITD, CBCAD, CMP, LIPD #### [facility] [address], [place] [id number] RDW-SD 45.8 fL Normal 37.0-50.0 [facility] Comment on above: Performed By: #### V ITD, CBCAD, CMP, LIPD #### [facility] [address], [place] [id number] WBC (Bld) [#/Vol] 8.9 10*3/uL Normal 3.8-11.0 [facility] [employer] Comment on above: Performed By: #### V ITD, CBCAD, CMP, LIPD #### [facility] [address], [place] [id number] Comprehensive Metabolic Pane juan antonio 12-07-2021 Albumin [Mass/Vol] 4.5 g/dL Normal 3.6-5.1 [facility] [employer] [facility] Comment on above: Performed By: #### V ITD, CBCAD, CMP, LIPD #### [facility] [address], [place] [id number] Albumin/Globulin [Mass ratio] 2.1 {ratio} Normal 1.0-2.5 [facility] [employer] Comment on above: Performed By: #### V ITD, CBCAD, CMP, LIPD #### [facility] [address], [place] [id number] ALP [Catalytic activity/Vol] 139 U/L High 40-129 [facility] Specialist Comment on above: Performed By: #### V ITD, CBCAD, CMP, LIPD #### [facility] [address], [place] [id number] ALT [Catalytic activity/Vol] 20 U/L Normal 9-46 [facility] Specialist Comment on above: Result Comment: 07/06 Female reference range changed. Performed By: #### V ITD, CBCAD, CMP, LIPD #### [facility] [address], [place] [id number] Anion gap [Moles/Vol] 17 mmol/L Normal 12-20 [facility] Specialist Comment on above: Result Comment: Effe ctive 08/11/2019 reference range changed. Performed By: #### V ITD, CBCAD, CMP, LIPD #### [facility] [address], [place] [id number] AST [Catalytic activity/Vol] 16 U/L Normal 10-40 [facility] Specialist Comment on above: Performed By: #### V ITD, CBCAD, CMP, LIPD #### [facility] [address], [place] [id number] Bilirubin [Mass/Vol] 0.71 mg/dL Normal 0.30-1.20 [facility] Specialist Comment on above: Performed By: #### V ITD, CBCAD, CMP, LIPD #### [facility] [address], [place] [id number] BUN/CREA 19 Ratio Normal 6-22 [facility] Specialist Comment on above: Performed By: #### V ITD, CBCAD, CMP, LIPD #### [facility] [address], [place] [id number] Calcium [Mass/Vol] 9.6 mg/dL Normal 8.6-10.2 [facility] Comment on above: Performed By: #### V ITD, CBCAD, CMP, LIPD #### [facility] [address], [place] [id number] Chloride [Moles/Vol] 103 mmol/L Normal 98-107 [facility] Specialist Comment on above: Performed By: #### V ITD, CBCAD, CMP, LIPD #### [facility] [address], [place] [id number] CO2 [Moles/Vol] 28 mmol/L Normal 20-31 [facility] Specialist Comment on above: Performed By: #### V ITD, CBCAD, CMP, LIPD #### [facility] [address], [place] [id number] Creatinine [Mass/Vol] 1.7 mg/dL High 0.7-1.4 [facility] Specialist Comment on above: Performed By: #### V ITD, CBCAD, CMP, LIPD #### [facility] [address], [place] [id number] eGFRAA 49 mL/min/1.73m2 Low >60 [facility] Specialist Comment on above: Performed By: #### V ITD, CBCAD, CMP, LIPD #### [facility] [address], [place] [id number] eGFRNAA 41 mL/min/1.73m2 Low >60 [facility] Specialist Comment on above: Performed By: #### V ITD, CBCAD, CMP, LIPD #### [facility] [address], [place] [id number] Globulin (S) [Mass/Vol] 2.1 g/dL Normal 1.9-3.7 [facility] Specialist Comment on above: Performed By: #### V ITD, CBCAD, CMP, LIPD #### [facility] [address], [place] [id number] Glucose [Mass/Vol] 129 mg/dL High 65-99 [facility] Comment on above: Result Comment: For FASTING Glucose --- ADA reference ranges: Normal 65-99 mg/dl Prediabetes 100-125 Diabetes >/= 126 Performed By: #### V ITD, CBCAD, CMP, LIPD #### [facility] [address], [place] [id number] Potassium [Moles/Vol] 4.9 mmol/L Normal 3.5-5.5 [facility] Specialist Comment on above: Performed By: #### V ITD, CBCAD, CMP, LIPD #### [facility] [address], [place] [id number] Protein [Mass/Vol] 6.6 g/dL Normal 6.1-8.1 [facility] [place] [employer] Comment on above: Performed By: #### V ITD, CBCAD, CMP, LIPD #### [facility] [address], [place] [id number] Sodium [Moles/Vol] 142 mmol/L Normal 135-146 [facility] [employer] Comment on above: Performed By: #### V ITD, CBCAD, CMP, LIPD #### [facility] [address], [place] [id number] Urea nitrogen [Mass/Vol] 32 mg/dL High 7-25 [facility] [employer] Comment on above: Performed By: #### V ITD, CBCAD, CMP, LIPD #### [facility] [address], [place] [id number] GGTon 12-07-2021 Gamma glutamyl transferase [Catalytic activity/Vol] 45 U/L Normal 8-61 [facility] [employer] Comment on above: Performed By: #### G GT #### [facility] [address], [place] [id number] Hemoglobin A1Con 12-07-2021 EAG 159.94 Normal [facility] [employer] Comment on above: Performed By: #### A 1C #### [facility] [address], [place] [id number] HbA1c (Bld) [Mass fraction] 7.2 % High 4.0-6.0 [facility] [employer] Comment on above: Performed By: #### A 1C #### [facility] [address], [place] [id number] Lipid Panelon 12-07-2021 Cholesterol [Mass/Vol] 176 mg/dL Normal 125-200 [facility] [employer] Comment on above: Result Comment: Low risk < 200mg/dL Borderline risk 201-239 mg/dl High risk > or equal to 240 Performed By: #### V ITD, CBCAD, CMP, LIPD #### [facility] [address], [place] [id number] Cholesterol in HDL [Mass/Vol] 38 mg/dL Low >40 [facility] [employer] Comment on above: Result Comment: High Cardiovascular Risk HDL <40 mg/dL Low Cardiovascular Risk HDL > or equal to 60 mg/dl Performed By: #### V ITD, CBCAD, CMP, LIPD #### [facility] [address], [place] [id number] Cholesterol in LDL [Mass/Vol] 76 mg/dL Normal [facility] Specialist Comment on above: Result Comment: LDL ATP III CLASSIFICATION LDL less than 100 mg/dl Optimal LDL 100-129 mg/dl Near or above optimal LDL 130-159 Borderline high LDL 160-189 High LDL greater than 189 mg/dl Very High Performed By: #### V ITD, CBCAD, CMP, LIPD #### [facility] [address], [place] [id number] Cholesterol in VLDL [Mass/Vol] 62 mg/dL Normal [facility] [employer] Comment on above: Performed By: #### V ITD, CBCAD, CMP, LIPD #### [facility] [address], [place] [id number] Cholesterol.total/C holesterol in HDL [Mass ratio] 5 {ratio} Normal [facility] Specialist Comment on above: Performed By: #### V ITD, CBCAD, CMP, LIPD #### [facility] [address], [place] [id number] Triglyceride [Mass/Vol] 312 mg/dL High 30-150 [facility] [employer] Comment on above: Result Comment: TRIG ATPIII CLASSIFICATIONS TRIG less than 150 mg/dl Normal TRIG 150-199 mg/dl Borderline High TRIG 200-500 mg/dl High TRIG greather than 500 mg/dl Very High Performed By: #### V ITD, CBCAD, CMP, LIPD #### [facility] [address], [place] [id number] Parathyroid Hormone, Intacto n 12-07-2021 PTH 71.92 pg/mL High 16.00-65.00 [facility] Specialist Comment on above: Performed By: #### P TH* #### [facility] [address], [place] [id number] Vitamin B12/Folateon 022 Cobalamin (Vitamin B12) [Mass/Vol] 421 pg/mL Normal 211-946 [facility] Specialist Comment on above: Performed By: #### B 12/Fol #### [facility] [address], [place] [id number] FOL >20.0 Normal [facility] [employer] Comment on above: Result Comment: Refe rename range change 06/22/2017. Prior reference range F 4.8-37.3 ng/mL, M 4.5-32.2 ng/mL. Performed By: #### B 12/Fol #### [facility] [address], [place] [id number] Vitamin D 25-OHon 12-07-2021 VIT D 25 OH 24 ng/ml Low >29 [facility] [employer] Comment on above: Result Comment: Tabitha min D Status Deficiency <20 ng/mL Insufficiency 20-29 ng/mL Optimal 30-100 ng/mL Possible Toxicity >=150 ng/mL Performed By: #### V ITD, CBCAD, CMP, LIPD #### [facility] [address], [place] [id number] Covid-19 PCR (CVDTB)on 06-06 SARS-CoV-2 (COVID-19) RNA CHALRENE+probe Ql (Unsp spec) Not detected Normal NOT DETECTED [facility] Comment on above: Result Comment: This test is not yet approved or cleared by the [place] FDA. When there are no FDA-approved or cleared tests available, and other criteria are met, FDA can make tests available under an emergency access mechanism called an Emergency Use Authorization (EUA). The EUA for this test is supported by the Livery Car Driver of Health and Human Service's (HHS's) declaration that circumstances exist to justify the emergency use of in vitro diagnostics for the detection and/or diagnosis of the virus that causes COVID-19. This EUA will remain in effect (meaning this test can be used) for the duration of the COVID-19 declaration justifying emergency of IVDs, unless it is terminated or revoked by FDA (after which the test may no longer be used). When diagnostic testing is negative, the possibility of a false negative should be considered in the context of a patient's recent exposures and the presence of clinical signs and symptoms consistent with SARS-CoV-2. Performed By: #### C VDTBH #### [facility] [address] [address] [address] Leon Sanon Coding Summaryon 08-18-2020 Coding Summary CODING DATE: 08/18/2020 [facility] STATUS: Home PAYOR: Medicare ADMIT DX: REASON FOR VISIT DX: U07.1 COVID-19 FINAL DX: PRINCIPAL: U07.1 COVID-19 SECONDARY: E11.22 Type 2 diabetes mellitus with diabetic chronic kidney disease N18.9 Chronic kidney disease, unspecified PYMT PROC APC STAT DESCRIPTION DOCTOR NAME DATE NOTE: The code number assigned matches the documented diagnosis and / or procedure in the patient's chart. However, the narrative phrase printed from the coding software may appear abbreviated, or result in slightly different terminology. Coded By: Cielo Ortiz Date Saved: 08/18/2020 12:[address] [facility] Consent Formson 08-18-2020 Consent Forms [id number] [place] [address] Release of Informationon Release of Information [id number] [place] [address] Provider Orderson 08-17-2020 Provider Orders [id number] Progress Note - Nurseon 08-06 Progress Note - Nurse Infusion therapy completed. Patient tolerated the procedure without C/O. VSS. Respirations remain easy and regular. Patient exited the unit via ambulation. Shuffling gait. CGAX 1 needed for ambulation. [Electronically Signed on: 08/16/2020 15:29 EST] Kinjal Issa [Verified on: 08/16/2020 15:29 EST] Kinjal Issa [facility] Provider Orderson 08-16-2020 Provider Orders [id number] [facility] ALLIED HEALTHon 01-03-2019 ALLIED HEALTH HNO ID: [id number] Author: Chika Mckinney (Rt) Service: Radiology Author Type: Separator Tender Type: Allied Health Filed: 01/03/2019 12:57 PM Note Text: Radiology Service Progress Note DATE OF SERVICE: January 03, 2019 TIME: 12:31 PM PATIENT IDENTITY VERIFICATION COMPLETED USING TWO (2) METHODS: Patient confirmed name verbally, ID Band and Date of . PATIENT GENDER DATA: Male PATIENT RELEVANT IMPLANT DATA REVIEWED: Yes ALLERGIES: Reviewed and unchanged CONTRAST ALLERGY: NO. EXAM: MRI - CONTRAST TYPE: GROUP II PERIPHERAL IV DATA: Ambulatory: A peripheral IV was started in the Left antecubital site with a Angio cath/Butterfly: 22 gauge. RADIOLOGY DEPARTMENT: MR; Exam(s) Completed: Body: Prostate SIGNATURE: Willis LÓPEZ, Chika Mckinney, RT PATIENT NAME: Andres Canela DATE: January 03, 2019 TIME: 12:31 PM [facility] MRI PROSTATE WO/W IVCONon Protein mass conc * * *Final Report* * * DATE OF EXAM: Jan 03 2019 12:57PM [facility] 0751 - MRI PROSTATE WO/W IVCON / PROCEDURE REASON: r97.20 * * * * Physician Interpretation * * * * EXAMINATION: MRI PELVIS WITHOUT AND WITH CONTRAST (MULTIPARAMETRIC PROSTATE MRI): 01/03/2019 CLINICAL HISTORY: 73-year-old man elevated PSA, being evaluated for prostate cancer. Previous biopsy: Negative, 12/12/2012 PSA: 6.04 ng/mL (11/18/2018) 15% free Prior therapy: None. TECHNIQUE: Multiparametric MRI of the prostate and pelvis performed on a 3T (Siemens 3T TrioTim) MR system utilizing a torso phased array coil. Sequences obtained: Sagittal, axial and coronal high resolution T2-WI with small mcjny-ts-pyir; Axial diffusion weighted images with multiple B-values and creation of ADC-maps; Dynamic contrast enhanced T1-weighted images through the prostate were also obtained before, during and after the administration of intravenous gadolinium. Subsequently, larger field of view 3D T1 weighted axial images were obtained through the pelvis. Prostate dimension, volume and pharmacokinetics were obtained using a semi-automated software ([employer]). M: MRPro_2 Contrast: IV administration of 20cc ml of Dotarem COMPARISON: None RESULT: Prostate: Dimensions: 5.8 x 4.9 x 5.1 cm corresponding to a volume of approximately 73 cc. Peripheral zone: Linear and/or wedge shaped T2/ADC map hypointensities. Transition zone: There is transition zone hypertrophy, without focal abnormalities suspicious for clinically significant disease. Central zone: No focal lesions with imaging features suspicious for clinically significant disease. Neurovascular bundle: Unremarkable. Seminal vesicles: Unremarkable. Adjacent Organ Involvement: None. Lymphadenopathy: None Other Findings: None. IMPRESSION: NO FOCAL LESIONS WITH IMAGING FEATURES SUSPICIOUS FOR CLINICALLY SIGNIFICANT PROSTATE CANCER. Number of targets created for MR/US fusion biopsy: Peripheral zone: 0 Transition zone: 0 Central zone: 0 Targets were numbered in order of level of suspicion for clinically significant prostate cancer (Laureano score 3 + 4 or higher). PI-RADS assessment categories: PI-RADS 1: Clinically significant cancer is highly unlikely PI-RADS 2: Clinically significant cancer is unlikely PI-RADS 3: Clinically significant cancer is equivocal PI-RADS 4: Clinically significant cancer is likely PI-RADS 5: Clinically significant cancer is highly likely Mechanical Engineering Director: MICHAEL Transcribe Date/Time: Jan 03 2019 1:13P Dictated by : ALISIA GARAY MD This examination was interpreted and the report reviewed and electronically signed by: EMILIO BARRAZA MD on Jan 03 2019 4:06PM EST [id number] Normal [facility] Vital Signs Date Time Vital Sign Value Performing Clinician Facility 07-29-2024 08:01-0500 Blood Pressure Location Clotilde VERDUZCO [facility] 07-29-2024 08:01-0500 Diastolic blood pressure 60 mm[Hg] Clotilde VERDUZCO [facility] 07-29-2024 08:01-0500 Heart rate 64 /min Clotilde VERDUZCO [facility] 07-29-2024 08:01-0500 Respiratory rate 16 /min Clotilde VERDUZCO [facility] 07-29-2024 08:01-0500 Systolic blood pressure 100 mm[Hg] Clotilde VERDUZCO [facility] 06-13-2024 13:45-0500 Body mass index (BMI) [Ratio] 36.65 kg/m2 Ella Ng MD Work Phone: [facility] 06-13-2024 13:45-0500 Body temperature 98.1 [degF] Ella Ng MD Work Phone: [facility] [employer] [facility] 06-13-2024 13:45-0500 Body weight 115.85 kg Ella Ng MD Work Phone: [facility] [employer] [facility] 06-13-2024 13:45-0500 Diastolic blood pressure 50 mm[Hg] Ella Ng MD Work Phone: [facility] [employer] [facility] 06-13-2024 13:45-0500 Heart rate 59 /min Ella Ng MD Work Phone: [facility] 06-13-2024 13:45-0500 Respiratory rate 16 /min Ella Ng MD Work Phone: [facility] [employer] [facility] 06-13-2024 13:45-0500 SaO2% (BldA) [Mass fraction] 99 % Ella Ng MD Work Phone: [facility] [employer] [facility] 06-13-2024 13:45-0500 Systolic blood pressure 128 mm[Hg] Ella Ng MD Work Phone: [facility] [employer] [facility] 03-05-2024 10:20-0400 Body height 172.7 cm Rachel Vital MD Work Phone: [facility] [employer] [facility] 03-05-2024 10:20-0400 Body mass index (BMI) [Ratio] 38.18 kg/m2 Rachel Vital MD Work Phone: [facility] 03-05-2024 10:20-0400 Body weight 113.85 kg Rachel Vital MD Work Phone: [facility] [employer] [facility] 03-05-2024 10:20-0400 Diastolic blood pressure 50 mm[Hg] Rachel Vital MD Work Phone: [facility] [employer] [facility] 03-05-2024 10:20-0400 Heart rate 55 /min Rachel Vital MD Work Phone: [facility] 03-05-2024 10:20-0400 SaO2% (BldA) [Mass fraction] 98 % Rachel Vital MD Work Phone: [facility] 03-05-2024 10:20-0400 Systolic blood pressure 118 mm[Hg] Rachel Vital MD Work Phone: [facility] 12-07-2023 10:36-0400 Body height 172.7 cm Ella Ng MD Work Phone: [facility] 12-07-2023 10:36-0400 Body mass index (BMI) [Ratio] 39.63 kg/m2 Ella Ng MD Work Phone: [facility] 12-07-2023 10:36-0400 Body temperature 97.81 [degF] Ella Ng MD Work Phone: [facility] 12-07-2023 10:36-0400 Body weight 118.21 kg Ella Ng MD Work Phone: [facility] 12-07-2023 10:36-0400 Diastolic blood pressure 51 mm[Hg] Ella Ng MD Work Phone: [facility] 12-07-2023 10:36-0400 Heart rate 54 /min Ella Ng MD Work Phone: [facility] 12-07-2023 10:36-0400 Respiratory rate 20 /min Ella Ng MD Work Phone: [facility] 12-07-2023 10:36-0400 SaO2% (BldA) [Mass fraction] 96 % Ella Ng MD Work Phone: [facility] 12-07-2023 10:36-0400 Systolic blood pressure 139 mm[Hg] Ella Ng MD Work Phone: [facility] 11-01-2023 13:42-0400 Body height 172.7 cm Ana Paula Colón MD Work Phone: [facility] 11-01-2023 13:42-0400 Body mass index (BMI) [Ratio] 38.16 kg/m2 Ana Paula Colón MD Work Phone: [facility] 11-01-2023 13:42-0400 Body weight 113.85 kg Ana Paula Colón MD Work Phone: [facility] 11-01-2023 13:42-0400 Diastolic blood pressure 62 mm[Hg] Ana Paula Colón MD Work Phone: [facility] 11-01-2023 13:42-0400 Heart rate 64 /min Ana Paula Colón MD Work Phone: [facility] 11-01-2023 13:42-0400 SaO2% (BldA) [Mass fraction] 95 % Ana Paula Colón MD Work Phone: [facility] 11-01-2023 13:42-0400 Systolic blood pressure 128 mm[Hg] Ana Paula Colón MD Work Phone: [facility] 08-29-2023 09:19-0500 Body height 172.7 cm [facility] 08-29-2023 09:19-0500 Body mass index (BMI) [Ratio] 38.01 kg/m2 [facility] 08-29-2023 09:19-0500 Body weight 113.4 kg [facility] 1 [facility] 08-21-2023 09:16-0500 Body height 172.7 cm Shailesh Green MD [facility] 08-21-2023 09:16-0500 Body mass index (BMI) [Ratio] 37.41 kg/m2 Shailesh Green MD Work Phone: [facility] 08-21-2023 09:16-0500 Body weight 111.58 kg Shailesh Green MD [facility] 02-28-2023 07:31-0400 Blood Pressure Location Clotildesandoval VERDUZCO [facility] 02-28-2023 07:31-0400 Diastolic blood pressure 76 mm[Hg] Clotilde VERDUZCO [facility] 02-28-2023 07:31-0400 Heart rate 80 /min Clotilde VERDUZCO [facility] 02-28-2023 07:31-0400 Respiratory rate 16 /min Clotilde VERDUZCO [facility] 02-28-2023 07:31-0400 Systolic blood pressure 140 mm[Hg] Clotilde VERDUZCO [facility] Encounters Encounter Date Encounter Type Care Provider Facility Start: 02-11-2025 ambulatory Clotilde VERDUZCO Facili ty:[facility] Start: 02-03-2025 ambulatory Clotildesandoval VERDUZCO Facili ty:[id number] Start: 01-28-2025 End: 01-28-2025 Lab Drop off Clotilde VERDUZCO [facility] Start: 01-28-2025 End: 01-28-2025 ambulatory Clotilde VERDUZCO Facility:[facility] Start: 01-28-2025 End: 01-28-2025 Patient encounter procedure Clotilde VERDUZCO [facility] Start: 01-21-2025 ambulatory CLOTILDE VERDUZCO [facility] Start: 11-27-2024 End: 11-27-2024 ambulatory AMARILIS SIDDIQI [facility] Start: 08-02-2024 End: 08-02-2024 ambulatory CLOTILDE VERDUZCO [facility] Start: 08-01-2024 End: 08-04-2024 Refill Navya Sepulveda RN [facility] Comment on above: Med Refill Start: 07-29-2024 End: 07-29-2024 Lab Drop off Clotilde VERDUZCO [facility] Start: 07-29-2024 End: 07-29-2024 ambulatory MONA CUTLER Facility:[facility] Start: 07-29-2024 End: 07-29-2024 Patient encounter procedure Clotilde VERDUZCO [facility] Start: 06-13-2024 End: 06-13-2024 Office outpatient visit 15 minutes Ella Ng MD Work Phone: [facility] Comment on above: Iron deficiency anem ia due to chronic blood loss (Primary Dx) Start: 06-13-2024 End: 06-13-2024 Orders Only Laura Stoddard RN [facility] - [facility] Comment on above: Iron deficiency (Nohelia emy Dx); Iron deficiency anemia due to chronic blood loss Start: 06-12-2024 End: 06-12-2024 ambulatory ELLA NG [facility] Start: 04-21-2024 End: 04-22-2024 Emergency department patient visit OMAR QUIROS [facility] Start: 03-05-2024 End: 03-05-2024 Office outpatient visit 15 minutes Rachel Vital MD Work Phone: [facility] Comment on above: NSTEMI (non-ST eleva dar myocardial infarction) ([facility]) (Primary Dx); Elevated troponin; Essential hypertension Start: 03-05-2024 End: 03-05-2024 ambulatory RACHEL Tonya [facility] Start: 03-04-2024 End: 03-04-2024 Telephone encounter [facility] Start: 02-19-2024 End: 02-19-2024 ambulatory [facility] Start: 12-07-2023 End: 12-07-2023 Orders Only Mona Beauchamp [facility] Comment on above: Iron deficiency (Nohelia emy Dx) Start: 12-07-2023 End: 12-07-2023 Office outpatient new 30 minutes Ella Ng MD Work Phone: [facility] Comment on above: Iron deficiency anem ia due to chronic blood loss (Primary Dx) Start: 11-01-2023 End: 11-01-2023 Office outpatient visit 25 minutes Ana Paula Colón MD Work Phone: [facility] Comment on above: Essential hypertensi on (Primary Dx); NSTEMI (non-ST elevated myocardial infarction) ([facility]) Start: 11-01-2023 End: 11-01-2023 ambulatory [facility] Sude[facility] Start: 10-31-2023 Telephone encounter [facility] Start: 10-25-2023 Chart abstracting Ella Ng MD Work Phone: [facility] Start: 09-14-2023 Refill Ernestina bailey APRN-AUTOMOTIVE PAINTER Work Phone: [facility] Start: 09-13-2023 End: 09-15-2023 Evaluation and management of inpatient RESHMA [facility] Start: 09-11-2023 End: 09-15-2023 Emergency department patient visit VINNIE FRANCISCO [facility] Start: 09-11-2023 End: 09-14-2023 Evaluation and management of inpatient BUD [facility] Start: 09-06-2023 Chart abstracting Scanning Pro vider External [facility] Start: 08-29-2023 End: 08-29-2023 Patient encounter procedure [facility] Comment on above: Preop examination (P rimary Dx); Hypertension, unspecified type; Type 2 diabetes mellitus with stage 3b chronic kidney disease, without long-term current use of insulin ([facility]); Chronic kidney disease, unspecified CKD stage Start: 08-29-2023 End: 08-29-2023 Preprocedural examination done [facility] Start: 08-22-2023 Orders Only Scanning [facility] [place] External [facility] Start: 08-21-2023 Telephone encounter [facility] Start: 08-21-2023 End: 08-21-2023 Postop follow up visit related to original px Shailesh Green MD Work Phone: [facility] Comment on above: 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) Start: 08-21-2023 End: 08-21-2023 ambulatory [facility] Start: 07-24-2023 End: 07-24-2023 ambulatory [facility] Start: 02-28-2023 End: 02-28-2023 Patient encounter procedure Clotilde VERDUZCO [facility] Start: 06-22-2021 End: 06-22-[address] TIFFANY RIGGS Facility:[facility]1 Procedures Date Procedure Procedure Detail Performing Clinician Start: 01-28-2025 Cystoscopy Clotilde GRAVES Start: 07-29-2024 Flexible cystoscopy Lluvia VERDUZCO Start: 11-01-2023 Follow-up visit Follow-up ANA PAULA COLÓN Start: 10-01-2023 MULTIPLE LABS Not In Sy stem Ref Prov Start: 05-02-2023 Lipid panel Scanning P rovider External Start: 05-02-2023 MULTIPLE LABS Scanning Provider External Start: 04-10-2023 Hemoglobin glycosylated a1c Scanning Provider External Start: 02-28-2023 Cystoscopy Clotilde GRAVES Start: 02-02-2023 Comprehensive metabo lic panel Scanning Provider External Start: 01-17-2022 Cystoscopy Clotilde GRAVES Start: 01-04-2021 Cystoscopy Clotilde GRAVES Start: 06-08-2020 Cystoscopy Clotilde GRAVES Start: 12-19-2018 Cystoscopy and transurethral resection of bladder tumor Clotilde VERDUZCO Start: 12-16-2018 Cystoscopy Clotilde GRAVES Start: 12-12-2012 Transrectal biopsy o f prostate using ultrasound guidance Clotildesandoval VERDUZCO Arthroplasty of knee Clotilde VERDUZCO Back surgery Clotilde VERDUZCO Colonoscopy Clotilde VERDUZCO Hernia repair Clotilde VERDUZCO Lithotripsy using laser Young VERDUZCO Plan of Treatment Date Care Activity Detail Author Start: 06-12-2025 End: 06-12-2025 Patient encounter procedure 06/12/2025 2:15 PM EST Office Visit [facility] Critical access hospital[address] [place] [address] Ella Ng MD [address] [place] [address] [address] [place], [place] [phone] [facility] Start: 03-05-2025 Tobacco Screening Tobacco Screening [facility] Start: 12-06-2024 Adult BMI Screening [facility] Start: 10-31-2024 Adult BMI Screening Adult BMI Screen ing [facility] Start: 10-31-2024 Tobacco Screening Tobacco Screening [facility] Start: 10-03-2024 Adult BMI Screening Adult BMI Screen ing [facility] Start: 10-03-2024 Tobacco Screening Tobacco Screening [facility] Start: 09-14-2024 Adult BMI Screening Adult BMI Screen ing [facility] Start: 09-06-2024 Adult BMI Screening Adult BMI Screen ing [facility] Start: 09-06-2024 Tobacco Screening Tobacco Screening [facility] Start: 08-29-2024 Adult BMI Screening Adult BMI Screen ing [facility] Start: 08-29-2024 Tobacco Screening Tobacco Screening [facility] Start: 08-21-2024 Adult BMI Screening Adult BMI Screen ing [facility] Start: 08-21-2024 Tobacco Screening Tobacco Screening [facility] Start: 07-24-2024 Adult BMI Screening Adult BMI Screen ing [facility] Start: 07-24-2024 Tobacco Screening Tobacco Screening [facility] Start: 06-13-2024 End: 06-13-2024 Patient encounter procedure 06/13/2024 2:00 PM EST Office Visit Felicitas G[facility] - Medical Oncology [address] [place] [phone] Ella Ng MD [address] [place] [address] [address] [place] [address] Felicitas Grier [facility] Start: 04-06-2024 Influenza vaccination Influenza Vacc ine [facility] Start: 03-07-2024 End: 12-06-2024 CBC W Auto Differential panel - Blood CBC with auto diff Lab Routine Iron deficiency Expected: 03/07/2024, Expires: 12/06/2024 [employer] Work Phone: Comment on above: Expected: 03/07/2024 , Expires: 12/06/2024 Start: 03-07-2024 End: 12-06-2024 Ferritin [Mass/volume] in Serum or Plasma Ferritin Lab Routine Iron deficiency Expected: 03/07/2024, Expires: 12/06/2024 [facility] Comment on above: Expected: 03/07/2024 , Expires: 12/06/2024 Start: 03-07-2024 End: 12-06-2024 Iron and TIBC Iron and TIBC Lab Routine Iron deficiency Expected: 03/07/2024, Expires: 12/06/2024 [facility] Comment on above: Expected: 03/07/2024 , Expires: 12/06/2024 Start: 03-05-2024 End: 03-05-2024 Patient encounter procedure [facility] Start: 12-10-2023 End: 12-10-2023 Patient encounter procedure 12/10/2023 8:00 AM EDT [facility] [address] [place] [phone] [facility] Start: 12-07-2023 End: 12-07-2023 Patient encounter procedure 12/07/2023 11:00 AM EDT Office Visit [facility] - Medical Oncology [address] [place] [phone] Ella Ng MD [address] [place] [address] [address] [place] [address] [facility] Start: 11-01-2023 End: 11-01-2023 Patient encounter procedure [facility] Start: 10-04-2023 End: 10-04-2023 Admission to same day surgery center 10/04/2023 8:15 AM EST - 10/04/2023 9:00 AM EST [facility] [address] [address] Beth Mae MD [address] [place] [address] [phone] EXTRACTION CATARACT INTRAOCULAR LENS [55628 (CPT )] [facility] Comment on above: EXTRACTION CATARACT INTRAOCULAR LENS [98067 (CPT )] Start: 10-04-2023 Subsequent hospital visit by physician 10/04/2023 8:15 AM EST Hospital Encounter [facility] [address] [place] [phone] Beth Mae MD [address] [place] [address] [phone] [facility] Start: 10-04-2023 End: 10-04-2023 Xcapsl ctrc rmvl insj io lens prosth w/o ecp EXTRACTION CATARACT INTRAOCULAR LENS cataract right eye 10/04/2023 8:15 AM EST [facility] Start: 10-03-2023 End: 10-03-2023 ambulatory 10/03/2023 3:50 PM EST Support [facility] Admit [address] [place] [phone] [facility] Start: 09-20-2023 End: 09-20-2023 Admission to same day surgery center 09/20/2023 9:00 AM EST - 09/20/2023 9:45 AM EST Surgery [facility] [address] [phone] Beth Mae MD [address] [place] [address] [phone] EXTRACTION CATARACT INTRAOCULAR LENS [11970 (CPT )] [facility] Comment on above: EXTRACTION CATARACT INTRAOCULAR LENS [83489 (CPT )] Start: 09-20-2023 Subsequent hospital visit by physician 09/20/2023 9:00 AM EST Hospital Encounter [facility] [address] [place] [phone] Beth Mae MD [address] [place] [address] [phone] [facility] Start: 09-20-2023 End: 09-20-2023 Xcapsl ctrc rmvl insj io lens prosth w/o ecp EXTRACTION CATARACT INTRAOCULAR LENS cataract right eye 09/20/2023 9:00 AM EST [facility] Start: 09-19-2023 End: 09-19-2023 ambulatory 09/19/2023 3:50 PM EST [facility] [address] [place] [phone] [facility] Start: 09-14-2023 End: 09-14-2023 Patient encounter procedure 09/14/2023 9:30 AM EST Office Visit [facility] [address] [phone] Sadi Gan MD [address] [place] [address] [facility] Start: 09-06-2023 End: 09-06-2023 Admission to same day surgery center 09/06/2023 9:00 AM EST - 09/06/2023 9:45 AM EST [facility] [address] [place] [phone] Beth Mae MD [address] [place], [place] [phone] EXTRACTION CATARACT INTRAOCULAR LENS [56678 (CPT )] [facility] Comment on above: EXTRACTION CATARACT INTRAOCULAR LENS [41371 (CPT )] Start: 09-06-2023 End: 09-06-2023 Anesthesia consultation 09/06/2023 9:00 AM EST Anesthesia Event [facility] [address] [place] [phone] Tyler Edmondson, DO [address] [place], [place] [phone] [facility] Start: 09-06-2023 Subsequent hospital visit by physician 09/06/2023 9:00 AM EST Hospital Encounter [facility] [address] [place] [phone] Beth Mae MD [address] [place] [address] [facility] Start: 09-06-2023 End: 09-06-2023 Xcapsl ctrc rmvl insj io lens prosth w/o ecp EXTRACTION CATARACT INTRAOCULAR LENS cataract left eye 09/06/2023 9:00 AM EST [facility] Start: 08-29-2023 End: 08-29-2023 Patient encounter procedure 08/29/2023 9:45 AM EST Procedure [facility] Admit [address] [facility] [place] [address] [facility] Admit Start: 08-21-2023 End: 08-21-2023 Patient encounter procedure 08/21/2023 9:15 AM EST Office Visit [facility] [address] [place] [address] Shailesh Green MD [address] [place] [address] [facility] Start: 04-06-2023 Influenza vaccination Influenza Vacc ine [facility] Start: 10-07-2019 Administration of varicella zoster vaccine Zoster (Shingles) Vaccine (3 of 3) [facility] Start: 2010 Abdominal aortic aneurysm screening Abdominal Aortic Aneurysm (AAA) Screen [facility] Start: 2010 Fall Risk Screening Fall Risk Screen ing [facility] Start: 01-06-1964 DTaP,Tdap and Td Vaccines (1 - Tdap) DTaP,Tdap and Td Vaccines (1 - Tdap) [facility] Start: 1963 Adult BMI Follow Up Plan Adult BMI Follow Up Plan [facility] Start: 1957 Depression Screening Depression Scre ening [facility] Start: 1945 Medicare Annual Well ness Visit Medicare Annual Wellness Visit [facility] End: 06-13-2033 CBC W Auto Differential panel - Blood CBC auto differential Lab Routine Iron deficiency Iron deficiency anemia due to chronic blood loss every 6 months for 2 Occurrences starting 06/13/2024 until 06/13/2033 [employer] Work Phone: Comment on above: every 6 months for 2 Occurrences starting 06/13/2024 until 06/13/2033 End: 06-13-2025 Ferritin [Mass/volume] in Serum or Plasma Ferritin Lab Routine Iron deficiency Iron deficiency anemia due to chronic blood loss every 6 months for 2 Occurrences starting 06/13/2024 until 06/13/2025 [facility] Comment on above: every 6 months for 2 Occurrences starting 06/13/2024 until 06/13/2025 End: 06-13-2025 Iron and TIBC Iron and TIBC Lab Routine Iron deficiency Iron deficiency anemia due to chronic blood loss every 6 months for 2 Occurrences starting 06/13/2024 until 06/13/2025 [facility] Comment on above: every 6 months for 2 Occurrences starting 06/13/2024 until 06/13/2025 Immunizations Immunization Date Immunization Notes Care Provider Segundo hayward 06-09-2021 influenza virus vaccine, unspecified formulation Clotilde VERDUZCO [facility] 08-12-2019 zoster vaccine recombinant Clotilde VERDUZCO [facility] 08-12-2019 zoster vaccine, unspecified formulation [facility] 07-18-2019 influenza virus vaccine, unspecified formulation Clotilde VERDUZCO [facility] 05-22-2017 influenza virus vaccine, unspecified formulation Clotilde VERDUZCO [facility] 05-22-2017 pneumococcal conjuga te vaccine, 13 valent Clotilde VERDUZCO [facility] 07-22-2014 influenza virus vaccine, unspecified formulation Clotilde VERDUZCO [facility] 12-01-2012 zoster vaccine, live Clotilde VERDUZCO [facility] 07-21-2010 pneumococcal polysaccharide vaccine, 23 valent Clotilde VERDUZCO [facility] NEGATED: Highlighted row has not occurred!01-17-2022 SARS-CoV-2 mRNA (tozinameran 5y-11y) vaccine Clotilde VERDUZCO [facility] Payers Date Payer Category Payer Unknown [id number] 2015 Managed Care Other (unspecified) [facility] [place] [address] [id number] 2015 Unknown [facility] SUPPLEMENT PLAN [id number] 2015-Present [phone] [address] [facility] [place] [address] [id number]. [id number] 2015 Unknown [id number] 2010 Medicare [id number]. 1.13.424. [id number] 1959 Medicare [id number] 1945 Unknown [id number] 2.16.840.1.100744.3.579. 2.593 1945 Unknown [id number] 2.16.840.1.306406.3.579. 2.1286 1945 Unknown [id number] 2.16.840.1.062114.3.579. 2.1286 1945 Unknown [id number] 2.16.840.1.385917.3.579. 2.1286 1945 Unknown [id number] 2.16.840.1.045476.3.579. 2.1286 1945 Unknown [id number] 2.16840.1.449228.3.579. 2.1286 1945 Unknown [id number] 2.16.840.1.982629.3.579. 2.1286 1945 Unknown [id number] 2.16.840.1.253505.3.579. 2.1286 1945 Unknown [id number] 2.16.840.1.723093.3.579. 2.1286 1945 Unknown [id number] 2.16.840.1.956411.3.579. 2.1286 1945 Unknown [id number] 2.16.840.1.136514.3.579. 2.727 1945 Unknown [id number] 2.16.840.1.330993.3.579. 2.727 1945 Unknown [id number] 2.16.840.1.668765.3.579. 2.1286 1945 Unknown [id number] 2.16.840.1.954816.3.579. 2.1286 1945 Unknown [id number] 2.16.840.1.599125.3.579. 2.1286 1945 Unknown [id number] 2.16.840.1.468653.3.579. 2.1286 1945 Unknown [id number] 2.16.840.1.266506.3.579. 2.1286 1945 Unknown [id number] 2.16.840.1.490788.3.579. 2.1286 1945 Unknown [id number] 2.16.840.1.466742.3.579. 2.1286 1945 Unknown [id number] 2.16.840.1.787376.3.579. 2.1286 1945 Unknown [id number] 2.16.840.1.245412.3.579. 2.727 1945 Unknown [id number] 2.16.840.1.252428.3.579. 2.727 1945 Unknown [id number] 2.16.840.1.016866.3.579. 2.727 Private Health Insurance [facility] [id number] Social History Date Type Detail Facility Start: 01-17-2022 End: 01-28-2025 Tobacco smoking status Ex-smoker (finding) [facility] Start: 09-26-2019 End: 08-26-2020 Sex Assigned At Male [facility] Tobacco smoking status Never [facility] Start: 08-06-1974 End: 08-06-1981 History of tobacco use Current smoker [facility] [employer] Start: 08-06-1974 End: 08-06-1981 History of tobacco use Cigarette Smoker [facility] Start: 08-26-2020 End: 03-05-2024 Cigarettes smoked current (pack per day) - Reported 1 [facility] Start: 10-10-2022 End: 03-05-2024 Tobacco use and exposure Smokeless tobacco non-user [facility] Start: 11-01-2023 End: 03-05-2024 Alcoholic beverage intake Lifetime non-drinker (finding) [facility] Start: 1945 Sex assigned at Not on file P [employer] [facility] Start: 03-11-2015 End: 02-20-2019 Sex Male (finding) [facility] Sexual Orientation [facility] Medical Equipment Procedure Code Equipment Code Equipment Origin al Text Equipment Identifier Dates Brng Tib 23thv23 mm 0d Kn Ant - [id number] Start: 10-17-2019 Bearing Hum 36mm Cmprh Std Shldr Prlng Rvrs - [id number] , [id number] FDA Start: 07-10-2023 Cmnt Bn Bio 40gm Rpl [id number] - [id number] Start: 10-17-2019 Lens Iol Sy60wf. 205 [place] - [id number] - [id number] Start: 09-06-2023 [place] Iol [id number] Start: 10-04-2023 Cmpt Fem Kn Lt 7 2.5mm Cr Cmnt - [id number] Start: 10-17-2019 Ty Tib 79mm Cocr Kn I Beam - [id number] Start: 10-17-2019 Cmpt Ptlr Thn 8. 6mm 37mm 3 Pg - [id number] Start: 10-17-2019 Shell Actb 56mm Hip Lmt 4 Hl Fin Por G7 F Hmsphr Os - [id number] ()[id number], [id number] FDA Start: 11-24-2022 Liner Actb 40mm F Vivacit-E Lum G7 Hip Strl Lf - [id number] Start: 11-24-2022 Stem Fem 140mm 1 0mm 133d Hi Os Tpr Tprlk Pps Ti Hip Prft Rdc - [id number] ()[id number] [id number], 538493_[facility] FDA Start: 11-24-2022 Sleeve Hip Std O s Tpr G7 Blx D Opt Centering Ty 1 Rpl [id number] - [id number] 538508_[facility] Start: 11-24-2022 Component Rome 3 6mm Std Glenosphere Clr Cd Cmprh Versa-Dial - [id number] ()[id number] [id number] , 601581_[facility] FDA Start: 07-10-2023 Stem Hum 55mm 14 mm Cmprh Por Guan[place]ito Shldr Rvrs Sys - [id number] ()[id number] [id number] , 601593_[facility] FDA Start: 07-10-2023 Tray Hum Cmprh S td Shldr Rvrs - [id number] ()[id number] , 601598_[facility] FDA Start: 07-10-2023 Baseplate Rome C mprh 25mm Mn Shldr Tpr Adpr Rvrs Sys - [id number] ()[id number] , 601575_[facility] FDA Start: 07-10-2023 Head Fem 40mm G7 Blx D Biolox Opt Hip Actb Rpl [id number] - [id number] 538506_[facility] Start: 11-24-2022 Screw Bn 20mm 4. 75mm Lck Fx Ang Hx Hd Ti Cmprh 3.5mm Strl - [id number] ()[id number] , 601582_[facility] FDA Start: 07-10-2023 Screw Bn 25mm 4. 75mm Lck Fx Ang Hx Hd Ti Cmprh 3.5mm Strl - [id number] ()[id number] [id number] , 601583_[facility] FDA Start: 07-10-2023 Screw Bn 15mm 4. 75mm Lck Fx Ang Hx Hd Ti Cmprh 3.5mm Strl - [id number] ()[id number] [id number] , [id number] FDA Start: 07-10-2023 Screw Bn 15mm 4. 75mm Lck Fx Ang Hx Hd Ti Cmprh 3.5mm Strl - [id number] ()[id number] [id number] , [id number] FDA Start: 07-10-2023 Screw Bn 20mm 6. 5mm Cntr Hx Hd Ti Cmprh 3.5mm Strl Rvrs - [id number] Start: 07-10-2023 Goals Date Patient Goal Desired Activity /State Personal health goal Comment on above: Formatting of this n ote might be different from the original. Evaluation of progress towards goal: Maximize work with PT at discharge to strengthen R SHOULDER Personal health goal Comment on above: Formatting of this n ote might be different from the original. Evaluation of progress towards goal: home with self care and family support Functional Status Date Assessment Result Facility 07-29-2024 Functional Status N/A [facility] 02-28-2023 Functional Status N/A [facility] Clinical Notes 09-27-2020 to 01-28-2025 Laura Stoddard RN - 06/13/2024 2:10 PM Devyn Ng MD - 06/13/2024 2:00 PM ESTPatient Zaid Vital MD - 03/05/2024 10:45 AM Deanna Santacruz RN - 12/07/2023 11:17 AM EDT Note Date & Type Note Facility 01-28-2025 Hospital Discharg e instructions Patient Education 01/28/2025 08:15:43 Transurethral Resection of Bladder Tumor, Care After Transurethral Resection of Bladder Tumor, Care After The following information offers guidance on how to care for yourself after your procedure. Your health care provider may also give you more specific instructions. If you have problems or questions, contact your health care provider. What can I expect after the procedure? After the procedure, it is common to have: A small amount of blood or small blood clots in your urine for up to 2 weeks. Soreness or mild pain from your catheter. After your catheter is removed, you may have mild soreness, especially when urinating. A need to urinate often. Pain in your lower abdomen. Follow these instructions at home: Medicines Take qwkj-muf-yeudamc and prescription medicines only as told by your health care provider. If you were prescribed an antibiotic medicine, take it as told by your health care provider. Do not stop taking the antibiotic even if you start to feel better. Ask your health care provider if the medicine prescribed to you: ?Requires you to avoid driving or using machinery. ?Can cause constipation. You may need to take these actions to prevent or treat constipation: ?Drink enough fluid to keep your urine pale yellow. ?Take umfm-rzt-nykvsvo or prescription medicines. ?Eat foods that are high in fiber, such as beans, whole grains, and fresh fruits and vegetables. ?Limit foods that are high in fat and processed sugars, such as fried or sweet foods. Activity If you were given a sedative during the procedure, it can affect you for several hours. Do not drive or operate machinery until your health care provider says that it is safe. Rest as told by your health care provider. Avoid sitting for a long time without moving. Get up to take short walks every 1 2 hours. This is important to improve blood flow and breathing. Ask for help if you feel weak or unsteady. Do not lift anything that is heavier than 10 lb (4.5 kg), or the limit that you are told, until your health care provider says that it is safe. Avoid intense physical activity for as long as told by your health care provider. Do not have sex until your health care provider approves. Return to your normal activities as told by your health care provider. Ask your health care provider what activities are safe for you. General instructions If you have a catheter, follow instructions from your health care provider about caring for your catheter and your drainage bag. Do not drink alcohol for as long as told by your health care provider. This is especially important if you are taking prescription pain medicines. Do not use any products that contain nicotine or tobacco. These products include cigarettes, chewing tobacco, and vaping devices, such as e-cigarettes. If you need help quitting, ask your health care provider. Wear compression stockings as told by your health care provider. These stockings help to prevent blood clots and reduce swelling in your legs. Keep all follow-up visits. This is important. ?You will need to be followed closely with regular checks of your bladder and urethra (cystoscopies) to make sure that the cancer does not come back. Contact a health care provider if: You have blood in your urine for more than 2 weeks. You become constipated. Signs of constipation may include: ?Having fewer than three bowel movements in a week. ?Difficulty having a bowel movement. ?Stools that are dry, hard, or larger than normal. You have a urinary catheter in place, and you have: ?Spasms or pain. ?Problems with your catheter or your catheter is blocked. Your catheter has been taken out but you are unable to urinate. You have signs of infection, such as: ?Fever or chills. ?Cloudy or bad-smelling urine. Get help right away if: You have severe abdominal pain that gets worse or does not improve with medicine. You have a lot of large blood clots in your urine. You develop swelling or pain in your leg. You have difficulty breathing. These symptoms may be an emergency. Get help right away. Call 911. Do not wait to see if the symptoms will go away. Do not drive yourself to the hospital. Summary After your procedure, it is common to have a small amount of blood or small blood clots in your urine, soreness or mild pain from your catheter, and pain in your lower abdomen. Take egsq-vdt-qroevke and prescription medicines only as told by your health care provider. Rest as told by your health care provider. Follow your health care provider's instructions about returning to normal activities. Ask what activities are safe for you. If you have a catheter, follow instructions from your health care provider about caring for your catheter and your drainage bag. This information is not intended to replace advice given to you by your health care provider. Make sure you discuss any questions you have with your health care provider. Document Revised: 07/28/2022 Document Reviewed: 07/28/2022 [employer] Patient Education 2023 [employer]. 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 The bladder is the organ that holds urine. The tumor is removed through the tube that carries urine out of the body (urethra). In a transurethral resection, a thin telescope with a light, a tiny camera, and an electric cutting edge (resectoscope) is passed through the urethra. In men, the opening of the urethra is at the end of the penis. In women, it is just above the opening of the vagina. Tell a health care provider about: Any allergies you have. All medicines you are taking, including vitamins, herbs, eye drops, creams, and kbce-vuf-bsglwqx medicines. Any problems you or family members have had with anesthetic medicines. Any bleeding problems you have. Any surgeries you have had. Any medical conditions you have, including recent urinary tract infections. Whether you are or may be . What are the risks? Generally, this is a safe procedure. However, problems may occur, including: Infection. Bleeding. Allergic reactions to medicines. Damage to nearby structures or organs. Difficulty urinating from blockage of the urethra or not being able to urinate (urinary retention). Deep vein thrombosis. This is a blood clot that can develop in your leg. Recurring cancer. What happens before the procedure? When to stop eating and drinking Follow instructions from your health care provider about what you may eat and drink before your procedure. These may include: 8 hours before your procedure ?Stop eating most foods. Do not eat meat, fried foods, or fatty foods. ?Eat only light foods, such as toast or crackers. ?All liquids are okay except energy drinks and alcohol. 6 hours before your procedure ?Stop eating. ?Drink only clear liquids, such as water, clear fruit juice, black coffee, plain tea, and sports drinks. ?Do not drink energy drinks or alcohol. 2 hours before your procedure ?Stop drinking all liquids. ?You may be allowed to take medicines with small sips of water. Medicines Ask your health care provider about: Changing or stopping your regular medicines. This is especially important if you are taking diabetes medicines or blood thinners. Taking medicines such as aspirin and ibuprofen. These medicines can thin your blood. Do not take these medicines unless your health care provider tells you to take them. Taking oply-bui-tkgiuwr medicines, vitamins, herbs, and supplements. General instructions If you will be going home right after the procedure, plan to have a responsible adult: ?Take you home from the hospital or clinic. You will not be allowed to drive. ?Care for you for the time you are told. Ask your health care provider what steps will be taken to help prevent infection. These steps may include: ? Washing skin with a germ-killing soap. ? Taking antibiotic medicine. Do not use any products that contain nicotine or tobacco for at least 4 weeks before the procedure. These products include cigarettes, chewing tobacco, and vaping devices, such as e-cigarettes. If you need help quitting, ask your health care provider. What happens during the procedure? An IV will be inserted into one of your veins. You will be given one or more of the following: ?A medicine to help you relax (sedative). ?A medicine that is injected into your spine to numb the area below and slightly above the injection site (spinal anesthetic). ?A medicine that is injected into an area of your body to numb everything below the injection site (regional anesthetic). ?A medicine to make you fall asleep (general anesthetic). Your legs will be placed in foot rests (stirrups) to open your legs and bend your knees. The resectoscope will be passed through your urethra and into your bladder. The part of your bladder with the tumor will be resected by the cutting edge of the resectoscope. Fluid will be passed to rinse out the cut tissues (irrigation). The resectoscope will then be taken out. A small, thin tube (catheter) will be passed through your urethra and into your bladder. The catheter will drain urine into a bag outside of your body. The procedure may vary among health care providers and hospitals. What happens after the procedure? Your blood pressure, heart rate, breathing rate, and blood oxygen level will be monitored until you leave the hospital or clinic. You may continue to receive fluids and medicines through an IV. You will be given pain medicine to relieve pain. You will have a catheter to drain your urine. ?The amount of urine will be measured. If you have blood in your urine, your bladder may be rinsed out by passing fluid through your catheter. You will be encouraged to walk as soon as you can. You may have to wear compression stockings. These stockings help to prevent blood clots and reduce swelling in your legs. If you were given a sedative during the procedure, it can affect you for several hours. Do not drive or operate machinery until your health care provider says that it is safe. Summary Transurethral resection of a bladder tumor is the removal (resection) of a cancerous growth (tumor) on the inside wall of the bladder. To do this procedure, your health care provider uses a thin telescope with a light, a tiny camera, and an electric cutting edge (resectoscope) that is guided to your bladder through your urethra. The part of your bladder that is affected by the tumor will be resected by the cutting edge of the resectoscope. A catheter will be passed through your urethra and into your bladder. The catheter will drain urine into a bag outside of your body. If you will be going home right after the procedure, plan to have a responsible adult take you home from the hospital or clinic. You will not be allowed to drive. This information is not intended to replace advice given to you by your health care provider. Make sure you discuss any questions you have with your health care provider. Document Revised: 07/28/2022 Document Reviewed: 07/28/2022 [employer] Patient Education 2023 [employer]. Follow Up Care 11/03/2024 14:18:41 With:DAX MUNOZ, Clotilde Castaneda, URL Address: [facility] [address] , [place] [address]- [phone] When: Unknown [facility] 01-28-2025 Note Patient Education Oncology Transurethral Resection of Bladder Tumor, Care After The following information offers guidance on how to care for yourself after your procedure. Your health care provider may also give you more specific instructions. If you have problems or questions, contact your health care provider. What can I expect after the procedure? After the procedure, it is common to have: ??? A small amount of blood or small blood clots in your urine for up to 2 weeks. ??? Soreness or mild pain from your catheter. After your catheter is removed, you may have mild soreness, especially when urinating. ??? A need to urinate often. ??? Pain in your lower abdomen. Follow these instructions at home: Medicines ??? Take yfux-nss-zunkzfp and prescription medicines only as told by your health care provider. ??? If you were prescribed an antibiotic medicine, take it as told by your health care provider. Do not stop taking the antibiotic even if you start to feel better. ??? Ask your health care provider if the medicine prescribed to you: ? Requires you to avoid driving or using machinery. ? Can cause constipation. You may need to take these actions to prevent or treat constipation: ? Drink enough fluid to keep your urine pale yellow. ? Take byej-cqd-ihmtjpk or prescription medicines. ? Eat foods that are high in fiber, such as beans, whole grains, and fresh fruits and vegetables. ? Limit foods that are high in fat and processed sugars, such as fried or sweet foods. Activity ??? If you were given a sedative during the procedure, it can affect you for several hours. Do not drive or operate machinery until your health care provider says that it is safe. ??? Rest as told by your health care provider. ??? Avoid sitting for a long time without moving. Get up to take short walks every 1?2 hours. This is important to improve blood flow and breathing. Ask for help if you feel weak or unsteady. ??? Do not lift anything that is heavier than 10 lb (4.5 kg), or the limit that you are told, until your health care provider says that it is safe. ??? Avoid intense physical activity for as long as told by your health care provider. ??? Do not have sex until your health care provider approves. ??? Return to your normal activities as told by your health care provider. Ask your health care provider what activities are safe for you. General instructions ??? If you have a catheter, follow instructions from your health care provider about caring for your catheter and your drainage bag. ??? Do not drink alcohol for as long as told by your health care provider. This is especially important if you are taking prescription pain medicines. ??? Do not use any products that contain nicotine or tobacco. These products include cigarettes, chewing tobacco, and vaping devices, such as e-cigarettes. If you need help quitting, ask your health care provider. ??? Wear compression stockings as told by your health care provider. These stockings help to prevent blood clots and reduce swelling in your legs. ??? Keep all follow-up visits. This is important. ? You will need to be followed closely with regular checks of your bladder and urethra (cystoscopies) to make sure that the cancer does not come back. Contact a health care provider if: ??? You have blood in your urine for more than 2 weeks. ??? You become constipated. Signs of constipation may include: ? Having fewer than three bowel movements in a week. ? Difficulty having a bowel movement. ? Stools that are dry, hard, or larger than normal. ??? You have a urinary catheter in place, and you have: ? Spasms or pain. ? Problems with your catheter or your catheter is blocked. ??? Your catheter has been taken out but you are unable to urinate. ??? You have signs of infection, such as: ? Fever or chills. ? Cloudy or bad-smelling urine. Get help right away if: ??? You have severe abdominal pain that gets worse or does not improve with medicine. ??? You have a lot of large blood clots in your urine. ??? You develop swelling or pain in your leg. ??? You have difficulty breathing. These symptoms may be an emergency. Get help right away. Call 911. ??? Do not wait to see if the symptoms will go away. ??? Do not drive yourself to the hospital. Summary ??? After your procedure, it is common to have a small amount of blood or small blood clots in your urine, soreness or mild pain from your catheter, and pain in your lower abdomen. ??? Take hrpp-tku-qdsbjgj and prescription medicines only as told by your health care provider. ??? Rest as told by your health care provider. Follow your health care provider's instructions about returning to normal activities. Ask what activities are safe for you. ??? If you have a catheter, follow instructions from your health care provider about caring for your catheter and your drainage bag. (more content not included)... [facility] 07-29-2024 Evaluation + Plan note Diagnostic Tests [facility] 07/29/24 [facility] 07-29-2024 Hospital Discharg e instructions Patient Education 07/29/2024 08:27:06 Cancer Screening for Males Cancer Screening for Males A cancer screening is a test or exam that checks for cancer. Work with your health care provider to create a cancer screening schedule that protects your health. Who should have screening? All people who are male should be considered for screening of certain cancers, including colorectal cancer, prostate cancer, lung cancer, and skin cancer. Your health care provider may recommend screenings for other types of cancer if: You have had cancer before. You have a family member with cancer. You have genes that could increase the risk of cancer. You have risk factors for certain cancers, such as current or past use of tobacco products or being overweight. What are the benefits of screening? Cancer screening is done to look for cancer in the very early stages, before it spreads and becomes harder to treat and before you would start to notice symptoms. Finding cancer early improves the chances of successful treatment. It may save your life. When should I be screened for cancer? When you should be screened for cancer depends on: Your age. Your medical history and your family's medical history. Certain lifestyle factors, such as smoking or other use of tobacco products. Environmental exposure, such as to asbestos. How is screening done? Colorectal cancer Colorectal cancer screening looks for cancer or for growths called polyps that often form before cancer starts. Tests to look for cancer or polyps include: Colonoscopy or flexible sigmoidoscopy. For these procedures, a flexible tube with a small camera is inserted into the rectum. CT colonography. This test uses X-rays and a contrast dye to check the colon for polyps. Tests to look for cancer in the stool (feces) include: Guaiac-based fecal occult blood test (FOBT). This test can find blood in stool. It can be done at home with a kit. Fecal immunochemical test (FIT). This test can find blood in stool. For this test, you will need to collect stool samples at home. Stool DNA test. This test looks for blood in stool and any changes in DNA that can lead to colon cancer. For this test, you will need to collect a stool sample at home and send it to a lab. All adults should have screenings starting at 45 years old and continuing through 75 years old. For males 76 85 years old, the decision to be screened should be based on a person's preferences, life expectancy, overall health, and prior screening history. Your health care provider may recommend screening before 45 years old. You will have tests every 1 10 years, depending on your results and the type of screening test. People at increased risk should start screening at an earlier age. Talk with your health care provider about which screening test is right for you and how often you should be screened. Prostate cancer Prostate cancer screening is done with blood tests and a digital rectal exam. During this exam, a health care provider uses a gloved finger to check prostate size. You may need to be screened for prostate cancer if: You have risk factors for prostate cancer, such as being an person or having a close family member with prostate cancer. You have had gene changes or a genetic condition that was passed on to you from a parent (inherited). These gene changes or genetic conditions include BRCA1 or BRCA2 gene mutations or Ferris syndrome. You have symptoms of prostate cancer, such as problems urinating or problems getting or keeping an erection (erectile dysfunction). When you have been screened for prostate cancer, future screening may be recommended based on the results of your blood tests. Prostate cancer screening for males with average risk may start at 50 years old. Males with risk factors may need to be screened earlier, at 40 45 years old. Talk with your health care provider about whether screening is right for you and, if so, how often you should be screened. Lung cancer Lung cancer screening is done with a CT scan that looks for abnormal changes in the lungs. Discuss lung cancer screening with your health care provider if you are 50 80 years old and if any of the following apply to you: You currently smoke. You used to smoke heavily. You have a smoking history of 1 pack of cigarettes a day for 20 years or 2 packs a day for 10 years. You may need to be screened every year if you smoke heavily or if you used to smoke. Skin cancer Skin cancer screening is done by checking the skin for unusual moles or spots and any changes in existing moles. Your health care provider should check your skin for signs of skin cancer at every physical exam. You should check your skin every month and tell your health care provider right away if anything looks unusual. Males with a qpdxhb-lxsw-beemph risk for skin cancer may want to see a hides and skins colorer (station baggage agent) for an annual body check. Where to find more information [employer] [employer]: cancer.org Centers for Disease Control and Prevention: cdc.gov National Cancer [place]: cancer.gov Contact a health care provider if: You have concerns about any signs or symptoms of cancer. These may include: ?Skin problems. You may have: ?Moles of an unusual shape or color. ?Changes in existing moles. ?A sore on your skin that does not heal. ?Tiredness (fatigue) that does not go away. ?Losing weight without trying. ?Blood in your urine or stool. ?Problems with urination. You may have: ?Changes in urination habits. ?Painful urination. ?Painful ejaculation. ?Problems with coughing or breathing. These may include: ?Coughing or trouble breathing that does not go away. ?Coughing up blood. ?Frequent pain or cramping in your abdomen. This information is not intended to replace advice given to you by your health care provider. Make sure you discuss any questions you have with your health care provider. Document Revised: 07/31/2023 Document Reviewed: 02/12/2023 [employer] Patient Education 2023 [employer]. Follow Up Care 07/17/2024 09:06:27 With:DAX MUNOZ, Clotilde Castaneda, URL Address: [facility] [address] , [place] [address]- When: Unknown [facility] 07-29-2024 Note Patient Education Oncology Cancer Screening for Males A cancer screening is a test or exam that checks for cancer. Work with your health care provider to create a cancer screening schedule that protects your health. Who should have screening? All people who are male should be considered for screening of certain cancers, including colorectal cancer, prostate cancer, lung cancer, and skin cancer. Your health care provider may recommend screenings for other types of cancer if: ??? You have had cancer before. ??? You have a family member with cancer. ??? You have genes that could increase the risk of cancer. ??? You have risk factors for certain cancers, such as current or past use of tobacco products or being overweight. What are the benefits of screening? Cancer screening is done to look for cancer in the very early stages, before it spreads and becomes harder to treat and before you would start to notice symptoms. Finding cancer early improves the chances of successful treatment. It may save your life. When should I be screened for cancer? When you should be screened for cancer depends on: ??? Your age. ??? Your medical history and your family's medical history. ??? Certain lifestyle factors, such as smoking or other use of tobacco products. ??? Environmental exposure, such as to asbestos. How is screening done? Colorectal cancer Colorectal cancer screening looks for cancer or for growths called polyps that often form before cancer starts. Tests to look for cancer or polyps include: ??? Colonoscopy or flexible sigmoidoscopy. For these procedures, a flexible tube with a small camera is inserted into the rectum. ??? CT colonography. This test uses X-rays and a contrast dye to check the colon for polyps. Tests to look for cancer in the stool (feces) include: ??? Guaiac-based fecal occult blood test (FOBT). This test can find blood in stool. It can be done at home with a kit. ??? Fecal immunochemical test (FIT). This test can find blood in stool. For this test, you will need to collect stool samples at home. ??? Stool DNA test. This test looks for blood in stool and any changes in DNA that can lead to colon cancer. For this test, you will need to collect a stool sample at home and send it to a lab. All adults should have screenings starting at 45 years old and continuing through 75 years old. For males 76?85 years old, the decision to be screened should be based on a person's preferences, life expectancy, overall health, and prior screening history. Your health care provider may recommend screening before 45 years old. You will have tests every 1?10 years, depending on your results and the type of screening test. People at increased risk should start screening at an earlier age. Talk with your health care provider about which screening test is right for you and how often you should be screened. Prostate cancer Prostate cancer screening is done with blood tests and a digital rectal exam. During this exam, a health care provider uses a gloved finger to check prostate size. You may need to be screened for prostate cancer if: ??? You have risk factors for prostate cancer, such as being an person or having a close family member with prostate cancer. ??? You have had gene changes or a genetic condition that was passed on to you from a parent (inherited). These gene changes or genetic conditions include BRCA1 or BRCA2 gene mutations or Ferris syndrome. ??? You have symptoms of prostate cancer, such as problems urinating or problems getting or keeping an erection (erectile dysfunction). When you have been screened for prostate cancer, future screening may be recommended based on the results of your blood tests. Prostate cancer screening for males with average risk may start at 50 years old. Males with risk factors may need to be screened earlier, at 40?45 years old. Talk with your health care provider about whether screening is right for you and, if so, how often you should be screened. Lung cancer Lung cancer screening is done with a CT scan that looks for abnormal changes in the lungs. Discuss lung cancer screening with your health care provider if you are 50?80 years old and if any of the following apply to you: ??? You currently smoke. ??? You used to smoke heavily. ??? You have a smoking history of 1 pack of cigarettes a day for 20 years or 2 packs a day for 10 years. You may need to be screened every year if you smoke heavily or if you used to smoke. Skin cancer Skin cancer screening is done by checking the skin for unusual moles or spots and any changes in existing moles. Your health care provider should check your skin for signs of skin cancer at every physical exam. You should check your skin every month and tell your health care provider right away if anything looks unusual. Males with a askitf-qwvk-vksxty risk for skin cancer may want to see a hides and skins colorer (dermatologi (more content not included)... [facility] 06-13-2024 History of Presen t illness Narrative Patient is here for follow up with Dr. Ng. Orders received for [facility] IRON STUDIES in 6 months 12/2024. F/u with same labs in 1 year. Patient given calendar, verbalized understanding of future appointments. [facility] History of Presen t illness Narrative Images from the original note were not included. [facility] 06/13/24 Andres Canela is a 79 y.o. year old male seen today in the oncology clinic. No chief complaint on file. History of Present Illness: Mr. Canela is a 79 y.o. male with history of COPD who was referred to Oncology/Hematology for iron deficiency anemia. The patient's most recent blood work showed his hemoglobin is around 11. He has been on iron supplement for several months, overall tolerated well denies any significant constipation or GI side effects. Interval history: The patient has been on oral iron supplement once a day over the past 6 months. Tolerated well denies any significant constipation or dyspepsia. His energy is improving. He denied any blood in the stool or urine. No recent blood loss or weight loss. 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 legs--takes lasix to control Gout HL (hearing loss) 06/26/2023 bilat Hypertension Influenza Injury of back Kidney stone MRSA (methicillin resistant Staphylococcus aureus) [id number] Neuropathy Bilat. feet and hands Obesity Osteoarthritis Sleep apnea Stage 3b chronic kidney disease ([facility]) 11/24/2022 Visual impairment glasses Past Surgical History: Procedure Laterality Date BLADDER SURGERY TURBT CYSTOSCOPY multiple due to bladder CA EXTRACTION CATARACT INTRAOCULAR LENS Right 10/04/2023 Performed by Beth Mae MD at [facility] EXTRACTION CATARACT INTRAOCULAR LENS Left 09/06/2023 Performed by Beth Mae MD at [facility] HERNIA REPAIR umbilical LITHOTRIPSY LUMBAR SPINE SURGERY REPLACEMENT TOTAL JOINT HIP [id number] Right 11/24/2022 Performed by Pieter Diop MD at [facility] REPLACEMENT TOTAL JOINT KNEE Left 10/17/2019 Performed by Pieter Diop MD at [facility] REVERSE ARTHROPLASTY TOTAL SHOULDER Right 07/10/2023 Performed by Shailesh Green MD at [facility] TOTAL KNEE ARTHROPLASTY Right 2009 Family History Problem Relation Age of Onset Heart attack Father Early Father 60 Anesthesia problems Neg Hx Bleeding Disorder Neg Hx Clotting disorder Neg Hx Prostate cancer Neg Hx Colon cancer Neg Hx Diabetes Neg Hx Stroke Neg Hx Social History Socioeconomic History Marital status: Tobacco Use Smoking status: Former Current packs/day: 0.00 Average packs/day: 1 pack/day for 7.0 years (7.0 ttl pk-yrs) Types: Cigarettes Start date: 1974 Quit date: 1981 Years since quittin.8 Smokeless tobacco: Never Vaping Use Vaping status: Never Used Substance and Sexual Activity Alcohol use: Never Drug use: Never Sexual activity: Defer Partners: Female Other Topics Concern Caffeine Use Yes Social History Narrative Lives with in a two story home with an elevator. First floor bed and bath. Walk in shower. Has a two wheeled walker, bench and high toilet seat. No pets. RAPT score of 7 Social Drivers of Health Food Insecurity: No Food Insecurity (04/21/2024) Hunger Screening Food Insecurity - Worry: Never True Food Insecurity - Inability: Never True Housing Instability: Low Risk (11/24/2022) Housing Instability Housing Instability: No Allergies Allergen Reactions Morphine Vomiting Motrin [Ibuprofen] Swelling legs Penicillins Hives Medication List Accurate as of June 13, 2024 2:20 PM. If you have any questions, ask your nurse or doctor. Medications Continued This Visit allopurinoL 300 mg tablet Refills: 0 Dose: 150 mg Commonly known as: ZYLOPRIM aspirin 81 mg Quantity: 30 tablet Refills: 0 Dose: 81 mg Signed by: GALI Trotter 81 mg, oral, Daily cholecalciferol (vitamin D3) 2,000 units tablet Refills: 0 Dose: 2,000 Units dilTIAZem CD 240 mg 24 hr capsule Refills: 0 Dose: 240 mg Commonly known as: CARDIZEM CD ferrous sulfate 325 (65 FE) mg tablet Quantity: 90 tablet Refills: 3 Dose: 325 mg Signed by: Ella Ng 325 mg, oral, Bedtime finasteride 5 mg tablet Refills: 0 Dose: 5 mg Commonly known as: PROSCAR furosemide 40 mg tablet Quantity: 90 tablet Refills: 3 Dose: 40 mg Signed by: Dr. Ana Paula Colón MD 40 mg, oral, Daily Commonly known as: LASIX JANUVIA 50 mg tablet Refills: 0 Dose: 50 mg Generic drug: SITagliptin phosphate losartan 50 mg tablet Refills: 0 Dose: 50 mg Commonly known as: COZAAR pregabalin 75 mg capsule Refills: 0 Dose: 75 mg Commonly known as: LYRICA vitamin B-12 1000 MCG tablet Refills: 0 Dose: 1,000 mcg Generic drug: cyanocobalamin Review of Symptoms: Review of Systems ECO- Symptomatic; fully ambulatory Physical Exam: General: Well appearing, in no acute distress. Vitals: BP 128/50 Pulse 59 Temp 36.7 C (98.1 F) (Oral) Resp 16 Wt 115.8 kg (255 lb 6.4 oz) SpO2 99% BMI 36.65 kg/m Body mass index is 36.65 kg/m . Eyes: No icterus, no conjuctival erythema ENT: Pharyngeal mucosa was moist without exudate and inflammation or ulcerations. Tongue was midline and appeared normal.Gums were unremarkable. Lymph nodes: No palpable adenopathy Neck: Supple. There were no masses, tenderness. Trachea was midline. Respiratory: Respirations were non-labored. Lungs were clear to auscultation. There was no dullness to percussion. Cardiac: Regular rate and rhythm, S1 and S2 sounds were normal. There were no rubs or gallops. Abdomen: Soft, non-tender, Nondistended. Bowel sounds audible in all four quadrants. There were no palpable masses. The liver and spleen were not enlarged. Extremities: There was no clubbing, Cyanosis, edema. Skin: There was no obvious rashes, bruising or ecchymosis. Back exam: No palpable tenderness was appreciated. Neurologic: There was no unilateral weakness. Mood and affect: Normal. Recent Imaging: MR lumbar spine without contrast Result Date: 11/26/2023 Narrative: HISTORY: A 78-year-old male with the history of the chronic low back pain and bilateral lower extremity neuropathy. Postlaminectomy syndrome of the lumbar region. Lumbar radiculopathy and spondylosis. TECHNIQUE: Multiplanar and multisequence MRI examination of the lumbar spine is performed. COMPARISON: Comparison is made with the CT scan of the abdomen and pelvis of 09/11/2023. FINDINGS: There are diffuse and advanced degenerative changes in the lower dorsal and lumbar spine. There are chronic decrease in the heights of the T12, L1 and L4 vertebral bodies. There is a heterogeneous marrow signal from degenerative arthritis. No acute bony pathology is identified. No significant paravertebral soft tissue abnormality seen. At L1-L2, there is a minimal broad-based disc bulging causing mild degree of spinal stenosis but not foramina are patent. At L2-L3, there is a broad-based disc bulging. Facet arthropathy seen bilaterally with thickening of the ligamentum flavum causing severe degree of spinal stenosis and mild narrowing of the neural foramina. At L3-L4, there is a broad-based disc bulging and facet arthropathy with thickening of the ligamentum flavum causing moderate degree of spinal stenosis and narrowing of the right neural foramen. Left neural foramen is patent. At L4-L5, there is evidence of right-sided laminectomy. There is a grade 1 spondylolisthesis. Severe facet arthropathy seen bilaterally with thickening of the ligamentum flavum and probable fibrosis causing severe degree of spinal stenosis and narrowing of the neural foramina. At L5-S1, there is a disc bulging and facet arthropathy causing moderate degree of spinal stenosis and narrowing of the neural foramina. Conus is seen at the level of T12. No intrathecal signal abnormality seen. IMPRESSION: * There is evidence of right-sided low hemilaminectomy at L4-L5. Grade 1 spondylolisthesis at L4-L5 with severe degree of facet arthropathy and disc bulging causing severe degree of spinal stenosis and narrowing of the neural foramina. * Diffuse degenerative arthritis in the lumbar spine. Facet arthropathy at multiple levels. Disc bulging is seen at other levels in the lumbar region. Various degrees of spinal stenosis and narrowing of the neural foramina has described above. Finalized by Charlie Colón MD on 11/26/2023 4:55 PM Recent Labs: Recent Results (from the past 2 weeks) Iron and TIBC Collection Time: 06/12/24 8:35 AM Result Value Ref Range Iron 48 (L) 50 - 212 ug/dL Tibc-calc only do not order 258 250 - 425 ug/dL Iron Saturation 19 (L) 20 - 50 % SATURATION Ferritin Collection Time: 06/12/24 8:35 AM Result Value Ref Range Ferritin 128 24 - 336 ng/mL CBC auto differential Collection Time: 06/12/24 8:35 AM Result Value Ref Range White Blood Cells 8.6 4.0 - 11.0 X10E9/L RBC count 4.57 4.10 - 5.70 X10E12/L Hemoglobin 13.3 13.0 - 17.0 g/dL Hematocrit 40.1 39 - 49 % MCV 88 80 - 100 fL MCH 29.1 27 - 34 pg MCHC 33.2 32 - 36 g/dL RDW 15.7 (H) 11.5 - 15.0 % Platelets 171 150 - 450 X10E9/L MPV 9.0 7 - 12 fL % neutrophils 68.8 % % lymphocytes 19.9 % % monocytes 8.8 % % eosinophils 1.8 % % Basophils 0.7 % Neutrophils Absolute (A) 5.9 1.5 - 6.6 X10E9/L Lymphocytes Absolute 1.7 1.0 - 3.5 X10E9/L Monocytes Absolute 0.8 0 - 0.9 X10E9/L Eosinophils Absolute 0.2 0.0 - 0.4 X10E9/L Basophils Absolute 0.1 0.0 - 0.2 X10E9/L Diagnosis Problem list: Problem List Items Addressed This Visit Hematopoietic and Hemostatic Iron deficiency anemia due to chronic blood loss - Primary Relevant Medications ferrous sulfate 325 (65 FE) mg tablet Impression: Iron deficiency anemia COPD Plan: The patient's blood work over the past several months. His hemoglobin decreased to 10-11 since September 2023. Iron study is consistent with borderline iron deficiency. Currently patient is taking oral iron supplement and tolerated well. It may take several months for patient's iron storage to normalize. CBC and iron studies in 3 months, print out orders. Patient prefers to get it done in outside labs. The patient's blood work over past 6 months showed continuous improvement of hemoglobin. Hemoglobin has normalized now iron storage is almost normal. He is responding well to oral iron supplement. The patient will have CBC iron study in 6 months 12/2024, follow-up with me in 1 year with same labs. Thank you. Ella Ng MD Please note that portions of this note were generated using voice recognition M*Modal dictation software. Although every effort was made to ensure the accuracy of this automated field artillery targeting technician, some errors in field artillery targeting technician may have occurred. CC: Patient Care Team: [facility] as PCP - General (Family Medicine) Brinda Ramon MD as Referring Physician (Endocrinology, Diabetes & Metabolism) Masoud Gutierrez MD as Consulting Physician (Neurosurgery) Vasu Ivy (Neurology) PCP:[facility] [place] Referring MD: Bud Francis APRN-C* documented in this encounter [id number] 06-13-2024 Instructions Ella Ng MD - 06/13/2024 2:00 PM EST Cbc IRON STUDIES in 6 months 12/2024 F/u with same labs in 1 year. documented in this encounter [id number] 03-05-2024 History of Presen t illness Narrative Andres Canela Date of visit: 03/05/2024 Date of : 1945 Age: 79 y.o. Patient Active Problem List Diagnosis Sleep apnea Type 2 diabetes mellitus with diabetic chronic kidney disease ([facility]) Essential hypertension BPH (benign prostatic hyperplasia) Osteoarthritis of left knee Bilateral leg edema Gout Hyperparathyroidism ([facility]) History of benign neoplasm of bladder Obesity (BMI 30-39.9) Primary osteoarthritis of right hip Stage 3b chronic kidney disease ([facility]) Depression HL (hearing loss) Osteoarthritis of right shoulder Influenza A NSTEMI (non-ST elevated myocardial infarction) ([facility]) Iron deficiency anemia due to chronic blood loss Elevated troponin Allergies Allergen Reactions Morphine Vomiting Motrin [Ibuprofen] Swelling legs Penicillins Hives Current Outpatient Medications Medication Sig Dispense Refill allopurinoL (ZYLOPRIM) 300 mg tablet Take 0.5 tablets (150 mg total) by mouth in the morning. Indications: treatment to prevent acute gout attack. aspirin 81 mg Take 1 tablet (81 mg total) by mouth in the morning. 30 tablet 0 cholecalciferol, vitamin D3, 2,000 units tablet Take 1 tablet (2,000 Units total) by mouth once daily at bedtime. cyanocobalamin (vitamin B-12) 1000 MCG tablet Take 1 tablet (1,000 mcg total) by mouth in the morning. dilTIAZem CD (CARDIZEM CD) 240 mg 24 hr capsule Take 1 capsule (240 mg total) by mouth daily with breakfast Indications: high blood pressure. ferrous sulfate 325 (65 FE) mg tablet Take 1 tablet (325 mg total) by mouth once daily at bedtime. finasteride (PROSCAR) 5 mg tablet Take 1 tablet (5 mg total) by mouth nightly Indications: enlarged prostate with urination problem. furosemide (LASIX) 40 mg tablet Take 1 tablet (40 mg total) by mouth daily Indications: visible water retention. 90 tablet 3 JANUVIA 50 mg tablet Take 1 tablet (50 mg total) by mouth once daily at bedtime. losartan (COZAAR) 50 mg tablet Take 1 tablet (50 mg total) by mouth in the morning. Indications: high blood pressure. pregabalin (LYRICA) 75 mg capsule Take 1 capsule (75 mg total) by mouth 3 (three) times a day. No current facility-administered medications for this visit. Chief Complaint Patient presents with Follow-up OV F/U 4 MO NO TESTS L/S RBP Hypertension Edema Feet and legs History of Present Illness This is a 79 year gentleman with chronic renal insufficiency and hypertension had an elevated troponin when he was in with the flu. Had a normal echo. My partner Dr. Ana Paula Colón saw him last time. Basically thought we should just watch him he is a colon. The echo showed no wall motion abnormalities it was probably nonspecific troponin elevation. Even if the patient had significant underlying coronary disease not a great cardiac catheterization candidate based on his worsening renal function especially without any anginal symptoms Past Medical History: Diagnosis Date Arthritis Benign prostatic hyperplasia Cancer of bladder ([facility]) 12/2018 Cataract Dental disease partial plate upper Diabetes mellitus type 2, controlled ([facility]) Edema Bilat. legs--takes lasix to control Gout HL (hearing loss) 06/26/2023 bilat Hypertension Influenza Injury of back Kidney stone MRSA (methicillin resistant Staphylococcus aureus) [id number] Neuropathy Bilat. feet and hands Obesity Osteoarthritis Sleep apnea Stage 3b chronic kidney disease ([facility]) 11/24/2022 Visual impairment glasses No data recorded No data recorded No data recorded Past Surgical History: Procedure Laterality Date BLADDER SURGERY TURBT CYSTOSCOPY multiple due to bladder CA EXTRACTION CATARACT INTRAOCULAR LENS Right 10/04/2023 Performed by Beth Mae MD at [facility] EXTRACTION CATARACT INTRAOCULAR LENS Left 09/06/2023 Performed by Beth Mae MD at [facility] HERNIA REPAIR umbilical LITHOTRIPSY 1990s LUMBAR SPINE SURGERY REPLACEMENT TOTAL JOINT HIP [id number] Right 11/24/2022 Performed by Pieter Diop MD at [facility] REPLACEMENT TOTAL JOINT KNEE Left 10/17/2019 Performed by Pieter Diop MD at [facility] REVERSE ARTHROPLASTY TOTAL SHOULDER Right 07/10/2023 Performed by Shailesh Green MD at [facility] TOTAL KNEE ARTHROPLASTY Right 2009 Family History Problem Relation Age of Onset Heart attack Father Early Father 60 Anesthesia problems Neg Hx Bleeding Disorder Neg Hx Clotting disorder Neg Hx Prostate cancer Neg Hx Colon cancer Neg Hx Diabetes Neg Hx Stroke Neg Hx Social History Socioeconomic History Marital status: Spouse name: Not on file Number of children: Not on file Years of education: Not on file Highest education level: Not on file Occupational History Not on file Tobacco Use Smoking status: Former Current packs/day: 0.00 Average packs/day: 1 pack/day for 7.0 years (7.0 ttl pk-yrs) Types: Cigarettes Start date: 1974 Quit date: 1981 Years since quittin.6 Smokeless tobacco: Never Vaping Use Vaping status: Never Used Substance and Sexual Activity Alcohol use: Never Drug use: Never Sexual activity: Defer Partners: Female Other Topics Concern Caffeine Use Yes Social History Narrative Lives with in a two story home with an elevator. First floor bed and bath. Walk in shower. Has a two wheeled walker, bench and high toilet seat. No pets. RAPT score of 7 Social Determinants of Health Financial Resource Strain: Not on file Food Insecurity: No Food Insecurity (09/11/2023) Hunger Screening Food Insecurity - Worry: Never True Food Insecurity - Inability: Never True Transportation Needs: Not on file Physical Activity: Not on file Stress: Not on file Social Connections: Not on file Interpersonal Safety: Not on file Housing Instability: Low Risk (11/24/2022) Housing Instability Housing Instability: No Review of Systems Review of Systems Constitutional: Positive for malaise/fatigue. Negative for weight gain. HENT: Negative for hearing loss and nosebleeds. Eyes: Negative for blurred vision and double vision. Respiratory: Negative for shortness of breath, sleep disturbances due to breathing and wheezing. Endocrine: Negative for polydipsia. Hematologic/Lymphatic: Does not bruise/bleed easily. Skin: Negative for color change, itching and rash. Musculoskeletal: Negative for back pain, falls, joint swelling, muscle cramps and muscle weakness. Gastrointestinal: Negative for heartburn, hematochezia and melena. Genitourinary: Negative for hematuria. Neurological: Positive for numbness (feet and hands). Negative for dizziness, headaches, light-headedness, loss of balance, seizures and tremors. Psychiatric/Behavioral: Negative for altered mental status, depression and memory loss. Allergic/Immunologic: Negative for persistent infections. CARDIOVASCULAR: Please review HPI. Physical Examination General appearance: Alert, oriented and cooperative. In no acute distress. Skin: Warm and dry to touch. Head: Normocephalic, without obvious abnormality, atraumatic. Ears, Nose, Mouth, Throat: Throat clear without erythema or exudate. Dentition intact. Eyes: Conjunctivae unremarkable, EOM intact. Neck: No JVD, No carotid bruit. Neck supple, trachea midline. Respiratory: Clear to auscultation bilaterally, no use of accessory muscles. Cardiovascular: RRR with normal S1 and S2 with no murmurs. Gastrointestinal: Soft, non-tender. Bowel sounds normal. Musculoskeletal: No peripheral edema. Neurologic: Oriented to time, person and place, affect appropriate. No focal/major motor defects noted. Psychiatric: Appropriate mood, memory and judgement. VITAL SIGNS: BP 118/50 (BP Site: Left Arm) Pulse 55 Ht 172.7 cm (5' 7.99 ) Wt 113.9 kg (251 lb) SpO2 98% BMI 38.18 kg/m No orders of the defined types were placed in this encounter. Medications Discontinued During This Encounter Medication Reason metoprolol tartrate (LOPRESSOR) 25 mg tablet oseltamivir (TAMIFLU) 30 mg capsule IMPRESSIONS/PLAN 1. NSTEMI (non-ST elevated myocardial infarction) ([facility]) 2. Elevated troponin 3. Essential hypertension 1. Elevated troponin -probably nonspecific in the setting of the flu with normal LV function no wall motion abnormalities -ischemic workup deferred due to his underlying renal insufficiency and lack of symptoms, no stress testing was performed -he continues to farm very active without any chest pain and no shortness of breath 2. Essential hypertension -controlled TODAYS ORDERS No orders of the defined types were placed in this encounter. FOLLOW UP Return in about 1 year (around 03/05/2025). PCP: DENG Nuñez Referring Physician: Bud Francis, SUPERVISOR [employer] [address] [place] [address] documented in this encounter [facility] 03-04-2024 Miscellaneous Notes NO ANSWER. documented in this encounter [facility] 03-04-2024 Telephone encounter Note NO ANSWER. [facility] 12-07-2023 History of Presen t illness Narrative Patient here as new consult for Iron Deficiency Anemia Dr ng recommends CBC and iron studies in 3 months, print out orders. F/u in 6 months with hematology Orders and calendar given Patient verbalized understanding documented in this encounter [facility] 12-07-2023 History of Presen t illness Narrative Images from the original note were not included. [facility] 12/07/23 Andres Canela is a 78 y.o. year old male seen today in the oncology clinic. Chief Complaint Patient presents with New Patient History of Present Illness: Mr. Canela is a 78 y.o. male with history of COPD who was referred to Oncology/Hematology for iron deficiency anemia. The patient's most recent blood work showed his hemoglobin is around 11. He has been on iron supplement for several months, overall tolerated well denies any significant constipation or GI side effects. He denied any blood in the stool or urine. No recent blood loss or weight loss. 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 legs--takes lasix to control Gout HL (hearing loss) 06/26/2023 bilat Hypertension Influenza Injury of back Kidney stone MRSA (methicillin resistant Staphylococcus aureus) [id number] Neuropathy Bilat. feet and hands Obesity Osteoarthritis Sleep apnea Stage 3b chronic kidney disease ([facility]) 11/24/2022 Visual impairment glasses Past Surgical History: Procedure Laterality Date BLADDER SURGERY TURBT CYSTOSCOPY multiple due to bladder CA EXTRACTION CATARACT INTRAOCULAR LENS Right 10/04/2023 Performed by Beth Mae MD at [facility] EXTRACTION CATARACT INTRAOCULAR LENS Left 09/06/2023 Performed by Beth Mae MD at [facility] HERNIA REPAIR umbilical LITHOTRIPSY LUMBAR SPINE SURGERY REPLACEMENT TOTAL JOINT HIP [id number] Right 11/24/2022 Performed by Pieter Diop MD at [facility] REPLACEMENT TOTAL JOINT KNEE Left 10/17/2019 Performed by Pieter Diop MD at [facility] REVERSE ARTHROPLASTY TOTAL SHOULDER Right 07/10/2023 Performed by Shailesh Green MD at [facility] TOTAL KNEE ARTHROPLASTY Right 2009 Family History Problem Relation Age of Onset Heart attack Father Early Father 60 Anesthesia problems Neg Hx Bleeding Disorder Neg Hx Clotting disorder Neg Hx Prostate cancer Neg Hx Colon cancer Neg Hx Diabetes Neg Hx Stroke Neg Hx Social History Socioeconomic History Marital status: Tobacco Use Smoking status: Former Current packs/day: 0.00 Average packs/day: 1 pack/day for 7.0 years (7.0 ttl pk-yrs) Types: Cigarettes Start date: 1974 Quit date: 1981 Years since quittin.3 Smokeless tobacco: Never Vaping Use Vaping status: Never Used Substance and Sexual Activity Alcohol use: Never Drug use: Never Sexual activity: Defer Partners: Female Other Topics Concern Caffeine Use Yes Social History Narrative Lives with in a two story home with an elevator. First floor bed and bath. Walk in shower. Has a two wheeled walker, bench and high toilet seat. No pets. RAPT score of 7 Social Determinants of Health Food Insecurity: No Food Insecurity (09/11/2023) Hunger Screening Food Insecurity - Worry: Never True Food Insecurity - Inability: Never True Housing Instability: Low Risk (11/24/2022) Housing Instability Housing Instability: No Allergies Allergen Reactions Morphine Vomiting Motrin [Ibuprofen] Swelling legs Penicillins Hives Medication List Accurate as of December 07, 2023 11:33 AM. If you have any questions, ask your nurse or doctor. Medications Continued This Visit allopurinoL 300 mg tablet Refills: 0 Dose: 300 mg Commonly known as: ZYLOPRIM aspirin 81 mg Quantity: 30 tablet Refills: 0 Dose: 81 mg Signed by: GALI Trotter 81 mg, oral, Daily cholecalciferol (vitamin D3) 2,000 units tablet Refills: 0 Dose: 2,000 Units dilTIAZem CD 240 mg 24 hr capsule Refills: 0 Dose: 240 mg Commonly known as: CARDIZEM CD ferrous sulfate 325 (65 FE) mg tablet Refills: 0 Dose: 325 mg finasteride 5 mg tablet Refills: 0 Dose: 5 mg Commonly known as: PROSCAR furosemide 40 mg tablet Quantity: 90 tablet Refills: 3 Dose: 40 mg Signed by: Dr. Ana Paula Colón MD 40 mg, oral, Daily Commonly known as: LASIX JANUVIA 50 mg tablet Refills: 0 Dose: 50 mg Generic drug: SITagliptin phosphate losartan 50 mg tablet Refills: 0 Dose: 50 mg Commonly known as: COZAAR metoprolol tartrate 25 mg tablet Quantity: 60 tablet Refills: 0 Dose: 25 mg Signed by: GALI Trotter 25 mg, oral, 2 times daily Commonly known as: LOPRESSOR oseltamivir 30 mg capsule Quantity: 4 capsule Refills: 0 Dose: 30 mg Signed by: GALI Trotter 30 mg, oral, Every 12 hours Commonly known as: TAMIFLU pregabalin 75 mg capsule Refills: 0 Dose: 75 mg Commonly known as: LYRICA vitamin B-12 1000 MCG tablet Refills: 0 Dose: 1,000 mcg Generic drug: cyanocobalamin Medications Discontinued This Visit atorvastatin 40 mg tablet Commonly known as: LIPITOR Stopped by: Ella Ng MD benzonatate 100 mg capsule Commonly known as: TESSALON PERLES Stopped by: Ella Ng MD Review of Symptoms: Review of Systems ECO- Symptomatic; fully ambulatory Physical Exam: General: Well appearing, in no acute distress. Vitals: BP 139/51 Pulse 54 Temp 36.6 C (97.8 F) (Oral) Resp 20 Ht 172.7 cm (5' 7.99 ) Wt 118.2 kg (260 lb 9.6 oz) SpO2 96% BMI 39.63 kg/m Body mass index is 39.63 kg/m . Eyes: No icterus, no conjuctival erythema ENT: Pharyngeal mucosa was moist without exudate and inflammation or ulcerations. Tongue was midline and appeared normal.Gums were unremarkable. Lymph nodes: No palpable adenopathy Neck: Supple. There were no masses, tenderness. Trachea was midline. Respiratory: Respirations were non-labored. Lungs were clear to auscultation. There was no dullness to percussion. Cardiac: Regular rate and rhythm, S1 and S2 sounds were normal. There were no rubs or gallops. Abdomen: Soft, non-tender, Nondistended. Bowel sounds audible in all four quadrants. There were no palpable masses. The liver and spleen were not enlarged. Extremities: There was no clubbing, Cyanosis, edema. Skin: There was no obvious rashes, bruising or ecchymosis. Back exam: No palpable tenderness was appreciated. Neurologic: There was no unilateral weakness. Mood and affect: Normal. Recent Imaging: MR lumbar spine without contrast Result Date: 11/26/2023 Narrative: HISTORY: A 78-year-old male with the history of the chronic low back pain and bilateral lower extremity neuropathy. Postlaminectomy syndrome of the lumbar region. Lumbar radiculopathy and spondylosis. TECHNIQUE: Multiplanar and multisequence MRI examination of the lumbar spine is performed. COMPARISON: Comparison is made with the CT scan of the abdomen and pelvis of 09/11/2023. FINDINGS: There are diffuse and advanced degenerative changes in the lower dorsal and lumbar spine. There are chronic decrease in the heights of the T12, L1 and L4 vertebral bodies. There is a heterogeneous marrow signal from degenerative arthritis. No acute bony pathology is identified. No significant paravertebral soft tissue abnormality seen. At L1-L2, there is a minimal broad-based disc bulging causing mild degree of spinal stenosis but not foramina are patent. At L2-L3, there is a broad-based disc bulging. Facet arthropathy seen bilaterally with thickening of the ligamentum flavum causing severe degree of spinal stenosis and mild narrowing of the neural foramina. At L3-L4, there is a broad-based disc bulging and facet arthropathy with thickening of the ligamentum flavum causing moderate degree of spinal stenosis and narrowing of the right neural foramen. Left neural foramen is patent. At L4-L5, there is evidence of right-sided laminectomy. There is a grade 1 spondylolisthesis. Severe facet arthropathy seen bilaterally with thickening of the ligamentum flavum and probable fibrosis causing severe degree of spinal stenosis and narrowing of the neural foramina. At L5-S1, there is a disc bulging and facet arthropathy causing moderate degree of spinal stenosis and narrowing of the neural foramina. Conus is seen at the level of T12. No intrathecal signal abnormality seen. IMPRESSION: * There is evidence of right-sided low hemilaminectomy at L4-L5. Grade 1 spondylolisthesis at L4-L5 with severe degree of facet arthropathy and disc bulging causing severe degree of spinal stenosis and narrowing of the neural foramina. * Diffuse degenerative arthritis in the lumbar spine. Facet arthropathy at multiple levels. Disc bulging is seen at other levels in the lumbar region. Various degrees of spinal stenosis and narrowing of the neural foramina has described above. Finalized by Charlie Colón MD on 11/26/2023 4:55 PM Recent Labs: No results found for this or any previous visit (from the past 336 hour(s)). Diagnosis Problem list: Problem List Items Addressed This Visit Hematopoietic and Hemostatic Iron deficiency anemia due to chronic blood loss - Primary Impression: Iron deficiency anemia COPD Plan: The patient's blood work over the past several months. His hemoglobin decreased to 10-11 since September 2023. Iron study is consistent with borderline iron deficiency. Currently patient is taking oral iron supplement and tolerated well. It may take several months for patient's iron storage to normalize. CBC and iron studies in 3 months, print out orders. Patient prefers to get it done in outside labs. F/u in 6 months. If patient fails to respond to oral iron supplement, consider IV iron treatment in form of Venofer or Feraheme. Thank you. Ella Ng MD Please note that portions of this note were generated using voice recognition M*[employer] dictation software. Although every effort was made to ensure the accuracy of this automated field artillery targeting technician, some errors in field artillery targeting technician may have occurred. CC: Patient Care Team: GALI Sweet as PCP - General (Family Medicine) Brinda Ramon MD as Referring Physician (Endocrinology, Diabetes & Metabolism) Masoud Gutierrez MD as Consulting Physician (Neurosurgery) Vasu Ivy (Neurology) PCP:Bud Francis Referring MD: Bud Francis APRN-C* [facility] 12-07-2023 Instructions Ella Ng MD - 12/07/2023 11:00 AM EDT CBC and iron studies in 3 months, print out orders. F/u in 6 months. documented in this encounter [facility] 11-01-2023 History of Presen t illness Narrative Andres Canela Date of visit: 11/01/2023 Date of : 1945 Age: 78 y.o. Patient Active Problem List Diagnosis Sleep apnea Type 2 diabetes mellitus with diabetic chronic kidney disease ([facility]) Essential hypertension BPH (benign prostatic hyperplasia) Osteoarthritis of left knee Bilateral leg edema Gout Hyperparathyroidism ([facility]) History of benign neoplasm of bladder Obesity (BMI 30-39.9) Primary osteoarthritis of right hip Stage 3b chronic kidney disease ([facility]) Depression HL (hearing loss) Osteoarthritis of right shoulder Influenza A NSTEMI (non-ST elevated myocardial infarction) ([facility]) Allergies Allergen Reactions Morphine Vomiting Motrin [Ibuprofen] Swelling legs Penicillins Hives Current Outpatient Medications Medication Sig Dispense Refill allopurinoL (ZYLOPRIM) 300 mg tablet Take 1 tablet (300 mg total) by mouth in the morning. Indications: treatment to prevent acute gout attack. aspirin 81 mg Take 1 tablet (81 mg total) by mouth in the morning. 30 tablet 0 cholecalciferol, vitamin D3, 2,000 units tablet Take 1 tablet (2,000 Units total) by mouth once daily at bedtime. dilTIAZem CD (CARDIZEM CD) 240 mg 24 hr capsule Take 1 capsule (240 mg total) by mouth daily with breakfast Indications: high blood pressure. ferrous sulfate 325 (65 FE) mg tablet Take 1 tablet (325 mg total) by mouth once daily at bedtime. finasteride (PROSCAR) 5 mg tablet Take 1 tablet (5 mg total) by mouth nightly Indications: enlarged prostate with urination problem. JANUVIA 50 mg tablet Take 1 tablet (50 mg total) by mouth once daily at bedtime. losartan (COZAAR) 50 mg tablet Take 1 tablet (50 mg total) by mouth in the morning. Indications: high blood pressure. moxifloxacin HCl (MOXIFLOXACIN 0.5%-PREDNISOLONE 1%-BROMFENAC 0.09% DROPS - BUDERER ) Administer 1 drop to the right eye in the morning and 1 drop before bedtime. Do all this for 30 days. One drop twice a day to operative eye for one week, then daily for three weeks.. pregabalin (LYRICA) 75 mg capsule Take 1 capsule (75 mg total) by mouth 3 (three) times a day. atorvastatin (LIPITOR) 40 mg tablet Take 1 tablet (40 mg total) by mouth nightly. (Patient not taking: Reported on 11/01/2023) 30 tablet 0 benzonatate (TESSALON PERLES) 100 mg capsule Take 1 capsule (100 mg total) by mouth 3 (three) times a day as needed for cough. (Patient not taking: Reported on 11/01/2023) 20 capsule 0 furosemide (LASIX) 40 mg tablet Take 1 tablet (40 mg total) by mouth daily Indications: visible water retention. 90 tablet 3 metoprolol tartrate (LOPRESSOR) 25 mg tablet Take 1 tablet (25 mg total) by mouth in the morning and 1 tablet (25 mg total) before bedtime. (Patient not taking: Reported on 11/01/2023) 60 tablet 0 oseltamivir (TAMIFLU) 30 mg capsule Take 1 capsule (30 mg total) by mouth every 12 (twelve) hours. (Patient not taking: Reported on 11/01/2023) 4 capsule 0 No current facility-administered medications for this visit. Chief Complaint Patient presents with Follow-up [address] f/u from BPH Med Refill Edema History of Present Illness 78yo here for initial patient visit He had an NSTEMI with a peak troponin of 0.6 in the setting of flu illness EKG was normal Except that he had inferior Q-waves But no acute ischemic changes He has been doing well he is a colon has no ischemic symptoms Denies shortness of breath chest pain chest tightness He is here for follow-up as he had been told that he might need a stress test Type 2 diabetes, hypertension controlled Past Medical History: Diagnosis Date Arthritis Benign prostatic hyperplasia Cancer of bladder ([facility]) 12/2018 Cataract Dental disease partial plate upper Diabetes mellitus type 2, controlled ([facility]) Edema Bilat. legs--takes lasix to control Gout HL (hearing loss) 06/26/2023 bilat Hypertension Influenza Injury of back Kidney stone 1990s MRSA (methicillin resistant Staphylococcus aureus) [id number] Neuropathy Bilat. feet and hands Obesity Osteoarthritis Sleep apnea Stage 3b chronic kidney disease ([facility]) 11/24/2022 Visual impairment glasses No data recorded No data recorded No data recorded Past Surgical History: Procedure Laterality Date BLADDER SURGERY TURBT CYSTOSCOPY multiple due to bladder CA EXTRACTION CATARACT INTRAOCULAR LENS Right 10/04/2023 Performed by Beth Mae MD at [facility] EXTRACTION CATARACT INTRAOCULAR LENS Left 09/06/2023 Performed by Beth Mae MD at [facility] HERNIA REPAIR umbilical LITHOTRIPSY LUMBAR SPINE SURGERY REPLACEMENT TOTAL JOINT HIP 41733 Right 11/24/2022 Performed by Pieter Diop MD at [facility] REPLACEMENT TOTAL JOINT KNEE Left 10/17/2019 Performed by Pieter Diop MD at [facility] REVERSE ARTHROPLASTY TOTAL SHOULDER Right 07/10/2023 Performed by Shailesh Green MD at [facility] TOTAL KNEE ARTHROPLASTY Right 2009 Family History Problem Relation Age of Onset Heart attack Father Early Father 60 Anesthesia problems Neg Hx Bleeding Disorder Neg Hx Clotting disorder Neg Hx Prostate cancer Neg Hx Colon cancer Neg Hx Diabetes Neg Hx Stroke Neg Hx Social History Socioeconomic History Marital status: Spouse name: Not on file Number of children: Not on file Years of education: Not on file Highest education level: Not on file Occupational History Not on file Tobacco Use Smoking status: Former Packs/day: 1.00 Years: 7.00 Additional pack years: 0.00 Total pack years: 7.00 Types: Cigarettes Start date: 1974 Quit date: 1981 Years since quittin.2 Smokeless tobacco: Never Vaping Use Vaping Use: Never used Substance and Sexual Activity Alcohol use: Never Drug use: Never Sexual activity: Defer Partners: Female Other Topics Concern Caffeine Use Yes Social History Narrative Lives with in a two story home with an elevator. First floor bed and bath. Walk in shower. Has a two wheeled walker, bench and high toilet seat. No pets. RAPT score of 7 Social Determinants of Health Financial Resource Strain: Not on file Food Insecurity: No Food Insecurity (09/11/2023) Hunger Screening Food Insecurity - Worry: Never True Food Insecurity - Inability: Never True Transportation Needs: Not on file Physical Activity: Not on file Stress: Not on file Social Connections: Not on file Interpersonal Safety: Not on file Housing Instability: Low Risk (11/24/2022) Housing Instability Housing Instability: No Review of Systems Review of Systems Constitutional: Negative for malaise/fatigue and weight gain. HENT: Negative for hearing loss and nosebleeds. Eyes: Negative for blurred vision and double vision. Respiratory: Negative for shortness of breath, sleep disturbances due to breathing and wheezing. Endocrine: Negative for polydipsia. Hematologic/Lymphatic: Does not bruise/bleed easily. Skin: Negative for color change, itching and rash. Musculoskeletal: Negative for back pain, falls, joint swelling, muscle cramps and muscle weakness. Gastrointestinal: Negative for heartburn, hematochezia and melena. Genitourinary: Negative for hematuria. Neurological: Negative for dizziness, headaches, light-headedness, loss of balance, numbness, seizures and tremors. Psychiatric/Behavioral: Negative for altered mental status, depression and memory loss. Allergic/Immunologic: Negative for environmental allergies. CARDIOVASCULAR: Please review HPI. Physical Examination General appearance: Alert, oriented and cooperative. In no acute distress. Skin: Warm and dry to touch. Head: Normocephalic, without obvious abnormality, atraumatic. Ears, Nose, Mouth, Throat: Throat clear without erythema or exudate. Dentition intact. Eyes: Conjunctivae unremarkable, EOM intact. Neck: No JVD, No carotid bruit. Neck supple, trachea midline. Respiratory: Clear to auscultation bilaterally, no use of accessory muscles. Cardiovascular: RRR with normal S1 and S2 with no murmurs. Gastrointestinal: Soft, non-tender. Bowel sounds normal. Musculoskeletal: No peripheral edema. Neurologic: Oriented to time, person and place, affect appropriate. No focal/major motor defects noted. Psychiatric: Appropriate mood, memory and judgement. VITAL SIGNS: BP 128/62 (BP Site: Left Arm) Pulse 64 Ht 172.7 cm (5' 8 ) Wt 113.9 kg (251 lb) SpO2 95% BMI 38.16 kg/m Orders Placed or Reconciled This Encounter Medications furosemide (LASIX) 40 mg tablet Sig: Take 1 tablet (40 mg total) by mouth daily Indications: visible water retention. Dispense: 90 tablet Refill: 3 Medications Discontinued During This Encounter Medication Reason furosemide (LASIX) 80 mg tablet Reorder IMPRESSIONS/PLAN 1. Essential hypertension 2. NSTEMI (non-ST elevated myocardial infarction) ([facility]) Impression 1. NSTEMI in the setting of flu illness 0.6 troponin with a EKG showing inferior Q-waves but no acute ischemic changes. He has no symptoms to suggest a chronic coronary process. He did not have any chest pain as an inpatient. 2. Hypertension hyperlipidemia type 2 diabetes He is now on an aspirin and statin which I agree with Echo did not show any regional wall motion abnormalities He has no symptoms to suggest coronary ischemia Conservative management at this point after talking to the patient and deciding on joint plan of action to watch symptoms very closely as he progresses with farming season. If he notices any change in functional status breathing chest pain then we would opt for anatomical coronary evaluation or start with medical therapy 1st. His creatinine is 1.8, therefore would like to avoid contrast exposure if possible. TODAYS ORDERS No orders of the defined types were placed in this encounter. FOLLOW UP Return in about 4 months (around 03/02/2024). PCP: GALI Sweet Referring Physician: GALI Sweet [address] [place] [address] documented in this encounter [id number] 10-31-2023 Miscellaneous Notes Called patient to remind them to bring their most current copy of their medication list with them to their appt. Patient verbalizes understanding. [facility] 10-31-2023 Telephone encounter Note Called patient to remind them to bring their most current copy of their medication list with them to their appt. Patient verbalizes understanding. [facility] 08-29-2023 Instructions Kenyetta Ayala RN - 08/29/2023 9:45 AM EST Preoperative Education Checklist- General Surgery date: 09/06/23 Surgery time: 0900 a.m. Arrival time: 0700 a.m. 1. Bring a photo ID and your insurance card with you the day of surgery. You will check in at the main lobby registration desk as soon as you walk in the entrance. 2. If you have a Living Will/Durable Power of Train System Operator for Health Care that is not on file here, please bring a copy the day of surgery. 3. Please wash your face with baby shampoo prior to procedure as instructed by your physician. 4. NO powder, lotion, perfume/cologne, aftershave, make-up, nail emirati on at least one finger, deodorant, or hair products after you have bathed. 5. Nothing to eat or drink (not even water, gum, mints, or hard candy!) AFTER midnight prior to your surgery. 6. Take only medications that you are instructed to on the morning of surgery with a TINY SIP OF WATER. 7. If you have an inhaler, use it routinely. 8. Choose a responsible adult that will be able to drive you home when you are discharged from your hospital stay for your surgery. You must NOT drive any vehicle or operate any machinery for 24 hours after surgery. 9. When you dress for your appointment, please wear comfortable clothing. 10. Do NOT wear jewelry, watches, or any piercings or metal for surgery. 11. Do NOT wear contact lenses for surgery- glasses are okay if needed. 12. The anesthesiologist will talk with you the day of surgery and will ask you to sign a Consent Form. 13. Refrain from smoking or any type of tobacco use for at least 8 hours or marijuana for 24 hours prior to arrival for your surgery. 14. Notify your surgeon if you develop any illness before your surgery. 15. If you have any questions prior to surgery, please call the Preadmission Testing office at [phone], Mon.-Fri. 7 a.m.-3 p.m. Leave a voicemail if needed. Pre-Surgery Instructions: Medication Instructions allopurinoL (ZYLOPRIM) 300 mg tablet Stop taking 0 days prior to procedure cholecalciferol, vitamin D3, 2,000 units tablet Stop taking 0 days prior to procedure dilTIAZem CD (CARDIZEM CD) 240 mg 24 hr capsule Take morning of procedure ferrous sulfate 325 (65 FE) mg tablet Stop taking 0 days prior to procedure finasteride (PROSCAR) 5 mg tablet Stop taking 0 days prior to procedure furosemide (LASIX) 40 mg tablet Stop taking 0 days prior to procedure JANUVIA 50 mg tablet Stop taking 0 days prior to procedure losartan (COZAAR) 50 mg tablet Take morning of procedure pregabalin (LYRICA) 75 mg capsule Stop taking 0 days prior to procedure documented in this encounter [facility] 08-29-2023 Miscellaneous Notes Preoperative Education Checklist- General Surgery date: 09/06/23 Surgery time: 0900 a.m. Arrival time: 0700 a.m. 1. Bring a photo ID and your insurance card with you the day of surgery. You will check in at the main lobby registration desk as soon as you walk in the entrance. 2. If you have a Living Will/Durable Power of Train System Operator for Health Care that is not on file here, please bring a copy the day of surgery. 3. Please wash your face with baby shampoo prior to procedure as instructed by your physician. 4. NO powder, lotion, perfume/cologne, aftershave, make-up, nail emirati on at least one finger, deodorant, or hair products after you have bathed. 5. Nothing to eat or drink (not even water, gum, mints, or hard candy!) AFTER midnight prior to your surgery. 6. Take only medications that you are instructed to on the morning of surgery with a TINY SIP OF WATER. 7. If you have an inhaler, use it routinely. 8. Choose a responsible adult that will be able to drive you home when you are discharged from your hospital stay for your surgery. You must NOT drive any vehicle or operate any machinery for 24 hours after surgery. 9. When you dress for your appointment, please wear comfortable clothing. 10. Do NOT wear jewelry, watches, or any piercings or metal for surgery. 11. Do NOT wear contact lenses for surgery- glasses are okay if needed. 12. The anesthesiologist will talk with you the day of surgery and will ask you to sign a Consent Form. 13. Refrain from smoking or any type of tobacco use for at least 8 hours or marijuana for 24 hours prior to arrival for your surgery. 14. Notify your surgeon if you develop any illness before your surgery. 15. If you have any questions prior to surgery, please call the Preadmission Testing office at [phone], Mon.-Fri. 7 a.m.-3 p.m. Leave a voicemail if needed. Pre-Surgery Instructions: Medication Instructions allopurinoL (ZYLOPRIM) 300 mg tablet Stop taking 0 days prior to procedure cholecalciferol, vitamin D3, 2,000 units tablet Stop taking 0 days prior to procedure dilTIAZem CD (CARDIZEM CD) 240 mg 24 hr capsule Take morning of procedure ferrous sulfate 325 (65 FE) mg tablet Stop taking 0 days prior to procedure finasteride (PROSCAR) 5 mg tablet Stop taking 0 days prior to procedure furosemide (LASIX) 40 mg tablet Stop taking 0 days prior to procedure JANUVIA 50 mg tablet Stop taking 0 days prior to procedure losartan (COZAAR) 50 mg tablet Take morning of procedure pregabalin (LYRICA) 75 mg capsule Stop taking 0 days prior to procedure Surgical instructions reviewed. Patient verbalized understanding. documented in this encounter [facility] 08-29-2023 Nurse Note Preoperative Education Checklist- General Surgery date: 09/06/23 Surgery time: 0900 a.m. Arrival time: 0700 a.m. 1. Bring a photo ID and your insurance card with you the day of surgery. You will check in at the main lobby registration desk as soon as you walk in the entrance. 2. If you have a Living Will/Durable Power of Train System Operator for Health Care that is not on file here, please bring a copy the day of surgery. 3. Please wash your face with baby shampoo prior to procedure as instructed by your physician. 4. NO powder, lotion, perfume/cologne, aftershave, make-up, nail emirati on at least one finger, deodorant, or hair products after you have bathed. 5. Nothing to eat or drink (not even water, gum, mints, or hard candy!) AFTER midnight prior to your surgery. 6. Take only medications that you are instructed to on the morning of surgery with a TINY SIP OF WATER. 7. If you have an inhaler, use it routinely. 8. Choose a responsible adult that will be able to drive you home when you are discharged from your hospital stay for your surgery. You must NOT drive any vehicle or operate any machinery for 24 hours after surgery. 9. When you dress for your appointment, please wear comfortable clothing. 10. Do NOT wear jewelry, watches, or any piercings or metal for surgery. 11. Do NOT wear contact lenses for surgery- glasses are okay if needed. 12. The anesthesiologist will talk with you the day of surgery and will ask you to sign a Consent Form. 13. Refrain from smoking or any type of tobacco use for at least 8 hours or marijuana for 24 hours prior to arrival for your surgery. 14. Notify your surgeon if you develop any illness before your surgery. 15. If you have any questions prior to surgery, please call the [facility] office at [phone], Mon.-Fri. 7 a.m.-3 p.m. Leave a voicemail if needed. Pre-Surgery Instructions: Medication Instructions allopurinoL (ZYLOPRIM) 300 mg tablet Stop taking 0 days prior to procedure cholecalciferol, vitamin D3, 2,000 units tablet Stop taking 0 days prior to procedure dilTIAZem CD (CARDIZEM CD) 240 mg 24 hr capsule Take morning of procedure ferrous sulfate 325 (65 FE) mg tablet Stop taking 0 days prior to procedure finasteride (PROSCAR) 5 mg tablet Stop taking 0 days prior to procedure furosemide (LASIX) 40 mg tablet Stop taking 0 days prior to procedure JANUVIA 50 mg tablet Stop taking 0 days prior to procedure losartan (COZAAR) 50 mg tablet Take morning of procedure pregabalin (LYRICA) 75 mg capsule Stop taking 0 days prior to procedure [facility] 08-29-2023 Nurse Note Surgical instructions reviewed. Patient verbalized understanding[facility] History of Presen t illness Narrative Date of surgery: 07/10/2023 Surgery performed: Reverse Arthroplasty Total Shoulder - Right History of Present Illness: Andres Canela comes in today 42 days post-op following the above procedure. Doing well. He is still in PT and finishing this out. He is making good progress. Denies any pain. He did recently have a fall but states that the shoulder was not injured in he is overall feeling quite good. No other concerns. Review of Systems: No fever or chills. Physical Examination: Patient is alert and oriented, and in no apparent distress. He ambulates smoothly. Upon examination of the right upper extremity, incisions are well healed. No ecchymosis present. No tenderness to palpation throughout extremity. Swelling resolved. Intact active ROM with forward flexion 140, abduction, external rotation with arm at side 60, and internal rotation to sacrum. Biceps function intact. Sensation intact to light touch in axillary distribution. Neurovascularly intact throughout operative extremity. 2+ radial pulse with brisk capillary refill. Assessment and Plan: Andres Canela is 42 days post-op following the above procedure. He is doing very well. Does not have any pain. He is back to most of his normal functional activities. - Medications - not needed - Physical therapy - continue with provided rehab protocol and transition to home maintenance program - Return to work status - not an issue - Follow-up visit - 6 weeks if needed, otherwise p.r.n. I encouraged patient to contact the office if they have any further questions or concerns. All patient's questions were answered to their satisfaction. Patient verbalized understanding and agreeable with treatment plan above. documented in this encounter [facility] 08-21-2023 Miscellaneous Notes LMOM for the patient to call and schedule their new pt appointment with [facility]. documented in this encounter [facility] 08-21-2023 Telephone encounter Note LMOM for the patient to call and schedule their new pt appointment with [facility]. [facility] 02-28-2023 Hospital Discharg e instructions Patient Education 02/28/2023 07:41:40 Cystoscopy Cystoscopy Cystoscopy is a procedure that is used to help diagnose and sometimes treat conditions that affect the lower urinary tract. The lower urinary tract includes the bladder and the urethra. The urethra is the tube that drains urine from the bladder. Cystoscopy is done using a thin, tube-shaped instrument with a light and camera at the end (cystoscope). The cystoscope may be hard or flexible, depending on the goal of the procedure. The cystoscope is inserted through the urethra, into the bladder. Cystoscopy may be recommended if you have: Urinary tract infections that keep coming back. Blood in the urine (hematuria). An inability to control when you urinate (urinary incontinence) or an overactive bladder. Unusual cells found in a urine sample. A blockage in the urethra, such as a urinary stone. Painful urination. An abnormality in the bladder found during an intravenous pyelogram (IVP) or CT scan. Cystoscopy may also be done to remove a sample of tissue to be examined under a microscope (biopsy). Tell a health care provider about: Any allergies you have. All medicines you are taking, including vitamins, herbs, eye drops, creams, and lwwu-hsf-hgjdzzf medicines. Any problems you or family members have had with anesthetic medicines. Any blood disorders you have. Any surgeries you have had. Any medical conditions you have. Whether you are or may be . What are the risks? Generally, this is a safe procedure. However, problems may occur, including: Infection. Bleeding. Allergic reactions to medicines. Damage to other structures or organs. What happens before the procedure? Medicines Ask your health care provider about: Changing or stopping your regular medicines. This is especially important if you are taking diabetes medicines or blood thinners. Taking medicines such as aspirin and ibuprofen. These medicines can thin your blood. Do not take these medicines unless your health care provider tells you to take them. Taking qjis-osv-ygpyeoy medicines, vitamins, herbs, and supplements. Tests You may have an exam or testing, such as: X-rays of the bladder, urethra, or kidneys. CT scan of the abdomen or pelvis. Urine tests to check for signs of infection. General instructions Follow instructions from your health care provider about eating or drinking restrictions. Ask your health care provider what steps will be taken to help prevent infection. These steps may include: ?Washing skin with a germ-killing soap. ?Taking antibiotic medicine. Plan to have a responsible adult take you home from the hospital or clinic. What happens during the procedure? You will be given one or more of the following: ?A medicine to help you relax (sedative). ?A medicine to numb the area (local anesthetic). The area around the opening of your urethra will be cleaned. The cystoscope will be passed through your urethra into your bladder. Germ-free (sterile) fluid will flow through the cystoscope to fill your bladder. The fluid will stretch your bladder so that your health care provider can clearly examine your bladder brewer. Your doctor will look at the urethra and bladder. Your doctor may take a biopsy or remove stones. The cystoscope will be removed, and your bladder will be emptied. The procedure may vary among health care providers and hospitals. What can I expect after the procedure? After the procedure, it is common to have: Some soreness or pain in your abdomen and urethra. Urinary symptoms. These include: ?Mild pain or burning when you urinate. Pain should stop within a few minutes after you urinate. This may last for up to 1 week. ?A small amount of blood in your urine for several days. ?Feeling like you need to urinate but producing only a small amount of urine. Follow these instructions at home: Medicines Take atsh-rpy-kjgvdio and prescription medicines only as told by your health care provider. If you were prescribed an antibiotic medicine, take it as told by your health care provider. Do not stop taking the antibiotic even if you start to feel better. General instructions Return to your normal activities as told by your health care provider. Ask your health care provider what activities are safe for you. If you were given a sedative during the procedure, it can affect you for several hours. Do not drive or operate machinery until your health care provider says that it is safe. Watch for any blood in your urine. If the amount of blood in your urine increases, call your health care provider. Follow instructions from your health care provider about eating or drinking restrictions. If a tissue sample was removed for testing (biopsy) during your procedure, it is up to you to get your test results. Ask your health care provider, or the department that is doing the test, when your results will be ready. Drink enough fluid to keep your urine pale yellow. Keep all follow-up visits. This is important. Contact a health care provider if: You have pain that gets worse or does not get better with medicine, especially pain when you urinate. You have trouble urinating. You have more blood in your urine. Get help right away if: You have blood clots in your urine. You have abdominal pain. You have a fever or chills. You are unable to urinate. Summary Cystoscopy is a procedure that is used to help diagnose and sometimes treat conditions that affect the lower urinary tract. Cystoscopy is done using a thin, tube-shaped instrument with a light and camera at the end. After the procedure, it is common to have some soreness or pain in your abdomen and urethra. Watch for any blood in your urine. If the amount of blood in your urine increases, call your health care provider. If you were prescribed an antibiotic medicine, take it as told by your health care provider. Do not stop taking the antibiotic even if you start to feel better. This information is not intended to replace advice given to you by your health care provider. Make sure you discuss any questions you have with your health care provider. Document Revised: 04/05/2022 Document Reviewed: 03/04/2021 [employer] Patient Education 2022 [employer]. Follow Up Care 02/14/2023 10:36:59 With:Clotilde VERDUZCO MD, URL Address: [facility] [address], [place] [address] [phone] When: Unknown Comments:1 yr for repeat cysto/FISH/cyto [facility] 09-27-2020 Note Patient Outreach ([place] VAMN) ANDRES CANELA ([id number]) 1945 M Date Time Provider Department 09/27/20 WEATHERS, JAYANT REILLY During your visit today, we recorded the following information about you: Allergies As of Date: 09/27/2020 (Not on File) Date Reviewed: Never Reviewed Order(s):SARS-COVID VACCINE 1ST DOSE APPT [[id number]] Order #: [id number] FUTURE Problem List As Of Date: 09/27/2020 (None) Letter Text Encounter Status:Closed by DEREK THAO on 09/30/20 [facility] Evaluation + Plan note No data available for this section [facility] Evaluation + Plan note Future Appointments Appointment Date:02/11/2025 08:45:00 AM Scheduled Provider:Clotilde VERDUZCO MD Location:[facility] Appointment Type:URO Office Visit [facility] Evaluation + Plan note Future Appointments Appointment Date:02/11/2025 08:45:00 AM Scheduled Provider:Clotilde VERDUZCO MD Location:[facility] Appointment Type:URO Office Visit Diagnostic Tests [facility] Fish [facility] Urine Cy[facility] ([facility]) 01/28/25 [facility] Evaluation note Diagnosis Iron deficiency anemia due to chronic blood loss- Primary Iron deficiency anemia secondary to blood loss (chronic) [facility] Diagnosis Iron deficiency- Primary Disorders of iron metabolism [facility] Diagnosis Primary osteoarthritis of right shoulder- Primary [facility]* Diagnosis Preop examination- Primary Unspecified pre-operative examination Hypertension, unspecified type Type 2 diabetes mellitus with stage 3b chronic kidney disease, without long-term current use of insulin ([facility]) Chronic kidney disease, unspecified CKD stage [facility]* Diagnosis NSTEMI (non-ST elevated myocardial infarction) ([facility])- Primary Acute myocardial infarction, subendocardial infarction, episode of care unspecified Elevated troponin Other abnormal blood chemistry Essential hypertension Unspecified essential hypertension [facility] Diagnosis Essential hypertension- Primary Unspecified essential hypertension NSTEMI (non-ST elevated myocardial infarction) ([facility]) Acute myocardial infarction, subendocardial infarction, episode of care unspecified [facility]* Diagnosis Iron deficiency- Primary Disorders of iron metabolism Iron deficiency anemia due to chronic blood loss Iron deficiency anemia secondary to blood loss (chronic) documented [facility]* Diagnosis Iron deficiency anemia due to chronic blood loss- Primary Iron deficiency anemia secondary to blood loss (chronic) [facility] Dis[facility] instructions No data available for this section [facility] InstructionsNot on filedocumented in this encounter [facility] filedocumented in this encounter [facility] filedocumented in this encounter [facility] filedocumented in this encounter [facility] on filedocumented in this encounter [facility] on filedocumented in this encounter [facility] on filedocumented in this encounter [facility] on filedocumented in this encounter [facility] No data available for this section [facility] Ze[facility] Summary Purpose Family History No Family History Records FoundNo Family History Records FoundNo Family History Records FoundNo Family History Records FoundNo Family History Records FoundNo Family History Records FoundNo Family History Records Found No data available for this section No data available for this section No Family History Records FoundNo Family History Records Found No data available for this section No data available for this section No Family History Records Found Advance Directives No Advanced Directives Records FoundDocuments on File Type Date Recorded Patient Patient Care Specialist Expl anation DNR Physician Order 09/20/2023 5:12 AM Living Will 09/26/2019 12:59 PM Advance Directive 09/26/2019 12:59 PM DPOA Date Activated Date Inactivated Comments 09/12/2023 8:11 AM 09/14/2023 7:20 PM Date Activated Date Inactivated Comments 09/11/2023 7:26 PM 09/12/2023 8:11 AM Date Activated Date Inactivated Comments 07/10/2023 9:10 AM 07/10/2023 8:02 PM Date Activated Date Inactivated Comments 11/24/2022 2:50 PM 11/24/2022 9:11 PM Documents on File Type Date Recorded Patient Patient Care Specialist Angi anatjaz Living Will 09/26/2019 12:59 PM Advance Directive 09/26/2019 12:59 PM DPOA Latest Code Status on File Code Status Date Activated Date Inactivated Comments Full Code 07/10/2023 9:10 AM 07/10/2023 8:02 PM Code Status History Code Status Date Activated Date Inactivated Comments Full Code 11/24/2022 2:50 PM 11/24/2022 9:11 PM Latest Code Status on File Code Status Date Activated Date Inactivated Comments DNR Comfort Care (DNRCC) [place] 09/12/2023 8:11 AM 7:20 PM Code Status History Code Status Date Activated Date Inactivated Comments Full Code 09/11/2023 7:26 PM 09/12/2023 8:11 AM Full Code 07/10/2023 9:10 AM 07/10/2023 8:02 PM Full Code 11/24/2022 2:50 PM 11/24/2022 9:11 PM Additional Source Comments (unrecognized sect ion and content) No Status Records FoundNo Status Records FoundNo Status Records FoundNo Status Records FoundNo Status Records FoundNo Status Records FoundNo Status Records FoundNo Status Records FoundNo Status Records FoundNo Status Records Found INFORMATION SOURCE (unrecogn ized section and content) DATE CREATED AUTHOR 01/27/2019 [facility] DATE CREATED AUTHOR AUTHOR'S ORGANIZ ATION 08/18/2020 [facility] DATE CREATED AUTHOR AUTHOR'S ORGANIZ ATION 06/28/2021 [facility] [place] [facility] DATE CREATED AUTHOR AUTHOR'S ORGANIZ ATION 09/02/2021 [facility] DATE CREATED AUTHOR AUTHOR'S ORGANIZ ATION 12/09/2021 [facility] dical Specialist DATE CREATED AUTHOR AUTHOR'S ORGANIZ ATION 09/17/2023 [facility] DATE CREATED AUTHOR AUTHOR'S ORGANIZ ATION 03/07/2024 [facility] DATE CREATED AUTHOR AUTHOR'S ORGANIZ ATION [facility]/2024 [facility] DATE CREATED AUTHOR AUTHOR'S ORGANIZ ATION 01/24/2025 [facility] DATE CREATED AUTHOR AUTHOR'S ORGANIZ ATION 01/30/2025 [facility] Patient Care team informatio n (unrecognized section and content) [employer] Relationship Specialty Start Date End Date [facility], [facility] [address] [place], [place] PCP - General Family Medicine 02/19/24 [employer]bags Relationship Specialty Start Date End Date Bud Francis APRN-CNP [address] [place] [address] PCP - General Family Medicine 07/03/22 [employer] Relationship Specialty Start Date End Date Bud Francis APRN-CNP [address] [place] [address] PCP - General Family Medicine 07/03/22 [employer]er [employer]bags Relationship Specialty Start Date End Date [facility] [address] [place], [place] [address] PCP - General Family Medicine 07/03/22 As[employer]er Handbags Relationship Specialty Start Date End Date Bud Francis [facility] [address] [place], [place] [address] PCP - General Family Medicine 07/03/22 As[employer]er Handbags Relationship Specialty Start Date End Date ChadwickyolyBud SUPERVISOR BRIAR [facility] [address] [place], [place] [address] PCP - General Family Medicine 07/03/22 As[employer]er Handbags Relationship Specialty Start Date End Date ChadwickyolyBud SUPERVISOR BRI[facility] [address] [place], [place] [address] PCP - General Family Medicine 07/03/22 [employer]er Handbags Relationship Specialty Start Date End Date Bud Francis [facility] [address] [place], [place] [address] PCP - General Family Medicine 07/03/22 As[employer]er Handbags Relationship Specialty Start Date End Date Services, [facility] [address] [place] PCP - General Family Medicine 02/19/24 [employer] Handbags Relationship Specialty Start Date End Date Services, [facility] [address] [place], [place] PCP - General Family Medicine 02/19/24 [employer]bags Relationship Specialty Start Date End Date LarisaBud SUPERVISOR BRIAR [facility] [address] [place], [place] [address] PCP - General Family Medicine 07/03/22 [employer]er Handbags Relationship Specialty Start Date End Date [facility], [facility] [address] [place] PCP - General Family Medicine 02/19/24 Reason for Visit (unrecogniz ed section and content) Reason Onset Date Comments Med Refill 08/01/2024 Reason Comments New Patient Reason Comments Post-op post op 4 week follo w up Right Reverse Shoulder Reason Comments Med Refill Reason Comments Follow-up OV F/U 4 MO NO TESTS L/S RBP Hypertension Edema Feet and legs Reason Comments Follow-up ov 6-8wk hospital f/ u from BPH Med Refill Edema FOR RECORDS PERTAINING TO PATIENTS WHO ARE OR HAVE BEEN ENROLLED IN A CHEMICAL DEPENDENCY/SUBSTANCEABUSE PROGRAM, SOME INFORMATION MAY BE OMITTED. This clinical summary was aggregated from multiple sources. Caution should be exercised in using it in the provision of clinical care. This summary normalizes information from multiple sources, and as a consequence, information in this document may materially change the coding, format and clinical context of patient data. In addition, data may be omitted in some cases. CLINICAL DECISIONS SHOULD BE BASED ON THE PRIMARY CLINICAL RECORDS. [facility] [employer] [facility]. provides no warranty or guarantee of the accuracy or completeness of information in this document.
--- NOTE | 2025-02-03 07:51 | PC.NURSE ---
Bilateral lower legs split open when having edema; bilateral shins have scattered scabbed areas with pink around those sites and slightly warm to touch; no open areas noted at this time
[2025-02-03] MEDS: CIPROFLOXACIN 400 MG/200 ML D5W PREMIX 200 MG IV (08:37)
--- NOTE | 2025-02-03 09:26 | PM.URSON ---
Urology Surgery Operative Note Operative Note Procedure Date: 02/03/25 Time Out Performed: yes Pre-op Diagnosis: Recurrent bladder tumor Post-op Diagnosis: same as pre-op Procedures performed: 1. Cystoscopy. 2. Transurethral resection of bladder tumor approximately 1 cm Anesthesia: FABIAN Primary Surgeon: Cesar Serrano Complications: None Estimated blood loss (mL): 10 Findings: Long obstructing lateral lobes of the prostate. 1, 1 cm papillary TCC appearing tumor on the central trigone. 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 He was found to have a recurrent tumor on his trigone at surveillance cystoscopy. He now presents for TURBT. He has signed an informed consent after risks were explained Detailed description of Procedure: The patient was brought to the operating room and placed on the operating room table in the supine position. SCDs were placed on the lower extremities and turned on and functioning during the entire case. Timeout was done by all parties in the room. We all agreed upon the patient's identification and the planned procedures for this patient. Genn. anesthesia was then administered. The patient was then repositioned into the modified dorsal lithotomy position. All pressure points were satisfactorily padded. Genitalia were sterilely prepped and draped in usual fashion. I started by passing a 26 Italian Olympus resectoscope with a standard bipolar loop electrode per urethra and into the bladder. The anterior urethra was normal. Prostatic urethra revealed long obstructing lateral lobes. He also had a high median lobe. Careful panendoscopy in the bladder revealed no evidence of any other tumors aside from the classic papillary TCC appearing tumor on the mid trigone. I then uniformly and deeply resected this tumor. The tumor was removed with the resecting loop and sent for permanent sections. The resection bed was then fully coagulated to maintain hemostasis. Upon completion, there was no bleeding. Both orifices effluxed clear urine. No other tumors were in the bladder. The bladder was drained of its contents and the scope was then removed. The anesthetic was then reversed. He was then transferred to a [facility] bed and wheeled to the PACU in stable condition.
--- NOTE | 2025-02-03 10:25 | PC.NURSE ---
Up to bathroom and voids clear pink urine without difficulty
== END 2025-02-03 10:51 | disposition home or self-care (01) ==
LOC: SURGOUT 07:15
PROVIDERS: Visit Provider Urology
PROC: (CPT 52234; principal; 2025-02-03 08:25)
DX: N32.9 Bladder disorder, unspecified (principal); Z85.51 Personal history of malignant neoplasm of bladder; E78.5 Hyperlipidemia, unspecified; M19.90 Unspecified osteoarthritis, unspecified site; I10 Essential (primary) hypertension; E11.9 Type 2 diabetes mellitus without complications; Z79.01 Long term (current) use of anticoagulants; R97.20 Elevated prostate specific antigen [PSA]; Z87.891 Personal history of nicotine dependence; G47.33 Obstructive sleep apnea (adult) (pediatric); Z96.659 Presence of unspecified artificial knee joint; Z96.643 Presence of artificial hip joint, bilateral; Z96.611 Presence of right artificial shoulder joint; J45.909 Unspecified asthma, uncomplicated
CPT/HCPCS: 52234; 36415; 82948; J0744; J1100; J2250; J2371; J2405; J2704; J3010